=== PATIENT | male | born 1945 | race Caucasian/White ===

== ENCOUNTER → 2025-01-28 | Outpatient (CLI) | payer MEDICARE, SELFPAY ==
[2025-01-28 12:26] LABS: Color, Urine Yellow (Yellow); Glucose, Dipstick Normal (Normal); Ketone-Dipstick Negative (Negative); Leukocyte Esterase-Dipstick Negative /ul (Negative); Nitrite-Dipstick Negative (Negative); Occult Blood-Urine Negative /ul (Negative); Protein-Dipstick 15 mg/dl (Negative); Urine Bilirubin Dipstick Negative (Negative); Urine Clarity Clear (Clear); Urine Urobilinogen Normal (Normal)
[2025-01-28 12:29] LABS: Microalbumin,Random Urine 43.1 mg/L (NO RANGE EST.)
[2025-01-28 12:39] LABS: ALB/GLOB Ratio 1.3 RATIO (0.9-2.4); AST(SGOT) 18 U/L (<=37); Alanine Aminotransfer ALT/SGPT 12 U/L (<=46); Albumin, Serum 4.4 g/dL (3.4-4.8); Alkaline Phosphatase 117 U/L (40-129); Anion Gap 14 (5-15); BUN 17 mg/dL (4-19); BUN/Creat Ratio 12.2 RATIO (10-20); Calcium,Total 9.3 mg/dL (7.6-11.0); Carbon Dioxide 20.5 mmol/L (21.0-32.0); Chloride 107 mmol/L (98-108); Creatinine, Serum 1.38 mg/dL (0.70-1.20); EST Glomerular Filtration Rate 52 (>60); Globulin 3.3 g/dL (2.2-4.2); Glucose 94 mg/dL (70-99); Potassium 4.3 mmol/L (3.3-5.1); Protein, Total 7.7 g/dL (5.9-8.4); Sodium Level 141 mmol/L (133-145); Total Bilirubin 0.44 mg/dL (0.00-1.30)
[2025-01-28 12:41] LABS: Absolute Lymphocyte Count 2.27 X10^3/uL (0.83-4.51); Absolute Neutrophil Count 4.7 X10^3/uL (2.0-7.7); Basophil# 0.07 X10^3/uL; Basophil% 0.9 % (0-1); Eosinophils% 3.8 % (0-5); Hematocrit 48.4 % (40-54); Lymphocyte # 2.27 X10^3/ul (0.83-4.51); Lymphocyte % 28.6 % (19-41); Mean Corp Hgb Conc 33.1 g/dL (32-36); Mean Corpuscular Hgb 28.9 pg (27.0-32.0); Mean Corpuscular Volume 87.5 fL (80-94); Monocyte# 0.59 X10^3/uL; Monocyte% 7.4 % (0-10); NRBC Flagged by Analyzer 0 % (0-5); Neutrophil # 4.69 X10^3/uL (2.7-7.7); Neutrophil % 58.9 % (47-70); Platelet Count 246 K/mm3 (150-450); RBC Distribution Width CV 13.4 % (11.6-14.6); RBC Distribution Width SD 42.9 fl (35.1-43.9); Red Blood Count 5.53 M/mm3 (4.6-6.2)
[2025-01-28 12:55] LABS: PSA,Total - Annual Screen 1.63 ng/mL (0.02-4.00)
== END | disposition home or self-care (01) ==
LOC: VSLAB 10:45
DX: I10 Essential (primary) hypertension (principal); R39.9 Unspecified symptoms and signs involving the genitourinary system; Z12.5 Encounter for screening for malignant neoplasm of prostate
CPT/HCPCS: 36415; 80053; 81002; 82043; 84153; 84443; 85025; G0103

== ENCOUNTER → 2025-03-24 | Outpatient (CLI) | payer MEDICARE, SELFPAY ==
[2025-03-24 17:14] LABS: Anion Gap 11 (5-15); BUN 18 mg/dL (4-19); BUN/Creat Ratio 10.9 RATIO (10-20); Calcium,Total 9.7 mg/dL (7.6-11.0); Carbon Dioxide 23.4 mmol/L (21.0-32.0); Chloride 105 mmol/L (98-108); Glucose 92 mg/dL (70-99); Potassium 4.5 mmol/L (3.3-5.1)
== END | disposition home or self-care (01) ==
LOC: VSLAB 13:38
DX: I10 Essential (primary) hypertension (principal)
CPT/HCPCS: 36415; 80048

== ENCOUNTER → 2025-03-30 | Outpatient (CLI) | payer MEDICARE, SELFPAY ==
--- OUTSIDE RECORDS SUMMARY | 2025-03-30 06:10 | XMS RPT_ITS | CCD ---
Author Organization [facility] Care Team Providers Care Quality Auditor Name Role Phone PHYSICIAN, NONE Primary Care Physician Unavailab le ASHLYN SHIFT MECHANIC-TABLE RUNNER, LASHON A Primary Care Physi jana ZULEYMA ESTRADA, SHANNA Kimball Attending Unavailable ASHLYN SHIFT MECHANIC-TABLE RUNNER, LASHON A Primary Care Un available ASHLYN SHIFT MECHANIC-TABLE RUNNER, LASHON A Primary Care Un available TANNER GILLIAM Attending Unavailable MANE, TANNER Consulting Unavailable ASHLYN SHIFT MECHANIC-TABLE RUNNER, LASHON A Primary Care Un available TANNER GILLIAM Attending Unavailable JUANCHO ESTRADA, MADELYN Consulting Unavailable TANNER GILLIAM Attending Unavailable TANNER GILLIAM Admitting Unavailable ASHLYN SHIFT MECHANIC-TABLE RUNNER, LASHON A Primary Care Un available ALFREDO ESTRADA, DR CHARLEEN Rogers Consulting Haley URBAN MD, DR SALMERON Consulting Unavailab virgilio MAGALLANES MD, LUIS Consulting Unavailable LANE ESTRADA, GURPREET Consulting Unavailable CRISTAL ESTRADA, PASCUAL Acuna Consulting Unavailable PHYSICIAN, NONE Primary Care Unavailable MANE, TANNER Consulting Unavailable BASILIO ESTRADA, DR LINDA Keane Attending Unavai radhale ASHLYN SHIFT MECHANIC-TABLE RUNNER, LASHON A Primary Care Un available ASHLYN SHIFT MECHANIC-TABLE RUNNER, LASHON A Attending Un available ZULEYMA ESTRADA, SHANNA Kimball Attending Unavailable ASHLYN SHIFT MECHANIC-TABLE RUNNER, LASHON A Primary Care Un available Beam SHEET METAL ERECTOR-C, Zebulun Primary Care Provider Beam SHEET METAL ERECTOR-C, Zebulun Attending Provider Beam SHEET METAL ERECTOR-C, Zebulun Referring Provider [phone] Daniel ESTRADA, Dr. Forman Attending Provider Beam, Zebulun Attending Unavailable Beam, Zebulun Primary Care Unavailable Beam, Zebulun Primary Care Unavailable Dickson Sanchez Referring Unavailable Dickson Sanchez Attending Unavailable Beam, Jrhome Primary Care Unavailable Beam, Jamal Attending Unavailable Dickson Sanchez Attending Unavailable Beam, [facility] Referring Unavailable Beam, [facility] Primary Care Unavailable Medications Current Medications Medication Drug Class(es) Dates Sig (Normalized) Sig (Original) amoxicillin 875 mg / clavulanate 125 mg oral tablet (1 source) Penicillin-class Antibacterial Start: 02-05-2023 End: 02-09-2023 take 1 tablet by mouth every twelve hours amoxicillin-clav ulanate 875 mg-125 mg oral tablet 1 tab(s), Oral, q12h, X 4 day(s), # 8 tab(s), 0 Refill(s), 02/09/23 17:51:00 EDT, Pharmacy: [facility] #[id number], Appendicitis, 167.6, cm, 02/04/23 14:25:00 EDT, Height, 77.3, kg, 02/04/23 14:25:00 EDT, Dosing Weight Start Date: 02/05/23 Stop Date: 02/09/23 Status: Ordered losartan potassium 50 mg oral tablet (5 sources) Angiotensin 2 Receptor Bridget Start: 09-08-2023 End: 09-02-2024 losartan 50 mg oral tablet Dose : 50 mg = 1 tab(s), Oral, qDay, # 90 tab(s), 3 Refill(s), Pharmacy: [facility] #[id number], 163, cm, 09/08/23 9:22:00 EST, Height, kg, 09/08/23 9:22:00 EST, Dosing Weight Start Date: 09/08/23 Stop Date: 09/02/24 Status: Ordered Start: 02-12-2023 End: 08-11-2023 losartan 50 mg oral tablet D ose : 50 mg = 1 tab(s), Oral, qDay, # 90 tab(s), 1 Refill(s), Pharmacy: [facility] #[id number], 167.6, cm, 02/12/23 15:51:00 EDT, Height, kg, 02/12/23 15:51:00 EDT, Dosing Weight Start Date: 02/12/23 Stop Date: 08/11/23 Status: Ordered Start: 02-05-2023 losartan 50 mg oral tablet Dose : 50 mg = 1 tab(s), Oral, qDay, # 30 tab(s), 0 Refill(s), [facility]: [facility] #[id number], 167.6, cm, 02/04/23 14:25:00 EDT, Height Start Date: 02/05/23 Status: Ordered Completed/Discontinued Medications Medication Drug Class(es) Dates Sig (Normalized) Sig (Original) amLODIPine 5 mg oral tablet (1 source) Dihydropyridine Calcium Channel Bridget Start: 02-08-2025 take 1 tablet by mouth once daily Amlodipine 5 mg tablet Discontinued 5 mg PO daily February 08, 2025 12:00am hydrALAZINE (1 source) Arteriolar Vasodilator Start: 02-05-2023 End: 02-05-2023 hydrALAZINE Start: 02/05/23 9:00:00 EDT, Dose = 25 mg, = 1 tab(s), Oral, 02/04/23 15:00:00 EDT Start Date: 02/05/23 Stop Date: 02/05/23 Status: Completed Problems Problem Classification Problem Date Documented Da te Episodic/Chronic Abdominal hernia (4 sources) Right inguinal hernia 02-12-2023 Episodic Aortic; peripheral; and visceral artery aneurysms (8 sources) Abdominal aortic aneurysm without rupture; Translations: [Abdominal aortic aneurysm, without rupture, unspecified] Onset: 02-05-2023 Chronic Comment on above: 5.1cm noted on CT Appendicitis and other appendiceal conditions (1 source) Appendicitis; Translations: [Unspecified appendicitis] Onset: 02-05-2023 Episodic Chronic kidney disease (4 sources) Chronic kidney disease stage 3 02-17-2023 Chronic Diverticulosis and diverticulitis (4 sources) Diverticular disease 02-12-2023 Chronic Essential hypertension (5 sources) Essential hypertension; Translations: [Essential (primary) hypertension] Onset: 02-05-2023 Chronic Other aftercare (2 sources) Surgical follow-up 06-06-2023 Episodic Other screening for suspected conditions (not mental disorders or infectious disease) (1 source) Encounter for screening for malignant neoplasm of prostate; Translations: [Screening for malignant neoplasm done] Episodic Residual codes; unclassified (1 source) Acquired absence of organ; Translations: [Acquired absence of other specified parts of digestive tract] Onset: 02-05-2023 Episodic Unclassified (5 sources) Patient encounter status 04-28-2023 Unclassified (1 source) Infrarenal abdominal aortic aneurysm, without rupture; Translations: [Infrarenal abdominal aortic aneurysm, without rupture] Onset: 03-25-2025 Results Test Name Value Interpretation Reference Range Facility Basic Metabolic Profile (BMP )on 03-24-2025 BUN/CRE 10.9 RATIO Normal 10-20 [facility] Comment on above: Performed By: #### L 500.2500 #### [facility] [address] [place], [address] Calcium [Mass/Vol] 9.7 mg/dL Normal 7.6-11.0 [facility] Comment on above: Performed By: #### L 500.2500 #### [facility] [address] [place], [address] Chloride [Moles/Vol] 105 mmol/L Normal 98-108 [facility] Comment on above: Performed By: #### L 500.2500 #### [facility] [address] [place], [address] CO2 [Moles/Vol] 23.4 mmol/L Normal 21.0-32.0 [facility] Comment on above: Performed By: #### L 500.2500 #### [facility] [address] [place], [address] Creatinine [Mass/Vol] 1.64 mg/dL High 0.70-1.20 [facility] Comment on above: Performed By: #### L 500.2500 #### [facility] [address] [place], [address] GAP 11 Normal 5-15 [facility] Comment on above: Performed By: #### L 500.2500 #### [facility] [address] [place], [address] GFR/1.73 sq M.predicted among non-blacks MDRD (S/P/Bld) [Vol rate/Area] 42 mL/min/{1.73_m2} Low >60 [facility] Comment on above: Result Comment: mL/m in/1.73m2 CKD-EPI Creatinine Equation (2020) Performed By: #### L 500.2500 #### [facility] [address] [place], [address] Glucose [Mass/Vol] 92 mg/dL Normal 70-99 [facility] Comment on above: Performed By: #### L 500.2500 #### [facility] [address] [place], [address] Potassium [Moles/Vol] 4.5 mmol/L Normal 3.3-5.1 [facility] Comment on above: Performed By: #### L 500.2500 #### [facility] [address] [place], [address] Sodium [Moles/Vol] 140 mmol/L Normal 133-145 [facility] Comment on above: Performed By: #### L 500.2500 #### [facility] [address] [place], [address] Urea nitrogen [Mass/Vol] 18 mg/dL Normal 4-19 [facility] Comment on above: Performed By: #### L 500.2500 #### [facility] [address] [place], [address] MR/BMS.BVTra 03-09-2025 MR/BMS.BVS [facility] [address] [place], [place] [address] OFFICE VISIT Date of Service: 03/09/25 MR#: [id number] Acct: [id number] Name: ROSIBEL STEELE Rep #: [id number] : 1945 Provider: Dr. Dickson Sanchez MD Age/Sex: 79/M Location: BMS.BVS Status: Signed Intake Vital Signs 03/09/25 15:53 BP 170/80 H Blood Pressure Location Lt brachial Position Sitting Respiration 16 Pulse 60 Pulse Source Auscultation Intake Visit Reasons: Abdominal Aortic Aneurysm Is patient in pain?: No Allergies No Known Allergies Allergy (Verified 03/09/25 15:56) Medications ???Medication ???Instructions ???Recorded ???Confirmed ???Type amlodipine 5 mg tablet 5 mg PO QDAY 02/08/25 02/08/25 His tory Have you fallen in the past year?: No PFSH Medical History AAA (abdominal aortic aneurysm) HTN (hypertension) Surgical History Hx of hernia repair ( 2021) Hx of appendectomy ( 2021) Family History Other Cancer Hypertension Social History Smoking Status: Former smoker Tobacco: How many years used: 30 HPI HPI HPI: ROSIBEL STEELE, is a 79 M who presents to the office today for evaluation of 5.4 cm AAA initially discovered in early 2023 on imaging to evaluate appendicitis. He had seen Dr. Mckeon at his [place] location and had CTA at that time though he did not follow up. Scan at that time also suggested renal artery stenosis. He has well controlled HTN on single agent, mildly elevated Cr in January of this year. He denies back or abdominal pain. ROS General General: No weight change, appetite, fatigue, colon cancer, breast cancer or weakness HEENT HEENT: No difficulty swallowing, eye injury, eye surgery, swollen glands or hoarseness Endo Endocrine: No thyroid disease, diabetes mellitus, thyroid cancer, Hair loss, heat intolerance or cold intolerance Skin Skin: No rash or changing moles Musc Musculoskeletal: No back problems, arthritis, rheumatoid arthritis, gout or joint pain Cardio Cardiovascular: Yes high blood pressure; No murmur, pacemaker, heart disease, atrial fibrillation, heart attack, heart stent, palpitations, shortness of breath with exertion or chest pain Psych Psychiatric: No depression, anxiety or hearing voices Resp Respiratory: No shortness of breath, No sleep apnea, No cough, No COPD, No asthma, No emphysema and No wheezing Gastro Gastrointestinal: No abdominal pain, No nausea or vomiting, No diarrhea, No constipation, No blood in stool, No acid reflux, No hemorrhoids, No ulcers, No gallbladder problem and No black,tarry stools Anders Hematologic: No blood thinners, No blood disorders, No bleeding, No anemia and No blood clots Neuro Neurologic: No system reviewed and no additional complaints, except as documented, No as per HPI, No abnormal gait, No abnormal hearing, No abnormal movements, No abnormal speech, No behavioral changes, No burning sensations, No confusion, No convulsions, No disequilibrium, No dizziness, No localized weakness, No frequent falls, No headache(s), No lack of coordination, No loss of vision, No memory loss, No numbness, No other visual disturbances, No radicular pain, No restless legs, No sensory deficit, No syncope, No tingling, No tremor(s), No weakness and No other Exam Const General: cooperative, healthy appearing, comfortable, no acute distress and well developed Nutritional Appearance: well nourished Orientation: alert, awake and oriented x3 [facility] Head: normocephalic and atraumatic Ears: hearing grossly normal bilaterally Nose: external nose normal Eyes General: appearance normal, both eyes and all related structures EOM: EOM intact bilaterally Neck Neck: normal visual inspection, full ROM and trachea midline Resp Effort Inspection: normal respiratory effort, able to speak in complete sentences, symmetric chest movement, no audible wheezes, not labored, no stridor and no use of accessory muscles Cardio Rate: regular rate Rhythm: regular rhythm Pulses: brachial pulses present, radial pulses present and popliteal pulses present GI Inspection: non-distended Palpation: soft, no pulsatile masses and nontender Skin General: no rashes or lesions noted and no erythema Wounds: no wounds Neuro Cranial Nerves: CN's II-XI intact bilaterally and EOM intact bilaterally Speech: speech normal Gait: normal gait Motor: strength 5/5 throughout Sensory Exam: no sensory deficits noted Psych Appearance: grossly normal and well kempt Mental Status: mental status grossly normal Mood: congruent mood Speech and Movement: (more content not included)... Normal [facility] Absolute lymphocyte countOrd ered By: Jamal Hurtado on 01-28-2025 Lymphocytes Auto (Unsp spec) [#/Vol] 2.27 10*3/uL 0.83-4.51 [facility] Absolute neutrophil countOrd ered By: Jrbulun Beam on 01-28-2025 Neutrophils (Bld) [#/Vol] 4.7 10*3/uL 2.0-7.7 [facility] Anion gap in Serum or Plasma Ordered By: Zebulun Beam on 01-28-2025 Anion gap [Moles/Vol] 14 mmol/L 5- [facility] Automated lymphocyte count a s percentage of total leukocytesOrdered By: Jrbulun Beam on 01-28-2025 Lymphocytes/100 WBC Auto (Unsp spec) 28.6 % - [facility] BUN/creatinine ratioOrdered By: bupatricia Beam on 01-28-2025 Urea nitrogen/Creatinine [Mass ratio] 12.2 mg/mg 05-30 [facility] Basophil percentageOrdered B y: Zebulun Beam on 01-28-2025 Basophils/100 WBC (Bld) 0.9 % 0-1 [facility] Bilirubin Test strip Ql (U)O rdered By: Jamal Hurtado on 01-28-2025 Bilirubin Ql (U) Negative Negative [facility] Bilirubin, totalOrdered By: robertopatricia Beam on 01-28-2025 Bilirubin [Mass/Vol] 0.44 mg/dL 0.00-1.30 [facility] CBC W/Diff, Automatedon 01-10 Absolute Lymph 2.27 X10 3/uL Normal 0.83-4.51 [facility] Comment on above: Performed By: #### L , L501.9520, L502.0500, L100.0100, L500.4050, L501.9910 #### [facility] [place], [address] Absolute Neut 4.7 X10 3/uL Normal 2.0-7.7 [facility] Comment on above: Performed By: #### L , L501.9520, L502.0500, L100.0100, L500.4050, L501.9910 #### [facility] [address] [place], [address] Basophils/100 WBC (Bld) 0.9 % Normal 0-1 [facility] Comment on above: Performed By: #### L 400.2010, L501.9520, L502.0500, L100.0100, L500.4050, L501.9910 #### [facility] [address] [place], [address] Eosinophils/100 WBC (Bld) 3.8 % Normal 0-5 [facility] Comment on above: Performed By: #### L 400, L501.9520, L502.0500, L100.0100, L500.4050, L501.9910 #### [facility] [address] [place], [address] Erythrocyte distribution width (RBC) [Ratio] 13.4 % Normal 11.6-14.6 [facility] Comment on above: Performed By: #### L 400, L501.9520, L502.0500, L100.0100, L500.4050, L501.9910 #### [facility] [address] [place], [address] Hematocrit (Bld) [Volume fraction] 48.4 % Normal 40-54 [facility] Comment on above: Performed By: #### L 400, L501.9520, L502.0500, L100.0100, L500.4050, L501.9910 #### [facility] [address] [place], [address] Hemoglobin (Bld) [Mass/Vol] 16.0 g/dL Normal 13.0-16.5 [facility] Comment on above: Performed By: #### L 400, L501.9520, L502.0500, L100.0100, L500.4050, L501.9910 #### [facility] [address] [place], [address] IG% 0.400 Normal 0.0-0.9 [facility] Comment on above: Result Comment: IG% - Immature Granulocytes (promyelocytes, myelocytes and metamyelocytes) > 1% indicates that a LEFT SHIFT is Present. Performed By: #### L 400, L501.9520, L502.0500, L100.0100, L500.4050, L501.9910 #### [facility] [address] [place], [address] Lymphocytes/100 WBC (Bld) 28.6 % Normal 19-41 [facility] Comment on above: Performed By: #### L 400, L501.9520, L502.0500, L100.0100, L500.4050, L501.9910 #### [facility] [address] [place], [address] MCH (RBC) [Entitic mass] 28.9 pg Normal 27.0-32.0 [facility] Comment on above: Performed By: #### L 400, L501.9520, L502.0500, L100.0100, L500.4050, L501.9910 #### [facility] [address] [place], [address] MCHC (RBC) [Mass/Vol] 33.1 g/dL Normal 32-36 [facility] Comment on above: Performed By: #### L 400, L501.9520, L502.0500, L100.0100, L500.4050, L501.9910 #### [facility] [address] [place], [address] MCV (RBC) [Entitic vol] 87.5 fL Normal 80-94 [facility] Comment on above: Performed By: #### L 400, L501.9520, L502.0500, L100.0100, L500.4050, L501.9910 #### [facility] [address] [place], [address] Monocytes/100 WBC (Bld) 7.4 % Normal 0-10 [facility] Comment on above: Performed By: #### L 400, L501.9520, L502.0500, L100.0100, L500.4050, L501.9910 #### [facility] [address] [place], [address] Neutrophils/100 WBC (Bld) 58.9 % Normal 47-70 [facility] Comment on above: Performed By: #### L 400, L501.9520, L502.0500, L100.0100, L500.4050, L501.9910 #### [facility] [address] [place], [address] Nucleated RBC (Bld) [#/Vol] 0 10*3/uL Normal 0-5 [facility] Comment on above: Performed By: #### L 400, L501.9520, L502.0500, L100.0100, L500.4050, L501.9910 #### [facility] [address] [place], [address] Platelet mean volume (Bld) [Entitic vol] 11.0 fL Normal 6.2-12.0 [facility] Comment on above: Performed By: #### L 400, L501.9520, L502.0500, L100.0100, L500.4050, L501.9910 #### [facility] [address] [place], [address] Platelets (Bld) [#/Vol] 246 10*3/uL Normal 150-450 [facility] Comment on above: Performed By: #### L 400, L501.9520, L502.0500, L100.0100, L500.4050, L501.9910 #### [facility] [address] [place], [address] RBC (Bld) [#/Vol] 5.53 10*6/uL Normal 4.6-6.2 [facility] Comment on above: Performed By: #### L 400, L501.9520, L502.0500, L100.0100, L500.4050, L501.9910 #### [facility] [address] [place], [address] RDW SD 42.9 fl Normal 35.1-43.9 [facility] Comment on above: Performed By: #### L 400, L501.9520, L502.0500, L100.0100, L500.4050, L501.9910 #### [facility] [address] [place], [address] WBC (Bld) [#/Vol] 8.0 10*3/uL Normal 4.4-11.0 [facility] Comment on above: Performed By: #### L , L501.9520, L502.0500, L100.0100, L500.4050, L501.9910 #### [facility] [address] [place], [address] Carbon dioxide, total [Moles /volume] in Central venous bloodOrdered By: Jamal Hurtado on 01-28-2025 CO2 [Moles/Vol] 20.5 mmol/L Low 21.0-32.0 [facility] Chloride assayOrdered By: Jr Hurtado on 01-28-2025 Chloride [Moles/Vol] 107 mmol/L 98-108 [facility] Comprehensive Metabolic Prof ilon 01-28-2025 Albumin [Mass/Vol] 4.4 g/dL Normal 3.4-4.8 [facility] Comment on above: Performed By: #### L , L501.9520, L502.0500, L100.0100, L500.4050, L501.9910 #### [facility] [address] [place], [address] Albumin/Globulin [Mass ratio] 1.3 {ratio} Normal 0.9-2.4 [facility] Comment on above: Performed By: #### L 400, L501.9520, L502.0500, L100.0100, L500.4050, L501.9910 #### [facility] [address] [place], [address] ALK PHOS 117 U/L Normal 40-129 [facility] Comment on above: Performed By: #### L 400, L501.9520, L502.0500, L100.0100, L500.4050, L501.9910 #### [facility] [address] [place], [address] ALT [Catalytic activity/Vol] 12 U/L Normal <=46 [facility] Comment on above: Performed By: #### L 400, L501.9520, L502.0500, L100.0100, L500.4050, L501.9910 #### [facility] [address] [place], [address] AST [Catalytic activity/Vol] 18 U/L Normal <=37 [facility] Comment on above: Performed By: #### L 400, L501.9520, L502.0500, L100.0100, L500.4050, L501.9910 #### [facility] [address] [place], [address] Bilirubin [Mass/Vol] 0.44 mg/dL Normal 0.00-1.30 [facility] Comment on above: Performed By: #### L 400, L501.9520, L502.0500, L100.0100, L500.4050, L501.9910 #### [facility] [address] [place], [address] BUN/CRE 12.2 RATIO Normal 10-20 [facility] Comment on above: Performed By: #### L 400.2010, L501.9520, L502.0500, L100.0100, L500.4050, L501.9910 #### [facility] [address] [place], [address] Calcium [Mass/Vol] 9.3 mg/dL Normal 7.6-11.0 [facility] Comment on above: Performed By: #### L 400, L501.9520, L502.0500, L100.0100, L500.4050, L501.9910 #### [facility] [address] [place], [address] Chloride [Moles/Vol] 107 mmol/L Normal 98-108 [facility] Comment on above: Performed By: #### L 400, L501.9520, L502.0500, L100.0100, L500.4050, L501.9910 #### [facility] [address] [place], [address] CO2 [Moles/Vol] 20.5 mmol/L Low 21.0-32.0 [facility] Comment on above: Performed By: #### L 400, L501.9520, L502.0500, L100.0100, L500.4050, L501.9910 #### [facility] [address] [place], [address] Creatinine [Mass/Vol] 1.38 mg/dL High 0.70-1.20 [facility] Comment on above: Performed By: #### L 400, L501.9520, L502.0500, L100.0100, L500.4050, L501.9910 #### [facility] [address] [place], [address] GAP 14 Normal 5-15 [facility] Comment on above: Performed By: #### L 400.2010, L501.9520, L502.0500, L100.0100, L500.4050, L501.9910 #### [facility] [address] [place], [address] GFR/1.73 sq M.predicted among non-blacks MDRD (S/P/Bld) [Vol rate/Area] 52 mL/min/{1.73_m2} Low >60 [facility] Comment on above: Result Comment: mL/m in/1.73m2 CKD-EPI Creatinine Equation (2020) Performed By: #### L 400, L501.9520, L502.0500, L100.0100, L500.4050, L501.9910 #### [facility] [address] [place], [address] Globulin (S) [Mass/Vol] 3.3 g/dL Normal 2.2-4.2 [facility] Comment on above: Performed By: #### L 400.2010, L501.9520, L502.0500, L100.0100, L500.4050, L501.9910 #### [facility] [address] [place], [address] Glucose [Mass/Vol] 94 mg/dL Normal 70-99 [facility] Comment on above: Performed By: #### L 400, L501.9520, L502.0500, L100.0100, L500.4050, L501.9910 #### [facility] [address] [place], [address] Potassium [Moles/Vol] 4.3 mmol/L Normal 3.3-5.1 [facility] Comment on above: Performed By: #### L 400, L501.9520, L502.0500, L100.0100, L500.4050, L501.9910 #### [facility] [address] [place], [address] Sodium [Moles/Vol] 141 mmol/L Normal 133-145 [facility] Comment on above: Performed By: #### L 400, L501.9520, L502.0500, L100.0100, L500.4050, L501.9910 #### [facility] [address] [place], [address] T PROT 7.7 g/dL Normal 5.9-8.4 [facility] Comment on above: Performed By: #### L 400, L501.9520, L502.0500, L100.0100, L500.4050, L501.9910 #### [facility] [address] [place], [address] Urea nitrogen [Mass/Vol] 17 mg/dL Normal 4-19 [facility] Comment on above: Performed By: #### L , L501.9520, L502.0500, L100.0100, L500.4050, L501.9910 #### [facility] [address] [place], [address] Eosinophil percentageOrdered By: Magdalenalun Beam on 01-28-2025 Eosinophils/100 WBC (Bld) 3.8 % 0-5 [facility] [facility] Erythrocyte distribution wid th ratioOrdered By: Zebulun Beam on 01-28-2025 Erythrocyte distribution width (RBC) [Ratio] 13.4 % 11.6-14.6 [facility] Erythrocyte distribution wid th standard deviationOrdered By: Zebulun Beam on 01-28-2025 Erythrocyte distribution width (RBC) [Ratio] 42.9 fl 35.1-43.9 [facility] Glomerular filtration rate ( GFR) estimation/1.73 sq m using serum, plasma, or whole bOrdered By: Zebulun Beam on 01-28-2025 GFR/1.73 sq M.predicted among non-blacks MDRD (S/P/Bld) [Vol rate/Area] 52 mL/min/{1.73_m2} Low >60 [facility] Comment on above: mL/min/1.73m2 CKD-EP I Creatinine Equation (2020) Hematocrit Auto (Bld) [Volum e fraction]Ordered By: Jamal Hurtado on 01-28-2025 Hematocrit (Bld) [Volume fraction] 48.4 % 40-54 [facility] Hemoglobin measurementOrdere d By: Jamal Hurtado on 01-28-2025 Hemoglobin (Bld) [Mass/Vol] 16.0 g/dL 13.0-16.5 [facility] Immature granulocytes/100 WB C Auto (Bld)Ordered By: Ingrisn Genesis on 01-28-2025 Immature granulocytes/100 WBC (Bld) 0.400 % 0.0-0.9 [facility] Comment on above: IG% - Immature Granu locytes (promyelocytes, myelocytes and metamyelocytes) > 1% indicates that a LEFT SHIFT is Present. Ketones Test strip Ql (U)Ord ered By: Jamal Hurtado on 01-28-2025 Ketones Ql (U) Negative Negative [facility] Laboratory - Chemistry and C hemistry - challengeOrdered By: Jamal Hurtado on 01-28-2025 AST [Catalytic activity/Vol] 18 U/L <38 [facility] MCV (mean corpuscular volume ) determinationOrdered By: Jamal Hurtado on 01-28-2025 MCV (RBC) [Entitic vol] 87.5 fL 80-94 [facility] Mean corpuscular hemoglobin (MCH) determinationOrdered By: Magdalenapatricia Hurtado on 01-28-2025 MCH (RBC) [Entitic mass] 28.9 pg 27.0-32.0 [facility] Mean corpuscular hemoglobin concentration (MCHC) determinationOrdered By: Jamal Beam on 01-28-2025 MCHC (RBC) [Mass/Vol] 33.1 g/dL 32-36 [facility] Mean platelet volume determi nationOrdered By: Jamal Hurtado on 01-28-2025 Platelet mean volume (Bld) [Entitic vol] 11.0 fL 6.2-12.0 [facility] Microalbumin,Random Urineon 01-28-2025 MICROALBUMIN,UR 43.1 mg/L Normal NO RANGE EST. [facility] Comment on above: Performed By: #### L 400.2010, L501.9520, L502.0500, L100.0100, L500.4050, L501.9910 #### [facility] [address] [place], [place], [id number] Monocyte percentageOrdered B y: Zebulun Beam on 01-28-2025 Monocytes/100 WBC (Bld) 7.4 % 0-10 [facility] Neutrophil percentageOrdered By: Zebulun Beam on 01-28-2025 Neutrophils/100 WBC (Bld) 58.9 % 47-70 [facility] Nitrite Test strip Ql (U)Ord ered By: Zebulun Beam on 01-28-2025 Nitrite Ql (U) Negative Negative [facility] Nucleated red blood cell per centageOrdered By: Zebulun Beam on 01-28-2025 Nucleated RBC/100 WBC (Bld) [Ratio] 0 % 0-5 [facility] PSA,Total - Annual Screenon 01-28-2025 PSA,TOT SCREEN 1.63 ng/mL Normal 0.02-4.00 [facility] Comment on above: Result Comment: This test was performed using the [employer] tPSA method. Measured values of a patient??sample can vary depending on the testing procedure used. PSA values determined on patient samples by different testing procedures cannot be used interchangeably. If there is a change in PSA assays while monitoring therapy, sequential testing should be performed to confirm baseline values. Performed By: #### L 400.2010, L501.9520, L502.0500, L100.0100, L500.4050, L501.9910 #### [facility] [address] [place], [place], [id number] Platelet countOrdered By: Ze bulun Beam on 01-28-2025 Platelets (Bld) [#/Vol] 246 10*3/uL 150-450 [facility] Potassium measurement (mass/ volume)Ordered By: Jamal Hurtado on 01-28-2025 Potassium (Unsp spec) [Mass/Vol] 4.3 mmol/L 3.3-5.1 [facility] Protein Test strip Ql (U)Ord ered By: Jamal Hurtado on 01-28-2025 Protein Ql (U) 15 mg/dl High Negative [facility] RBC Auto (Bld) [#/Vol]Ordere d By: Jamal Hurtado on 01-28-2025 RBC (Bld) [#/Vol] 5.53 10*6/uL 4.6-6.2 [facility] Serum creatinine measurement (mass/volume)Ordered By: Jamal Hurtado on 01-28-2025 Creatinine [Mass/Vol] 1.38 mg/dL High 0.70-1.20 [facility] Serum globulin measurementOr dered By: Jamal Hurtado on 01-28-2025 Globulin (S) [Mass/Vol] 3.3 g/dL 2.2-4.2 [facility] Serum glucose measurement (m ass/volume)Ordered By: Jamal Hurtado on 01-28-2025 Glucose [Mass/Vol] 94 mg/dL 70-99 [facility] Serum or plasma alanine gage otransferase (ALT) measurementOrdered By: Jamal Hurtado on 01-28-2025 ALT [Catalytic activity/Vol] 12 U/L <47 [facility] Serum or plasma albumin gato urement (mass/volume)Ordered By: Jamal Hurtado on 01-28-2025 Albumin [Mass/Vol] 4.4 g/dL 3.4-4.8 [facility] Serum or plasma albumin/glob ulin mass ratioOrdered By: Jamal Hurtado on 01-28-2025 Albumin/Globulin [Mass ratio] 1.3 {ratio} 0.9-2.4 [facility] Serum or plasma alkaline froylan sphatase measurementOrdered By: Jamal Hurtado on 01-28-2025 ALP [Catalytic activity/Vol] 117 U/L 40-129 [facility] Serum or plasma calcium gato urement (mass/volume)Ordered By: Jamal Hurtado on 01-28-2025 Calcium [Mass/Vol] 9.3 mg/dL 7.6-11.0 [facility] Serum or plasma urea nitroge n measurement (mass/volume)Ordered By: Ingrisn Beam on 01-28-2025 Urea nitrogen [Mass/Vol] 17 mg/dL 4-19 [facility] Sodium levelOrdered By: Magdalena Hurtado on 01-28-2025 Sodium [Moles/Vol] 141 mmol/L 133-145 [facility] TSH DL <= 0.005 mIU/L QnOrde red By: Jamal Hurtado on 01-28-2025 TSH Qn 2.440 uIU/mL 0.300-4.200 [facility] Thyroid Stim Hormone (TSH)on 01-28-2025 TSH 2.440 uIU/mL Normal 0.300-4.200 [facility] Comment on above: Performed By: #### L 400, L501.9520, L502.0500, L100.0100, L500.4050, L501.9910 #### [facility] [address] [place], [place], [id number] Total proteinOrdered By: Roman Hurtado on 01-28-2025 Protein [Mass/Vol] 7.7 g/dL 5.9-8.4 [facility] Urinalysis, Routine (Dipstic k)on 01-28-2025 BILIRUBIN URINE Negative Normal Negative [facility] Comment on above: Order Comment: CLEAN CATCH Performed By: #### L 400, L501.9520, L502.0500, L100.0100, L500.4050, L501.9910 #### [facility] [address] [place], [place], [id number] Clarity (U) Clear Normal Clear [facility] Comment on above: Order Comment: CLEAN CATCH Performed By: #### L 400, L501.9520, L502.0500, L100.0100, L500.4050, L501.9910 #### [facility] [address] [place], [address] Color (U) Yellow Normal Yellow [facility] Comment on above: Order Comment: CLEAN CATCH Performed By: #### L 400.2010, L501.9520, L502.0500, L100.0100, L500.4050, L501.9910 #### [facility] [address] [place], [address] GLUCOSE, UR Normal Normal Normal [facility] Comment on above: Order Comment: CLEAN CATCH Performed By: #### L 400.2010, L501.9520, L502.0500, L100.0100, L500.4050, L501.9910 #### [facility] [address] [place], [address] KETONE UR Negative Normal Negative [facility] Comment on above: Order Comment: CLEAN CATCH Performed By: #### L 400.2010, L501.9520, L502.0500, L100.0100, L500.4050, L501.9910 #### [facility] [address] [place], [address] LEUK ESTERASE Negative Normal Negative [facility] Comment on above: Order Comment: CLEAN CATCH Performed By: #### L 400.2010, L501.9520, L502.0500, L100.0100, L500.4050, L501.9910 #### [facility] [address] [place], [address] Nitrite Ql (U) Negative Normal Negative [facility] Comment on above: Order Comment: CLEAN CATCH Performed By: #### L 400.2010, L501.9520, L502.0500, L100.0100, L500.4050, L501.9910 #### [facility] [address] [place], [address] OCCULT BLOOD-UR Negative Normal Negative [facility] Comment on above: Order Comment: CLEAN CATCH Performed By: #### L 400.2010, L501.9520, L502.0500, L100.0100, L500.4050, L501.9910 #### [facility] [address] [place], [address] pH UR 6.0 Normal 5.0 - 8.0 [facility] Comment on above: Order Comment: CLEAN CATCH Performed By: #### L 400.2010, L501.9520, L502.0500, L100.0100, L500.4050, L501.9910 #### [facility] [address] [place], [address] PROT DIPSTX 15 mg/dl Abnormal Negative [facility] Comment on above: Order Comment: CLEAN CATCH Performed By: #### L 400, L501.9520, L502.0500, L100.0100, L500.4050, L501.9910 #### [facility] [address] [place], [address] SP.GR. DIPSTX 1.010 Normal 1.002-1.030 [facility] Comment on above: Order Comment: CLEAN CATCH Performed By: #### L 400.2010, L501.9520, L502.0500, L100.0100, L500.4050, L501.9910 #### [facility] [address] [place], [address] UROBILI Normal Normal Normal [facility] Comment on above: Order Comment: CLEAN CATCH Performed By: #### L 400, L501.9520, L502.0500, L100.0100, L500.4050, L501.9910 #### [facility] [address] [place], [address] Urine albumin measurement wi detection limit of 20 mg/L or less (mass/volume)Ordered By: Jamal Hurtado on 01-28-2025 Albumin DL <= 20 mg/L (U) [Mass/Vol] 43.1 mg/L NO RANGE EST. [facility] Urine clarityOrdered By: Roman Hurtado on 01-28-2025 Clarity (U) Clear Clear [facility] Urine color determinationOrd ered By: Jamal Hurtado on 01-28-2025 Color (U) Yellow Yellow [facility] Urine glucose detectionOrder ed By: Jamal Hurtado on 01-28-2025 Glucose Ql (U) Normal mg/dl Normal [facility] Urine leukocyte esterase det ection by dipstickOrdered By: Jamal Hurtado on 01-28-2025 Leukocyte esterase Test strip Ql (U) Negative Negative [facility] Urine pHOrdered By: Jamal Hurtado on 01-28-2025 pH (U) 6.0 [pH] 5.0 - 8.0 [facility] Urine specific gravity measu rementOrdered By: Magdalenapatricia Hurtado on 01-28-2025 Specific gravity (U) [Rel density] 1.010 1.002-1.030 [facility] Urine urobilinogen measureme ntOrdered By: Jamal Hurtado on 01-28-2025 Urobilinogen Ql (U) Normal mg/dl Normal [facility] White blood cell (WBC) count Ordered By: Jamal Hurtado on 01-28-2025 WBC (Bld) [#/Vol] 8.0 10*3/uL 4.4-11.0 [facility] [address] ANGIOGRAPHY ABD AORTA + I LIOFEMORALon 10-31-2023 CT ANGIOGRAPHY ABD AORTA + ILIOFEMORAL ORIGINAL EXAMINATION: CTA OF THE ABDOMEN AND PELVIS WITH CONTRAST 10/31/2023 3:45 pm: TECHNIQUE: CTA of the abdomen and pelvis was performed with the administration of intravenous contrast. Multiplanar reformatted images are provided for review. MIP images are provided for review. Automated exposure control, iterative reconstruction, and/or weight based adjustment of the mA/kV was utilized to reduce the radiation dose to as low as reasonably achievable. COMPARISON: 02/04/2023 HISTORY: ORDERING SYSTEM PROVIDED HISTORY: Reason for Exam: AAA FINDINGS: CTA ABDOMEN: Visualized descending thoracic aorta demonstrates no acute CT angiographic abnormality. Fusiform infrarenal abdominal aortic aneurysm noted with maximal aortic diameter of 5.4 cm which is slightly larger compared to 02/04/2023 when it measures approximately 5.3 cm. No acute rupture or dissection. Otherwise, no acute CT angiographic abnormality of the abdominal aorta. 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 Collateral branches opacify inferior mesenteric arterial branches. Critical stenosis at right renal artery origin. Mild-moderate stenosis left renal artery origin noted. CTA PELVIS: Common, internal and external iliac arteries as well as visualized femoral arterial distributions demonstrate no acute CT angiographic abnormality CT: Visualized lower thorax demonstrates mild nodular infiltrative changes posterior lung bases. Correlation with clinical evidence of bronchitis/pneumonitis underlying chronic lung disease suggested. Otherwise, no acute CT abnormality visualized lower thorax. 6.5 cm hepatic cyst unchanged compared to prior study. Otherwise, visualized abdominal organs demonstrate no acute CT abnormality. Visualized GI tract demonstrates right inguinal hernia without strangulation, infarction or obstruction of the hernia sac. Otherwise, no acute CT abnormality of the visualized GI tract. Pelvis: Incomplete visualization right scrotal mass most consistent with hydrocele measuring 7.8 cm. Scrotal ultrasound suggested for further evaluation. Otherwise, no acute CT abnormality. Osseous structures and soft tissues: Foraminal stenosis and exiting nerve effacement/compression lower lumbar spine due to facet hypertrophy. Lumbar MRI suggested if clinical concern of radiculopathy/nerve compression. IMPRESSION: Fusiform infrarenal abdominal aortic aneurysm 5.4 cm in greatest dimension slightly increased in size compared to 02/04/2023 port and measures 5.3 cm in greatest dimension. Surgical/interventiona l consultation suggested. No acute rupture or dissection noted. 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 Incomplete visualization hypodense right scrotal mass most consistent with hydrocele measuring 7.7-7.8 cm in size. Scrotal ultrasound suggested for further evaluation, 6.5 cm hepatic cyst unchanged compared to prior study, foraminal stenosis and exiting nerve compression lower lumbar spine. Mild nodular infiltrative changes posterior lung bases bilaterally. Correlation with clinical evidence of early/mild pneumonia/pneumonitis and underlying chronic lung disease suggested. Interpreted by: Pascual Vee DO Preliminary Report By: Pascual Vee DO Electronically signed By Pascual Vee DO Dictated Date: 10/31/2023 4:16:29 PM Prelim Date: 10/31/2023 4:37:40 PM Sign Date: 10/31/2023 4:37:40 PM Ordering Provider: SHANNA Au [facility] ([place]) .GFRon 10-27-2023 GFR Non- 44 ml/min/1.73sqm Normal [facility] ([place]) Comment on above: Result Comment: GFR Population mean for , Non- Americans Ages 20-29 = 116 mL/min/1.73 sq.m. Ages 30-39 = 107 mL/min/1.73 sq.m. Ages 40-49 = 99 mL/min/1.73 sq.m. Ages 50-59 = 93 mL/min/1.73 sq.m. Ages 60-69 = 85 mL/min/1.73 sq.m. Ages 70+ = 75 mL/min/1.73 sq.m. Chronic Kidney Disease: Less than 60 mL/min/1.73 square meters End Stage Renal Disease: Less than 15 mL/min/1.73 square meters Performed By: #### B UN, CRE, GFR #### [address] [address] GFR 54 ml/min/1.73sqm Normal [facility] ([place]) Comment on above: Result Comment: GFR Population mean for , Non- Americans Ages 20-29 = 116 mL/min/1.73 sq.m. Ages 30-39 = 107 mL/min/1.73 sq.m. Ages 40-49 = 99 mL/min/1.73 sq.m. Ages 50-59 = 93 mL/min/1.73 sq.m. Ages 60-69 = 85 mL/min/1.73 sq.m. Ages 70+ = 75 mL/min/1.73 sq.m. Chronic Kidney Disease: Less than 60 mL/min/1.73 square meters End Stage Renal Disease: Less than 15 mL/min/1.73 square meters Performed By: #### B UN, CRE, GFR #### [address] [address] BUNon 10-27-2023 Urea nitrogen [Mass/Vol] 20 mg/dL High 02-25 [facility] ([place]) Comment on above: Performed By: #### B UN, CRE, GFR #### [address] [place], [place] [address] CREon 10-27-2023 Creatinine [Mass/Vol] 1.53 mg/dL High 0.70-1.30 [facility] ([place]) Comment on above: Performed By: #### B UN, CRE, GFR #### [address] [address] LABORATORYOrdered By: SYSTEM SYSTEM on 10-27-2023 Creatinine [Mass/Vol] 1.53 mg/dL High 0.70 - 1.30 mg/dL AO ADM SS GFR/1.73 sq M.predicted among blacks MDRD (S/P/Bld) [Vol rate/Area] 54 ml/min/1.73sqm Invalid Interpretation Code AO Chemistry S Comment on above: Interpretive Data: GFR Population mean for , Non- Americans Ages 20-29 = 116 mL/min/1.73 sq.m. Ages 30-39 = 107 mL/min/1.73 sq.m. Ages 40-49 = 99 mL/min/1.73 sq.m. Ages 50-59 = 93 mL/min/1.73 sq.m. Ages 60-69 = 85 mL/min/1.73 sq.m. Ages 70+ = 75 mL/min/1.73 sq.m. Chronic Kidney Disease: Less than 60 mL/min/1.73 square meters End Stage Renal Disease: Less than 15 mL/min/1.73 square meters GFR/1.73 sq M.predicted among non-blacks MDRD (S/P/Bld) [Vol rate/Area] 44 ml/min/1.73sqm Invalid Interpretation Code AO Chemistry S Comment on above: Interpretive Data: GFR Population mean for , Non- Americans Ages 20-29 = 116 mL/min/1.73 sq.m. Ages 30-39 = 107 mL/min/1.73 sq.m. Ages 40-49 = 99 mL/min/1.73 sq.m. Ages 50-59 = 93 mL/min/1.73 sq.m. Ages 60-69 = 85 mL/min/1.73 sq.m. Ages 70+ = 75 mL/min/1.73 sq.m. Chronic Kidney Disease: Less than 60 mL/min/1.73 square meters End Stage Renal Disease: Less than 15 mL/min/1.73 square meters Urea nitrogen [Mass/Vol] 20 mg/dL High 7 - 18 mg/dL AO ADM SS .Auto Diffon 05-07-2023 Basophil, Absolute 0.1 10 3/mcL Normal 0.0-0.2 [facility] ([place]) Comment on above: Performed By: #### G FR, ANEU, CBC, BMP, ADIFF #### [address] [address] Basophils/100 WBC (Bld) 1.0 % Normal 0.0-2.5 A [facility] ([place]) Comment on above: Performed By: #### G FR, ANEU, CBC, BMP, ADIFF #### [address] [address] Eosinophil, Absolute 0.3 10 3/mcL Normal 0.0-0.4 [facility] ([place]) Comment on above: Performed By: #### G FR, ANEU, CBC, BMP, ADIFF #### [address] [address] Eosinophils/100 WBC (Bld) 3.3 % Normal 0.0-7.0 [facility] ([place]) Comment on above: Performed By: #### G FR, ANEU, CBC, BMP, ADIFF #### [address] [address] Lymphocyte, Absolute 2.4 10 3/mcL Normal 0.8-3.9 [facility] ([place]) Comment on above: Performed By: #### G FR, ANEU, CBC, BMP, ADIFF #### [address] [address] Lymphocytes/100 WBC (Bld) 24.7 % Normal 10.0-50.0 [facility] ([place]) Comment on above: Performed By: #### G FR, ANEU, CBC, BMP, ADIFF #### [address] [address] Monocyte, Absolute 0.7 10 3/mcL Normal 0.2-1.0 [facility] ([place]) Comment on above: Performed By: #### G FR, ANEU, CBC, BMP, ADIFF #### [address] [address] Monocytes/100 WBC (Bld) 7.6 % Normal 1.7-13.0 A [facility] ([place]) Comment on above: Performed By: #### G FR, ANEU, CBC, BMP, ADIFF #### [address] [address] Neutrophils/100 WBC (Bld) 63.4 % Normal 37.0-80.0 [facility] ([place]) Comment on above: Performed By: #### G FR, ANEU, CBC, BMP, ADIFF #### [address] [address] .GFRon 05-07-2023 GFR 60 ml/min/1.73sqm Normal [facility] ([place]) Comment on above: Result Comment: GFR Population mean for , Non- Americans Ages 20-29 = 116 mL/min/1.73 sq.m. Ages 30-39 = 107 mL/min/1.73 sq.m. Ages 40-49 = 99 mL/min/1.73 sq.m. Ages 50-59 = 93 mL/min/1.73 sq.m. Ages 60-69 = 85 mL/min/1.73 sq.m. Ages 70+ = 75 mL/min/1.73 sq.m. Chronic Kidney Disease: Less than 60 mL/min/1.73 square meters End Stage Renal Disease: Less than 15 mL/min/1.73 square meters Performed By: #### G FR, ANEU, CBC, BMP, ADIFF #### [address] [address] GFR Non- 49 ml/min/1.73sqm Normal [facility] ([place]) Comment on above: Result Comment: GFR Population mean for , Non- Americans Ages 20-29 = 116 mL/min/1.73 sq.m. Ages 30-39 = 107 mL/min/1.73 sq.m. Ages 40-49 = 99 mL/min/1.73 sq.m. Ages 50-59 = 93 mL/min/1.73 sq.m. Ages 60-69 = 85 mL/min/1.73 sq.m. Ages 70+ = 75 mL/min/1.73 sq.m. Chronic Kidney Disease: Less than 60 mL/min/1.73 square meters End Stage Renal Disease: Less than 15 mL/min/1.73 square meters Performed By: #### G FR, ANEU, CBC, BMP, ADIFF #### [address] [address] .NEUABSon 05-07-2023 Neutrophil, Absolute 6.2 10 3/mcL Normal 2.9-6.2 [facility] ([place]) Comment on above: Performed By: #### G FR, ANEU, CBC, BMP, ADIFF #### [address] [address] BMPon 05-07-2023 BUN/Creatinine Ratio 15 ratio Normal 7-27 [facility] ([place]) Comment on above: Performed By: #### G FR, ANEU, CBC, BMP, ADIFF #### [address] [address] Calcium [Mass/Vol] 9.4 mg/dL Normal 8.4-10.2 [facility] ([place]) Comment on above: Performed By: #### G FR, ANEU, CBC, BMP, ADIFF #### [address] [address] Chloride [Moles/Vol] 103 mmol/L Normal 98-107 [facility] ([place]) Comment on above: Performed By: #### G FR, ANEU, CBC, BMP, ADIFF #### [address] [address] CO2 [Moles/Vol] 28 mmol/L Normal 23-31 [facility] ([place]) Comment on above: Performed By: #### G FR, ANEU, CBC, BMP, ADIFF #### [address] [address] Creatinine [Mass/Vol] 1.40 mg/dL High 0.70-1.30 [facility] ([place]) Comment on above: Performed By: #### G FR, ANEU, CBC, BMP, ADIFF #### [address] [address] Electrolyte Balance 7.0 mEq/L Normal 4.0-15.0 [facility] ([place]) Comment on above: Performed By: #### G FR, ANEU, CBC, BMP, ADIFF #### [address] [address] Glucose [Mass/Vol] 111 mg/dL High 83-110 [facility] ([place]) Comment on above: Performed By: #### G FR, ANEU, CBC, BMP, ADIFF #### [address] [address] Potassium [Moles/Vol] 4.7 mmol/L Normal 3.5-5.1 [facility] ([place]) Comment on above: Performed By: #### G FR, ANEU, CBC, BMP, ADIFF #### [address] [address] Sodium [Moles/Vol] 138 mmol/L Normal 136-145 [facility] ([place]) Comment on above: Performed By: #### G FR, ANEU, CBC, BMP, ADIFF #### [address] [address] Urea nitrogen [Mass/Vol] 21 mg/dL High 7-18 [facility] ([place]) Comment on above: Performed By: #### G FR, ANEU, CBC, BMP, ADIFF #### [address] [address] CBCon 05-07-2023 Erythrocyte distribution width (RBC) [Ratio] 15.6 % High 11.5-14.5 [facility] ([place]) Comment on above: Order Comment: Pre-A dmission Testing Performed By: #### G FR, ANEU, CBC, BMP, ADIFF #### [address] [address] Hematocrit (Bld) [Volume fraction] 44.0 % Normal 42.0-52.0 [facility] ([place]) Comment on above: Order Comment: Pre-A dmission Testing Performed By: #### G FR, ANEU, CBC, BMP, ADIFF #### [address] [address] Hgb 14.9 G/dL Normal 14.0-18.0 [facility] ([place]) Comment on above: Order Comment: Pre-A dmission Testing Performed By: #### G FR, ANEU, CBC, BMP, ADIFF #### [address] [address] MCH (RBC) [Entitic mass] 29.3 pg Normal 27.0-31.2 [facility] ([place]) Comment on above: Order Comment: Pre-A dmission Testing Performed By: #### G FR, ANEU, CBC, BMP, ADIFF #### [address] [address] MCHC 33.9 G/dL Normal 31.8-35.4 [facility] ([place]) Comment on above: Order Comment: Pre-A dmission Testing Performed By: #### G FR, ANEU, CBC, BMP, ADIFF #### [address] [address] MCV (RBC) [Entitic vol] 86.5 fL Normal 80.0-94.0 A [facility] ([place]) Comment on above: Order Comment: Pre-A dmission Testing Performed By: #### G FR, ANEU, CBC, BMP, ADIFF #### [address] [address] Platelet 232 10 3/mcL Normal 130-400 [facility] ([place]) Comment on above: Order Comment: Pre-A dmission Testing Performed By: #### G FR, ANEU, CBC, BMP, ADIFF #### [address] [address] Platelet mean volume (Bld) [Entitic vol] 8.9 fL Normal 7.4-10.4 [facility] ([place]) Comment on above: Order Comment: Pre-A dmission Testing Performed By: #### G FR, ANEU, CBC, BMP, ADIFF #### Nadja [address] [address] RBC 5.08 10 6/mcL Normal 4.04-6.13 [facility] ([place]) Comment on above: Order Comment: Pre-A dmission Testing Performed By: #### G FR, ANEU, CBC, BMP, ADIFF #### [address] [place], [place] [address] WBC 9.7 10 3/mcL Normal 4.6-10.8 [facility] ([place]) Comment on above: Order Comment: Pre-A dmission Testing Performed By: #### G FR, ANEU, CBC, BMP, ADIFF #### [address] [place], [place] [address] LABORATORYOrdered By: SYSTEM SYSTEM on 05-07-2023 Basophil, Absolute 0.1 103/mcL Invalid Interpretation Code 0.0 - 0.2 10^3/mcL AO Workflow SS Basophils/100 WBC (Bld) 1.0 % Invalid Interpretation Code 0.0 - 2.5 % AO Workflow SS Calcium [Mass/Vol] 9.4 mg/dL Invalid Interpretation Code 8.4 - 10.2 mg/dL AO ADM SS Chloride [Moles/Vol] 103 mmol/L Invalid Interpretation Code 98 - 107 mmol/L AO ADM SS CO2 [Moles/Vol] 28 mmol/L Invalid Interpretation Code 23 - 31 mmol/L AO ADM SS Creatinine [Mass/Vol] 1.40 mg/dL Invalid Interpretation Code 0.70 - 1.30 mg/dL AO ADM SS Electrolyte Balance 7.0 mEq/L Invalid Interpretation Code 4.0 - 15.0 mEq/L AO ADM SS Eosinophil, Absolute 0.3 103/mcL Invalid Interpretation Code 0.0 - 0.4 10^3/mcL AO Workflow SS Eosinophils/100 WBC (Bld) 3.3 % Invalid Interpretation Code 0.0 - 7.0 % AO Workflow SS Erythrocyte distribution width (RBC) [Ratio] 15.6 % Invalid Interpretation Code 11.5 - 14.5 % AO Workflow SS GFR/1.73 sq M.predicted among blacks MDRD (S/P/Bld) [Vol rate/Area] 60 ml/min/1.73sqm Invalid Interpretation Code AO Chemistry S Comment on above: Interpretive Data: GFR Population mean for , Non- Americans Ages 20-29 = 116 mL/min/1.73 sq.m. Ages 30-39 = 107 mL/min/1.73 sq.m. Ages 40-49 = 99 mL/min/1.73 sq.m. Ages 50-59 = 93 mL/min/1.73 sq.m. Ages 60-69 = 85 mL/min/1.73 sq.m. Ages 70+ = 75 mL/min/1.73 sq.m. Chronic Kidney Disease: Less than 60 mL/min/1.73 square meters End Stage Renal Disease: Less than 15 mL/min/1.73 square meters GFR/1.73 sq M.predicted among non-blacks MDRD (S/P/Bld) [Vol rate/Area] 49 ml/min/1.73sqm Invalid Interpretation Code AO Chemistry S Comment on above: Interpretive Data: GFR Population mean for , Non- Americans Ages 20-29 = 116 mL/min/1.73 sq.m. Ages 30-39 = 107 mL/min/1.73 sq.m. Ages 40-49 = 99 mL/min/1.73 sq.m. Ages 50-59 = 93 mL/min/1.73 sq.m. Ages 60-69 = 85 mL/min/1.73 sq.m. Ages 70+ = 75 mL/min/1.73 sq.m. Chronic Kidney Disease: Less than 60 mL/min/1.73 square meters End Stage Renal Disease: Less than 15 mL/min/1.73 square meters Glucose [Mass/Vol] 111 mg/dL Invalid Interpretation Code 83 - 110 mg/dL AO ADM SS Hematocrit (Bld) [Volume fraction] 44.0 % Invalid Interpretation Code 42.0 - 52.0 % AO Workflow SS Hemoglobin (Bld) [Mass/Vol] 14.9 G/dL Invalid Interpretation Code 14.0 - 18.0 G/dL AO Workflow SS Lymphocyte, Absolute 2.4 103/mcL Invalid Interpretation Code 0.8 - 3.9 10^3/mcL AO Workflow SS Lymphocytes/100 WBC (Bld) 24.7 % Invalid Interpretation Code 10.0 - 50.0 % AO Workflow SS MCH (RBC) [Entitic mass] 29.3 pg Invalid Interpretation Code 27.0 - 31.2 pg AO Workflow SS MCHC 33.9 G/dL Invalid Interpretation Code 31.8 - 35.4 G/dL AO Workflow SS MCV (RBC) [Entitic vol] 86.5 fL Invalid Interpretation Code 80.0 - 94.0 fL AO Workflow SS Monocyte, Absolute 0.7 103/mcL Invalid Interpretation Code 0.2 - 1.0 10^3/mcL AO Workflow SS Monocytes/100 WBC (Bld) 7.6 % Invalid Interpretation Code 1.7 - 13.0 % AO Workflow SS Neutrophil, Absolute 6.2 103/mcL Invalid Interpretation Code 2.9 - 6.2 10^3/mcL AO Workflow SS Neutrophils/100 WBC (Bld) 63.4 % Invalid Interpretation Code 37.0 - 80.0 % AO Workflow SS Platelet mean volume (Bld) [Entitic vol] 8.9 fL Invalid Interpretation Code 7.4 - 10.4 fL AO Workflow SS Platelets (Bld) [#/Vol] 232 103/mcL Invalid Interpretation Code 130 - 400 10^3/mcL AO Workflow SS Potassium [Moles/Vol] 4.7 mmol/L Invalid Interpretation Code 3.5 - 5.1 mmol/L AO ADM SS RBC (Bld) [#/Vol] 5.08 106/mcL Invalid Interpretation Code 4.04 - 6.13 10^6/mcL AO Workflow SS Sodium [Moles/Vol] 138 mmol/L Invalid Interpretation Code 136 - 145 mmol/L AO ADM SS Urea nitrogen [Mass/Vol] 21 mg/dL Invalid Interpretation Code 7 - 18 mg/dL AO ADM SS Urea nitrogen/Creatinine [Mass ratio] 15 ratio Invalid Interpretation Code 7 - 27 ratio AO ADM SS WBC (Bld) [#/Vol] 9.7 103/mcL Invalid Interpretation Code 4.6 - 10.8 10^3/mcL AO Workflow SS .Auto Diffon 02-17-2023 Basophil, Absolute 0.1 10 3/mcL Normal 0.0-0.2 [facility] ([place]) Comment on above: Performed By: #### MAKSIM WHITE #### Nadja [address] [address] Basophils/100 WBC (Bld) 1.0 % Normal 0.0-2.5 A [facility] ([place]) Comment on above: Performed By: #### MAKSIM WHITE #### [address] [address] Eosinophil, Absolute 0.4 10 3/mcL Normal 0.0-0.4 [facility] ([place]) Comment on above: Performed By: #### MAKSIM WHITE #### Nadja [address] [address] Eosinophils/100 WBC (Bld) 3.7 % Normal 0.0-7.0 [facility] ([place]) Comment on above: Performed By: #### MAKSIM WHITE #### Nadja [address] [address] Lymphocyte, Absolute 2.4 10 3/mcL Normal 0.8-3.9 [facility] ([place]) Comment on above: Performed By: #### MAKSIM WHITE #### Nadja [address] [address] Lymphocytes/100 WBC (Bld) 22.2 % Normal 10.0-50.0 [facility] ([place]) Comment on above: Performed By: #### MAKSIM WHITE #### Nadja [address] [address] Monocyte, Absolute 0.8 10 3/mcL Normal 0.2-1.0 [facility] ([place]) Comment on above: Performed By: #### MAKSIM WHITE #### Nadja [address] [address] Monocytes/100 WBC (Bld) 7.1 % Normal 1.7-13.0 A [facility] ([place]) Comment on above: Performed By: #### MAKSIM WHITE #### Nadja [address] [address] Neutrophils/100 WBC (Bld) 66.0 % Normal 37.0-80.0 [facility] ([place]) Comment on above: Performed By: #### MAKSIM WHITE #### [address] [address] .GFRon 02-17-2023 GFR 61 ml/min/1.73sqm Normal [facility] ([place]) Comment on above: Result Comment: GFR Population mean for , Non- Americans Ages 20-29 = 116 mL/min/1.73 sq.m. Ages 30-39 = 107 mL/min/1.73 sq.m. Ages 40-49 = 99 mL/min/1.73 sq.m. Ages 50-59 = 93 mL/min/1.73 sq.m. Ages 60-69 = 85 mL/min/1.73 sq.m. Ages 70+ = 75 mL/min/1.73 sq.m. Chronic Kidney Disease: Less than 60 mL/min/1.73 square meters End Stage Renal Disease: Less than 15 mL/min/1.73 square meters Performed By: #### MAKSIM WHITE #### Nadja [address] [address] GFR Non- 50 ml/min/1.73sqm Normal [facility] ([place]) Comment on above: Result Comment: GFR Population mean for , Non- Americans Ages 20-29 = 116 mL/min/1.73 sq.m. Ages 30-39 = 107 mL/min/1.73 sq.m. Ages 40-49 = 99 mL/min/1.73 sq.m. Ages 50-59 = 93 mL/min/1.73 sq.m. Ages 60-69 = 85 mL/min/1.73 sq.m. Ages 70+ = 75 mL/min/1.73 sq.m. Chronic Kidney Disease: Less than 60 mL/min/1.73 square meters End Stage Renal Disease: Less than 15 mL/min/1.73 square meters Performed By: #### Héctor ZARCO UA #### Nadja [address] [address] .NEUABSon 02-17-2023 Neutrophil, Absolute 7.2 10 3/mcL High 2.9-6.2 [facility] ([place]) Comment on above: Performed By: #### U AMICAO, UA #### [address] [address] BMPon 02-17-2023 BUN/Creatinine Ratio 16 ratio Normal 7-27 [facility] ([place]) Comment on above: Performed By: #### U AMICAO, UA #### [address] [address] Calcium [Mass/Vol] 9.5 mg/dL Normal 8.4-10.2 [facility] ([place]) Comment on above: Performed By: #### U AMICAO, UA #### [address] [address] Chloride [Moles/Vol] 104 mmol/L Normal 98-107 [facility] ([place]) Comment on above: Performed By: #### U AMICAO, UA #### [address] [address] CO2 [Moles/Vol] 26 mmol/L Normal 23-31 [facility] ([place]) Comment on above: Performed By: #### U AMICAO, UA #### [address] [address] Creatinine [Mass/Vol] 1.38 mg/dL High 0.70-1.30 [facility] ([place]) Comment on above: Performed By: #### U AMICAO, UA #### [address] [address] Electrolyte Balance 10.0 mEq/L Normal 4.0-15.0 [facility] ([place]) Comment on above: Performed By: #### U AMICAO, UA #### [address] [address] Glucose [Mass/Vol] 105 mg/dL Normal 83-110 [facility] ([place]) Comment on above: Performed By: #### U AMICAO, UA #### [address] [address] Potassium [Moles/Vol] 5.1 mmol/L Normal 3.5-5.1 [facility] ([place]) Comment on above: Performed By: #### Héctor ZARCO UA #### [address] [address] Sodium [Moles/Vol] 140 mmol/L Normal 136-145 [facility] ([place]) Comment on above: Performed By: #### Héctor ZARCO UA #### [address] [address] Urea nitrogen [Mass/Vol] 22 mg/dL High 7-18 [facility] ([place]) Comment on above: Performed By: #### Héctor ZARCO UA #### [address] [address] CBCon 02-17-2023 Erythrocyte distribution width (RBC) [Ratio] 13.8 % Normal 11.5-14.5 [facility] ([place]) Comment on above: Performed By: #### Héctor ZARCO UA #### [address] [address] Hematocrit (Bld) [Volume fraction] 42.3 % Normal 42.0-52.0 [facility] ([place]) Comment on above: Performed By: #### Héctor ZARCO UA #### [address] [address] Hgb 14.0 G/dL Normal 14.0-18.0 [facility] ([place]) Comment on above: Performed By: #### Héctor ZARCO UA #### [address] [address] MCH (RBC) [Entitic mass] 28.4 pg Normal 27.0-31.2 [facility] ([place]) Comment on above: Performed By: #### Héctor ZARCO UA #### [address] [address] MCHC 33.1 G/dL Normal 31.8-35.4 [facility] ([place]) Comment on above: Performed By: #### Héctor ZARCO UA #### [address] [address] MCV (RBC) [Entitic vol] 85.9 fL Normal 80.0-94.0 A [facility] ([place]) Comment on above: Performed By: #### MAKSIM WHITE #### Nadja [address] [address] Platelet 419 10 3/mcL High 130-400 [facility] ([place]) Comment on above: Performed By: #### MAKSIM WHITE #### Nadja [address] [address] Platelet mean volume (Bld) [Entitic vol] 8.3 fL Normal 7.4-10.4 [facility] ([place]) Comment on above: Performed By: #### MAKSIM WHITE #### Nadja [address] [address] RBC 4.93 10 6/mcL Normal 4.04-6.13 [facility] ([place]) Comment on above: Performed By: #### MAKSIM WHITE #### Nadja [address] [address] WBC 10.9 10 3/mcL High 4.6-10.8 [facility] ([place]) Comment on above: Performed By: #### MAKSIM WHITE #### [address] [address] LABORATORYOrdered By: SYSTEM SYSTEM on 02-17-2023 Basophil, Absolute 0.1 103/mcL Invalid Interpretation Code 0.0 - 0.2 10^3/mcL AO Workflow SS Basophils/100 WBC (Bld) 1.0 % Invalid Interpretation Code 0.0 - 2.5 % AO Workflow SS Calcium [Mass/Vol] 9.5 mg/dL Invalid Interpretation Code 8.4 - 10.2 mg/dL AO ADM SS Chloride [Moles/Vol] 104 mmol/L Invalid Interpretation Code 98 - 107 mmol/L AO ADM SS CO2 [Moles/Vol] 26 mmol/L Invalid Interpretation Code 23 - 31 mmol/L AO ADM SS Creatinine [Mass/Vol] 1.38 mg/dL Invalid Interpretation Code 0.70 - 1.30 mg/dL AO ADM SS Electrolyte Balance 10.0 mEq/L Invalid Interpretation Code 4.0 - 15.0 mEq/L AO ADM SS Eosinophil, Absolute 0.4 103/mcL Invalid Interpretation Code 0.0 - 0.4 10^3/mcL AO Workflow SS Eosinophils/100 WBC (Bld) 3.7 % Invalid Interpretation Code 0.0 - 7.0 % AO Workflow SS Erythrocyte distribution width (RBC) [Ratio] 13.8 % Invalid Interpretation Code 11.5 - 14.5 % AO Workflow SS GFR/1.73 sq M.predicted among blacks MDRD (S/P/Bld) [Vol rate/Area] 61 ml/min/1.73sqm Invalid Interpretation Code AO Chemistry S GFR/1.73 sq M.predicted among non-blacks MDRD (S/P/Bld) [Vol rate/Area] 50 ml/min/1.73sqm Invalid Interpretation Code AO Chemistry S Glucose [Mass/Vol] 105 mg/dL Invalid Interpretation Code 83 - 110 mg/dL AO ADM SS Hematocrit (Bld) [Volume fraction] 42.3 % Invalid Interpretation Code 42.0 - 52.0 % AO Workflow SS Hemoglobin (Bld) [Mass/Vol] 14.0 G/dL Invalid Interpretation Code 14.0 - 18.0 G/dL AO Workflow SS Lymphocyte, Absolute 2.4 103/mcL Invalid Interpretation Code 0.8 - 3.9 10^3/mcL AO Workflow SS Lymphocytes/100 WBC (Bld) 22.2 % Invalid Interpretation Code 10.0 - 50.0 % AO Workflow SS MCH (RBC) [Entitic mass] 28.4 pg Invalid Interpretation Code 27.0 - 31.2 pg AO Workflow SS MCHC 33.1 G/dL Invalid Interpretation Code 31.8 - 35.4 G/dL AO Workflow SS MCV (RBC) [Entitic vol] 85.9 fL Invalid Interpretation Code 80.0 - 94.0 fL AO Workflow SS Monocyte, Absolute 0.8 103/mcL Invalid Interpretation Code 0.2 - 1.0 10^3/mcL AO Workflow SS Monocytes/100 WBC (Bld) 7.1 % Invalid Interpretation Code 1.7 - 13.0 % AO Workflow SS Neutrophil, Absolute 7.2 103/mcL Invalid Interpretation Code 2.9 - 6.2 10^3/mcL AO Workflow SS Neutrophils/100 WBC (Bld) 66.0 % Invalid Interpretation Code 37.0 - 80.0 % AO Workflow SS Platelet mean volume (Bld) [Entitic vol] 8.3 fL Invalid Interpretation Code 7.4 - 10.4 fL AO Workflow SS Platelets (Bld) [#/Vol] 419 103/mcL Invalid Interpretation Code 130 - 400 10^3/mcL AO Workflow SS Potassium [Moles/Vol] 5.1 mmol/L Invalid Interpretation Code 3.5 - 5.1 mmol/L AO ADM SS Prostate specific Ag [Mass/Vol] 1.55 ng/mL Invalid Interpretation Code 0.00 - 4.00 ng/mL AO ADM SS RBC (Bld) [#/Vol] 4.93 106/mcL Invalid Interpretation Code 4.04 - 6.13 10^6/mcL AO Workflow SS Sodium [Moles/Vol] 140 mmol/L Invalid Interpretation Code 136 - 145 mmol/L AO ADM SS Urea nitrogen [Mass/Vol] 22 mg/dL Invalid Interpretation Code 7 - 18 mg/dL AO ADM SS Urea nitrogen/Creatinine [Mass ratio] 16 ratio Invalid Interpretation Code 7 - 27 ratio AO ADM SS WBC (Bld) [#/Vol] 10.9 103/mcL Invalid Interpretation Code 4.6 - 10.8 10^3/mcL AO Workflow SS PSAon 02-17-2023 Prostate Specific Antigen 1.55 ng/mL Normal 0.00-4.00 [facility] ([place]) Comment on above: Performed By: #### MAKSIM WHITE #### [address] [address] Final Surgical Pathology Rep [facility] 02-07-2023 Final Surgical Pathology Report . Pathology Reports Accession: Collected Date/Time: Received Date/Time: Pathologist: [id number] 02/04/2023 17:37 EDT 02/05/2023 08:21 EDT VICTORIANO EATON MD Final Surgical Pathology Report DIAGNOSIS: APPENDIX: - ACUTE APPENDICITIS AND SEROSITIS CLINICAL INFORMATION: Procedure: LAPAROSCOPIC APPENDECTOMY Preoperative diagnosis: ACUTE APPENDICITIS Postoperative diagnosis: ACUTE APPENDICITIS SPECIMEN: A APPENDIX GROSS DESCRIPTION: All parts labelled with patient name and [id number] Received in formalin labeled appendix is sullivan-farnsworth cylindrical portion of tissue with small foci of hemorrhage on the serosal aspect, measuring 5 cm in length with an average diameter of 1.3 cm. The serosal surface shows patchy sullivan-white purulent exudate. The lumen shows necrotic material. Glazier Supervisor sections submitted. RS-1 Dictated by VICTORIANO EAOTN MICROSCOPIC DESCRIPTION: The microscopic examination is performed, except in the case of Gross Only. Electronically Signed by Pathology Report verified by [facility] VICTORIANO EATON Sign out Date: 02/07/2023 09:39 Performing Lab: [facility], [address] [place] [address] Pathology Dept Disclaimer If ancillary studies were utilized, the following Laboratory Developed Test (LDT) disclaimer will apply: Under CLIA requirements, [facility]ology Laboratory is qualified to perform high complexity testing. For all ancillary stains, positive and negative controls stain appropriately. Performance characteristics of immunohistochemical and chromogenic in-situ hybridization tests have been determined by [facility] Laboratory. These tests are used for clinical purposes, They should not be regarded as investigational or for research. Normal [facility] ([place]) .Auto Diffon 02-05-2023 Basophil, Absolute 0.0 10 3/mcL Normal 0.0-0.3 [facility] ([place]) Comment on above: Performed By: #### Héctor ZARCO UA #### [address] [address] Basophils/100 WBC (Bld) 0.0 % Normal 0.0-2.5 A [facility] ([place]) Comment on above: Performed By: #### Héctor ZARCO UA #### [address] [address] Eosinophil, Absolute 0.0 10 3/mcL Normal 0.0-0.7 [facility] ([place]) Comment on above: Performed By: #### U HAROLDO UA #### [address] [address] Eosinophils/100 WBC (Bld) 0.0 % Normal 0.0-6.0 [facility] ([place]) Comment on above: Performed By: #### Hécotr ZARCO UA #### [address] [address] Lymphocyte, Absolute 0.9 10 3/mcL Normal 0.9-4.3 [facility] ([place]) Comment on above: Performed By: #### U AMICAO, UA #### [address] [address] Lymphocytes/100 WBC (Bld) 4.5 % Low 20.0-40.0 [facility] ([place]) Comment on above: Performed By: #### U AMICAO, UA #### Nadja [address] [address] Monocyte, Absolute 1.6 10 3/mcL High 0.1-1.4 [facility] ([place]) Comment on above: Performed By: #### U AMICAO, UA #### [address] [address] Monocytes/100 WBC (Bld) 8.3 % Normal 2.0-13.0 A [facility] ([place]) Comment on above: Performed By: #### U AMICAO UA #### [address] [address] Neutrophils/100 WBC (Bld) 87.2 % High 50.0-75.0 [facility] ([place]) Comment on above: Performed By: #### U AMICAO UA #### [address] [address] .GFRon 02-05-2023 GFR >60 Normal [facility] ([place]) Comment on above: Result Comment: GFR Population mean for , Non- Americans Ages 20-29 = 116 mL/min/1.73 sq.m. Ages 30-39 = 107 mL/min/1.73 sq.m. Ages 40-49 = 99 mL/min/1.73 sq.m. Ages 50-59 = 93 mL/min/1.73 sq.m. Ages 60-69 = 85 mL/min/1.73 sq.m. Ages 70+ = 75 mL/min/1.73 sq.m. Chronic Kidney Disease: Less than 60 mL/min/1.73 square meters End Stage Renal Disease: Less than 15 mL/min/1.73 square meters Performed By: #### B UN, CRE, GFR #### [address] [address] GFR Non- 60 ml/min/1.73sqm Normal [facility] ([place]) Comment on above: Result Comment: GFR Population mean for , Non- Americans Ages 20-29 = 116 mL/min/1.73 sq.m. Ages 30-39 = 107 mL/min/1.73 sq.m. Ages 40-49 = 99 mL/min/1.73 sq.m. Ages 50-59 = 93 mL/min/1.73 sq.m. Ages 60-69 = 85 mL/min/1.73 sq.m. Ages 70+ = 75 mL/min/1.73 sq.m. Chronic Kidney Disease: Less than 60 mL/min/1.73 square meters End Stage Renal Disease: Less than 15 mL/min/1.73 square meters Performed By: #### B UN, CRE, GFR #### [address] [address] .NEUABSon 02-05-2023 Neutrophil, Absolute 17.1 10 3/mcL High 2.3-8.1 A [facility] ([place]) Comment on above: Performed By: #### B UN, CRE, GFR #### [address] [address] A1Con 02-05-2023 HbA1c (Bld) [Mass fraction] 5.2 % Normal 4.0-6.0 [facility] ([place]) Comment on above: Performed By: #### B UN, CRE, GFR #### [address] [address] BMPon 02-05-2023 BUN/Creatinine Ratio 15.3 ratio Normal 10.0-22.0 [facility] ([place]) Comment on above: Performed By: #### B UN, CRE, GFR #### [address] [address] Calcium [Mass/Vol] 8.7 mg/dL Normal 8.7-10.4 [facility] ([place]) Comment on above: Performed By: #### B UN, CRE, GFR #### [address] [address] Chloride [Moles/Vol] 107 mmol/L Normal 98-110 [facility] ([place]) Comment on above: Performed By: #### B UN, CRE, GFR #### [address] [address] CO2 [Moles/Vol] 24 mmol/L Normal 22-32 [facility] ([place]) Comment on above: Performed By: #### B UN, CRE, GFR #### [address] [address] Creatinine [Mass/Vol] 1.18 mg/dL Normal 0.60-1.40 [facility] ([place]) Comment on above: Performed By: #### B UN, CRE, GFR #### [address] [address] Electrolyte Balance 10.0 mEq/L Normal 4.0-15.0 [facility] ([place]) Comment on above: Performed By: #### B UN, CRE, GFR #### [address] [address] Glucose [Mass/Vol] 124 mg/dL High 82-115 [facility] ([place]) Comment on above: Performed By: #### B UN, CRE, GFR #### [address] [address] Potassium [Moles/Vol] 4.5 mmol/L Normal 3.5-5.0 [facility] ([place]) Comment on above: Result Comment: Spec imen slightly hemolyzed. Performed By: #### B UN, CRE, GFR #### [address] [address] Sodium [Moles/Vol] 141 mmol/L Normal 136-145 [facility] ([place]) Comment on above: Performed By: #### B UN, CRE, GFR #### [address] [address] Urea nitrogen [Mass/Vol] 18.0 mg/dL Normal 8.0-22.0 [facility] ([place]) Comment on above: Performed By: #### B UN, CRE, GFR #### [address] [address] CBCon 02-05-2023 Erythrocyte distribution width (RBC) [Ratio] 14.4 % Normal 11.5-15.5 [facility] ([place]) Comment on above: Performed By: #### Héctor ZARCO UA #### [address] [address] Hematocrit (Bld) [Volume fraction] 43.5 % Normal 40.0-52.0 [facility] ([place]) Comment on above: Performed By: #### Héctor ZARCO, UA #### [address] [address] Hgb 14.5 G/dL Normal 13.0-17.5 [facility] ([place]) Comment on above: Performed By: #### Héctor ZARCO UA #### [address] [address] MCH (RBC) [Entitic mass] 28.8 pg Normal 27.0-33.0 [facility] ([place]) Comment on above: Performed By: #### Héctor ZARCO UA #### [address] [address] MCHC 33.2 G/dL Normal 32.0-36.0 [facility] ([place]) Comment on above: Performed By: #### Héctor ZARCO, UA #### [address] [address] MCV (RBC) [Entitic vol] 86.6 fL Normal 81.0-100.0 A [facility] ([place]) Comment on above: Performed By: #### U HAROLDO, UA #### [address] [address] Platelet 189 10 3/mcL Normal 150-450 [facility] ([place]) Comment on above: Performed By: #### U HAROLDO, UA #### [address] [address] Platelet mean volume (Bld) [Entitic vol] 9.6 fL Normal 6.4-10.5 [facility] ([place]) Comment on above: Performed By: #### U MAKSIM ZARCO #### [address] [place], [place] [address] RBC 5.03 10 6/mcL Normal 4.50-6.00 [facility] ([place]) Comment on above: Performed By: #### U HAROLDO UA #### [address]ja [address] [place], [place] [address] WBC 19.6 10 3/mcL High 4.5-10.8 [facility] ([place]) Comment on above: Performed By: #### MAKSIM WHITE #### [address] [place], [place] [address] LABORATORYOrdered By: SYSTEM SYSTEM on 02-05-2023 Basophils (Bld) [#/Vol] 0.0 103/mcL Invalid Interpretation Code 0.0 - 0.3 10^3/mcL Workflow SS Basophils/100 WBC (Bld) 0.0 % Invalid Interpretation Code 0.0 - 2.5 % Workflow SS Calcium [Mass/Vol] 8.7 mg/dL Invalid Interpretation Code 8.7 - 10.4 mg/dL ADM SS Chloride [Moles/Vol] 107 mmol/L Invalid Interpretation Code 98 - 110 mEq/L ADM SS CO2 [Moles/Vol] 24 mmol/L Invalid Interpretation Code 22 - 32 mEq/L ADM SS Creatinine [Mass/Vol] 1.18 mg/dL Invalid Interpretation Code 0.60 - 1.40 mg/dL ADM SS Electrolyte Balance 10.0 mEq/L Invalid Interpretation Code 4.0 - 15.0 mEq/L ADM SS Eosinophils (Bld) [#/Vol] 0.0 103/mcL Invalid Interpretation Code 0.0 - 0.7 10^3/mcL Workflow SS Eosinophils/100 WBC (Bld) 0.0 % Invalid Interpretation Code 0.0 - 6.0 % Workflow SS Erythrocyte distribution width (RBC) [Ratio] 14.4 % Invalid Interpretation Code 11.5 - 15.5 % Workflow SS GFR/1.73 sq M.predicted among blacks MDRD (S/P/Bld) [Vol rate/Area] ml/min/1.73sqm Invalid Interpretation Code Chemistry S GFR/1.73 sq M.predicted among non-blacks MDRD (S/P/Bld) [Vol rate/Area] 60 ml/min/1.73sqm Invalid Interpretation Code Chemistry S Glucose [Mass/Vol] 124 mg/dL Invalid Interpretation Code 82 - 115 mg/dL ADM SS Hematocrit (Bld) [Volume fraction] 43.5 % Invalid Interpretation Code 40.0 - 52.0 % AH Workflow SS Hemoglobin (Bld) [Mass/Vol] 14.5 G/dL Invalid Interpretation Code 13.0 - 17.5 G/dL AH Workflow SS Lymphocytes (Bld) [#/Vol] 0.9 103/mcL Invalid Interpretation Code 0.9 - 4.3 10^3/mcL AH Workflow SS Lymphocytes/100 WBC (Bld) 4.5 % Invalid Interpretation Code 20.0 - 40.0 % AH Workflow SS MCH (RBC) [Entitic mass] 28.8 pg Invalid Interpretation Code 27.0 - 33.0 pg AH Workflow SS MCHC 33.2 G/dL Invalid Interpretation Code 32.0 - 36.0 G/dL AH Workflow SS MCV (RBC) [Entitic vol] 86.6 fL Invalid Interpretation Code 81.0 - 100.0 fL AH Workflow SS Monocytes (Bld) [#/Vol] 1.6 103/mcL Invalid Interpretation Code 0.1 - 1.4 10^3/mcL AH Workflow SS Monocytes/100 WBC (Bld) 8.3 % Invalid Interpretation Code 2.0 - 13.0 % AH Workflow SS Neutrophils (Bld) [#/Vol] 17.1 103/mcL Invalid Interpretation Code 2.3 - 8.1 10^3/mcL AH Workflow SS Neutrophils/100 WBC (Bld) 87.2 % Invalid Interpretation Code 50.0 - 75.0 % AH Workflow SS Platelet mean volume (Bld) [Entitic vol] 9.6 fL Invalid Interpretation Code 6.4 - 10.5 fL AH Workflow SS Platelets (Bld) [#/Vol] 189 103/mcL Invalid Interpretation Code 150 - 450 10^3/mcL AH Workflow SS Potassium [Moles/Vol] 4.5 mmol/L Invalid Interpretation Code 3.5 - 5.0 mEq/L ADM SS Comment on above: Result Comment: Spec imen slightly hemolyzed. RBC (Bld) [#/Vol] 5.03 106/mcL Invalid Interpretation Code 4.50 - 6.00 10^6/mcL AH Workflow SS Sodium [Moles/Vol] 141 mmol/L Invalid Interpretation Code 136 - 145 mEq/L AH ADM SS Urea nitrogen [Mass/Vol] 18.0 mg/dL Invalid Interpretation Code 8.0 - 22.0 mg/dL ADM SS Urea nitrogen/Creatinine [Mass ratio] 15.3 ratio Invalid Interpretation Code 10.0 - 22.0 ratio AH ADM SS WBC (Bld) [#/Vol] 19.6 103/mcL Invalid Interpretation Code 4.5 - 10.8 10^3/mcL AH Workflow SS LABORATORYOrdered By: Lv Beauchamp on 02-05-2023 Cholesterol [Mass/Vol] 172 mg/dL Invalid Interpretation Code 50 - 199 mg/dL ADM SS Cholesterol in HDL [Mass/Vol] 56 mg/dL Invalid Interpretation Code 40 - 59 mg/dL ADM SS Cholesterol in LDL [Mass/Vol] 106 mg/dL Invalid Interpretation Code 0 - 129 mg/dL ADM SS Triglyceride [Mass/Vol] 49 mg/dL Invalid Interpretation Code 3 - 149 mg/dL ADM SS LIPIDon 02-05-2023 Cholesterol [Mass/Vol] 172 mg/dL Normal 50-199 [facility] ([place]) Comment on above: Result Comment: Chol esterol Reference Interval: Less than 200 Desirable 200-239 Borderline high risk 240 and above High risk Performed By: #### B UN, CRE, GFR #### [address] [address] Cholesterol in HDL [Mass/Vol] 56 mg/dL Normal 40-59 [facility] ([place]) Comment on above: Performed By: #### B UN, CRE, GFR #### [address] [address] Cholesterol in LDL [Mass/Vol] 106 mg/dL Normal 0-129 [facility] ([place]) Comment on above: Performed By: #### B UN, CRE, GFR #### [address] [address] Triglyceride [Mass/Vol] 49 mg/dL Normal 3-149 A [facility] ([place]) Comment on above: Performed By: #### B UN, CRE, GFR #### [address] [address] .Auto Diffon 02-04-2023 Basophil, Absolute 0.1 10 3/mcL Normal 0.0-0.2 [facility] ([place]) Comment on above: Performed By: #### B UN, CRE, GFR #### [address] [address] Basophils/100 WBC (Bld) 0.4 % Normal 0.0-2.5 A [facility] ([place]) Comment on above: Performed By: #### B UN, CRE, GFR #### [address] [address] Eosinophil, Absolute 0.1 10 3/mcL Normal 0.0-0.4 [facility] ([place]) Comment on above: Performed By: #### B UN, CRE, GFR #### [address] [address] Eosinophils/100 WBC (Bld) 0.6 % Normal 0.0-7.0 [facility] ([place]) Comment on above: Performed By: #### B UN, CRE, GFR #### [address] [address] Lymphocyte, Absolute 1.2 10 3/mcL Normal 0.8-3.9 [facility] ([place]) Comment on above: Performed By: #### B UN, CRE, GFR #### [address] [address] Lymphocytes/100 WBC (Bld) 8.4 % Low 10.0-50.0 [facility] ([place]) Comment on above: Performed By: #### B UN, CRE, GFR #### [address] [address] Monocyte, Absolute 0.8 10 3/mcL Normal 0.2-1.0 [facility] ([place]) Comment on above: Performed By: #### B UN, CRE, GFR #### [address] [address] Monocytes/100 WBC (Bld) 5.7 % Normal 1.7-13.0 A [facility] ([place]) Comment on above: Performed By: #### B UN, CRE, GFR #### [address] [address] Neutrophils/100 WBC (Bld) 84.9 % High 37.0-80.0 [facility] ([place]) Comment on above: Performed By: #### B UN, CRE, GFR #### [address] [address] .GFRon 02-04-2023 GFR Non- 52 ml/min/1.73sqm Normal [facility] ([place]) Comment on above: Result Comment: GFR Population mean for , Non- Americans Ages 20-29 = 116 mL/min/1.73 sq.m. Ages 30-39 = 107 mL/min/1.73 sq.m. Ages 40-49 = 99 mL/min/1.73 sq.m. Ages 50-59 = 93 mL/min/1.73 sq.m. Ages 60-69 = 85 mL/min/1.73 sq.m. Ages 70+ = 75 mL/min/1.73 sq.m. Chronic Kidney Disease: Less than 60 mL/min/1.73 square meters End Stage Renal Disease: Less than 15 mL/min/1.73 square meters Performed By: #### B UN, CRE, GFR #### [address] [address] GFR 63 ml/min/1.73sqm Normal [facility] ([place]) Comment on above: Result Comment: GFR Population mean for , Non- Americans Ages 20-29 = 116 mL/min/1.73 sq.m. Ages 30-39 = 107 mL/min/1.73 sq.m. Ages 40-49 = 99 mL/min/1.73 sq.m. Ages 50-59 = 93 mL/min/1.73 sq.m. Ages 60-69 = 85 mL/min/1.73 sq.m. Ages 70+ = 75 mL/min/1.73 sq.m. Chronic Kidney Disease: Less than 60 mL/min/1.73 square meters End Stage Renal Disease: Less than 15 mL/min/1.73 square meters Performed By: #### B UN, CRE, GFR #### [place] [address] .MDWon 02-04-2023 Monocyte Distribution Width Not performed Normal 0.00-20.00 [facility] ([place]) Comment on above: Performed By: #### B UN, CRE, GFR #### [place] [address] .NEUABSon 02-04-2023 Neutrophil, Absolute 12.2 10 3/mcL High 2.9-6.2 A [facility] ([place]) Comment on above: Performed By: #### B UN, CRE, GFR #### Nadja [place] [address] .Urinalysis Microscopic (AO) on 02-04-2023 UA Bacteria Trace Abnormal [facility] ([place]) Comment on above: Performed By: #### U AMICAO, UA #### [place] [address] UA Mucous 1+ /hpf Normal [facility] ([place]) Comment on above: Performed By: #### U AMICAO, UA #### [place] [address] UA RBC 0-5 Abnormal None Seen [facility] ([place]) Comment on above: Performed By: #### U AMICAO, UA #### [place] [address] UA Squam Epithelial None Seen Normal None Seen [facility] ([place]) Comment on above: Performed By: #### U AMICAO, UA #### [place] [address] UA WBC 0-5 Abnormal None Seen [facility] ([place]) Comment on above: Performed By: #### U AMICAO, UA #### [place] [address] CBCon 02-04-2023 Erythrocyte distribution width (RBC) [Ratio] 14.2 % Normal 11.5-14.5 [facility] ([place]) Comment on above: Performed By: #### B UN, CRE, GFR #### [address] [address] Hematocrit (Bld) [Volume fraction] 46.7 % Normal 42.0-52.0 [facility] ([place]) Comment on above: Performed By: #### B UN, CRE, GFR #### [address] [address] Hgb 15.7 G/dL Normal 14.0-18.0 [facility] ([place]) Comment on above: Performed By: #### B UN, CRE, GFR #### [address] [address] MCH (RBC) [Entitic mass] 28.8 pg Normal 27.0-31.2 [facility] ([place]) Comment on above: Performed By: #### B UN, CRE, GFR #### [address] [address] MCHC 33.6 G/dL Normal 31.8-35.4 [facility] ([place]) Comment on above: Performed By: #### B UN, CRE, GFR #### [address] [address] MCV (RBC) [Entitic vol] 85.7 fL Normal 80.0-94.0 A [facility] ([place]) Comment on above: Performed By: #### B UN, CRE, GFR #### [address] [address] Platelet 205 10 3/mcL Normal 130-400 [facility] ([place]) Comment on above: Performed By: #### B UN, CRE, GFR #### [address] [address] Platelet mean volume (Bld) [Entitic vol] 8.6 fL Normal 7.4-10.4 [facility] ([place]) Comment on above: Performed By: #### B UN, CRE, GFR #### [address] [address] RBC 5.46 10 6/mcL Normal 4.04-6.13 [facility] ([place]) Comment on above: Performed By: #### B UN, CRE, GFR #### [address] [address] WBC 14.4 10 3/mcL High 4.6-10.8 [facility] ([place]) Comment on above: Performed By: #### B UN, CRE, GFR #### [address] [address] CMPon 02-04-2023 Albumin Level 4.2 G/dL Normal 3.4-4.8 [facility] ([place]) Comment on above: Performed By: #### B UN, CRE, GFR #### [address] [address] Albumin/Globulin [Mass ratio] 1.2 {ratio} Normal 1.1-2.5 [facility] ([place]) Comment on above: Performed By: #### B UN, CRE, GFR #### [address] [address] ALP [Catalytic activity/Vol] 124 U/L Normal 40-135 [facility] ([place]) Comment on above: Performed By: #### B UN, CRE, GFR #### [address] [address] ALT [Catalytic activity/Vol] 20 U/L Normal 16-63 [facility] ([place]) Comment on above: Performed By: #### B UN, CRE, GFR #### [address] [address] AST [Catalytic activity/Vol] 15 U/L Normal 10-40 [facility] ([place]) Comment on above: Performed By: #### B UN, CRE, GFR #### [address] [address] Bili Total 0.8 mg/dL Normal 0.2-1.0 [facility] ([place]) Comment on above: Result Comment: Use of this assay is not recommended for patients undergoing treatment with eltrombopag due to the potential for falsely elevated results. Performed By: #### B UN, CRE, GFR #### [address] [address] BUN/Creatinine Ratio 13 ratio Normal 7-27 [facility] ([place]) Comment on above: Performed By: #### B UN, CRE, GFR #### [address] [address] Calcium [Mass/Vol] 9.4 mg/dL Normal 8.4-10.2 [facility] ([place]) Comment on above: Performed By: #### B UN, CRE, GFR #### [address] [address] Chloride [Moles/Vol] 102 mmol/L Normal 98-107 [facility]) Comment on above: Performed By: #### B UN, CRE, GFR #### [address] [address] CO2 [Moles/Vol] 26 mmol/L Normal 23-31 [facility] ([place]) Comment on above: Performed By: #### B UN, CRE, GFR #### [address] [address] Electrolyte Balance 10.0 mEq/L Normal 4.0-15.0 [facility] ([place]) Comment on above: Performed By: #### B UN, CRE, GFR #### [address] [address] Globulin 3.5 G/dL Normal [facility] ([place]) Comment on above: Performed By: #### B UN, CRE, GFR #### [address] [address] Glucose [Mass/Vol] 119 mg/dL High 83-110 [facility] ([place]) Comment on above: Performed By: #### B UN, CRE, GFR #### [address] [address] Potassium [Moles/Vol] 4.1 mmol/L Normal 3.5-5.1 [facility] ([place]) Comment on above: Performed By: #### B UN, CRE, GFR #### [address] [address] Sodium [Moles/Vol] 138 mmol/L Normal 136-145 [facility] ([place]) Comment on above: Performed By: #### B UN, CRE, GFR #### [address] [address] Total Protein 7.7 G/dL Normal 6.4-8.2 [facility] ([place]) Comment on above: Performed By: #### B UN, CRE, GFR #### [address] [address] Urea nitrogen [Mass/Vol] 18 mg/dL Normal 7-18 [facility] ([place]) Comment on above: Performed By: #### B UN, CRE, GFR #### [address] [address] Creatinine [Mass/Vol] 1.34 mg/dL High 0.70-1.30 [facility] ([place]) Comment on above: Performed By: #### B UN, CRE, GFR #### [address] [address] [address] ABD/PELVIS W/ IV CONTRAST ONLYon 02-04-2023 CT ABD/PELVIS W/ IV CONTRAST ONLY ORIGINAL EXAMINATION: CT OF THE ABDOMEN AND PELVIS WITH CONTRAST02/04/2023 10:42 am TECHNIQUE: CT of the abdomen and pelvis was performed with the administration of intravenous contrast. Multiplanar reformatted images are provided for review. Automated exposure control, iterative reconstruction, and/or weight based adjustment of the mA/kV was utilized to reduce the radiation dose to as low as reasonably achievable. COMPARISON: None HISTORY: ORDERING SYSTEM PROVIDED HISTORY: Reason for Exam: Pain. Sharp right lower quadrant pain onset on Friday. Known right-sided inguinal hernia. FINDINGS: Calcified granuloma seen in the lingula and right lower lobe. Minimal basilar atelectasis. There is no visible pleural or pericardial effusion. The heart is normal in size. [id number] coronary artery atherosclerosis. Numerous low attenuating lesions in the liver, largest the right hepatic lobe measures up to 6.8 cm and 6.5 HU compatible with a hepatic cyst. The gallbladder, spleen, adrenal glands, and pancreas are within normal limits. Symmetric nephrograms. Thinning of the right upper pole cortex likely reflects scarring or atrophy. Subcentimeter left superior pole renal lesion too small to characterize and likely favors a renal cyst. The ureters are normal in course and caliber. The urinary bladder is mildly distended. The prostate is unremarkable. Small hiatal hernia. The large and small bowel demonstrate no obstruction. There is inflammatory changes surrounding a fluid-filled and dilated appendix measuring 1.7 cm. There is no perforation or adjacent loculated fluid collection. Mild colonic diverticulosis without evidence of acute diverticulitis. Atherosclerotic aorta with fusiform infrarenal abdominal aortic aneurysm that measures 5.1 x 4.7 cm and extends to the iliac bifurcation, with intramural thrombus. There is no lymphadenopathy. Large right inguinal hernia containing loops of distal small bowel is visualized and extends into the scrotum without obstruction. Small fat containing left inguinal hernia. There is no fracture or aggressive osseous lesion. Degenerative changes are present in the spine. IMPRESSION: Dilated and inflamed appendix is compatible with acute appendicitis without free air to suggest perforation or abscess formation. Fusiform infrarenal abdominal aortic aneurysm without evidence of hemorrhage with measurements as above. Please see recommendations below. Large right inguinal hernia containing loops of distal small bowel extends into the scrotum, without evidence of obstruction. Diverticulosis without evidence of acute diverticulitis. I have personally reviewed the images of this examination and agree with the resident's findings and interpretation. 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 Recommend follow-up every 6 months and vascular consultation. Reference: J Am Alize Radiol 2013;10:789-794. Interpreted by: Pascual Bauer MD Preliminary Report By: Nuria Tay Electronically signed By Pascual Bauer MD Dictated Date: 02/04/2023 10:44:35 AM Prelim Date: 02/04/2023 11:16:16 AM Sign Date: 02/04/2023 11:18:15 AM Ordering Provider: LINDA Au [facility] ([place]) LABORATORYOrdered By: [employer] on 02-04-2023 HbA1c (Bld) [Mass fraction] 5.2 % Invalid Interpretation Code 4.0 - 6.0 % AH Auto Chem SS TSH Qn 1.821 mIU/mL Invalid Interpretation Code 0.550 - 4.780 mIU/mL AH ADM SS Troponin I.cardiac DL <= 0.01 ng/mL [Mass/Vol] 14.0 ng/L Invalid Interpretation Code 0.0 - 76.2 ng/L AO ADM SS Albumin BCP dye [Mass/Vol] 4.2 G/dL Invalid Interpretation Code 3.4 - 4.8 G/dL AO ADM SS Albumin/Globulin [Mass ratio] 1.2 {ratio} Invalid Interpretation Code 1.1 - 2.5 ratio AO ADM SS ALP [Catalytic activity/Vol] 124 U/L Invalid Interpretation Code 40 - 135 U/L AO ADM SS ALT With P-5'-P [Catalytic activity/Vol] 20 U/L Invalid Interpretation Code 16 - 63 U/L AO ADM SS AST With P-5'-P [Catalytic activity/Vol] 15 U/L Invalid Interpretation Code 10 - 40 U/L AO ADM SS Bilirubin [Mass/Vol] 0.8 mg/dL Invalid Interpretation Code 0.2 - 1.0 mg/dL AO ADM SS Calcium [Mass/Vol] 9.4 mg/dL Invalid Interpretation Code 8.4 - 10.2 mg/dL AO ADM SS Chloride [Moles/Vol] 102 mmol/L Invalid Interpretation Code 98 - 107 mmol/L AO ADM SS CO2 [Moles/Vol] 26 mmol/L Invalid Interpretation Code 23 - 31 mmol/L AO ADM SS Creatinine [Mass/Vol] 1.34 mg/dL Invalid Interpretation Code 0.70 - 1.30 mg/dL AO ADM SS Electrolyte Balance 10.0 mEq/L Invalid Interpretation Code 4.0 - 15.0 mEq/L AO ADM SS GFR/1.73 sq M.predicted among blacks MDRD (S/P/Bld) [Vol rate/Area] 63 ml/min/1.73sqm Invalid Interpretation Code AO Chemistry S GFR/1.73 sq M.predicted among non-blacks MDRD (S/P/Bld) [Vol rate/Area] 52 ml/min/1.73sqm Invalid Interpretation Code AO Chemistry S Globulin 3.5 G/dL Invalid Interpretation Code AO ADM SS Glucose [Mass/Vol] 119 mg/dL Invalid Interpretation Code 83 - 110 mg/dL AO ADM SS Lipase [Catalytic activity/Vol] 31 U/L Invalid Interpretation Code 16 - 77 U/L AO ADM SS Potassium [Moles/Vol] 4.1 mmol/L Invalid Interpretation Code 3.5 - 5.1 mmol/L AO ADM SS Protein [Mass/Vol] 7.7 G/dL Invalid Interpretation Code 6.4 - 8.2 G/dL AO ADM SS Sodium [Moles/Vol] 138 mmol/L Invalid Interpretation Code 136 - 145 mmol/L AO ADM SS Urea nitrogen [Mass/Vol] 18 mg/dL Invalid Interpretation Code 7 - 18 mg/dL AO ADM SS Urea nitrogen/Creatinine [Mass ratio] 13 ratio Invalid Interpretation Code 7 27 ratio AO ADM SS LABORATORYOrdered By: Jonelle Miller on 02-04-2023 Appearance (U) Slightly Cloudy *ABN* (02/04/23 9:58 AM) Invalid Interpretation Code Clear AO Auto Urine SS Bacteria LM.HPF (Urine sed) [#/Area] Trace /HPF Invalid Interpretation Code AO Auto Urine SS Bilirubin Ql (U) Negative (02/04/23 9:58 AM) Invalid Interpretation Code Negative AO Auto Urine SS Color (U) Yellow (02/04/23 9:58 AM) Invalid Interpretation Code AO Auto Urine SS Glucose Test strip (U) [Mass/Vol] Negative Invalid Interpretation Code Negativemg/ dL AO Auto Urine SS Hemoglobin Auto test strip (U) [Mass/Vol] Trace *ABN* (02/04/23 9:58 AM) Invalid Interpretation Code Negative AO Auto Urine SS Ketones Ql (U) 15 mg/dL Invalid Interpretation Code Negativemg/ dL AO Auto Urine SS UA Leuk Est Negative (02/04/23 9:58 AM) Invalid Interpretation Code Negative AO Auto Urine SS UA Mucous 1+ /HPF Invalid Interpretation Code AO Auto Urine SS UA Nitrite Negative (02/04/23 9:58 AM) Invalid Interpretation Code Negative AO Auto Urine SS UA pH 5.5 (02/04/23 9:58 AM) Invalid Interpretation Code 5.0 - 8.0 AO Auto Urine SS UA Protein 100 mg/dL Invalid Interpretation Code Negativemg/ dL AO Auto Urine SS UA RBC 0-5 /HPF Invalid Interpretation Code None Seen/HPF AO Auto Urine SS UA Spec Grav 1.025 (02/04/23 9:58 AM) Invalid Interpretation Code 1.015-1.025 AO Auto Urine SS UA Specimen Type Clean Catch (02/04/23 9:58 AM) Invalid Interpretation Code AO Auto Urine SS UA Squam Epithelial None Seen /HPF Invalid Interpretation Code None Seen/HPF AO Auto Urine SS UA Urobilinogen 0.2 E.U./dL Invalid Interpretation Code 0.2-1.0E.U. /dL AO Auto Urine SS WBC LM.HPF (Urine sed) [#/Area] 0-5 /HPF Invalid Interpretation Code None Seen/HPF AO Auto Urine SS LABORATORYOrdered By: Betsey Serrano on 02-04-2023 Basophil, Absolute 0.1 103/mcL Invalid Interpretation Code 0.0 - 0.2 10^3/mcL AO Hematology S Basophils/100 WBC (Bld) 0.4 % Invalid Interpretation Code 0.0 - 2.5 % AO Hematology S Eosinophil, Absolute 0.1 103/mcL Invalid Interpretation Code 0.0 - 0.4 10^3/mcL AO Hematology S Eosinophils/100 WBC (Bld) 0.6 % Invalid Interpretation Code 0.0 - 7.0 % AO Hematology S Erythrocyte distribution width (RBC) [Ratio] 14.2 % Invalid Interpretation Code 11.5 - 14.5 % AO Hematology S Hematocrit (Bld) [Volume fraction] 46.7 % Invalid Interpretation Code 42.0 - 52.0 % AO Hematology S Hemoglobin (Bld) [Mass/Vol] 15.7 G/dL Invalid Interpretation Code 14.0 - 18.0 G/dL AO Hematology S Lymphocyte, Absolute 1.2 103/mcL Invalid Interpretation Code 0.8 - 3.9 10^3/mcL AO Hematology S Lymphocytes/100 WBC (Bld) 8.4 % Invalid Interpretation Code 10.0 - 50.0 % AO Hematology S MCH (RBC) [Entitic mass] 28.8 pg Invalid Interpretation Code 27.0 - 31.2 pg AO Hematology S MCHC 33.6 G/dL Invalid Interpretation Code 31.8 - 35.4 G/dL AO Hematology S MCV (RBC) [Entitic vol] 85.7 fL Invalid Interpretation Code 80.0 - 94.0 fL AO Hematology S Monocyte distribution width Auto (Bld) [Entitic vol] Not performed Invalid Interpretation Code 0.00 - 20.00 AO Hematology S Monocyte, Absolute 0.8 103/mcL Invalid Interpretation Code 0.2 - 1.0 10^3/mcL AO Hematology S Monocytes/100 WBC (Bld) 5.7 % Invalid Interpretation Code 1.7 - 13.0 % AO Hematology S Neutrophil, Absolute 12.2 103/mcL Invalid Interpretation Code 2.9 - 6.2 10^3/mcL AO Hematology S Neutrophils/100 WBC (Bld) 84.9 % Invalid Interpretation Code 37.0 - 80.0 % AO Hematology S Platelet mean volume (Bld) [Entitic vol] 8.6 fL Invalid Interpretation Code 7.4 - 10.4 fL AO Hematology S Platelets (Bld) [#/Vol] 205 103/mcL Invalid Interpretation Code 130 - 400 10^3/mcL AO Hematology S RBC (Bld) [#/Vol] 5.46 106/mcL Invalid Interpretation Code 4.04 - 6.13 10^6/mcL AO Hematology S WBC (Bld) [#/Vol] 14.4 103/mcL Invalid Interpretation Code 4.6 - 10.8 10^3/mcL AO Hematology S LIPon 02-04-2023 Lipase Level 31 U/L Normal 16-77 [facility] ([place]) Comment on above: Performed By: #### B UN, CRE, GFR #### Nadja Lisa [address] [place] [address] TROPHSon 02-04-2023 Troponin I High Sensitivity 14.0 ng/L Normal 0.0-76.2 [facility] ([place]) Comment on above: Performed By: #### MAKSIM WHITE #### Nadja Lisa [address] [place] [address] TSHon 02-04-2023 TSH 1.821 mIU/mL Normal 0.550-4.780 [facility] ([place]) Comment on above: Result Comment: No te - New Reference Range in effect 20 Performed By: #### B UN, CRE, GFR #### Nadja Lisa [address] [place] [address] UAon 02-04-2023 Color (U) Yellow Normal [facility] ([place]) Comment on above: Performed By: #### U MAKSIM ZARCO #### Nadja Lisa [address] [place] [address] Glucose (U) [Mass/Vol] Negative Normal Negative [facility] ([place]) Comment on above: Performed By: #### MAKSIM WHITE #### Nadja [address] [address] Ketones Ql (U) 15 mg/dL Abnormal Negative [facility] ([place]) Comment on above: Performed By: #### U AMICAO, UA #### Nadja [address] [address] UA Appear Slightly Cloudy Abnormal Clear [facility] ([place]) Comment on above: Performed By: #### U AMICAO, UA #### Nadja [address] [address] UA Blood Trace Abnormal Negative [facility] ([place]) Comment on above: Performed By: #### U AMICAO, UA #### Nadja [place] [address] UA Leuk Est Negative Normal Negative [facility] ([place]) Comment on above: Performed By: #### U AMICAO, UA #### Nadja [place] [address] UA Nitrite Negative Normal Negative [facility] ([place]) Comment on above: Performed By: #### U AMICAO, UA #### Nadja [address] [address] UA pH 5.5 Normal 5.0 - 8.0 [facility] ([place]) Comment on above: Performed By: #### U AMICAO, UA #### Nadja [place] [address] UA Protein 100 mg/dL Abnormal Negative [facility] ([place]) Comment on above: Performed By: #### U AMICAO, UA #### Nadja [address] [address] UA Spec Grav 1.025 Normal 1.015-1.025 [facility] ([place]) Comment on above: Performed By: #### U AMICAO, UA #### Nadja [address] [address] UA Specimen Type Clean Catch Normal [facility] ([place]) Comment on above: Performed By: #### U AMICAO, UA #### Nadja [address] [address] UA Urobilinogen 0.2 E.U./dL Normal 0.2-1.0 [facility] ([place]) Comment on above: Performed By: #### U AMICAO, UA #### Nadja [address] [place], [place] [address] Urobilinogen (U) [Mass/Vol] Negative Normal Negative [facility] ([place]) Comment on above: Performed By: #### U AMICAO, UA #### Nadja [address] [place], [place] [address] Vital Signs Date Time Vital Sign Value Performing Clinician Facility 03-09-2025 15:53-0400 Diastolic blood pressure 80 mm[Hg] Zebulun Beam [employer] Work Phone: [facility] 03-09-2025 15:53-0400 Heart rate 60 /min Zebulun Beam [employer] Work Phone: [facility] 03-09-2025 15:53-0400 Respiratory rate 16 /min Zebulun Beam [employer] Work Phone: [facility] 03-09-2025 15:53-0400 Systolic blood pressure 170 mm[Hg] Zebulun Beam [employer] Work Phone: [facility] 05-07-2023 10:02-0400 Body height 167.6 cm TANNER GILLIAM MD [facility] 05-07-2023 10:02-0400 Body weight 72.7 kg TANNER GILLIAM MD [facility] 05-07-2023 10:02-0400 Body weight 25.88 kg/m2 TANNER GILLIAM MD [facility] 02-05-2023 14:39-0400 Blood Pressure Location TANNER GILLIAM MD [facility] 02-05-2023 14:39-0400 Blood Pressure Method TANNER GILLIAM MD [facility] 02-05-2023 14:39-0400 Body temperature 97.88 [degF] TANNER GILLIAM MD [facility] 02-05-2023 14:39-0400 Diastolic Blood Pressure Non-Invasive 72 1 TANNER GILLIAM MD [facility] 02-05-2023 14:39-0400 Heart rate 61 /min TANNER GILLIAM MD [facility] 02-05-2023 14:39-0400 Reason For Taking VItal Signs TANNER GILLIAM MD [facility] 02-05-2023 14:39-0400 Respiratory rate 17 /min TANNER GILLIAM MD [facility] 02-05-2023 14:39-0400 Systolic Blood Pressure Non-Invasive 126 1 TANNER GILLIAM MD [facility] 02-05-2023 10:49-0400 Blood Pressure Cuff Size TANNER GILLIAM MD [facility] 02-05-2023 10:49-0400 Blood Pressure Location TANNER GILLIAM MD [facility] 02-05-2023 10:49-0400 Blood Pressure Method TANNER GILLIAM MD [facility] 02-05-2023 10:49-0400 Body temperature 97.7 [degF] TANNER GILLIAM MD [facility] 02-05-2023 10:49-0400 Diastolic Blood Pressure Non-Invasive 64 1 TANNER GILLIAM MD [facility] 02-05-2023 10:49-0400 Heart rate 63 /min TANNER GILLIAM MD [facility] 02-05-2023 10:49-0400 Reason For Taking VItal Signs TANNER GILLIAM MD [facility] 02-05-2023 10:49-0400 Respiratory rate 16 /min TANNER GILLIAM MD [facility] 02-05-2023 10:49-0400 Systolic Blood Pressure Non-Invasive 138 1 TANNER GILLIAM MD [facility] 02-05-2023 07:36-0400 Diastolic Blood Pressure Non-Invasive 66 1 TANNER GILLIAM MD [facility] 02-05-2023 07:36-0400 Systolic Blood Pressure Non-Invasive 139 1 TANNER GILLIAM MD [facility] 02-05-2023 07:26-0400 Blood Pressure Cuff Size TANNER GILLIAM MD [facility] 02-05-2023 07:26-0400 Blood Pressure Location TANNER GILLIAM MD [facility] 02-05-2023 07:26-0400 Blood Pressure Method TANNER GILLIAM MD [facility] 02-05-2023 07:26-0400 Body temperature 98.6 [degF] TANNER GILLIAM MD [facility] 02-05-2023 07:26-0400 Heart rate 65 /min TANNER GILLIAM MD [facility] 02-05-2023 07:26-0400 Reason For Taking VItal Signs TANNER GILLIAM MD [facility] 02-05-2023 07:26-0400 Respiratory rate 16 /min TANNER GILLIAM MD [facility] 02-05-2023 04:26-0400 Heart rate 65 /min TANNER GILLIAM MD [facility] 02-04-2023 23:10-0400 Heart rate 63 /min TANNER GILLIAM MD [facility] 02-04-2023 19:44-0400 Heart rate 62 /min TANNER GILLIAM MD [facility] 02-04-2023 18:22-0400 Mean blood pressure 114 mm[Hg] TANNER GILLIAM MD [facility] 02-04-2023 18:04-0400 Mean blood pressure 111 mm[Hg] TANNER GILLIAM MD [facility] 02-04-2023 17:49-0400 Body temperature 97.34 [degF] TANNER GILLIAM MD [facility] 02-04-2023 17:49-0400 Mean blood pressure 120 mm[Hg] TANNER GILLIAM MD [facility] 02-04-2023 17:45-0400 Respiratory Rate - Anes 0 br/min TANNER GILLIAM MD [facility] 02-04-2023 17:40-0400 Respiratory Rate - Anes 15 br/min TANNER GILLIAM MD [facility] 02-04-2023 17:35-0400 Body temperature 97.41 [degF] TANNER GILLIAM MD [facility] 02-04-2023 17:35-0400 Respiratory Rate - Anes 15 br/min TANNER GILLIAM MD [facility] 02-04-2023 17:30-0400 Body temperature 97.47 [degF] TANNER GILLIAM MD [facility] 02-04-2023 17:25-0400 Body temperature 97.48 [degF] TANNER GILLIAM MD [facility] 02-04-2023 15:44-0400 Blood Pressure Cuff Size TANNER GILLIAM MD [facility] 02-04-2023 14:31-0400 Heart rate 50 /min TANNER GILLIAM MD [facility] 02-04-2023 14:25-0400 Body height 167.6 cm TANNER GILLIAM MD [facility] 02-04-2023 14:25-0400 Body weight 77.3 kg TANNER GILLIAM MD [facility] 02-04-2023 14:25-0400 Body weight 27.52 kg/m2 TANNER GILLIAM MD [facility] 02-04-2023 13:26-0400 Diastolic Blood Pressure Non-Invasive [address] LINDA RICHMOND MD [facility] 02-04-2023 13:26-0400 Heart rate 47 /min DR LINDA RICHMOND MD [facility] 02-04-2023 13:26-0400 Respiratory rate 16 /min DR LINDA RICHMOND MD [facility] 02-04-2023 13:26-0400 Systolic Blood Pressure Non-Invasive [address] LINDA RICHMOND MD [facility] 02-04-2023 12:52-0400 Diastolic Blood Pressure Non-Invasive [address] LINDA RICHMOND MD [facility] 02-04-2023 12:52-0400 Heart rate 48 /min DR LINDA RICHMOND MD [facility] 02-04-2023 12:52-0400 Respiratory rate 16 /min DR LINDA RICHMOND MD [facility] 02-04-2023 12:52-0400 Systolic Blood Pressure Non-Invasive [address] LINDA RICHMOND MD [facility] 02-04-2023 11:49-0400 Body temperature 98.96 [degF] DR LINDA RICHMOND MD [facility] 02-04-2023 11:49-0400 Diastolic Blood Pressure Non-Invasive [address] LINDA RICHMOND MD [facility] 02-04-2023 11:49-0400 Heart rate 48 /min DR LINDA RICHMOND MD [facility] 02-04-2023 11:49-0400 Reason For Taking VItal Signs DR LINDA RICHMOND MD [facility] 02-04-2023 11:49-0400 Respiratory rate 16 /min DR LINDA RICHMOND MD [facility] 02-04-2023 11:49-0400 Systolic Blood Pressure Non-Invasive [address] LINDA RICHMOND MD [facility] 02-04-2023 09:40-0400 Body temperature 97.88 [degF] DR LINDA RICHMOND MD [facility] 02-04-2023 09:40-0400 Body weight 76.[address] LINDA RICHMOND MD [facility] Encounters Encounter Date Encounter Type Care Provider Facility Start: 03-30-2025 ambulatory Zebulun Beam Facility:[facility] Start: 03-24-2025 ambulatory Zebulun Beam Facility:[facility] Start: 03-09-2025 End: 03-09-[address] Dickson Sanchez MD [facility] Work Phone: Start: 03-09-2025 End: 03-09-2025 ambulatory Zebulun Beam SHEET MET[employer] E[employer] Work Phone: -[facility] Start: 01-28-2025 End: 01-28-2025 ambulatory Zebulun Beam [employer]C Work Phone: [facility] Work Phone: Start: 01-28-2025 End: 01-28-2025 Patient encounter procedure Zebulun Beam SHEET MET[employer] E[employer]OR[employer]C -[facility] Start: 01-28-2025 End: 01-28-2025 ambulatory Zebulun Beam Facility:[facility] Start: 10-31-2023 End: 11-01-2023 ambulatory SHANNA MCKEON MD Facility:[facility] Start: 10-31-2023 End: 10-31-2023 Patient encounter procedure SHANNA MCKEON MD [facility] Start: 10-27-2023 End: 10-28-2023 ambulatory SHANNA MCKEON MD Facility:[facility] Start: 10-27-2023 End: 10-27-2023 Patient encounter procedure SHANNA MCKEON MD [facility] Start: 05-19-2023 End: 05-19-2023 ambulatory LASHON GOLDBERG SHIFT MECHANIC-TABLE [employer]NER Facility:[facility] Start: 05-07-2023 End: 05-08-2023 ambulatory LASHON GOLDBERG SH[employer] MECH[employer]IC[employer]TABLE [employer] Facility:[facility] Start: 05-07-2023 End: 05-07-2023 Admission to establishment TANNER GILLIAM MD [facility] Start: 02-17-2023 End: 02-18-2023 ambulatory LASHON GOLDBERG SHIFT MECH[employer]IC[employer]TABLE [employer]NER Facility:[facility] Start: 02-17-2023 End: 02-17-2023 Patient encounter procedure LASHON GOLDBERG SHIFT MECH[employer]IC[employer]TABLE [employer]NER [facility] Start: 02-04-2023 End: 02-05-2023 ambulatory MADELYN DAWKINS MD Facility:[facility] Start: 02-04-2023 End: 02-05-2023 Observation TANNER GILLIAM MD [facility] Start: 02-04-2023 End: 02-04-2023 Emergency department patient visit NONE PHYSICIAN Facility:[facility] Start: 02-04-2023 End: 02-04-2023 Emergency department patient visit DR LINDA RICHMOND MD [facility] Procedures Date Procedure Procedure Detail Performing Clinician Start: 01-28-2025 Prostate specific an tigen measurement Zebulun Beam [employer] Work Phone: Comment on above: This test was perfor med using the [employer] tPSA method. Measured values of a patient sample can vary depending on the testing procedure used. PSA values determined on patient samples by different testing procedures cannot be used interchangeably. If there is a change in PSA assays while monitoring therapy, sequential testing should be performed to confirm baseline values. Start: 01-28-2025 Urnls dip stick/tabl et reagent auto microscopy Zebulun Beam [employer] Work Phone: Start: 05-19-2023 Right inguinal herni a (disorder) SHANNA MCKEON MD Start: 02-04-2023 Appendectomy TANNER CHIN MD Payers Date Payer Category Payer Self-pay 2023 Private Health Insurance [id number] 1945 Unknown [id number] 2.16.8 [id number] 1945 Unknown [id number] 2.16.8 [id number] 1945 Unknown [id number] 2.16.8 [id number] 1945 Unknown [id number] 2.16.8 [id number] 1945 Unknown [id number] 2.16.8 [id number] 1945 Unknown [id number] 2.16.8 [id number] 1945 Unknown [id number] 2.16.8 [id number] Unknown [id number] 2.16.8 [id number] Unknown [id number] 2.16.8 [id number] Unknown [id number] 2.16.8 [id number] Unknown [id number] 2.16.8 [id number] Social History Date Type Detail Facility Start: 02-04-2023 End: 03-09-2025 Tobacco smoking status Ex-smoker (finding) [facility] Start: 1945 Sex Assigned At Male [facility] Tobacco smoking stat [facility] Unknown if ever smoked [facility] Work Phone: Functional Status Date Assessment Result Facility 05-07-2023 Functional Status Sensory Deficits None [facility] 02-05-2023 Functional Status Room check performed [facility] 02-05-2023 Functional Status [facility] 02-05-2023 Functional Status Multilevel home [facility] 02-05-2023 Functional Status [facility] 02-05-2023 Functional Status [facility] 02-04-2023 Functional Status [facility] 02-04-2023 Functional Status [facility] 02-04-2023 Functional Status Sensory Deficits None [facility] 02-04-2023 Functional Status Ambulation in [facility] 02-04-2023 Functional Status [facility] Mental Status Date Assessment Result Facility 02-05-2023 Mental Status Oriented x [address] [facility] 02-05-[address] [facility] 02-04-2023 Mental Status Orientation Asse ssment Oriented x 4, Appropriate for developmental age, Oriented to person, Oriented to place, Oriented to time, Oriented to situation [facility] 02-04-[address] [facility] 02-04-2023 Mental Status Orientation Oriented x 4 [facility] 02-04-2023 Mental Status [facility] Clinical Notes 02-04-2023 to 10-31-2023 Note Date & Type Note Facility 10-31-2023 Note ORIGINAL EXAMINATION: CTA OF THE ABDOMEN AND PELVIS WITH CONTRAST 10/31/2023 3:45 pm: TECHNIQUE: CTA of the abdomen and pelvis was performed with the administration of intravenous contrast. Multiplanar reformatted images are provided for review. MIP images are provided for review. Automated exposure control, iterative reconstruction, and/or weight based adjustment of the mA/kV was utilized to reduce the radiation dose to as low as reasonably achievable. COMPARISON: 02/04/2023 HISTORY: ORDERING SYSTEM PROVIDED HISTORY: Reason for Exam: AAA FINDINGS: CTA ABDOMEN: Visualized descending thoracic aorta demonstrates no acute CT angiographic abnormality. Fusiform infrarenal abdominal aortic aneurysm noted with maximal aortic diameter of 5.4 cm which is slightly larger compared to 02/04/2023 when it measures approximately 5.3 cm. No acute rupture or dissection. Otherwise, no acute CT angiographic abnormality of the abdominal aorta. 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 Collateral branches opacify inferior mesenteric arterial branches. Critical stenosis at right renal artery origin. Mild-moderate stenosis left renal artery origin noted. CTA PELVIS: Common, internal and external iliac arteries as well as visualized femoral arterial distributions demonstrate no acute CT angiographic abnormality CT: Visualized lower thorax demonstrates mild nodular infiltrative changes posterior lung bases. Correlation with clinical evidence of bronchitis/pneumonitis underlying chronic lung disease suggested. Otherwise, no acute CT abnormality visualized lower thorax. 6.5 cm hepatic cyst unchanged compared to prior study. Otherwise, visualized abdominal organs demonstrate no acute CT abnormality. Visualized GI tract demonstrates right inguinal hernia without strangulation, infarction or obstruction of the hernia sac. Otherwise, no acute CT abnormality of the visualized GI tract. Pelvis: Incomplete visualization right scrotal mass most consistent with hydrocele measuring 7.8 cm. Scrotal ultrasound suggested for further evaluation. Otherwise, no acute CT abnormality. Osseous structures and soft tissues: Foraminal stenosis and exiting nerve effacement/compression lower lumbar spine due to facet hypertrophy. Lumbar MRI suggested if clinical concern of radiculopathy/nerve compression. IMPRESSION: Fusiform infrarenal abdominal aortic aneurysm 5.4 cm in greatest dimension slightly increased in size compared to 02/04/2023 port and measures 5.3 cm in greatest dimension. Surgical/interventional consultation suggested. No acute rupture or dissection noted. 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 Incomplete visualization hypodense right scrotal mass most consistent with hydrocele measuring 7.7-7.8 cm in size. Scrotal ultrasound suggested for further evaluation, 6.5 cm hepatic cyst unchanged compared to prior study, foraminal stenosis and exiting nerve compression lower lumbar spine. Mild nodular infiltrative changes posterior lung bases bilaterally. Correlation with clinical evidence of early/mild pneumonia/pneumonitis and underlying chronic lung disease suggested. Interpreted by: Pascual Vee DO Preliminary Report By: Pascual Vee DO Electronically signed By Pascual Vee DO Dictated Date: 10/31/2023 4:16:29 PM Prelim Date: 10/31/2023 4:37:40 PM Sign Date: 10/31/2023 4:37:40 PM Ordering Provider: [facility] 02-05-2023 [facility] instructions Patient Education 02/05/2023 16:54:06 Laparoscopic Appendectomy, Adult, Care After Laparoscopic Appendectomy, Adult, Care After This sheet gives you information about how to care for yourself after your procedure. Your health care provider may also give you more specific instructions. If you have problems or questions, contact your health care provider. What can I expect after the procedure? After the procedure, it is common to have: Little energy for normal activities. Mild pain in the area where the incisions were made. Difficulty passing stool (constipation). This can be caused by: ?Pain medicine. ?A decrease in your activity. Follow these instructions at home: Medicines Take kwnf-jgc-putzndt and prescription medicines only as told by your health care provider. If you were prescribed an antibiotic medicine, take it as told by your health care provider. Do not stop taking the antibiotic even if you start to feel better. Do not drive or use heavy machinery while taking prescription pain medicine. Ask your health care provider if the medicine prescribed to you can cause constipation. You may need to take steps to prevent or treat constipation, such as: ?Drink enough fluid to keep your urine pale yellow. ?Take xoko-rcy-gdtavci or prescription medicines. ?Eat foods that are high in fiber, such as beans, whole grains, and fresh fruits and vegetables. ?Limit foods that are high in fat and processed sugars, such as fried or sweet foods. Incision care Follow instructions from your health care provider about how to take care of your incisions. Make sure you: ?Wash your hands with soap and water before and after you change your bandage (dressing). If soap and water are not available, use hand textile cutting machine operator. ?Change your dressing as told by your health care provider. ?Leave stitches (sutures), skin glue, or adhesive strips in place. These skin closures may need to stay in place for 2 weeks or longer. If adhesive strip edges start to loosen and curl up, you may trim the loose edges. Do not remove adhesive strips completely unless your health care provider tells you to do that. Check your incision areas every day for signs of infection. Check for: ?Redness, swelling, or pain. ?Fluid or blood. ?Warmth. ?Pus or a bad smell. Bathing Keep your incisions clean and dry. Clean them as often as told by your health care provider. To do this: 1.Gently wash the incisions with soap and water. 2.Rinse the incisions with water to remove all soap. 3.Pat the incisions dry with a clean towel. Do not rub the incisions. Do not take baths, swim, or use a hot tub for 2 weeks, or until your health care provider approves. You may take showers after [address] Do not drive for 24 hours if you were given a sedative during your procedure. Rest after the procedure. Return to your normal activities as told by your health care provider. Ask your health care provider what activities are safe for you. For 3 weeks, or for as long as told by your health care provider: ?Do not lift anything that is heavier than 10 lb (4.5 kg), or the limit that you are told. ?Do not play contact sports. General instructions If you were sent home with a drain, follow instructions from your health care provider about how to care for it. Take deep breaths. This helps to prevent your lungs from developing an infection (pneumonia). Keep all follow-up visits as told by your health care provider. This is important. Contact a health care provider if: You have redness, swelling, or pain around an incision. You have fluid or blood coming from an incision. Your incision feels warm to the touch. You have pus or a bad smell coming from an incision or dressing. Your incision edges break open after your sutures have been removed. You have increasing pain in your shoulders. You feel dizzy or you faint. You develop shortness of breath. You keep feeling nauseous or you are vomiting. You have diarrhea or you cannot control your bowel functions. You lose your appetite. You develop swelling or pain in your legs. You develop a rash. Get help right away if you have: A fever. Difficulty breathing. Sharp pains in your chest. Summary After a laparoscopic appendectomy, it is common to have little energy for normal activities, mild pain in the area of the incisions, and constipation. Infection is the most common complication after this procedure. Follow your health care provider's instructions about caring for yourself after the procedure. Rest after the procedure. Return to your normal activities as told by your health care provider. Contact your health care provider if you notice signs of infection around your incisions or you develop shortness of breath. Get help right away if you have a fever, chest pain, or difficulty breathing. This information is not intended to replace advice given to you by your health care provider. Make sure you discuss any questions you have with your health care provider. Document Released: 07/28/2006 Document Revised: 01/28/2019 Document Reviewed: 01/28/2019 Handprint Patient Education 2020 [employer]. 02/05/2023 16:53:03 Appendicitis, Adult Appendicitis, Adult Appendicitis is inflammation of the appendix. The appendix is a finger-shaped tube that is attached to the large intestine. If appendicitis is not treated, it can cause the appendix to tear (rupture). A ruptured appendix can lead to a life-threatening infection. It can also cause a painful collection of pus (abscess) to form in the appendix. What are the causes? This condition may be caused by a blockage in the appendix that leads to infection. The blockage can be caused by: A ball of stool (feces). Enlarged lymph glands. In some cases, the cause may not be known. What increases the risk? Age is a risk factor. You are more likely to develop this condition if you are between 10 and 30 years of age. What are the signs or symptoms? Symptoms of this condition include: Pain that starts around the belly button and moves toward the lower right part of the abdomen. The pain can become more severe as time passes. It gets worse with coughing or sudden movements. Tenderness in the lower right abdomen. Nausea. Vomiting. Loss of appetite. Fever. Difficulty passing stool (constipation). Passing very loose stools (diarrhea). Generally feeling unwell. How is this diagnosed? This condition may be diagnosed with: A physical exam. Blood tests. Urine test. To confirm the diagnosis, an ultrasound, MRI, or CT scan may be done. How is this treated? This condition is usually treated with surgery to remove the appendix (appendectomy). There are two methods for doing an appendectomy: Open appendectomy. In this surgery, the appendix is removed through a large incision that is made in the lower right abdomen. This procedure may be recommended if: ?You have major scarring from a previous surgery. ?You have a bleeding disorder. ?You are and are about to give . ?You have a condition that makes it hard to do surgery through small incisions (laparoscopic procedure). This includes severe infection or a ruptured appendix. Laparoscopic appendectomy. In this surgery, the appendix is removed through small incisions. This procedure usually causes less pain and fewer problems than an open appendectomy. It also has a shorter recovery time. If the appendix has ruptured and an abscess has formed: A drain may be placed into the abscess to remove fluid. Antibiotic medicines may be given through an IV. The appendix may or may not need to be removed. Follow these instructions at home: If you had surgery, follow instructions from your health care provider about how to care for yourself at home and how to care for your incision. Medicines Take gufg-hnd-rgdwmxs and prescription medicines only as told by your health care provider. If you were prescribed an antibiotic medicine, take it as told by your health care provider. Do not stop taking the antibiotic even if you start to feel better. Eating and drinking Follow instructions from your health care provider about eating restrictions. You may slowly resume a regular diet once your nausea or vomiting stops. General instructions Do not use any products that contain nicotine or tobacco, such as cigarettes, e-cigarettes, and chewing tobacco. If you need help quitting, ask your health care provider. Do not drive or use heavy machinery while taking prescription pain medicine. Ask your health care provider if the medicine prescribed to you can cause constipation. You may need to take steps to prevent or treat constipation, such as: ?Drink enough fluid to keep your urine pale yellow. ?Take qhbq-rwx-squnleb or prescription medicines. ?Eat foods that are high in fiber, such as beans, whole grains, and fresh fruits and vegetables. ?Limit foods that are high in fat and processed sugars, such as fried or sweet foods. Keep all follow-up visits as told by your health care provider. This is important. Contact a health care provider if: There is pus, blood, or excessive drainage coming from your incision. You have nausea or vomiting. Get help right away if you have: Worsening abdominal pain. A fever. Chills. Fatigue. Muscle aches. Shortness of breath. Summary Appendicitis is inflammation of the appendix. This condition may be caused by a blockage in the appendix that leads to infection. This condition is usually treated with surgery to remove the appendix. This information is not intended to replace advice given to you by your health care provider. Make sure you discuss any questions you have with your health care provider. Document Released: 07/28/2006 Document Revised: 01/13/2019 Document Reviewed: 01/13/2019 Handprint Patient Education 2020 [employer]. Follow Up Care 02/04/2023 13:42:34 With:TANNER GILLIAM MD, Surgery Address: [address] [place] [address] [address] [facility] [place] [address]- When:02/20/2023 13:50:00 Comments:Follow up appointment With:LUIS MAGALLANES MD, [facility], Vascular Service, Vascular Surgeons Address: [address] [facility] [place] [address]- [phone] Business (1) When:Within 4 Week(s) Comments:Follow up in approximately 4 weeks With:LASHON GOLDBERG APRN-[facility] Address: [address] [place] [address] [place] [address]- When:02/12/2023 16:00:00 Comments:PLEASE ARRIVE AT 3:30 PM TO FILL OUT PAPERWORK . BRING YOUR INSURANCE CARD AND PHOTO ID [facility] 02-05-2023 Surgery Hospital Progress note Date of Service 02/05/2023 Chief Complaint Postoperative day #1 Subjective On examination of the patient he is seen resting supine in bed, no acute distress. Patient reports that his right lower abdominal pain is gone however he is experiencing mild pain to the laparoscopic sites. States that he is tolerating his diet without difficulty. Patient reports that he is voiding without difficulty. Patient denies any nausea or vomiting. Patient states that he is passing flatulence. Objective Vitals and Measurements T: 37.0 C (Oral) TMIN: 36.3 C (Temporal Artery) TMAX: 37.0 C (Oral) HR: 65(Apical) RR: 16 BP: 139/66 SpO2: 92% HT: 167.6 cm WT: 77.3 kg BMI: 27.52 Intake and Output 7AM Yesterday to 7AM Today Intake and Output (Last 24 hours) Intake Oral Intake 350.00 Administration Information 1100.00 Output Urine Voided 675.00 Intra-Op EBL 5.00 Stool Count 0.00 Urine Count 0.00 Total Summary Total Intake 1450.00 Total Output 680.00 Fluid Balance 770.00 Physical Exam General: Awake and alert and in no apparent distress. Able to answer questions and speak in full sentences. Supine in bed. Sitting upright. HEENT: Mucous membranes moist and pink. Sclerae anicteric. PERRLA. Heart: Regular rate and rhythm. S1-S2 are present. Lungs: Chest rise symmetrical. Respirations unlabored. Clear to auscultation bilaterally. Abdomen: Soft and nontender. slightly bloated. No guarding or rigidity. Bowel sounds 4 quadrants. Laparoscopic sites are dry and intact. Inguinal hernia reproducible, no changes to skin or erythremia noted Extremities: Freely moving. Skin: Normal color for ethnicity. No pallor or diaphoresis. No jaundice. Psychiatric: Calm and cooperative. Weight Dosing Weight: 77.3 kg (02/04/23) Medications Medications (16) Active Scheduled: (4) acetaminophen PMX 1,000 mg 100 mL, IV Piggyback, q6hr ceFOXitin 1 g, IV Piggyback, q8h enoxaparin 40 mg/ 0.4mL syringe 40 mg 0.4 mL, Subcutaneous, qDay losartan 50 mg tablet 50 mg 1 tab(s), Oral, qDay Continuous: (2) Lactated Ringers 1,000 mL 1,000 mL, Intravenous, 125 mL/hr Lactated Ringers 1,000 mL 1,000 mL, Intravenous, 100 mL/hr PRN: (10) acetaminophen 325 mg Tablet 650 mg 2 tab(s), Oral, q4h acetaminophen-HYDROcodone 325-5 mg tablet 1 tab(s), Oral, q4h hydralazine 20 mg/mL (1mL) vial 10 mg 0.5 mL, IV Push, q6h HYDROmorphone 0.5 mg/0.5 mL PF syringe 0.5 mg 0.5 mL, IV Push, q5min morphine 2 mg/mL 1 mL syringe 2 mg 1 mL, IV Push, q3h morphine 4 mg/mL 1mL INJ 4 mg 1 mL, IV Push, q3h ondansetron 2 mg/ 1 mL 2 mL INJ 4 mg 2 mL, IV Push, AsDirected ondansetron 2 mg/ 1 mL 2 mL INJ 4 mg 2 mL, IV Push, q4h phenol topical 1.4% Spr 1 spray(s), Topical, q1h prochlorperazine 10 mg/2 mL vial 5 mg 1 mL, IV Push, q6h Lab Results 02/05 05:37 WBC: 19.6 H Hgb: 14.5 Hct: 43.5 Platelet: 189 Neutrophil %: 87.2 H Glucose Level: 124 H Sodium Level: 141 Potassium Level: 4.5 BUN: 18.0 Creatinine Lvl (s): 1.18 EKG No qualifying data available. Assessment/Plan This patient is a 77-year-old male who is postoperative day #1 from a laparoscopic appendectomy secondary to acute appendicitis. From a general surgery standpoint the patient is doing very well. Vital signs, laboratory data I/O have been reviewed. Patient with mild abdominal distention however he is passing flatulence. Patient's laparoscopic sites are dry and intact with no signs and symptoms of infection. Elevated white count of more than likely related to active. Plan: 1. Postoperative day #1 -Patient encouraged to mobilize, sit up in chair and ambulate -Continue with multimodality pain control -We will transition the patient to oral antibiotics upon discharge due to small of purulent spillage during manipulation of the appendix during surgery. -Patient will need follow-up with a primary PCP. I did speak to social media job titles in regards to helping the patient find a primary PCP. -Anticipate discharge within the next 24 hours. 2. Medical management per the hospitalist-appreciate input -Patient scheduled for an echocardiogram due to elevated blood pressure 3. Vascular surgery consulted for newly diagnosed 5.1 infrarenal AAA seen on CT scan. Case cussed Dr. Gilliam. Please see his addendum to follow. Digitally Signed by UMER LARKIN on 02/05/2023 10:24 AM [facility] 02-05-2023 Note Discharge Instructions Thank you for allowing [facility] to assist you with your healthcare needs. The following is important discharge information regarding your hospital visit. Your Care Team PHYSICIAN, NONE Your Diagnosis Appendicitis S/P laparoscopic appendectomy AAA (abdominal aortic aneurysm) without rupture HTN (hypertension), benign What to do next Instructions From Your Doctor Operative activity/wound care recommendations No lifting or pushing objects greater than 10 to 15 pounds and no strenuous activity. Walking, using stairs, and riding in the car are acceptable forms of activity and are encouraged in postoperative period. Spirometer use and deep breathing/coughing exercises are also encouraged after discharge to prevent respiratory complications such as pneumonia and blood clots. You may shower. No tub bathing or soaking your incision, and no pools/hot tub until cleared by your surgeon. Wash your incision daily with mild soap and water and pat dry. Post operative medication recommendations/education: It is recommended that you alternate between 650mg and 1000 mg of Tylenol and 400 to 800 mg of Motrin (Ibuprofen or Advil) every 6 hours as needed to optimize pain control after surgery. Constipation after surgery is very common for patients after discharge from the hospital. This is related to anesthesia and analgesia (pain medication.). Concern encouraged to take gffa-hmh-yrpwsaz stool softeners (such as Colace) and over the counter laxatives (such as Miralax) as needed for constipation. Additional medications that can be taken for operative constipation including milk of magnesia, Metamucil and Senokot. 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 [address] [address] [place] [address]- Follow Up with LASHON GOLDBERG APRN-TABLE RUNNER When 02/12/2023 04:00 PM EDT Why: PLEASE ARRIVE AT 3:30 PM TO FILL OUT PAPERWORK . BRING YOUR INSURANCE CARD AND PHOTO ID Where: [address] [place] [address]- Follow Up with LUIS MAGALLANES MD, [facility], Vascular Service, Vascular Surgeons When In 4 weeks Why: Follow up in approximately 4 weeks Where: [address] [facility] [address] [facility] [place] [address]- [phone] Business (1) The Following Activity and Diet Have Been Ordered for You Discharge Activity - Ordered -- May Shower, No strenuous activity, no soaking in a hot tub, bathtub or pool until seen and cleared by Dr. Gilliam. You may shower. No lifting anything greater than 10 to 15 pounds until follow-up, 02/05/23 15:00:00 EDT Discharge Driving Restrictions - Ordered -- No driving for 1 week, 02/05/23 15:00:00 EDT Discharge Diet - Ordered -- Type of Diet: Regular, 02/05/23 15:00:00 EDT The Following Equipment Has Been Ordered for You Discharge Home Equipment Discharge Wound Care - Ordered -- Cleanse laparoscopic areas with soap and water and pat dry, 02/05/23 15:00:00 EDT The Following Treatments Have Been Ordered for You Discharge Labs No qualifying data available. Discharge Radiology No qualifying data available. Other Therapies No qualifying data available. Post Acute Orders No qualifying data available. Someone Will Contact You Regarding These Home Health Referrals No home referrals have been ordered for you. No one will call you. Allergies No Known Medication Allergies Medications Please ask your primary doctor or pharmacist before taking any other medication not listed, including over the counter drugs, herbal medications, vitamins and or supplements as they may interact with your home medications. What How Much When Why Instructions Last Dose New amoxicillin-clavulanate (amoxicillin-clavulanate 875 mg-125 mg oral tablet) 1 tab(s) by mouth Every 12 hours Appendicitis Duration: 4 Days Printed Prescription New losartan (losartan 50 mg oral tablet) 1 tab(s) by mouth Once a day Pickup at [facility] #[id number] Pharmacy Information [facility] #[id number]: [address], [place] [phone] Please take this list to your next doctor s visit. Bring all medications you take, including over the counter medications, herbals and other supplements with you to your doctor s visit. Patients and families are reminded to discard old lists and to update any records with all medication providers or retail pharmacies. Education Materials Laparoscopic Appendectomy, Adult, Care After This sheet gives you information about how to care for yourself after your procedure. Your health care provider may also give you more specific instructions. If you have problems or questions, contact your health care provider. What can I expect after the procedure? After the procedure, it is common to have: Little energy for normal activities. Mild pain in the area where the incisions were made. Difficulty passing stool (constipation). This can be caused by: ? Pain medicine. ? A decrease in your activity. Follow these instructions at home: Medicines Take uokx-fbq-xsrjjvq and prescription medicines only as told by your health care provider. If you were prescribed an antibiotic medicine, take it as told by your health care provider. Do not stop taking the antibiotic even if you start to feel better. Do not drive or use heavy machinery while taking prescription pain medicine. Ask your health care provider if the medicine prescribed to you can cause constipation. You may need to take steps to prevent or treat constipation, such as: ? Drink enough fluid to keep your urine pale yellow. ? Take zrfi-leq-dxaumai or prescription medicines. ? Eat foods that are high in fiber, such as beans, whole grains, and fresh fruits and vegetables. ? Limit foods that are high in fat and processed sugars, such as fried or sweet foods. Incision care Follow instructions from your health care provider about how to take care of your incisions. Make sure you: ? Wash your hands with soap and water before and after you change your bandage (dressing). If soap and water are not available, use hand textile cutting machine operator. ? Change your dressing as told by your health care provider. ? Leave stitches (sutures), skin glue, or adhesive strips in place. These skin closures may need to stay in place for 2 weeks or longer. If adhesive strip edges start to loosen and curl up, you may trim the loose edges. Do not remove adhesive strips completely unless your health care provider tells you to do that. Check your incision areas every day for signs of infection. Check for: ? Redness, swelling, or pain. ? Fluid or blood. ? Warmth. ? Pus or a bad smell. Bathing Keep your incisions clean and dry. Clean them as often as told by your health care provider. To do this: 1. Gently wash the incisions with soap and water. 2. Rinse the incisions with water to remove all soap. 3. Pat the incisions dry with a clean towel. Do not rub the incisions. Do not take baths, swim, or use a hot tub for 2 weeks, or until your health care provider approves. You may take showers after [address] Do not drive for 24 hours if you were given a sedative during your procedure. Rest after the procedure. Return to your normal activities as told by your health care provider. Ask your health care provider what activities are safe for you. For 3 weeks, or for as long as told by your health care provider: ? Do not lift anything that is heavier than 10 lb (4.5 kg), or the limit that you are told. ? Do not play contact sports. General instructions If you were sent home with a drain, follow instructions from your health care provider about how to care for it. Take deep breaths. This helps to prevent your lungs from developing an infection (pneumonia). Keep all follow-up visits as told by your health care provider. This is important. Contact a health care provider if: You have redness, swelling, or pain around an incision. You have fluid or blood coming from an incision. Your incision feels warm to the touch. You have pus or a bad smell coming from an incision or dressing. Your incision edges break open after your sutures have been removed. You have increasing pain in your shoulders. You feel dizzy or you faint. You develop shortness of breath. You keep feeling nauseous or you are vomiting. You have diarrhea or you cannot control your bowel functions. You lose your appetite. You develop swelling or pain in your legs. You develop a rash. Get help right away if you have: A fever. Difficulty breathing. Sharp pains in your chest. Summary After a laparoscopic appendectomy, it is common to have little energy for normal activities, mild pain in the area of the incisions, and constipation. Infection is the most common complication after this procedure. Follow your health care provider's instructions about caring for yourself after the procedure. Rest after the procedure. Return to your normal activities as told by your health care provider. Contact your health care provider if you notice signs of infection around your incisions or you develop shortness of breath. Get help right away if you have a fever, chest pain, or difficulty breathing. This information is not intended to replace advice given to you by your health care provider. Make sure you discuss any questions you have with your health care provider. Document Released: 07/28/2006 Document Revised: 01/28/2019 Document Reviewed: 01/28/2019 Handprint Patient Education 2020 [employer]. Appendicitis, Adult Appendicitis is inflammation of the appendix. The appendix is a finger-shaped tube that is attached to the large intestine. If appendicitis is not treated, it can cause the appendix to tear (rupture). A ruptured appendix can lead to a life-threatening infection. It can also cause a painful collection of pus (abscess) to form in the appendix. What are the causes? This condition may be caused by a blockage in the appendix that leads to infection. The blockage can be caused by: A ball of stool (feces). Enlarged lymph glands. In some cases, the cause may not be known. What increases the risk? Age is a risk factor. You are more likely to develop this condition if you are between 10 and 30 years of age. What are the signs or symptoms? Symptoms of this condition include: Pain that starts around the belly button and moves toward the lower right part of the abdomen. The pain can become more severe as time passes. It gets worse with coughing or sudden movements. Tenderness in the lower right abdomen. Nausea. Vomiting. Loss of appetite. Fever. Difficulty passing stool (constipation). Passing very loose stools (diarrhea). Generally feeling unwell. How is this diagnosed? This condition may be diagnosed with: A physical exam. Blood tests. Urine test. To confirm the diagnosis, an ultrasound, MRI, or CT scan may be done. How is this treated? This condition is usually treated with surgery to remove the appendix (appendectomy). There are two methods for doing an appendectomy: Open appendectomy. In this surgery, the appendix is removed through a large incision that is made in the lower right abdomen. This procedure may be recommended if: ? You have major scarring from a previous surgery. ? You have a bleeding disorder. ? You are and are about to give . ? You have a condition that makes it hard to do surgery through small incisions (laparoscopic procedure). This includes severe infection or a ruptured appendix. Laparoscopic appendectomy. In this surgery, the appendix is removed through small incisions. This procedure usually causes less pain and fewer problems than an open appendectomy. It also has a shorter recovery time. If the appendix has ruptured and an abscess has formed: A drain may be placed into the abscess to remove fluid. Antibiotic medicines may be given through an IV. The appendix may or may not need to be removed. Follow these instructions at home: If you had surgery, follow instructions from your health care provider about how to care for yourself at home and how to care for your incision. Medicines Take imcb-cpn-wowousf and prescription medicines only as told by your health care provider. If you were prescribed an antibiotic medicine, take it as told by your health care provider. Do not stop taking the antibiotic even if you start to feel better. Eating and drinking Follow instructions from your health care provider about eating restrictions. You may slowly resume a regular diet once your nausea or vomiting stops. General instructions Do not use any products that contain nicotine or tobacco, such as cigarettes, e-cigarettes, and chewing tobacco. If you need help quitting, ask your health care provider. Do not drive or use heavy machinery while taking prescription pain medicine. Ask your health care provider if the medicine prescribed to you can cause constipation. You may need to take steps to prevent or treat constipation, such as: ? Drink enough fluid to keep your urine pale yellow. ? Take ofgk-kdz-kbofert or prescription medicines. ? Eat foods that are high in fiber, such as beans, whole grains, and fresh fruits and vegetables. ? Limit foods that are high in fat and processed sugars, such as fried or sweet foods. Keep all follow-up visits as told by your health care provider. This is important. Contact a health care provider if: There is pus, blood, or excessive drainage coming from your incision. You have nausea or vomiting. Get help right away if you have: Worsening abdominal pain. A fever. Chills. Fatigue. Muscle aches. Shortness of breath. Summary Appendicitis is inflammation of the appendix. This condition may be caused by a blockage in the appendix that leads to infection. This condition is usually treated with surgery to remove the appendix. This information is not intended to replace advice given to you by your health care provider. Make sure you discuss any questions you have with your health care provider. Document Released: 07/28/2006 Document Revised: 01/13/2019 Document Reviewed: 01/13/2019 Handprint Patient Education 2020 [employer]. Additional Information VACCINATE! IT SAVES LIVES! Members of the community who have not yet received the COVID-19 vaccine and would like to receive it can visit one of [facility] vaccine clinics. There are many vaccine clinic locations within the [facility]. For locations and available times, please visit https://gettheshot.coronavirus.o hio.gov/. It is important to note that some COVID mobile vaccine clinics are held outdoors and may be canceled in rainy or stormy conditions. To learn more about pediatric vaccinations (ages 5-11), we invite you to visit the [facility] webpage. [email or web address].[email or web address].org/p [email or web address]-Imlxg-Nofyceyveyc-Freq qxjqwv-Cjutb-Fqjjstnec.html To learn more about the COVID-19 vaccine, we invite you to visit the CDC website for a list of frequently asked questions.https://www.cdc.gov/co ronavirus/2019-ncov/vaccines/faq .html [facility] Patient Portal Access Instructions: Stay connected with your healthcare team and access your personal medical information anytime with the [facility] Patient Portal. Please follow the directions below to create your [facility] account: 1.Access the email account you provided upon registration to the hospital/physician office.2.Look for an invitation email from [facility].3.Open the email and access the invitation link: Accept Invitation to [facility].4.Fill in the required bauer to create your account. To access your account, visit [email or web address]. Click the blue button labeled Access Patient Portal and then log in with the username and password that you created in the steps above. You will be able to view your test results, lab results, a summary of your visits, upcoming appointments and more. There is also a convenient messaging option where you can send secure messages to your provider. In addition, you will have the ability to download any documents or summaries to your computer and/or send the information securely to a physician. Remember that your healthcare information is confidential, so carefully consider who you will allow to register on the [facility] Patient Portal for access to your information. You can also access the [facility] Patient Portal on the [facility] suze. Simply click on Patient Portal and then log into your account. If you would like to receive a full copy of your medical records, please contact the [facility] Medical Records Department by calling [phone], Friday through Friday between 8 a.m. and 4:30 p.m. HOW TO SAFELY DISPOSE OF PRESCRIPTION MEDICATIONS Please use one of the following methods to safely dispose of your unused medications. 1.Use a drug disposal kit: the drug disposal pouch allows you to safely discard your old and unused drugs. Ask your nurse to give you one when you are discharged.2.Visit a local take-back location: Many local pharmacies and police departments have programs that collect old and unwanted prescription drugs. Call your local pharmacy or go to http://[employer].Dartfish/4X4Qe2a to find one close to you.3.Make use of household items: Use cat litter or old coffee grounds to dispose medications if other options are not available. Mix your drugs with these household products, seal them in an airtight container and throw it into the garbage. Call [facility]: [phone] to be sure your drugs can be disposed of in this way. Some medicines may require a different approach.4.Never flush your medications down the toilet. IF YOU HAVE BEEN PRESCRIBED AN OPIOID FOR PAIN If you have been prescribed an opioid (such as hydrocodone, oxycodone or morphine), it is critical to understand the possible side effects and risks of opioid pain medications. Even when taken as directed, opioids can have several side effects including: Tolerance, meaning you might need to take more of a medication for the same pain relief. Nausea, vomiting and/or constipation. Sleepiness, dizziness, dry mouth, confusion, depression or itching. Physical dependence, meaning you have withdrawal symptoms when a medication is stopped, can develop within a few days. KNOW YOUR RESPONSIBILITIES It is important to know exactly how much and how often to take the opioid pain medications you are prescribed. Never take opioids in higher amounts or more often than prescribed. Do not combine opioids with alcohol or other drugs that cause drowsiness, such as benzodiazepines, also known as benzos, including diazepam and alprazolam, muscle relaxants or sleep aids. Never sell or share prescription opioids. This is illegal. Store opioids in a secure place and out of reach of others (including children, family, friends and visitors). The last page of this document has been signed and retained as a CHART COPY. Signatures Patient Education Materials Laparoscopic Appendectomy, Adult, Care After Appendicitis, Adult Medication Leaflets My discharge plan and instructions have been reviewed and explained to me and I,ROSIBEL STEELE understand my current condition and have read and understand these discharge instructions. I have received a written copy of the plan/instructions. If I have questions, I am aware that I should contact my doctor. 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 The following is important discharge information regarding your hospital visit. Your Care Team PHYSICIAN, NONE Your Diagnosis Appendicitis S/P laparoscopic appendectomy AAA (abdominal aortic aneurysm) without rupture HTN (hypertension), benign What to do next Instructions From Your Doctor Operative activity/wound care recommendations No lifting or pushing objects greater than 10 to 15 pounds and no strenuous activity. Walking, using stairs, and riding in the car are acceptable forms of activity and are encouraged in postoperative period. Spirometer use and deep breathing/coughing exercises are also encouraged after discharge to prevent respiratory complications such as pneumonia and blood clots. You may shower. No tub bathing or soaking your incision, and no pools/hot tub until cleared by your surgeon. Wash your incision daily with mild soap and water and pat dry. Post operative medication recommendations/education: It is recommended that you alternate between 650mg and 1000 mg of Tylenol and 400 to 800 mg of Motrin (Ibuprofen or Advil) every 6 hours as needed to optimize pain control after surgery. Constipation after surgery is very common for patients after discharge from the hospital. This is related to anesthesia and analgesia (pain medication.). Concern encouraged to take xopd-nnd-kealmur stool softeners (such as Colace) and over the counter laxatives (such as Miralax) as needed for constipation. Additional medications that can be taken for operative constipation including milk of magnesia, Metamucil and Senokot. Scheduled Follow-Up Appointments Appointment Type When With Where Contact InformationPC SHEET METAL E[facility]OR [facility] Follow Up 02/12/2023 04:00 PM EDT LASHON GOLDBERG [address] [id number] OV Post Op 02/20/2023 01:50 PM EDT TANNER GILLIAM MD [facility] General Surgery [place] Follow Up Appointments Follow Up with TANNER GILLIAM MD, Surgery When 02/20/2023 01:50 PM EDT Why: Follow up appointment Where: [address] [facility] [address] [place] [address]- Follow Up with LASHON GOLDBERG When 02/12/2023 04:00 PM EDT Why: PLEASE ARRIVE AT 3:30 PM TO FILL OUT PAPERWORK . BRING YOUR INSURANCE CARD AND PHOTO ID Where: [address] [place] [address]- Follow Up with LUIS MAGALLANES MD, [facility], Vascular Service, Vascular Surgeons When In 4 weeks Why: Follow up in approximately 4 weeks Where: [address] [facility] [place] [address]- [phone] Business (1) The Following Activity and Diet Have Been Ordered for You Discharge Activity - Ordered -- May Shower, No strenuous activity, no soaking in a hot tub, bathtub or pool until seen and cleared by Dr. Gilliam. You may shower. No lifting anything greater than 10 to 15 pounds until follow-up, 02/05/23 15:00:00 EDT Discharge Driving Restrictions - Ordered -- No driving for 1 week, 02/05/23 15:00:00 EDT Discharge Diet - Ordered -- Type of Diet: Regular, 02/05/23 15:00:00 EDT The Following Equipment Has Been Ordered for You Discharge Home Equipment Discharge Wound Care - Ordered -- Cleanse laparoscopic areas with soap and water and pat dry, 02/05/23 15:00:00 EDT The Following Treatments Have Been Ordered for You Discharge Labs No qualifying data available. Discharge Radiology No qualifying data available. Other Therapies No qualifying data available. Post Acute Orders No qualifying data available. Someone Will Contact You Regarding These Home Health Referrals No home referrals have been ordered for you. No one will call you. Allergies No Known Medication Allergies Medications Please ask your primary doctor or pharmacist before taking any other medication not listed, including over the counter drugs, herbal medications, vitamins and or supplements as they may interact with your home medications. What How Much When Why Instructions Last Dose New amoxicillin-clavulanate (amoxicillin-clavulanate 875 mg-125 mg oral tablet) 1 tab(s) by mouth Every 12 hours Appendicitis Duration: 4 Days Printed Prescription New losartan (losartan 50 mg oral tablet) 1 tab(s) by mouth Once a day Pickup at [facility] #[id number] Pharmacy Information [facility] #[id number]: [address], [place] [phone] Please take this list to your next doctor s visit. Bring all medications you take, including over the counter medications, herbals and other supplements with you to your doctor s visit. Patients and families are reminded to discard old lists and to update any records with all medication providers or retail pharmacies. Education Materials Laparoscopic Appendectomy, Adult, Care After This sheet gives you information about how to care for yourself after your procedure. Your health care provider may also give you more specific instructions. If you have problems or questions, contact your health care provider. What can I expect after the procedure? After the procedure, it is common to have: Little energy for normal activities. Mild pain in the area where the incisions were made. Difficulty passing stool (constipation). This can be caused by: ? Pain medicine. ? A decrease in your activity. Follow these instructions at home: Medicines Take rnzg-fhl-jxpptkr and prescription medicines only as told by your health care provider. If you were prescribed an antibiotic medicine, take it as told by your health care provider. Do not stop taking the antibiotic even if you start to feel better. Do not drive or use heavy machinery while taking prescription pain medicine. Ask your health care provider if the medicine prescribed to you can cause constipation. You may need to take steps to prevent or treat constipation, such as: ? Drink enough fluid to keep your urine pale yellow. ? Take adua-ydh-ozgcgyk or prescription medicines. ? Eat foods that are high in fiber, such as beans, whole grains, and fresh fruits and vegetables. ? Limit foods that are high in fat and processed sugars, such as fried or sweet foods. Incision care Follow instructions from your health care provider about how to take care of your incisions. Make sure you: ? Wash your hands with soap and water before and after you change your bandage (dressing). If soap and water are not available, use hand textile cutting machine operator. ? Change your dressing as told by your health care provider. ? Leave stitches (sutures), skin glue, or adhesive strips in place. These skin closures may need to stay in place for 2 weeks or longer. If adhesive strip edges start to loosen and curl up, you may trim the loose edges. Do not remove adhesive strips completely unless your health care provider tells you to do that. Check your incision areas every day for signs of infection. Check for: ? Redness, swelling, or pain. ? Fluid or blood. ? Warmth. ? Pus or a bad smell. Bathing Keep your incisions clean and dry. Clean them as often as told by your health care provider. To do this: 1. Gently wash the incisions with soap and water. 2. Rinse the incisions with water to remove all soap. 3. Pat the incisions dry with a clean towel. Do not rub the incisions. Do not take baths, swim, or use a hot tub for 2 weeks, or until your health care provider approves. You may take showers after [address] Do not drive for 24 hours if you were given a sedative during your procedure. Rest after the procedure. Return to your normal activities as told by your health care provider. Ask your health care provider what activities are safe for you. For 3 weeks, or for as long as told by your health care provider: ? Do not lift anything that is heavier than 10 lb (4.5 kg), or the limit that you are told. ? Do not play contact sports. General instructions If you were sent home with a drain, follow instructions from your health care provider about how to care for it. Take deep breaths. This helps to prevent your lungs from developing an infection (pneumonia). Keep all follow-up visits as told by your health care provider. This is important. Contact a health care provider if: You have redness, swelling, or pain around an incision. You have fluid or blood coming from an incision. Your incision feels warm to the touch. You have pus or a bad smell coming from an incision or dressing. Your incision edges break open after your sutures have been removed. You have increasing pain in your shoulders. You feel dizzy or you faint. You develop shortness of breath. You keep feeling nauseous or you are vomiting. You have diarrhea or you cannot control your bowel functions. You lose your appetite. You develop swelling or pain in your legs. You develop a rash. Get help right away if you have: A fever. Difficulty breathing. Sharp pains in your chest. Summary After a laparoscopic appendectomy, it is common to have little energy for normal activities, mild pain in the area of the incisions, and constipation. Infection is the most common complication after this procedure. Follow your health care provider's instructions about caring for yourself after the procedure. Rest after the procedure. Return to your normal activities as told by your health care provider. Contact your health care provider if you notice signs of infection around your incisions or you develop shortness of breath. Get help right away if you have a fever, chest pain, or difficulty breathing. This information is not intended to replace advice given to you by your health care provider. Make sure you discuss any questions you have with your health care provider. Document Released: 07/28/2006 Document Revised: 01/28/2019 Document Reviewed: 01/28/2019 Handprint Patient Education 2020 [employer]. Appendicitis, Adult Appendicitis is inflammation of the appendix. The appendix is a finger-shaped tube that is attached to the large intestine. If appendicitis is not treated, it can cause the appendix to tear (rupture). A ruptured appendix can lead to a life-threatening infection. It can also cause a painful collection of pus (abscess) to form in the appendix. What are the causes? This condition may be caused by a blockage in the appendix that leads to infection. The blockage can be caused by: A ball of stool (feces). Enlarged lymph glands. In some cases, the cause may not be known. What increases the risk? Age is a risk factor. You are more likely to develop this condition if you are between 10 and 30 years of age. What are the signs or symptoms? Symptoms of this condition include: Pain that starts around the belly button and moves toward the lower right part of the abdomen. The pain can become more severe as time passes. It gets worse with coughing or sudden movements. Tenderness in the lower right abdomen. Nausea. Vomiting. Loss of appetite. Fever. Difficulty passing stool (constipation). Passing very loose stools (diarrhea). Generally feeling unwell. How is this diagnosed? This condition may be diagnosed with: A physical exam. Blood tests. Urine test. To confirm the diagnosis, an ultrasound, MRI, or CT scan may be done. How is this treated? This condition is usually treated with surgery to remove the appendix (appendectomy). There are two methods for doing an appendectomy: Open appendectomy. In this surgery, the appendix is removed through a large incision that is made in the lower right abdomen. This procedure may be recommended if: ? You have major scarring from a previous surgery. ? You have a bleeding disorder. ? You are and are about to give . ? You have a condition that makes it hard to do surgery through small incisions (laparoscopic procedure). This includes severe infection or a ruptured appendix. Laparoscopic appendectomy. In this surgery, the appendix is removed through small incisions. This procedure usually causes less pain and fewer problems than an open appendectomy. It also has a shorter recovery time. If the appendix has ruptured and an abscess has formed: A drain may be placed into the abscess to remove fluid. Antibiotic medicines may be given through an IV. The appendix may or may not need to be removed. Follow these instructions at home: If you had surgery, follow instructions from your health care provider about how to care for yourself at home and how to care for your incision. Medicines Take mror-nnx-nlewtez and prescription medicines only as told by your health care provider. If you were prescribed an antibiotic medicine, take it as told by your health care provider. Do not stop taking the antibiotic even if you start to feel better. Eating and drinking Follow instructions from your health care provider about eating restrictions. You may slowly resume a regular diet once your nausea or vomiting stops. General instructions Do not use any products that contain nicotine or tobacco, such as cigarettes, e-cigarettes, and chewing tobacco. If you need help quitting, ask your health care provider. Do not drive or use heavy machinery while taking prescription pain medicine. Ask your health care provider if the medicine prescribed to you can cause constipation. You may need to take steps to prevent or treat constipation, such as: ? Drink enough fluid to keep your urine pale yellow. ? Take vuwc-avf-amqbmux or prescription medicines. ? Eat foods that are high in fiber, such as beans, whole grains, and fresh fruits and vegetables. ? Limit foods that are high in fat and processed sugars, such as fried or sweet foods. Keep all follow-up visits as told by your health care provider. This is important. Contact a health care provider if: There is pus, blood, or excessive drainage coming from your incision. You have nausea or vomiting. Get help right away if you have: Worsening abdominal pain. A fever. Chills. Fatigue. Muscle aches. Shortness of breath. Summary Appendicitis is inflammation of the appendix. This condition may be caused by a blockage in the appendix that leads to infection. This condition is usually treated with surgery to remove the appendix. This information is not intended to replace advice given to you by your health care provider. Make sure you discuss any questions you have with your health care provider. Document Released: 07/28/2006 Document Revised: 01/13/2019 Document Reviewed: 01/13/2019 Handprint Patient Education 2020 [employer] Additional Information VACCINATE! IT SAVES LIVES! Members of the community who have not yet received the COVID-19 vaccine and would like to receive it can visit one of [facility] vaccine clinics. There are many vaccine clinic locations within the [facility]. For locations and available times, please visit https://gettheshot.coronavirus.o hio.gov/. It is important to note that some COVID mobile vaccine clinics are held outdoors and may be canceled in rainy or stormy conditions. To learn more about pediatric vaccinations (ages 5-11), we invite you to visit the [facility] webpage. https://www.[email or web address].org/p ages/[email or web address]-Glayv-Lonowbmbzao-Freq mcjjgk-Gdxrd-Nytxkagat.html To learn more about the COVID-19 vaccine, we invite you to visit the CDC website for a list of frequently asked questions.https://www.cdc.gov/co ronavirus/2019-ncov/vaccines/faq .html [facility] Patient Portal Access Instructions: Stay connected with your healthcare team and access your personal medical information anytime with the [facility] Patient Portal. Please follow the directions below to create your [facility] account: 1.Access the email account you provided upon registration to the hospital/physician office.2.Look for an invitation email from [facility].3.Open the email and access the invitation link: Accept Invitation to [facility].4.Fill in the required bauer to create your account. To access your account, visit [employer] [facility]. Click the blue button labeled Access Patient Portal and then log in with the username and password that you created in the steps above. You will be able to view your test results, lab results, a summary of your visits, upcoming appointments and more. There is also a convenient messaging option where you can send secure messages to your provider. In addition, you will have the ability to download any documents or summaries to your computer and/or send the information securely to a physician. Remember that your healthcare information is confidential, so carefully consider who you will allow to register on the [facility] Patient Portal for access to your information. You can also access the [facility] Patient Portal on the [place] [employer] suze. Simply click on Patient Portal and then log into your account. If you would like to receive a full copy of your medical records, please contact the [facility] Medical Records Department by calling [phone], Friday through Friday between 8 a.m. and 4:30 p.m. HOW TO SAFELY DISPOSE OF PRESCRIPTION MEDICATIONS Please use one of the following methods to safely dispose of your unused medications. 1.Use a drug disposal kit: the drug disposal pouch allows you to safely discard your old and unused drugs. Ask your nurse to give you one when you are discharged.2.Visit a local take-back location: Many local pharmacies and police departments have programs that collect old and unwanted prescription drugs. Call your local pharmacy or go to http://[employer].Dartfish/2L2Gh6t to find one close to you.3.Make use of household items: Use cat litter or old coffee grounds to dispose medications if other options are not available. Mix your drugs with these household products, seal them in an airtight container and throw it into the garbage. Call [facility]: [phone] to be sure your drugs can be disposed of in this way. Some medicines may require a different approach.4.Never flush your medications down the toilet. IF YOU HAVE BEEN PRESCRIBED AN OPIOID FOR PAIN If you have been prescribed an opioid (such as hydrocodone, oxycodone or morphine), it is critical to understand the possible side effects and risks of opioid pain medications. Even when taken as directed, opioids can have several side effects including: Tolerance, meaning you might need to take more of a medication for the same pain relief. Nausea, vomiting and/or constipation. Sleepiness, dizziness, dry mouth, confusion, depression or itching. Physical dependence, meaning you have withdrawal symptoms when a medication is stopped, can develop within a few days. KNOW YOUR RESPONSIBILITIES It is important to know exactly how much and how often to take the opioid pain medications you are prescribed. Never take opioids in higher amounts or more often than prescribed. Do not combine opioids with alcohol or other drugs that cause drowsiness, such as benzodiazepines, also known as benzos, including diazepam and alprazolam, muscle relaxants or sleep aids. Never sell or share prescription opioids. This is illegal. Store opioids in a secure place and out of reach of others (including children, family, friends and visitors). The last page of this document has been signed and retained as a CHART COPY. Signatures Patient Education Materials Laparoscopic Appendectomy, Adult, Care After Appendicitis, Adult Medication Leaflets My discharge plan and instructions have been reviewed and explained to me and I,CEDRIC ROSIBEL Lackey understand my current condition and have read and understand these discharge instructions. I have received a written copy of the plan/instructions. If I have questions, I am aware that I should contact my doctor. 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 He was found to have leukocytosis on presentation 14,400 and also blood pressure of 202/97. Also bradycardic as low as 47. EKG obtained with sinus bradycardia ID of [address] changes. Troponin of 14.0. Creatinine of 1.34. CT abdomen pelvis was obtained and showed concern for acute appendicitis without free air or perforation or abscess formation also large right inguinal hernia containing loop of distal small bowel with extensive scrotal without obstruction. Also also findings concerning for a 5.1 x 4.7 cm AAA with intramural thrombus. Patient underwent appendectomy. Seen by vascular who will follow up with patient outpatient. Patient feeling well today, denies chest pain, SOB, nausea, has some surgical pain. was able to eat this morning Objective Vitals and Measurements T: 36.6 C (Oral) TMIN: 36.3 C (Temporal Artery) TMAX: 37.0 C (Oral) HR: 61(Apical) RR: 17 BP: 126/72 SpO2: 94% Intake and Output 7AM Yesterday to 7AM Today Intake and Output (Last 24 hours) Intake Oral Intake 350.00 Administration Information 1100.00 Output Urine Voided 675.00 Intra-Op EBL 5.00 Stool Count 0.00 Urine Count 0.00 Total Summary Total Intake 1450.00 Total Output 680.00 Fluid Balance 770.00 Physical Exam Weight Dosing Weight: 77.3 kg (02/04/23) Vitals Signs(Last 24 hrs)__ Last Charted Minimum Maximum Temp 36.6(FEB 05 14:39) 36.6(FEB 05 14:39) 37.0(FEB 05 07:26) Heart Rate 61(FEB 05 14:39) 61(FEB 05 14:39) 65(FEB 05 07:26) Resp Rate 17(FEB 05 14:39) 16(FEB 04 18:22) 18(FEB 04 17:49) SBP 126(FEB 05 14:39) 115(FEB 04 16:51) 202(FEB 04 16:33) DBP 72(FEB 05 14:39) L 54(FEB 05 04:26) 106(FEB 04 16:54) Physical Exam General: No acute distress. Alert and Appropriate Skin: No rash. Warm, Dry, abdominal dressing Lungs: Bilaterally clear breath sounds with no crepitation or wheeze. Cardiovascular: Heart is regular rhythm, S1S2, No extra-audible heart tones Abdomen: Abdomen is soft, nontender. Bowel sounds hypoactive Extremities: No clubbing, cyanosis or edema. Neurological: The patient is awake, oriented to person, place and time. Following simple commands, moving all extremities. DVT PROPHYLAXIS-lovenox Medications Medications (16) Active Scheduled: (4) acetaminophen PMX 1,000 mg 100 mL, IV Piggyback, q6hr ceFOXitin 1 g, IV Piggyback, q8h enoxaparin 40 mg/ 0.4mL syringe 40 mg 0.4 mL, Subcutaneous, qDay losartan 50 mg tablet 50 mg 1 tab(s), Oral, qDay Continuous: (2) Lactated Ringers 1,000 mL 1,000 mL, Intravenous, 125 mL/hr Lactated Ringers 1,000 mL 1,000 mL, Intravenous, 100 mL/hr PRN: (10) acetaminophen 325 mg Tablet 650 mg 2 tab(s), Oral, q4h acetaminophen-HYDROcodone 325-5 mg tablet 1 tab(s), Oral, q4h hydralazine 20 mg/mL (1mL) vial 10 mg 0.5 mL, IV Push, q6h HYDROmorphone 0.5 mg/0.5 mL PF syringe 0.5 mg 0.5 mL, IV Push, q5min morphine 2 mg/mL 1 mL syringe 2 mg 1 mL, IV Push, q3h morphine 4 mg/mL 1mL INJ 4 mg 1 mL, IV Push, q3h ondansetron 2 mg/ 1 mL 2 mL INJ 4 mg 2 mL, IV Push, AsDirected ondansetron 2 mg/ 1 mL 2 mL INJ 4 mg 2 mL, IV Push, q4h phenol topical 1.4% Spr 1 spray(s), Topical, q1h prochlorperazine 10 mg/2 mL vial 5 mg 1 mL, IV Push, q6h Lab Results 02/05 05:37 WBC: 19.6 H Hgb: 14.5 Hct: 43.5 Platelet: 189 Neutrophil %: 87.2 H Glucose Level: 124 H Sodium Level: 141 Potassium Level: 4.5 BUN: 18.0 Creatinine Lvl (s): 1.18 EKG No qualifying data available. Assessment/Plan 1. Appendicitis 2. S/P laparoscopic appendectomy 3. AAA (abdominal aortic aneurysm) without rupture 4. HTN (hypertension), benign Patient presented with abdominal pain, found to have appendicitis, underwent appendectomy. Also found to have AAA with thrombus, seen in consultation by vascular surgery and will be following up with them as an outpatient. Also found to have a large right inguinal hernia and will follow-up with surgery as an outpatient for this as well. Patient had hypertensive urgency on admission and initially was started on hydralazine as he also had acute kidney injury. He also had some bradycardia. He was seen by cardiology who ordered an echocardiogram. Patient does not currently have a primary care provider. Decision was made to start the patient on losartan starting tomorrow and discontinue the hydralazine for ease of administration. Echocardiogram was completed but not resulted at this time. A primary care provider was obtained for him an appointment was made, they can follow-up on the echocardiogram results. Patient's blood pressure is improved. He is medically stable for discharge when okay with primary team. Split/shared visit with Dr. Iris Womack Orders: losartan, Dose : 50 mg = 1 tab(s), Oral, qDay, # 30 tab(s), 0 Refill(s), Pharmacy: [facility] #[id number], 167.6, cm, 02/04/23 14:25:00 EDT, Height Time Spent I spent a total of 36 minutes reviewing the patient s diagnostic labs/tests, seeing and examining the patient and documenting in the medical record, see assessment for further detail. Digitally Signed by MIREYA SALGUERO on 02/05/2023 03:09 PM [facility] 02-05-2023 Vascular surgery Consult note Date of Service 02/05/2023 Reason for Consultation Infrarenal abdominal aortic aneurysm without rupture History of Present Illness This is a 77-year-old male who presented to an outside emergency department with abdominal pain. He underwent CT abdomen and pelvis that revealed acute appendicitis. There was also an incidental finding of a 5 cm infrarenal abdominal aortic aneurysm. Patient underwent appendectomy without complication. No prior knowledge of aneurysmal disease. No family history of aneurysmal disease. He is a former remote smoker, having quit 40 years ago. No symptoms of claudication. He is not established with a physician, so medical diagnoses are lacking. Review of Systems A 14 point review of systems was discussed and was negative besides what is mentioned in the above HPI. Physical Exam Vitals and Measurements T: 36.5 C (Oral) TMIN: 36.3 C (Temporal Artery) TMAX: 37.0 C (Oral) HR: 63(Apical) RR: 16 BP: 138/64 SpO2: 93% HT: 167.6 cm WT: 77.3 kg BMI: 27.52 Weight Dosing Weight: 77.3 kg (02/04/23) General Appearance: No acute distress; A&Ox3 Head: Normocephalic/atraumatic EENT: PERRLA, EOMI, moist mucous membranes Neck: Supple, no thyromegaly, no JVD appreciated Cardiac: RRR, normal S1 and S2, no murmurs, rubs, or gallops Lungs: Normal rise and fall of the chest, clear to auscultation bilaterally, no wheezes, crackles, or gallops Abdomen: Soft, nondistended, nontender, bowel sounds present, no guarding or rigidity Musculoskeletal: Strength 5/5 in all muscle groups Extremities: No lower extremity edema bilaterally; palp radial and femoral pulses Neurological: Alert and oriented to person, no focal deficits noted, DTRs are 2+, CN II through XII appear to be intact Skin: No active skin lesions or rashes Lab Results 02/05 05:37 WBC: 19.6 H Hgb: 14.5 Hct: 43.5 Platelet: 189 Neutrophil %: 87.2 H Glucose Level: 124 H Sodium Level: 141 Potassium Level: 4.5 BUN: 18.0 Creatinine Lvl (s): 1.[address] CT abdomen and pelvis showed acute appendicitis and 5 cm infrarenal abdominal aortic aneurysm, as well as right inguinal hernia Assessment/Plan AAA (abdominal aortic aneurysm) without rupture -No need for acute vascular surgical intervention at this time -I will arrange follow-up in my office in 1 month to establish care -Agree with patient obtaining PCP prior to discharge Problem List/Past Medical History Ongoing AAA (abdominal aortic aneurysm) without rupture Historical No qualifying data Procedure/Surgical History No qualifying data available. Medications Inpatient cefOXitin Dilaudid ( PACU ), 0.5 mg= 0.5 mL, IV Push, q5min, PRN hydrALAZINE, 10 mg= 0.5 mL, IV Push, q6h, PRN Lactated Ringers Infusion 1,000 mL, 1000 mL, Intravenous losartan, 50 mg= 1 tab(s), Oral, qDay Lovenox, 40 mg= 0.4 mL, Subcutaneous, qDay LR 1,000 mL, 1000 mL, Intravenous morphine, 2 mg= 1 mL, IV Push, q3h, PRN morphine, 4 mg= 1 mL, IV Push, q3h, PRN Raymond 325- 5 mg oral tablet, 1 tab(s), Oral, q4h, PRN Ofirmev IVPB, 1000 mg= 100 mL, IV Piggyback, q6hr phenol 1.4% topical spray, 1 spray(s), Topical, q1h, PRN prochlorperazine, 5 mg= 1 mL, IV Push, q6h, PRN Tylenol, 650 mg= 2 tab(s), Oral, q4h, PRN Zofran, 4 mg= 2 mL, IV Push, q4h, PRN Zofran ( PACU ), 4 mg= 2 mL, IV Push, AsDirected, PRN Home No active home medications Allergies No Known Medication Allergies Social History Alcohol Use: Past., 02/04/2023 Tobacco Nicotine Use: Former smoker, quit more than 30 days ago., 02/04/2023 Family History Reviewed and no family history of aneurysmal disease Immunizations No qualifying data available. Digitally Signed by LUIS MAGALLANES MD on 02/05/2023 12:13 PM [facility] 02-05-2023 Surgery Hospital Progress note Date of Service 02/05/2023 Chief Complaint Postoperative day #1 Subjective On examination of the patient he is seen resting supine in bed, no acute distress. Patient reports that his right lower abdominal pain is gone however he is experiencing mild pain to the laparoscopic sites. States that he is tolerating his diet without difficulty. Patient reports that he is voiding without difficulty. Patient denies any nausea or vomiting. Patient states that he is passing flatulence. Objective Vitals and Measurements T: 37.0 C (Oral) TMIN: 36.3 C (Temporal Artery) TMAX: 37.0 C (Oral) HR: 65(Apical) RR: 16 BP: 139/66 SpO2: 92% HT: 167.6 cm WT: 77.3 kg BMI: 27.52 Intake and Output 7AM Yesterday to 7AM Today Intake and Output (Last 24 hours) Intake Oral Intake 350.00 Administration Information 1100.00 Output Urine Voided 675.00 Intra-Op EBL 5.00 Stool Count 0.00 Urine Count 0.00 Total Summary Total Intake 1450.00 Total Output 680.00 Fluid Balance 770.00 Physical Exam General: Awake and alert and in no apparent distress. Able to answer questions and speak in full sentences. Supine in bed. Sitting upright. HEENT: Mucous membranes moist and pink. Sclerae anicteric. PERRLA. Heart: Regular rate and rhythm. S1-S2 are present. Lungs: Chest rise symmetrical. Respirations unlabored. Clear to auscultation bilaterally. Abdomen: Soft and nontender. slightly bloated. No guarding or rigidity. Bowel sounds 4 quadrants. Laparoscopic sites are dry and intact. Inguinal hernia reproducible, no changes to skin or erythremia noted Extremities: Freely moving. Skin: Normal color for ethnicity. No pallor or diaphoresis. No jaundice. Psychiatric: Calm and cooperative. Weight Dosing Weight: 77.3 kg (02/04/23) Medications Medications (16) Active Scheduled: (4) acetaminophen PMX 1,000 mg 100 mL, IV Piggyback, q6hr ceFOXitin 1 g, IV Piggyback, q8h enoxaparin 40 mg/ 0.4mL syringe 40 mg 0.4 mL, Subcutaneous, qDay losartan 50 mg tablet 50 mg 1 tab(s), Oral, qDay Continuous: (2) Lactated Ringers 1,000 mL 1,000 mL, Intravenous, 125 mL/hr Lactated Ringers 1,000 mL 1,000 mL, Intravenous, 100 mL/hr PRN: (10) acetaminophen 325 mg Tablet 650 mg 2 tab(s), Oral, q4h acetaminophen-HYDROcodone 325-5 mg tablet 1 tab(s), Oral, q4h hydralazine 20 mg/mL (1mL) vial 10 mg 0.5 mL, IV Push, q6h HYDROmorphone 0.5 mg/0.5 mL PF syringe 0.5 mg 0.5 mL, IV Push, q5min morphine 2 mg/mL 1 mL syringe 2 mg 1 mL, IV Push, q3h morphine 4 mg/mL 1mL INJ 4 mg 1 mL, IV Push, q3h ondansetron 2 mg/ 1 mL 2 mL INJ 4 mg 2 mL, IV Push, AsDirected ondansetron 2 mg/ 1 mL 2 mL INJ 4 mg 2 mL, IV Push, q4h phenol topical 1.4% Spr 1 spray(s), Topical, q1h prochlorperazine 10 mg/2 mL vial 5 mg 1 mL, IV Push, q6h Lab Results 02/05 05:37 WBC: 19.6 H Hgb: 14.5 Hct: 43.5 Platelet: 189 Neutrophil %: 87.2 H Glucose Level: 124 H Sodium Level: 141 Potassium Level: 4.5 BUN: 18.0 Creatinine Lvl (s): 1.18 EKG No qualifying data available. Assessment/Plan This patient is a 77-year-old male who is postoperative day #1 from a laparoscopic appendectomy secondary to acute appendicitis. From a general surgery standpoint the patient is doing very well. Vital signs, laboratory data I/O have been reviewed. Patient with mild abdominal distention however he is passing flatulence. Patient's laparoscopic sites are dry and intact with no signs and symptoms of infection. Elevated white count of more than likely related to active. Plan: 1. Postoperative day #1 -Patient encouraged to mobilize, sit up in chair and ambulate -Continue with multimodality pain control -We will transition the patient to oral antibiotics upon discharge due to small of purulent spillage during manipulation of the appendix during surgery. -Patient will need follow-up with a primary PCP. I did speak to social media job titles in regards to helping the patient find a primary PCP. -Anticipate discharge within the next 24 hours. 2. Medical management per the hospitalist-appreciate input -Patient scheduled for an echocardiogram due to elevated blood pressure 3. Vascular surgery consulted for newly diagnosed 5.1 infrarenal AAA seen on CT scan. Case cussed Dr. Gilliam. Please see his addendum to follow. Digitally Signed by UMER LARKIN on 02/05/2023 10:24 AM [facility] 02-04-2023 Cardiology Consul t note Date of Service 02/04/2023 Reason for Consultation Surgical clearance Review of Systems Apart from mentioned in HPI, pertinent review of systems is otherwise negative. Physical Exam Vitals and Measurements T: 36.4 C (Oral) HR: 50 RR: 16 BP: 165/85 SpO2: 98% HT: 167.6 cm WT: 77.3 kg BMI: 27.52 Weight Dosing Weight: 77.3 kg (02/04/23) General Appearance: Comfortable, not in acute distress Cardiac: S1, S2, no murmurs, regular rhythm, slow rate, no lower extremity edema, no crackles, no JVP distention, warm extremities. Lungs: No wheezes, normal chest expansion. Abdomen: not palpated, no distention. Musculoskeletal: No signs of acute synovitis. Neurological: Alert and oriented x3, no focal neurological deficits grossly. Psychiatric: Appropriate, normal mood. 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 Patient is currently feeling subjectively well apart from moderate abdominal pain, he has no cardiac history, has not seen a PCP in 40-50 years, smoked 20 pack year quit 20 years ago, no family history of premature CAD. Reports excellent exercise capacity certainly >4 METS ECG reviewed: First-degree AV block with resting sinus bradycardia. blood pressure mildly elevated. TTE is ordered. Recommendations: Can proceed with planned surgery without further cardiac testing or optimization We will start losartan 50 mg p.o. daily on 02/06 for hypertension Cardiology service will sign off, please do not hesitate to reach out for any questions. Thank you for the consult. d/w Dr Robin Sherman MD [facility] Room Attendant [employer] or Pager [phone] Problem List/Past Medical History Ongoing No qualifying data Historical No qualifying data Procedure/Surgical History No qualifying data available. Medications Inpatient cefOXitin, 2 gram(s)= 50 mL, IV Piggyback, PREOP pharm Dilaudid, 1 mg= 1 mL, IV Push, q2h, PRN hydrALAZINE, 10 mg= 0.5 mL, IV Push, q6h, PRN hydrALAZINE, 25 mg= 1 tab(s), Oral, TID Lovenox, 30 mg= 0.3 mL, Subcutaneous, qDay LR 1,000 mL, 1000 mL, Intravenous Ofirmev IVPB, 1000 mg= 100 mL, IV Piggyback, q6hr oxyCODONE 5 mg oral tablet ( IMMEDIATE release ), 5 mg= 1 tab(s), Oral, q4h, PRN oxyCODONE 5 mg oral tablet ( IMMEDIATE release ), 10 mg= 2 tab(s), Oral, q4h, PRN prochlorperazine, 5 mg= 1 mL, IV Push, q6h, PRN Tylenol, 650 mg= 2 tab(s), Oral, q4h, PRN Zofran, 4 mg= 2 mL, IV Push, q4h, PRN Home No active home medications Allergies No Known Medication Allergies Social History Alcohol Use: Past., 02/04/2023 Tobacco Nicotine Use: Former smoker, quit more than 30 days ago., 02/04/2023 Immunizations No qualifying data available. Digitally Signed by GURPREET SHERMAN MD on 02/04/2023 03:45 PM Digitally Signed by GURPREET SHERMAN MD on 02/04/2023 03:51 PM [facility] 02-04-2023 Anesthesiology Consult note Patient: ROSIBEL STEELE Age: 77 years Sex: Male : 1945 Associated Diagnoses: None Author: PASCUAL BEE MD Postoperative Information Post Operative Info: Post op day: Post Anesthesia Care Unit. Patient location: PACU. Assessment Postanesthesia assessment Vitals: Vital signs from flowsheet : Vital Signs 02/04/2023 19:44 EDT Temperature Oral 36.7 DegC Heart Rate Monitored 62 bpm Respiratory Rate 16 br/min Systolic Blood Pressure Non-Invasive 176 mmHg HI Diastolic Blood Pressure Non-Invasive 73 mmHg Reason For Taking VItal Signs Routine 02/04/2023 19:08 EDT Systolic Blood Pressure Non-Invasive 190 mmHg HI Diastolic Blood Pressure Non-Invasive 88 mmHg 02/04/2023 18:22 EDT Heart Rate Monitored 57 bpm LOW Respiratory Rate 16 br/min Systolic Blood Pressure Non-Invasive 195 mmHg HI Diastolic Blood Pressure Non-Invasive 88 mmHg Mean Arterial Pressure (NBP) 114 mmHg 02/04/2023 18:04 EDT Heart Rate Monitored 53 bpm LOW Respiratory Rate 18 br/min Systolic Blood Pressure Non-Invasive 187 mmHg HI Diastolic Blood Pressure Non-Invasive 81 mmHg Mean Arterial Pressure (NBP) 111 mmHg 02/04/2023 17:49 EDT Temperature Temporal Artery 36.3 DegC Heart Rate Monitored 53 bpm LOW Respiratory Rate 18 br/min Systolic Blood Pressure Non-Invasive 189 mmHg HI Diastolic Blood Pressure Non-Invasive 91 mmHg HI Mean Arterial Pressure (NBP) 120 mmHg Reason For Taking VItal Signs Admission 02/04/2023 17:45 EDT Respiratory Rate - Anes 0 br/min br/min 02/04/2023 17:42 EDT Systolic Blood Pressure Non-Invasive 194 mmHg mmHg Diastolic Blood Pressure Non-Invasive 88 mmHg mmHg 02/04/2023 17:40 EDT Heart Rate Monitored 48 bpm bpm Respiratory Rate - Anes 15 br/min br/min 02/04/2023 17:39 EDT Systolic Blood Pressure Non-Invasive 154 mmHg mmHg Diastolic Blood Pressure Non-Invasive 73 mmHg mmHg 02/04/2023 17:36 EDT Systolic Blood Pressure Non-Invasive 147 mmHg mmHg Diastolic Blood Pressure Non-Invasive 67 mmHg mmHg 02/04/2023 17:35 EDT Temperature (Route Not Specified) 36.34 DegC DegC Heart Rate Monitored 48 bpm bpm Respiratory Rate - Anes 15 br/min br/min 02/04/2023 17:33 EDT Systolic Blood Pressure Non-Invasive 139 mmHg mmHg Diastolic Blood Pressure Non-Invasive 69 mmHg mmHg 02/04/2023 17:30 EDT Temperature (Route Not Specified) 36.37 DegC DegC Heart Rate Monitored 48 bpm bpm Respiratory Rate - Anes 18 br/min br/min Systolic Blood Pressure Non-Invasive 140 mmHg mmHg Diastolic Blood Pressure Non-Invasive 67 mmHg mmHg 02/04/2023 17:27 EDT Systolic Blood Pressure Non-Invasive 135 mmHg mmHg Diastolic Blood Pressure Non-Invasive 72 mmHg mmHg 02/04/2023 17:25 EDT Temperature (Route Not Specified) 36.38 DegC DegC Heart Rate Monitored 50 bpm bpm Respiratory Rate - Anes 12 br/min br/min 02/04/2023 17:24 EDT Systolic Blood Pressure Non-Invasive 135 mmHg mmHg Diastolic Blood Pressure Non-Invasive 68 mmHg mmHg 02/04/2023 17:21 EDT Systolic Blood Pressure Non-Invasive 147 mmHg mmHg Diastolic Blood Pressure Non-Invasive 81 mmHg mmHg 02/04/2023 17:20 EDT Temperature (Route Not Specified) 36.39 DegC DegC Heart Rate Monitored 51 bpm bpm Respiratory Rate - Anes 13 br/min br/min 02/04/2023 17:18 EDT Systolic Blood Pressure Non-Invasive 140 mmHg mmHg Diastolic Blood Pressure Non-Invasive 73 mmHg mmHg 02/04/2023 17:15 EDT Temperature (Route Not Specified) 36.57 DegC DegC Heart Rate Monitored 50 bpm bpm Respiratory Rate - Anes 12 br/min br/min Systolic Blood Pressure Non-Invasive 126 mmHg mmHg Diastolic Blood Pressure Non-Invasive 73 mmHg mmHg 02/04/2023 17:12 EDT Systolic Blood Pressure Non-Invasive 128 mmHg mmHg Diastolic Blood Pressure Non-Invasive 74 mmHg mmHg 02/04/2023 17:10 EDT Temperature (Route Not Specified) 36.66 DegC DegC Heart Rate Monitored 52 bpm bpm Respiratory Rate - Anes 12 br/min br/min 02/04/2023 17:09 EDT Systolic Blood Pressure Non-Invasive 133 mmHg mmHg Diastolic Blood Pressure Non-Invasive 76 mmHg mmHg 02/04/2023 17:06 EDT Systolic Blood Pressure Non-Invasive 137 mmHg mmHg Diastolic Blood Pressure Non-Invasive 76 mmHg mmHg 02/04/2023 17:05 EDT Temperature (Route Not Specified) 36.76 DegC DegC Heart Rate Monitored 52 bpm bpm Respiratory Rate - Anes 12 br/min br/min 02/04/2023 17:03 EDT Systolic Blood Pressure Non-Invasive 157 mmHg mmHg Diastolic Blood Pressure Non-Invasive 86 mmHg mmHg 02/04/2023 17:00 EDT Temperature (Route Not Specified) 36.85 DegC DegC Heart Rate Monitored 51 bpm bpm Respiratory Rate - Anes 12 br/min br/min Systolic Blood Pressure Non-Invasive 162 mmHg mmHg Diastolic Blood Pressure Non-Invasive 92 mmHg mmHg 02/04/2023 16:57 EDT Systolic Blood Pressure Non-Invasive 172 mmHg mmHg Diastolic Blood Pressure Non-Invasive 93 mmHg mmHg 02/04/2023 16:55 EDT Temperature (Route Not Specified) 36.81 DegC DegC Heart Rate Monitored 58 bpm bpm Respiratory Rate - Anes 10 br/min br/min 02/04/2023 16:54 EDT Systolic Blood Pressure Non-Invasive 162 mmHg mmHg Diastolic Blood Pressure Non-Invasive 106 mmHg mmHg 02/04/2023 16:51 EDT Systolic Blood Pressure Non-Invasive 115 mmHg mmHg Diastolic Blood Pressure Non-Invasive 66 mmHg mmHg 02/04/2023 16:50 EDT Heart Rate Monitored 55 bpm bpm Respiratory Rate - Anes 10 br/min br/min 02/04/2023 16:48 EDT Systolic Blood Pressure Non-Invasive 119 mmHg mmHg Diastolic Blood Pressure Non-Invasive 61 mmHg mmHg 02/04/2023 16:45 EDT Heart Rate Monitored 61 bpm bpm Respiratory Rate - Anes 10 br/min br/min Systolic Blood Pressure Non-Invasive 130 mmHg mmHg Diastolic Blood Pressure Non-Invasive 66 mmHg mmHg 02/04/2023 16:42 EDT Systolic Blood Pressure Non-Invasive 126 mmHg mmHg Diastolic Blood Pressure Non-Invasive 76 mmHg mmHg 02/04/2023 16:40 EDT Heart Rate Monitored 80 bpm bpm Respiratory Rate - Anes 10 br/min br/min 02/04/2023 16:39 EDT Systolic Blood Pressure Non-Invasive 142 mmHg mmHg Diastolic Blood Pressure Non-Invasive 79 mmHg mmHg 02/04/2023 16:36 EDT Systolic Blood Pressure Non-Invasive 196 mmHg mmHg Diastolic Blood Pressure Non-Invasive 85 mmHg mmHg 02/04/2023 16:35 EDT Heart Rate Monitored 63 bpm bpm Respiratory Rate - Anes 14 br/min br/min 02/04/2023 16:33 EDT Systolic Blood Pressure Non-Invasive 202 mmHg mmHg Diastolic Blood Pressure Non-Invasive 105 mmHg mmHg 02/04/2023 15:44 EDT Systolic Blood Pressure Non-Invasive 200 mmHg HI Diastolic Blood Pressure Non-Invasive 98 mmHg HI Blood Pressure Method Manual Blood Pressure Location Left arm Blood Pressure Cuff Size Medium 02/04/2023 14:31 EDT Temperature Oral 36.4 DegC Peripheral Pulse Rate 50 bpm LOW Respiratory Rate 16 br/min Systolic Blood Pressure Non-Invasive 165 mmHg HI Diastolic Blood Pressure Non-Invasive 85 mmHg Reason For Taking VItal Signs Admission 02/04/2023 13:26 EDT Peripheral Pulse Rate 47 bpm Respiratory Rate 16 br/min Systolic Blood Pressure Non-Invasive 167 mmHg HI Diastolic Blood Pressure Non-Invasive 67 mmHg 02/04/2023 12:52 EDT Peripheral Pulse Rate 48 bpm Respiratory Rate 16 br/min Systolic Blood Pressure Non-Invasive 188 mmHg HI Diastolic Blood Pressure Non-Invasive 80 mmHg 02/04/2023 11:49 EDT Temperature Oral 37.2 DegC Peripheral Pulse Rate 48 bpm Respiratory Rate 16 br/min Systolic Blood Pressure Non-Invasive 197 mmHg HI Diastolic Blood Pressure Non-Invasive 83 mmHg Reason For Taking VItal Signs 5 min post antibiotic start time 02/04/2023 11:45 EDT Peripheral Pulse Rate 45 bpm Respiratory Rate 16 br/min Systolic Blood Pressure Non-Invasive 178 mmHg HI Diastolic Blood Pressure Non-Invasive 66 mmHg 02/04/2023 11:09 EDT Peripheral Pulse Rate 53 bpm LOW Respiratory Rate 16 br/min Systolic Blood Pressure Non-Invasive 181 mmHg HI Diastolic Blood Pressure Non-Invasive 79 mmHg 02/04/2023 9:40 EDT Temperature Oral 36.6 DegC Peripheral Pulse Rate 73 bpm Respiratory Rate 16 br/min Systolic Blood Pressure Non-Invasive 202 mmHg HI Diastolic Blood Pressure Non-Invasive 97 mmHg HI . Mental status: at preoperative baseline. Respiratory function: respirations are non-labored, Stable. Respiratory support: none. CV function: Stable. Cardiovascular support: none. Pain: Satisfactory. Nausea status: Satisfactory. Postoperative hydration status: within normal limits. Notes: Patient is sufficiently recovered from anesthesia to participate in the evaluation. No follow-up care needed. No complications post-anesthesia.. Digitally Signed by PASCUAL BEE MD on 02/04/2023 09:05 PM [facility] 02-04-2023 History and physical note Date of Service 02/04/2023 Chief Complaint Acute appendicitis History of Present Illness This patient is a 77-year-old gentleman who presented to [facility] with complaint of right lower abdominal pain. Patient reports that on Friday he developed a sudden onset of sharp right lower abdominal pain with mild nausea but no vomiting. Patient denies any fever, chills or change in bowel habits. Patient reports that the pain is sharp in nature and is worse when not moving. Patient reports that moving actually helps alleviate the pain. Patient denies any shortness of breath or chest pain. Patient denies any past abdominal surgeries. Patient denies any past medical history other than being told that 14 years ago he has slightly elevated blood pressure and a right inguinal hernia that he noticed approximately 4 years ago. Patient reports that he has not seen a physician in over 40 years. Initial work-up in the emergency room included CBC which showed mild leukocytosis of 14.4, CMP with a creatinine of 1.34, glucose of 119 all other labs unremarkable. Troponin 14.0. Patient was also noted to be hypertensive with a initial blood pressure of 202/97. CT scan completed in the emergency room showing dilated and inflamed appendix indicating an acute appendicitis with no perforation or abscess formation seen. 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 While in the emergency room he received a dose of Rocephin and a dose of morphine. Patient was also noted to have a heart rate of 49. Patient did get an EKG showing sinus bradycardia, with left ventricular hypertrophy with anterior Q waves possibly related to LVH on review of the EKG on chart. On examination of the patient he is seen resting supine in bed, no acute distress. Patient's abdomen is soft round, with rebound tenderness to the right lower quadrant. Bowel sounds x4. Review of Systems 10 system review and symptoms were complete, pertinent positives described above and otherwise negative. Physical Exam Vitals and Measurements T: 36.4 C (Oral) HR: 50 RR: 16 BP: 165/85 SpO2: 98% HT: 167.6 cm WT: 77.3 kg BMI: 27.52 Weight Dosing Weight: 77.3 kg (02/04/23) General: Awake and alert and in no apparent distress. Able to answer questions and speak in full sentences. Supine in bed. Sitting upright. HEENT: Mucous membranes moist and pink. Sclerae anicteric. PERRLA. Heart: Bradycardic Lungs: Chest rise symmetrical. Respirations unlabored. Clear to auscultation bilaterally. Abdomen: Soft, round, Nondistended. No guarding or rigidity. Bowel sounds 4 quadrants. Positive rebound tenderness to the right lower quadrant. Right inguinal hernia that is reproducible, no changes in skin color or pain on palpation. Extremities: Freely moving. Skin: Normal color for ethnicity. No pallor or diaphoresis. No jaundice. Psychiatric: Calm and cooperative. Lab Results Seen and reviewed from [facility] Imaging Results and Diagnostics lisa for Exam: Pain. Sharp right lower quadrant pain onset on Friday. Known right-sided inguinal hernia. FINDINGS: Calcified granuloma seen in the lingula and right lower lobe. Minimal basilar atelectasis. There is no visible pleural or pericardial effusion. The heart is normal in size. [id number] coronary artery atherosclerosis. Numerous low attenuating lesions in the liver, largest the right hepatic lobe measures up to 6.8 cm and 6.5 HU compatible with a hepatic cyst. The gallbladder, spleen, adrenal glands, and pancreas are within normal limits. Symmetric nephrograms. Thinning of the right upper pole cortex likely reflects scarring or atrophy. Subcentimeter left superior pole renal lesion too small to characterize and likely favors a renal cyst. The ureters are normal in course and caliber. The urinary bladder is mildly distended. The prostate is unremarkable. Small hiatal hernia. The large and small bowel demonstrate no obstruction. There is inflammatory changes surrounding a fluid-filled and dilated appendix measuring 1.7 cm. There is no perforation or adjacent loculated fluid collection. Mild colonic diverticulosis without evidence of acute diverticulitis. Atherosclerotic aorta with fusiform infrarenal abdominal aortic aneurysm that measures 5.1 x 4.7 cm and extends to the iliac bifurcation, with intramural thrombus. There is no lymphadenopathy. Large right inguinal hernia containing loops of distal small bowel is visualized and extends into the scrotum without obstruction. Small fat containing left inguinal hernia. There is no fracture or aggressive osseous lesion. Degenerative changes are present in the spine. IMPRESSION: Dilated and inflamed appendix is compatible with acute appendicitis without free air to suggest perforation or abscess formation. Fusiform infrarenal abdominal aortic aneurysm without evidence of hemorrhage with measurements as above. Please see recommendations below. Large right inguinal hernia containing loops of distal small bowel extends into the scrotum, without evidence of obstruction. Diverticulosis without evidence of acute diverticulitis. I have personally reviewed the images of this examination and agree with the resident's findings and interpretation. 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 Recommend follow-up every 6 months and vascular consultation. Reference: J Am [facility]ize Radiol 2013;10:789-794. Interpreted by: Pascual Bauer MD Preliminary Report By: Nuria Tay Electronically signed By Pascual Bauer MD Dictated Date: 02/04/2023 10:44:35 AM Prelim Date: 02/04/2023 11:16:16 AM Sign Date: 02/04/2023 11:18:15 AM Ordering Provider: LINDA RICHMOND Assessment/Plan This patient is a pleasant 77-year-old gentleman who denies any past medical history other than a right inguinal hernia he noticed 4 years ago who presented to [place] emergency room for complaints of sudden sharp right lower quadrant abdominal pain that approximately started on Friday. While in the emergency room patient underwent a CT scan of abdomen pelvis showing evidence of appendicitis with additional findings of a AAA. Patient was noted to have leukocytosis with a white count of 14.4 and elevated blood pressure. Due to these findings the patient was transferred from [facility] to [facility] and admitted to the surgical services team for definitive care. Vital signs, laboratory data and radiology have been reviewed. Plan: 1. Acute appendicitis -Patient to remain n.p.o. at this time -Patient to be given a dose of cefoxitin 2 g -Multimodality pain control with antiemetics as needed -Patient to be taken to the OR with Dr. Gilliam for laparoscopic appendectomy secondary to acute appendicitis. Procedure was explained with risk and benefits to the patient in great length by Dr. Gilliam. He was understanding and agreement to the plan. 2 Right inguinal hernia -Reproducible on palpation, nontender on examination with no skin changes -No immediate surgical intervention at this time we will continue to monitor will treat acute appendicitis prior to any surgical intervention for this. This was discussed with the patient as to why. 3. High blood pressure without diagnosis of hypertension -consult hospitalist for medical management 4. Elevated creatinine of 1.34 -More than likely related to chronic hypertension -gentle hydration as ordered at this time -Hospitalist consulted for medical management 5. infrarenal abdominal aneurysm measuring 5.1 x 4.7 cm extending into the iliac bifurcation with intramural thrombus -consult to vascular by the hospital team. Case discussed with Dr. Gilliam. Please see his addendum to follow. Problem List/Past Medical History Right small hernia Procedure/Surgical History Denies any past surgical history Medications Denies any medication use Allergies No Known Medication Allergies Social History Alcohol Use: Past., 02/04/2023 Tobacco Nicotine Use: Former smoker, quit more than 30 days ago., 02/04/2023 Family History Noncontributory Immunizations No qualifying data available. Code Status Code Status - Ordered -- 02/04/23 14:57:00 EDT, Full Code, Constant Order This document was dictated with voice recognition software and may contain grammatical errors Digitally Signed by UMER LARKIN on 02/04/2023 03:30 PM Digitally Signed by UMER LARKIN on 02/04/2023 03:34 PM [facility] 02-04-2023 Anesthesiology Consult note Patient: ROSIBEL STEELE Age: 77 years Sex: Male : 1945 Associated Diagnoses: None Author: PASCUAL BEE MD Preoperative Information Time of last food or liquid consumption: 02/04/2023 00:00:00 Anesthesia history Patient's history: negative. Family's history: negative. Health Status Allergies: Allergic Reactions (Selected) No Known Medication Allergies, Allergies (1) ActiveReaction No Known Medication AllergiesNone Documented Current medications: (Selected) Inpatient Medications Ordered Dilaudid: 1 mg, 1 mL, IV Push, q2h, PRN: Pain, scale 7-10 LR 1,000 mL: 125 mL/hr, Intravenous Lovenox: 30 mg, 0.3 mL, Subcutaneous, qDay Ofirmev IVPB: 1,000 mg, 100 mL, 400 mL/hr, IV Piggyback, q6hr Tylenol: 650 mg, 2 tab(s), Oral, q4h, PRN: Pain, scale 1-3 Zofran: 4 mg, 2 mL, IV Push, q4h, PRN: Nausea/Vomiting cefOXitin: 2 gram(s), 50 mL, 100 mL/hr, IV Piggyback, PREOP pharm hydrALAZINE: 10 mg, 0.5 mL, IV Push, q6h, PRN: Systolic BP: See order comments hydrALAZINE: 25 mg, 1 tab(s), Oral, TID losartan: 50 mg, 1 tab(s), Oral, qDay oxyCODONE 5 mg oral tablet ( IMMEDIATE release ): 10 mg, 2 tab(s), Oral, q4h, PRN: Pain, scale 7-10 oxyCODONE 5 mg oral tablet ( IMMEDIATE release ): 5 mg, 1 tab(s), Oral, q4h, PRN: Pain, scale 4-6 prochlorperazine: 5 mg, 1 mL, IV Push, q6h, PRN: Nausea/Vomiting, Medications (13) Active Scheduled: (5) acetaminophen PMX 1,000 mg 100 mL, IV Piggyback, q6hr ceFOXitin 2 gram(s) 50 mL, IV Piggyback, PREOP pharm enoxaparin 30 mg/ 0.3 mL syringe 30 mg 0.3 mL, Subcutaneous, qDay hydralazine 25 mg Tablet 25 mg 1 tab(s), Oral, TID losartan 50 mg tablet 50 mg 1 tab(s), Oral, qDay Continuous: (1) Lactated Ringers 1,000 mL 1,000 mL, Intravenous, 125 mL/hr PRN: (7) acetaminophen 325 mg Tablet 650 mg 2 tab(s), Oral, q4h hydralazine 20 mg/mL (1mL) vial 10 mg 0.5 mL, IV Push, q6h hydromorphone 1 mg/mL (1mL) INJ 1 mg 1 mL, IV Push, q2h ondansetron 2 mg/ 1 mL 2 mL INJ 4 mg 2 mL, IV Push, q4h oxycodone 5 mg tablet (immediate release) 5 mg 1 tab(s), Oral, q4h oxycodone 5 mg tablet (immediate release) 10 mg 2 tab(s), Oral, q4h prochlorperazine 10 mg/2 mL vial 5 mg 1 mL, IV Push, q6h Problem list: Active Problems (1) Tobacco use Histories Family History: No family history items have been selected or recorded. Procedure history: No active procedure history items have been selected or recorded. Social History Social & Psychosocial Habits Alcohol 02/04/2023 Use: Past Tobacco 02/04/2023 Tobacco Use: Former smoker, quit more . Physical Examination Vital Signs 02/04/2023 15:44 EDT Systolic Blood Pressure Non-Invasive 200 mmHg HI Diastolic Blood Pressure Non-Invasive 98 mmHg HI Blood Pressure Method Manual Blood Pressure Location Left arm Blood Pressure Cuff Size Medium 02/04/2023 14:31 EDT Temperature Oral 36.4 DegC Peripheral Pulse Rate 50 bpm LOW Respiratory Rate 16 br/min Systolic Blood Pressure Non-Invasive 165 mmHg HI Diastolic Blood Pressure Non-Invasive 85 mmHg Reason For Taking VItal Signs Admission 02/04/2023 13:26 EDT Peripheral Pulse Rate 47 bpm Respiratory Rate 16 br/min Systolic Blood Pressure Non-Invasive 167 mmHg HI Diastolic Blood Pressure Non-Invasive 67 mmHg 02/04/2023 12:52 EDT Peripheral Pulse Rate 48 bpm Respiratory Rate 16 br/min Systolic Blood Pressure Non-Invasive 188 mmHg HI Diastolic Blood Pressure Non-Invasive 80 mmHg 02/04/2023 11:49 EDT Temperature Oral 37.2 DegC Peripheral Pulse Rate 48 bpm Respiratory Rate 16 br/min Systolic Blood Pressure Non-Invasive 197 mmHg HI Diastolic Blood Pressure Non-Invasive 83 mmHg Reason For Taking VItal Signs 5 min post antibiotic start time 02/04/2023 11:45 EDT Peripheral Pulse Rate 45 bpm Respiratory Rate 16 br/min Systolic Blood Pressure Non-Invasive 178 mmHg HI Diastolic Blood Pressure Non-Invasive 66 mmHg 02/04/2023 11:09 EDT Peripheral Pulse Rate 53 bpm LOW Respiratory Rate 16 br/min Systolic Blood Pressure Non-Invasive 181 mmHg HI Diastolic Blood Pressure Non-Invasive 79 mmHg 02/04/2023 9:40 EDT Temperature Oral 36.6 DegC Peripheral Pulse Rate 73 bpm Respiratory Rate 16 br/min Systolic Blood Pressure Non-Invasive 202 mmHg HI Diastolic Blood Pressure Non-Invasive 97 mmHg HI Vital Signs(last 24 hrs) Last Charted Temp Oral36.4 DegC (FEB 04 14:31) Resp Rate 16 br/min (FEB 04 14:31) SBPH 200mmHg (FEB 04 15:44) DBPH 98mmHg (FEB 04 15:44) BMI27.52 (FEB 04 14:25) Measurements from flowsheet : Measurements 02/04/2023 14:25 EDT Height 167.6 cm Height in inches 66 inch(es) Admission Weight 77.3 kg Weight Lbs 170.1 lb [place] Body Weight 63.76 kg BSA Admission 1.87 Body Mass Index 27.52 kg/m2 02/04/2023 9:40 EDT Admission Weight 76.5 kg Pain assessment: Pain Assessment 02/04/2023 14:31 EDT Primary Pain Location Abdomen Abdominal Pain Location RLQ Primary Pain Laterality Right Primary Pain Intensity 4 Primary Pain Onset Gradual Primary Pain Quality Aching Primary Pain Non-Pharma Intervention Rest Primary Pain Nonverbal Response Nods Yes Pain Scale Type 0-10 Pain scale 02/04/2023 13:32 EDT Pain Scale Assessment 0-10 Pain scale Primary Pain Intensity 3 Pain Symptoms Yes 02/04/2023 12:52 EDT Primary Pain Location Abdomen Abdominal Pain Location RLQ Primary Pain Intensity 3 Pain Scale Type 0-10 Pain scale 02/04/2023 12:38 EDT Primary Pain Intensity 6 02/04/2023 11:49 EDT Primary Pain Location Abdomen Abdominal Pain Location RLQ Primary Pain Laterality Bilateral Primary Pain Intensity 5 Primary Pain Quality Aching Primary Pain Non-Pharma Intervention Repositioning, Rest Pain Scale Type 0-10 Pain scale 02/04/2023 9:40 EDT Primary Pain Location Abdomen Abdominal Pain Location RLQ Primary Pain Intensity 3 Primary Pain Time Pattern intermittent Primary Pain Onset Gradual Primary Pain Duration Friday Primary Pain Quality Aching Pain Scale Type 0-10 Pain scale . General: Alert and oriented, Mild distress. Airway: Mallampati classification: II (soft palate, fauces, uvula visible). Dentition Evaluation: Intact, Own teeth, Missing teeth. Respiratory: Lungs are clear to auscultation. Cardiovascular: Normal rate. Heart Sounds: Normal. Review / Management Results review: No qualifying data available , Lab results 02/04/2023 16:08 EDT acetaminophen 1,000 mg mg Lactated Ringers Injection Begin Bag 1,000 mL mL 02/04/2023 16:02 EDT SN - CAt - Case Attendee SN - CAt - Case Attendee SN - CAt - Case Attendee SN - CAt - Case Attendee SN - CAt - Case Attendee SN - CAt - Case Attendee SN - CAt - Case Attendee SN - CAt - Case Attendee SN - CAt - Case Attendee SN - CAt - Case Attendee SN - CAt - Case Attendee SN - CAt - Case Attendee SN - CAt - Role Performed Primary Surgeon (Modified) SN - CAt - Role Performed Anesthesiologist SN - CAt - Role Performed CUSTOMER OPERATIONS INTERN SN - CAt - Role Performed Manager Call Center 1 SN - CAt - Role Performed Scrub 1 SN - CAt - Role Performed Scrub 1 02/04/2023 15:44 EDT Systolic Blood Pressure Non-Invasive 200 mmHg HI Diastolic Blood Pressure Non-Invasive 98 mmHg HI Blood Pressure Method Manual Blood Pressure Location Left arm Blood Pressure Cuff Size Medium 02/04/2023 15:40 EDT IV Present Present Patient Dressed In Hospital gown, No undergarments CHG Preoperative Wash/Wipe Day of procedure Preop Nasal Swab Povidone-Iodine 02/04/2023 15:24 EDT Cardiology Consultation Consult Note (Modified) 02/04/2023 15:08 EDT Notify date/time 02/04/2023 15:08 Provider Notified LUIS MAGALLANES MD Notification Method Office Information Communicated Consult Details Communicated 5cm AAA with intramural thrombus 02/04/2023 15:05 EDT Consultation Note Consult Note (Modified) 02/04/2023 15:02 EDT Notify date/time 02/04/2023 15:02 Provider Notified FAVIOLA URBAN MD Notification Method Office Information Communicated Consult Details Communicated Bradycardia, surgical clearance 02/04/2023 15:00 EDT Echocardiogram, Adult - CV Ordered (In Progress) 02/04/2023 14:59 EDT Mechanical VTE Prophylaxis Education Not Done: Task Duplication (Not Done) Mechanical VTE Prophylaxis Education Not Done: Task Duplication (Not Done) Antiembolism Stockings Form Not Done (Not Done) Sequential Compression Device Form Not Done (Not Done) 02/04/2023 14:55 EDT IPOC Impaired Gas Exchange Yes 02/04/2023 14:53 EDT Notify date/time 02/04/2023 14:53 Provider Notified CHARLEEN FUENTES MD Notification Method Answering service Information Communicated Consult Details Communicated Medical management 02/04/2023 14:45 EDT Mechanical VTE Prophylaxis Education Not Done: Task Duplication (Not Done) Antiembolism Stockings Form Not Done (Not Done) History and Physical History and Physical (Modified) 02/04/2023 14:31 EDT Temperature Oral 36.4 DegC Peripheral Pulse Rate 50 bpm LOW Respiratory Rate 16 br/min Systolic Blood Pressure Non-Invasive 165 mmHg HI Diastolic Blood Pressure Non-Invasive 85 mmHg Reason For Taking VItal Signs Admission Primary Pain Location Abdomen Abdominal Pain Location RLQ Primary Pain Laterality Right Primary Pain Intensity 4 Primary Pain Onset Gradual Primary Pain Quality Aching Primary Pain Non-Pharma Intervention Rest Primary Pain Nonverbal Response Nods Yes Pain Scale Type 0-10 Pain scale Nail Bed Color [place] Capillary Refill < 2 seconds Heart Rhythm Regular Dorsalis Pedis Pulse, Left 2+ Normal Dorsalis Pedis Pulse, Right 2+ Normal Radial Pulse, Left 2+ Normal Radial Pulse, Right 2+ Normal Respirations Unlabored Respiratory Pattern Regular Breath Sounds Auscultated Anterior only All Lobes Breath Sounds Clear Oxygen Therapy Room air Oxygen Saturation 98 % Abdomen Description Non-distended Abdomen Palpation Tender, Soft Abdomen Tender RLQ Passing Flatus Yes Bowel Movement Last Date 02/04/2023 Bowel Continence Continent Swallowing Disorder None Bowel Sounds All Quadrants Present Urinary Elimination Voiding, no difficulties Facial Movement Symmetric resting/crying All Extremity Description [place], Normal for ethnicity Skin Temperature Warm Temperature All Extremities Warm Skin Description [place] Skin Integrity Intact Skin Turgor Elastic Mucous Membrane Color [place] Mucous Membrane Description Moist Sensory Perception Joseph No impairment Moisture Joseph Occasionally moist Activity Joseph Walks occasionally Mobility Joseph No limitations Nutrition Joseph Adequate Friction and Shear Joseph No apparent problem Joseph Score 20 Hospital Acquired Pressure Injury Risk None/minimal risk (score 19-23) Antecubital Left 02/04/2023 18 gauge Peripheral IV Activity: Assessed Peripheral IV Dressing Condition: Clean, Dry, Intact Peripheral IV Dressing Activity: Transparent dressing Peripheral IV Line Status/Patency: Flushes easily Peripheral IV Site Condition: No complications Peripheral IV Equipment: PRN Adaptor Neurological Language Able to speak clearly, Follows simple commands Neurological Symptoms Patient denies Gait Steady Extremity Movement Equal Swallowing Difficulty None Characteristics of Communication Appropriate Characteristics of Speech Clear Facial Symmetry Symmetric Level of Consciousness Alert Aspiration Risk None EDA Yes Left Pupil Description Regular Right Pupil Description Regular Left Pupil Reaction Brisk Right Pupil Reaction Brisk Pupil Size, Left 3 mm Pupil Size, Right 3 mm Strength All Extremities Strong Left Upper Extremity Sensation Intact Right Upper Extremity Sensation Intact Left Lower Extremity Sensation Intact Right Lower Extremity Sensation Intact CN VII Facial Expression and Symmetry Facial movement symmetrical CN IX, X Swallowing, Gag Reflex Swallowing present Sanches Screen Admission History of Fall in Last 3 Months Sanches No Presence of Secondary Diagnosis Sanches No Use of Ambulatory Aid Sanches None, bedrest, wheelchair, nurse IV/PRN Adapter Fall Risk Sanches Yes Gait Weak or Impaired Fall Risk Sanches Normal, bedrest, immobile Mental Status Fall Risk Sanches Oriented to own ability Sanches Fall Risk Score 20 Violence Risk Confused No Violence Risk Irritable No Violence Risk Boisterous No Violence Risk Verbal Threats No Violence Risk Physical Threats No Violence Risk Attacking Objects No Violence Risk Predictor Score 0 Violence Risk Intervention None Violence Risk Current Interventions None Affect/Behavior Appropriate, Calm, Cooperative Orientation Oriented x 4 Activity Status ADL Awake, Repositions self, Resting Standard Safety ID band on, Call device within reach, Bed in low position, Wheels locked, Upper/Half-Length side-rails up, Phone within reach, personal items within reach, Assistive devices within reach, Toileting device within reach, Safety level maintained, Hazards removed from floor, Non-Slip footwear Demonstrates Correct Call Light Use Yes COVID 19 Surge in Effect Yes RN Coordination of Care 7am-3pm Appetite Good 02/04/2023 14:30 EDT Skin Assessment Verification Admission CAM Mental Status Change & Fluctuation Not Done: Task Duplication (Not Done) CAM Inattention Not Done: Task Duplication (Not Done) CAM Disorganized Thinking Not Done: Task Duplication (Not Done) CAM Altered Level of Consciousness Not Done: Task Duplication (Not Done) Confusion Assessment Method Score Not Done: Task Duplication (Not Done) Pt Condition Appropriate Mini-Cog Test Not Done: Task Duplication (Not Done) Able To Drink Order Detail Yes Able To Sign Consents Order Detail Yes Code Status Order Detail Full code IV Order Detail Yes Dialysis Schedule Order Detail N/A Has Diabetes Order Detail No Isolation Precautions Order Detail None Nurse Collect Order Detail 0 Oxygen Order Detail No Order Detail N/A Prior Valve Replacement Order Detail No Transport Mode Order Detail Wheelchair Fish Bin Tender Details Form Fish Bin Tender Details Form 02/04/2023 14:25 EDT Designated Person #1 We May Share PHYLLIS Malcom Mcwilliams Designated Person #1 Relationship Other: grandson Privacy Restrictions Requested None Height 167.6 cm Height in inches 66 inch(es) Admission Weight 77.3 kg Weight Lbs 170.1 lb [place] Body Weight 63.76 kg BSA Admission 1.87 Body Mass Index 27.52 kg/m2 Patient Type Inpatient Thrombosis Risk Factors (3) Age over 75 years old Thrombosis Risk Factor Add'l Assessment NA Thrombosis Risk Score 3 Status N/A Do You Wish/Go to Sleep/Never Wake Up No Thoughts of Harming Others - History No Thoughts of Suicide - History No Hospital Clergy to Visit Patient Verbalizes No Spiritual Needs Sensory Deficits None Advanced Directives No - refuses information Infectious Disease Symptoms Patient states no symptoms Infectious Disease Recent Exposure No Alcohol and Drug Use No Employee of Institutional Living No Health Care Employee No History of Exposure to TB No History of Positive Chest X-Ray for TB No History of Positive TB Skin Test No Homeless No Known Immunosuppression No Recent Immigrant No Resident of Institutional Living No Bloody Sputum No Fatigue No Fever No Loss of Appetite No Night Sweats No Persistent Cough > 3 Weeks No Weight Loss No Safety Brochure Information Reviewed Yes Nadja Dawkins Video Viewed Patient refused Barriers to Learning None evident Teaching Method Explanation Teaching Evaluation Verbalizes/Nonverbally indicates understanding Preferred Written Language Peruvian Preferred Spoken Language Peruvian Information Given by Patient Patient's Current Physicians none Belongings At Bedside Cell phone, Glasses, Hat, Shirt, Shoes, Socks, Undergarments (Modified) Personal Home Medications Received No home medications were brought in Belongings Sent Home None Belongings to Security/Secured in Dept None Discharge To, Anticipated Home independently Prev Test Positive/Diagnosis w/COVID-19 No Current Quarantine/Isolated any Illness No Any Contact with Sick Animals/Birds No Traveled Anywhere in Last 30 Days No Lost Weight Unintentionally Recently No Eat Poorly Due to Decreased Appetite No Total MST Score 0 N/A Personal Devices, Patient Valuables None Admission Note-Nursing Patient History (Modified) 02/04/2023 13:32 EDT Pain Scale Assessment 0-10 Pain scale Primary Pain Intensity 3 Pain Symptoms Yes PEWS Behavior Assessment 0 PEWS Cardiovascular Assessment 0 PEWS Extra 0 PEWS Respiratory Assessment 0 PEWS Score 0 Individuals Taught Patient Learning Readiness Willing to learn Barriers to Learning None evident Teaching Method Explanation, Printed materials Teaching Evaluation Verbalizes/Nonverbally indicates understanding 02/04/2023 13:26 EDT Peripheral Pulse Rate 47 bpm Respiratory Rate 16 br/min Systolic Blood Pressure Non-Invasive 167 mmHg HI Diastolic Blood Pressure Non-Invasive 67 mmHg Oxygen Therapy Room air Oxygen Saturation 95 % 02/04/2023 12:55 EDT Reason for Transfer Medically indicated transfer Patient's Condition for Transfer Stable Transfer Requirements Met Patient has received a medical screening, Patient will be transferred by qualified personnel, Receiving facility has agreed to accept transfer, Has available space and qualified personnel, Risks and benefits of transfer explained to patient Transferring Physician MD LINDA RICHMOND MD Receiving Facility Accepting Transfer Nadja Treadwell Rep. of Receiving Facility Accepting Pt [place]-transfer line Date/Time Transfer Accepted 02/04/2023 12:[address] Gilliam Date/Time Physician Accepted Patient 02/04/2023 12:25 Nurse Receiving Report Aida Date/Time Nurse Received Report 02/04/2023 12:49 Data Sent with Patient Demographic sheet Mode of Transfer Ground ambulance Required Personnel for Transfer Salesforce Administrator Belongings At Bedside Transferred with patient Personal Home Medications Received No home medications were brought in Belongings Sent Home None Belongings to Security/Secured in Dept None Patient Transfer Form Patient Transfer Form 02/04/2023 12:52 EDT Peripheral Pulse Rate 48 bpm Respiratory Rate 16 br/min Systolic Blood Pressure Non-Invasive 188 mmHg HI Diastolic Blood Pressure Non-Invasive 80 mmHg Primary Pain Location Abdomen Abdominal Pain Location RLQ Primary Pain Intensity 3 Pain Scale Type 0-10 Pain scale Oxygen Therapy Room air Oxygen Saturation 95 % 02/04/2023 12:45 EDT Sanches Screen ED/TELEPATHIST patient History of Fall in Last 3 Months Sanches No Presence of Secondary Diagnosis Sanches Yes Use of Ambulatory Aid Sanches None, bedrest, wheelchair, nurse IV/PRN Adapter Fall Risk Sanches Yes Gait Weak or Impaired Fall Risk Sanches Normal, bedrest, immobile Mental Status Fall Risk Sanches Oriented to own ability Sanches Fall Risk Score 35 Individuals Taught Patient Learning Readiness Willing to learn Barriers to Learning None evident Teaching Method Explanation Teaching Evaluation Verbalizes/Nonverbally indicates understanding Belongings At Bedside Cell phone, Glasses, Hat, Pants, Shirt, Shoes, Transferred with patient Personal Home Medications Received No home medications were brought in Belongings Sent Home None Belongings to Security/Secured in Dept None Education Topics Fall Prevention Conventional call light use ED Valuables and Belongings Form ED Valuables and Belongings Form 02/04/2023 12:38 EDT Primary Pain Intensity 6 morphine 4 mg mg 02/04/2023 12:31 EDT Troponin I High Sensitivity 14.0 ng/L 02/04/2023 12:28 EDT EKG [ED AOH] - CV Signed 02/04/2023 11:49 EDT Temperature Oral 37.2 DegC Peripheral Pulse Rate 48 bpm Respiratory Rate 16 br/min Systolic Blood Pressure Non-Invasive 197 mmHg HI Diastolic Blood Pressure Non-Invasive 83 mmHg Reason For Taking VItal Signs 5 min post antibiotic start time Primary Pain Location Abdomen Abdominal Pain Location RLQ Primary Pain Laterality Bilateral Primary Pain Intensity 5 Primary Pain Quality Aching Primary Pain Non-Pharma Intervention Repositioning, Rest Pain Scale Type 0-10 Pain scale Respirations Unlabored Respiratory Pattern Regular Oxygen Therapy Room air Oxygen Saturation 96 % Antecubital Left 02/04/2023 18 gauge Peripheral IV Activity: Assessed Peripheral IV Dressing Condition: Clean, Dry, Intact Peripheral IV Line Status/Patency: Flushes easily Peripheral IV Site Condition: No complications Peripheral IV Equipment: IV Pump Level of Consciousness Alert Orientation Oriented x 4 Standard Safety ID band on, Call device within reach, Bed in low position, Wheels locked, Upper/Half-Length side-rails up 02/04/2023 11:46 EDT ceftriaxone 2 gram(s) gram(s) Sodium Chloride 0.9% 100 mL mL 02/04/2023 11:45 EDT Peripheral Pulse Rate 45 bpm Respiratory Rate 16 br/min Systolic Blood Pressure Non-Invasive 178 mmHg HI Diastolic Blood Pressure Non-Invasive 66 mmHg Oxygen Saturation 96 % 02/04/2023 11:35 EDT Ambulation Ambulation in [place] Ambulation Distance 50 ft Activity Status ADL Up to bathroom Assistive Device None 02/04/2023 11:09 EDT Peripheral Pulse Rate 53 bpm LOW Respiratory Rate 16 br/min Systolic Blood Pressure Non-Invasive 181 mmHg HI Diastolic Blood Pressure Non-Invasive 79 mmHg Oxygen Therapy Room air Oxygen Saturation 96 % Environmental Safety Implemented Adequate room lighting, Bed in low position, Call device within reach Patient Status Rounding Denies any needs 02/04/2023 10:[address] Abd/Pelvis w/ IV Contrast Only CT ABD/PELVIS W/ IV CONTRAST ONLY 02/04/2023 10:20 EDT Accompanied By Staff Global Commodity Manager Out of Room Returned from Current Location CT Scan Transport via Cart 02/04/2023 10:01 EDT Antecubital Left 02/04/2023 18 gauge Peripheral IV Activity: Insert new site Peripheral IV Dressing Condition: Clean, Dry, Intact Peripheral IV Dressing Activity: Applied, Transparent dressing Peripheral IV Line Status/Patency: Flushes easily, 10ml normal saline flush, Good blood return Peripheral IV Line Care: Secured with tape Peripheral IV Site Condition: No complications Peripheral IV Equipment: PRN Adaptor Peripheral IV Number of Attempts: 1 02/04/2023 9:58 EDT WBC 14.4 10^3/mcL HI RBC 5.46 10^6/mcL Hgb 15.7 G/dL Hct 46.7 % MCV 85.7 fL MCH 28.8 pg MCHC 33.6 G/dL RDW 14.2 % Platelet 205 10^3/mcL MPV 8.6 fL Monocyte Distribution Width Not Performed Neutrophil % 84.9 % HI Lymphocyte % 8.4 % LOW Monocyte % 5.7 % Eosinophil % 0.6 % Basophil % 0.4 % Neutrophil, Absolute 12.2 10^3/mcL HI Lymphocyte, Absolute 1.2 10^3/mcL Monocyte, Absolute 0.8 10^3/mcL Eosinophil, Absolute 0.1 10^3/mcL Basophil, Absolute 0.1 10^3/mcL UA Specimen Type Clean Catch UA Color Yellow UA Appear Slightly Cloudy UA Spec Grav 1.025 UA Glucose Negative mg/dL UA Bili Negative UA Ketones 15 mg/dL UA Blood Trace UA pH 5.5 UA Protein 100 mg/dL UA Urobilinogen 0.2 E.U./dL UA Nitrite Negative UA Leuk Est Negative UA RBC 0-5 /HPF UA WBC 0-5 /HPF UA Squam Epithelial None Seen /HPF UA Mucous 1+ /HPF UA Bacteria Trace /HPF Glucose Level 119 mg/dL HI Sodium Level 138 mmol/L Potassium Level 4.1 mmol/L Chloride 102 mmol/L CO2 26 mmol/L Electrolyte Balance 10.0 mEq/L BUN 18 mg/dL Creatinine Lvl (s) 1.34 mg/dL HI BUN/Creatinine Ratio 13 ratio Calcium Lvl 9.4 mg/dL Total Protein 7.7 G/dL Albumin Level 4.2 G/dL Globulin 3.5 G/dL NA A/G Ratio 1.2 ratio Bili Total 0.8 mg/dL Alk Phos 124 U/L AST/SGOT 15 U/L ALT/SGPT 20 U/L GFR Non- 52 ml/min/1.73sqm NA GFR 63 ml/min/1.73sqm NA Lipase Level 31 U/L 02/04/2023 9:51 EDT [facility] Note History and Physical 02/04/2023 9:51 EDT Status N/A History of Fall in Last 3 Months [place] No Thoughts of Harming Others - History No Thoughts of Suicide - History No Domestic Concerns None HT Control,Supervise,Monitor Denies qSOFA Altered Mental Status GCS < 15 No qSOFA Respiratory Rate >= 22 No qSOFA Systolic BP <= 100 No qSOFA Score 0 Advanced Directives No - refuses information Individuals Taught Patient Learning Readiness Willing to learn Barriers to Learning None evident Teaching Method Explanation, Printed materials Teaching Evaluation Needs further teaching Chief Complaint Presents with intermittent RLQ abdominal pain that started Friday Place Where Injury/Illness Occurred Home Anticoagulants Taken In Past 6 Wks. No N/A Anesthesia/Transfusions Unable to obtain ED Assessment Note - Nursing ED Patient History Form 02/04/2023 9:40 EDT Admission Weight 76.5 kg Temperature Oral 36.6 DegC Peripheral Pulse Rate 73 bpm Respiratory Rate 16 br/min Systolic Blood Pressure Non-Invasive 202 mmHg HI Diastolic Blood Pressure Non-Invasive 97 mmHg HI Primary Pain Location Abdomen Abdominal Pain Location RLQ Primary Pain Intensity 3 Primary Pain Time Pattern intermittent Primary Pain Onset Gradual Primary Pain Duration Friday Primary Pain Quality Aching Pain Scale Type 0-10 Pain scale GENESIS Level 1 No GENESIS Level 2 No GENESIS Level 3 Many Vital Signs GENESIS No Recommended GENESIS Level 3 Nail Bed Color [place] Capillary Refill < 2 seconds Respirations Unlabored Respiratory Pattern Regular Breath Sounds Auscultated Anterior only All Lobes Breath Sounds Clear, Diminished Oxygen Therapy Room air Oxygen Saturation 94 % Abdomen Description Non-distended, Soft Abdomen Palpation Tender Abdomen Tender RLQ Bowel Sounds All Quadrants Present Urinary Elimination Voiding, no difficulties Urine Color Yellow Urine Description Medium amount Skin Temperature Warm Skin Description [place], Normal for ethnicity, Dry Skin Integrity Intact Skin Turgor Elastic Mucous Membrane Color [place] Mucous Membrane Description Moist Gait Steady Level of Consciousness Alert Eye Opening Response Cameron Spontaneously Best Motor Response Kenny Obeys simple commands Best Verbal Response Cameron Oriented Kenny Coma Score 15 Violence Risk Confused No Violence Risk Irritable No Violence Risk Boisterous No Violence Risk Verbal Threats No Violence Risk Physical Threats No Violence Risk Attacking Objects No Violence Risk Predictor Score 0 Affect/Behavior Appropriate, Calm, Cooperative Appearance Clean Orientation Oriented x 4 Wish To Be No Suicidal Thoughts No Ever Made Plans to End Your Life No Suicide Severity Rating No problems noted Infectious Disease Symptoms Patient states no symptoms Infectious Disease Recent Exposure No Alcohol and Drug Use No Employee of Institutional Living No Health Care Employee No History of Exposure to TB No History of Positive Chest X-Ray for TB No History of Positive TB Skin Test No Homeless No Known Immunosuppression No Recent Immigrant No Resident of Institutional Living No Bloody Sputum No Fatigue No Fever No Loss of Appetite No Night Sweats No Persistent Cough > 3 Weeks No Weight Loss No Preferred Written Language Peruvian Preferred Spoken Language [place]ian [employer] ED AO [employer] Tracking Acuity 3 Mode of Transfer Private vehicle Standard Safety ID band on, Call device within reach, Bed in low position, Wheels locked Prev Test Positive/Diagnosis w/COVID-19 No Current Quarantine/Isolated any Illness No Any Contact with Sick Animals/Birds No Traveled Anywhere in Last 30 Days No ED Triage Adults ED Triage Adults 02/04/2023 7:00 EDT Oral Intake 0 mL Stool Count 0 EA Urine Count 0 EA . Assessment and Plan [place] [employer]esthesi[employer] (ASA) physical status classification: Class II. Anesthetic Preoperative Plan Anesthetic technique: General. Maintenance airway: Oral endotracheal tube. Risks discussed: nausea, vomiting, headache, sore throat, dental injury, hypotension, allergic reaction, serious complications. Informed consent: signed by patient. Notes: Patient was seen and examined by Pascual worley MD. The medical record was reviewed. Consultations, lab results , radiographic results and cardiovascular studies examined and noted. Anesthesia was explained in detail and questions were invited and answered. We will proceed as outlined in the plan above.. Digitally Signed by PASCUAL BEE MD on 02/04/2023 04:19 PM [facility] 02-04-2023 History and physical note Date of Service 02/04/2023 Chief Complaint Acute appendicitis History of Present Illness This patient is a 77-year-old gentleman who presented to [facility] with complaint of right lower abdominal pain. Patient reports that on Friday he developed a sudden onset of sharp right lower abdominal pain with mild nausea but no vomiting. Patient denies any fever, chills or change in bowel habits. Patient reports that the pain is sharp in nature and is worse when not moving. Patient reports that moving actually helps alleviate the pain. Patient denies any shortness of breath or chest pain. Patient denies any past abdominal surgeries. Patient denies any past medical history other than being told that 14 years ago he has slightly elevated blood pressure and a right inguinal hernia that he noticed approximately 4 years ago. Patient reports that he has not seen a physician in over 40 years. Initial work-up in the emergency room included CBC which showed mild leukocytosis of 14.4, CMP with a creatinine of 1.34, glucose of 119 all other labs unremarkable. Troponin 14.0. Patient was also noted to be hypertensive with a initial blood pressure of 202/97. CT scan completed in the emergency room showing dilated and inflamed appendix indicating an acute appendicitis with no perforation or abscess formation seen. 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 While in the emergency room he received a dose of Rocephin and a dose of morphine. Patient was also noted to have a heart rate of 49. Patient did get an EKG showing sinus bradycardia, with left ventricular hypertrophy with anterior Q waves possibly related to LVH on review of the EKG on chart. On examination of the patient he is seen resting supine in bed, no acute distress. Patient's abdomen is soft round, with rebound tenderness to the right lower quadrant. Bowel sounds x4. Review of Systems 10 system review and symptoms were complete, pertinent positives described above and otherwise negative. Physical Exam Vitals and Measurements T: 36.4 C (Oral) HR: 50 RR: 16 BP: 165/85 SpO2: 98% HT: 167.6 cm WT: 77.3 kg BMI: 27.52 Weight Dosing Weight: 77.3 kg (02/04/23) General: Awake and alert and in no apparent distress. Able to answer questions and speak in full sentences. Supine in bed. Sitting upright. HEENT: Mucous membranes moist and pink. Sclerae anicteric. PERRLA. Heart: Bradycardic Lungs: Chest rise symmetrical. Respirations unlabored. Clear to auscultation bilaterally. Abdomen: Soft, round, Nondistended. No guarding or rigidity. Bowel sounds 4 quadrants. Positive rebound tenderness to the right lower quadrant. Right inguinal hernia that is reproducible, no changes in skin color or pain on palpation. Extremities: Freely moving. Skin: Normal color for ethnicity. No pallor or diaphoresis. No jaundice. Psychiatric: Calm and cooperative. Lab Results Seen and reviewed from [facility] Imaging Results and Diagnostics lisa for Exam: Pain. Sharp right lower quadrant pain onset on Friday. Known right-sided inguinal hernia. FINDINGS: Calcified granuloma seen in the lingula and right lower lobe. Minimal basilar atelectasis. There is no visible pleural or pericardial effusion. The heart is normal in size. [id number] coronary artery atherosclerosis. Numerous low attenuating lesions in the liver, largest the right hepatic lobe measures up to 6.8 cm and 6.5 HU compatible with a hepatic cyst. The gallbladder, spleen, adrenal glands, and pancreas are within normal limits. Symmetric nephrograms. Thinning of the right upper pole cortex likely reflects scarring or atrophy. Subcentimeter left superior pole renal lesion too small to characterize and likely favors a renal cyst. The ureters are normal in course and caliber. The urinary bladder is mildly distended. The prostate is unremarkable. Small hiatal hernia. The large and small bowel demonstrate no obstruction. There is inflammatory changes surrounding a fluid-filled and dilated appendix measuring 1.7 cm. There is no perforation or adjacent loculated fluid collection. Mild colonic diverticulosis without evidence of acute diverticulitis. Atherosclerotic aorta with fusiform infrarenal abdominal aortic aneurysm that measures 5.1 x 4.7 cm and extends to the iliac bifurcation, with intramural thrombus. There is no lymphadenopathy. Large right inguinal hernia containing loops of distal small bowel is visualized and extends into the scrotum without obstruction. Small fat containing left inguinal hernia. There is no fracture or aggressive osseous lesion. Degenerative changes are present in the spine. IMPRESSION: Dilated and inflamed appendix is compatible with acute appendicitis without free air to suggest perforation or abscess formation. Fusiform infrarenal abdominal aortic aneurysm without evidence of hemorrhage with measurements as above. Please see recommendations below. Large right inguinal hernia containing loops of distal small bowel extends into the scrotum, without evidence of obstruction. Diverticulosis without evidence of acute diverticulitis. I have personally reviewed the images of this examination and agree with the resident's findings and interpretation. 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 Recommend follow-up every 6 months and vascular consultation. Reference: J Am Alize Radiol 2013;10:789-794. Interpreted by: Pascual Bauer MD Preliminary Report By: Nuria Tay Electronically signed By Pascual Bauer MD Dictated Date: 02/04/2023 10:44:35 AM Prelim Date: 02/04/2023 11:16:16 AM Sign Date: 02/04/2023 11:18:15 AM Ordering Provider: LINDA RICHMOND Assessment/Plan This patient is a pleasant 77-year-old gentleman who denies any past medical history other than a right inguinal hernia he noticed 4 years ago who presented to [place] emergency room for complaints of sudden sharp right lower quadrant abdominal pain that approximately started on Friday. While in the emergency room patient underwent a CT scan of abdomen pelvis showing evidence of appendicitis with additional findings of a AAA. Patient was noted to have leukocytosis with a white count of 14.4 and elevated blood pressure. Due to these findings the patient was transferred from [facility] to [facility] and admitted to the surgical services team for definitive care. Vital signs, laboratory data and radiology have been reviewed. Plan: 1. Acute appendicitis -Patient to remain n.p.o. at this time -Patient to be given a dose of cefoxitin 2 g -Multimodality pain control with antiemetics as needed -Patient to be taken to the OR with Dr. Gilliam for laparoscopic appendectomy secondary to acute appendicitis. Procedure was explained with risk and benefits to the patient in great length by Dr. Gilliam. He was understanding and agreement to the plan. 2 Right inguinal hernia -Reproducible on palpation, nontender on examination with no skin changes -No immediate surgical intervention at this time we will continue to monitor will treat acute appendicitis prior to any surgical intervention for this. This was discussed with the patient as to why. 3. High blood pressure without diagnosis of hypertension -consult hospitalist for medical management 4. Elevated creatinine of 1.34 -More than likely related to chronic hypertension -gentle hydration as ordered at this time -Hospitalist consulted for medical management 5. infrarenal abdominal aneurysm measuring 5.1 x 4.7 cm extending into the iliac bifurcation with intramural thrombus -consult to vascular by the hospital team. Case discussed with Dr. Gilliam. Please see his addendum to follow. Problem List/Past Medical History Right small hernia Procedure/Surgical History Denies any past surgical history Medications Denies any medication use Allergies No Known Medication Allergies Social History Alcohol Use: Past., 02/04/2023 Tobacco Nicotine Use: Former smoker, quit more than 30 days ago., 02/04/2023 Family History Noncontributory Immunizations No qualifying data available. Code Status Code Status - Ordered -- 02/04/23 14:57:00 EDT, Full Code, Constant Order This document was dictated with voice recognition software and may contain grammatical errors Digitally Signed by UMER LARKIN on 02/04/2023 03:30 PM Digitally Signed by UMER LARKIN on 02/04/2023 03:34 PM [facility] 02-04-2023 Cardiology Consul t note Date of Service 02/04/2023 Reason for Consultation Surgical clearance Review of Systems Apart from mentioned in HPI, pertinent review of systems is otherwise negative. Physical Exam Vitals and Measurements T: 36.4 C (Oral) HR: 50 RR: 16 BP: 165/85 SpO2: 98% HT: 167.6 cm WT: 77.3 kg BMI: 27.52 Weight Dosing Weight: 77.3 kg (02/04/23) General Appearance: Comfortable, not in acute distress Cardiac: S1, S2, no murmurs, regular rhythm, slow rate, no lower extremity edema, no crackles, no JVP distention, warm extremities. Lungs: No wheezes, normal chest expansion. Abdomen: not palpated, no distention. Musculoskeletal: No signs of acute synovitis. Neurological: Alert and oriented x3, no focal neurological deficits grossly. Psychiatric: Appropriate, normal mood. 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 Patient is currently feeling subjectively well apart from moderate abdominal pain, he has no cardiac history, has not seen a PCP in 40-50 years, smoked 20 pack year quit 20 years ago, no family history of premature CAD. Reports excellent exercise capacity certainly >4 METS ECG reviewed: First-degree AV block with resting sinus bradycardia. blood pressure mildly elevated. TTE is ordered. Recommendations: Can proceed with planned surgery without further cardiac testing or optimization We will start losartan 50 mg p.o. daily on 02/06 for hypertension Cardiology service will sign off, please do not hesitate to reach out for any questions. Thank you for the consult. d/w Dr Robin Sherman MD [employer] Room Attendant Cortext or Pager [phone] Problem List/Past Medical History Ongoing No qualifying data Historical No qualifying data Procedure/Surgical History No qualifying data available. Medications Inpatient cefOXitin, 2 gram(s)= 50 mL, IV Piggyback, PREOP pharm Dilaudid, 1 mg= 1 mL, IV Push, q2h, PRN hydrALAZINE, 10 mg= 0.5 mL, IV Push, q6h, PRN hydrALAZINE, 25 mg= 1 tab(s), Oral, TID Lovenox, 30 mg= 0.3 mL, Subcutaneous, qDay LR 1,000 mL, 1000 mL, Intravenous Ofirmev IVPB, 1000 mg= 100 mL, IV Piggyback, q6hr oxyCODONE 5 mg oral tablet ( IMMEDIATE release ), 5 mg= 1 tab(s), Oral, q4h, PRN oxyCODONE 5 mg oral tablet ( IMMEDIATE release ), 10 mg= 2 tab(s), Oral, q4h, PRN prochlorperazine, 5 mg= 1 mL, IV Push, q6h, PRN Tylenol, 650 mg= 2 tab(s), Oral, q4h, PRN Zofran, 4 mg= 2 mL, IV Push, q4h, PRN Home No active home medications Allergies No Known Medication Allergies Social History Alcohol Use: Past., 02/04/2023 Tobacco Nicotine Use: Former smoker, quit more than 30 days ago., 02/04/2023 Immunizations No qualifying data available. Digitally Signed by GURPREET SHERMAN MD on 02/04/2023 03:45 PM Digitally Signed by GURPREET SHERMAN MD on 02/04/2023 03:51 PM [facility] 02-04-2023 Consult note Date of Service 02/04/23 Reason for Consultation hypertension, bradycardia Referring Physician Dr. Gilliam History of Present Illness 77-year-old male with no previously known past medical history presenting due [facility] due to abdominal pain. He was found to have leukocytosis on presentation 14,400 and also blood pressure of 202/97. Also bradycardic as low as 47. EKG obtained with sinus bradycardia ID of [id number] changes. Troponin of 14.0. Creatinine of 1.34. CT abdomen pelvis was obtained and showed concern for acute appendicitis without free air or perforation or abscess formation also large right inguinal hernia containing loop of distal small bowel with extensive scrotal without obstruction. Also also findings concerning for a 5.1 x 4.7 cm AAA with intramural thrombus. Patient does not see a primary care doctor or her PCP. Patient mention he has been told he has high blood pressure years ago when he was doing some physical for work about 20 years ago but never seen a physician since then. Denies any chest pain dizziness or palpitations. Review of Systems 14 point review of system was discussed and reviewed as negative unless otherwise specified above Physical Exam Vitals and Measurements T: 36.4 C (Oral) HR: 50 RR: 16 BP: 165/85 SpO2: 98% HT: 167.6 cm WT: 77.3 kg BMI: 27.52 Weight Dosing Weight: 77.3 kg (02/04/23) General- in no acute distress, alert Cardiac- Normal S1 S2, with no murmur rubs or gallops, no edema HEENT- PERRLA, eyes- sclera nonicteric, oral mucosa moist Lungs- Clear to auscultation bilaterally Abdomen- RLQ tender to palpation, positive bowel sounds Neurology- No focal neuro deficit, follows command Skin- no rash Psychiatry- oriented x3 Lab Results No 36 Hour Lab Data Assessment/Plan Orders: hydrALAZINE, Start: 02/04/23 14:59:00 EDT, Dose = 10 mg, = 0.5 mL, IV Push, q6h, PRN, Systolic BP: See order comments, Give if SBP (mmHg) > 165, 02/04/23 14:59:00 EDT hydrALAZINE, Start: 02/04/23 16:00:00 EDT, Dose = 25 mg, = 1 tab(s), Oral, TID, 02/04/23 15:00:00 EDT A1C Hemoglobin Consult to Physician Consult to Physician Echocardiogram Adult Lipid Profile Thyroid Stimulating Hormone Assessment 1. Hypertensive emergency 2. ROXY 3. Bradycardia 4. 5cm AAA 5. Acute appendicitis 6. Large right inguinal hernia containing loop of distal small bowel with extensive scrotal without obstruction Plan 1. Given elevated blood pressure start on hydralazine 25 mg 3 times daily given concern for ROXY and bradycardia avoiding amlodipine, lisinopril or ARB, beta-bridget and also clonidine. EKG sinus bradycardia first-degree AV block. Consult cardiology. TSH. Echocardiogram given hypertension. As needed 10 mg IV hydralazine as needed for SBP greater than 165. 14. Personally reviewed his EKG with sinus bradycardia ID of [id number] concerning for first-degree AV block. Troponin of 14. IV hydration for ROXY, monitor kidney function. Baseline creatinine is unknown Concerning abdominal aortic aneurysm with intramural thrombus check lipid panel. Consult vascular surgery. Blood pressure control. As he would benefit from close follow-up outpatient. Consult case management to arrange for outpatient PCP at discharge. Appendicitis and inguinal hernia management per general surgery. Thank you for this consultation and allowing me to participate in the care of this patient. Medical team will continue to follow. This document was transcribed using a voice recognition software and may contain typographical errors. Problem List/Past Medical History Ongoing No qualifying data Historical No qualifying data Procedure/Surgical History No qualifying data available. Medications Inpatient cefOXitin, 2 gram(s)= 50 mL, IV Piggyback, PREOP pharm Dilaudid, 1 mg= 1 mL, IV Push, q2h, PRN hydrALAZINE, 10 mg= 0.5 mL, IV Push, q6h, PRN hydrALAZINE, 25 mg= 1 tab(s), Oral, TID Lovenox, 30 mg= 0.3 mL, Subcutaneous, qDay LR 1,000 mL, 1000 mL, Intravenous Ofirmev IVPB, 1000 mg= 100 mL, IV Piggyback, q6hr oxyCODONE 5 mg oral tablet ( IMMEDIATE release ), 5 mg= 1 tab(s), Oral, q4h, PRN oxyCODONE 5 mg oral tablet ( IMMEDIATE release ), 10 mg= 2 tab(s), Oral, q4h, PRN prochlorperazine, 5 mg= 1 mL, IV Push, q6h, PRN Tylenol, 650 mg= 2 tab(s), Oral, q4h, PRN Zofran, 4 mg= 2 mL, IV Push, q4h, PRN Home No active home medications Allergies No Known Medication Allergies Social History Alcohol Use: Past., 02/04/2023 Tobacco Nicotine Use: Former smoker, quit more than 30 days ago., 02/04/2023 Immunizations No qualifying data available. Digitally Signed by CHARLEEN FUENTES MD on 02/04/2023 03:30 PM Digitally Signed by CHARLEEN FUENTES MD on 02/04/2023 03:30 PM [facility] 02-04-2023 Evaluation + Plan note Extrac doc from: Title:History and Physical Author:JANICE LARKIN SHIFT MECHANIC-TABLE RUNNER Date:02/04/23 This patient is a pleasant [age]-year-old gentleman who denies any past medical history other than a right inguinal hernia he noticed 4 years ago who presented to [place] emergency room for complaints of sudden sharp right lower quadrant abdominal pain that approximately started on Friday. While in the emergency room patient underwent a CT scan of abdomen pelvis showing evidence of appendicitis with additional findings of a AAA. Patient was noted to have leukocytosis with a white count of 14.4 and elevated blood pressure. Due to these findings the patient was transferred from [facility] to [facility] and admitted to the surgical services team for definitive care. Vital signs, laboratory data and radiology have been reviewed. Plan: 1. Acute appendicitis -Patient to remain n.p.o. at this time -Patient to be given a dose of cefoxitin 2 g -Multimodality pain control with antiemetics as needed -Patient to be taken to the OR with Dr. Gilliam for laparoscopic appendectomy secondary to acute appendicitis. Procedure was explained with risk and benefits to the patient in great length by Dr. Gilliam. He was understanding and agreement to the plan. 2 Right inguinal hernia -Reproducible on palpation, nontender on examination with no skin changes -No immediate surgical intervention at this time we will continue to monitor will treat acute appendicitis prior to any surgical intervention for this. This was discussed with the patient as to why. 3. High blood pressure without diagnosis of hypertension -consult hospitalist for medical management 4. Elevated creatinine of 1.34 -More than likely related to chronic hypertension -gentle hydration as ordered at this time -Hospitalist consulted for medical management 5. infrarenal abdominal aneurysm measuring 5.1 x 4.7 cm extending into the iliac bifurcation with intramural thrombus -consult to vascular by the hospital team. Case discussed with Dr. Gilliam. Please see his addendum to follow. Addendum by TANNER GILLIAM on February 04, 2023 16:26:44 EDT Surgery attending note: Patient seen and examined. Please see above note by Mireya Larkin CNP for details. Agree with above assessment and plan. Patient presents with a history very compatible with acute appendicitis and physical exam consistent with same with focal tenderness and voluntary guarding in the right lower quadrant and the remainder of his abdominal exam is benign. He has a slightly elevated white count and CT scan findings very consistent with acute appendicitis with no obvious evidence of perforation. The patient has had very minimal medical attention or care in the past 40 years and therefore represents somewhat of a unknown in terms of underlying medical problems but it is clear that he has some degree of atherosclerotic vascular disease with a abdominal aortic aneurysm of 5.1 cm and also has untreated hypertension along with some degree of chronic kidney disease. He does not exhibit any acute cardiac symptoms but his EKG does show sinus bradycardia with first-degree heart block. His blood pressure was quite elevated when he presented to the emergency room roughly 200/100 but with pain medication is down to 165/85 and at this point I think it is probably safe to proceed with surgery although we are having the medicine service evaluate him and he certainly will need some medical evaluation and follow-up postoperatively as well as vascular follow-up for the aneurysm. I recommend proceeding with laparoscopic appendectomy and I explained the details and risks of the surgery to the patient who understands and agrees to proceed. Future Appointments Appointment Date:02/12/2023 04:00:00 PM Scheduled Provider:LASHON GOLDBERG Location:[facility] Appointment Type:PC SHEET [employer]OR Unassigned Hospital Follow Up Appointment Date:02/20/2023 01:50:00 PM Scheduled Provider:TANNER GILLIAM MD Location:[facility] Appointment Type:GS OV Post Op [facility] 06-27-2023 Note ORIGINAL EXAMINATION: CT OF THE ABDOMEN AND PELVIS WITH CONTRAST02/04/2023 10:42 am TECHNIQUE: CT of the abdomen and pelvis was performed with the administration of intravenous contrast. Multiplanar reformatted images are provided for review. Automated exposure control, iterative reconstruction, and/or weight based adjustment of the mA/kV was utilized to reduce the radiation dose to as low as reasonably achievable. COMPARISON: None HISTORY: ORDERING SYSTEM PROVIDED HISTORY: Reason for Exam: Pain. Sharp right lower quadrant pain onset on Friday. Known right-sided inguinal hernia. FINDINGS: Calcified granuloma seen in the lingula and right lower lobe. Minimal basilar atelectasis. There is no visible pleural or pericardial effusion. The heart is normal in size. [id number] coronary artery atherosclerosis. Numerous low attenuating lesions in the liver, largest the right hepatic lobe measures up to 6.8 cm and 6.5 HU compatible with a hepatic cyst. The gallbladder, spleen, adrenal glands, and pancreas are within normal limits. Symmetric nephrograms. Thinning of the right upper pole cortex likely reflects scarring or atrophy. Subcentimeter left superior pole renal lesion too small to characterize and likely favors a renal cyst. The ureters are normal in course and caliber. The urinary bladder is mildly distended. The prostate is unremarkable. Small hiatal hernia. The large and small bowel demonstrate no obstruction. There is inflammatory changes surrounding a fluid-filled and dilated appendix measuring 1.7 cm. There is no perforation or adjacent loculated fluid collection. Mild colonic diverticulosis without evidence of acute diverticulitis. Atherosclerotic aorta with fusiform infrarenal abdominal aortic aneurysm that measures 5.1 x 4.7 cm and extends to the iliac bifurcation, with intramural thrombus. There is no lymphadenopathy. Large right inguinal hernia containing loops of distal small bowel is visualized and extends into the scrotum without obstruction. Small fat containing left inguinal hernia. There is no fracture or aggressive osseous lesion. Degenerative changes are present in the spine. IMPRESSION: Dilated and inflamed appendix is compatible with acute appendicitis without free air to suggest perforation or abscess formation. Fusiform infrarenal abdominal aortic aneurysm without evidence of hemorrhage with measurements as above. Please see recommendations below. Large right inguinal hernia containing loops of distal small bowel extends into the scrotum, without evidence of obstruction. Diverticulosis without evidence of acute diverticulitis. I have personally reviewed the images of this examination and agree with the resident's findings and interpretation. 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 Recommend follow-up every 6 months and vascular consultation. Reference: J Am Alize Radiol 2013;10:789-794. Interpreted by: Pascual Bauer MD Preliminary Report By: Nuria Tay Electronically signed By Pascual Bauer MD Dictated Date: 02/04/2023 10:44:35 AM Prelim Date: 02/04/2023 11:16:16 AM Sign Date: 02/04/2023 11:18:15 AM Ordering Provider: LINDA RICHMOND [facility] [id number] Note ORIGINAL EXAMINATION: CT OF THE ABDOMEN AND PELVIS WITH CONTRAST02/04/2023 10:42 am TECHNIQUE: CT of the abdomen and pelvis was performed with the administration of intravenous contrast. Multiplanar reformatted images are provided for review. Automated exposure control, iterative reconstruction, and/or weight based adjustment of the mA/kV was utilized to reduce the radiation dose to as low as reasonably achievable. COMPARISON: None HISTORY: ORDERING SYSTEM PROVIDED HISTORY: Reason for Exam: Pain. Sharp right lower quadrant pain onset on Friday. Known right-sided inguinal hernia. FINDINGS: Calcified granuloma seen in the lingula and right lower lobe. Minimal basilar atelectasis. There is no visible pleural or pericardial effusion. The heart is normal in size. [id number] coronary artery atherosclerosis. Numerous low attenuating lesions in the liver, largest the right hepatic lobe measures up to 6.8 cm and 6.5 HU compatible with a hepatic cyst. The gallbladder, spleen, adrenal glands, and pancreas are within normal limits. Symmetric nephrograms. Thinning of the right upper pole cortex likely reflects scarring or atrophy. Subcentimeter left superior pole renal lesion too small to characterize and likely favors a renal cyst. The ureters are normal in course and caliber. The urinary bladder is mildly distended. The prostate is unremarkable. Small hiatal hernia. The large and small bowel demonstrate no obstruction. There is inflammatory changes surrounding a fluid-filled and dilated appendix measuring 1.7 cm. There is no perforation or adjacent loculated fluid collection. Mild colonic diverticulosis without evidence of acute diverticulitis. Atherosclerotic aorta with fusiform infrarenal abdominal aortic aneurysm that measures 5.1 x 4.7 cm and extends to the iliac bifurcation, with intramural thrombus. There is no lymphadenopathy. Large right inguinal hernia containing loops of distal small bowel is visualized and extends into the scrotum without obstruction. Small fat containing left inguinal hernia. There is no fracture or aggressive osseous lesion. Degenerative changes are present in the spine. IMPRESSION: Dilated and inflamed appendix is compatible with acute appendicitis without free air to suggest perforation or abscess formation. Fusiform infrarenal abdominal aortic aneurysm without evidence of hemorrhage with measurements as above. Please see recommendations below. Large right inguinal hernia containing loops of distal small bowel extends into the scrotum, without evidence of obstruction. Diverticulosis without evidence of acute diverticulitis. I have personally reviewed the images of this examination and agree with the resident's findings and interpretation. 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 Recommend follow-up every 6 months and vascular consultation. Reference: J Am Alize Radiol 2013;10:789-794. Interpreted by: Pascual Bauer MD Preliminary Report By: Nuria Tay Electronically signed By Pascual Bauer MD Dictated Date: 02/04/2023 10:44:35 AM Prelim Date: 02/04/2023 11:16:16 AM Sign Date: 02/04/2023 11:18:15 AM Ordering Provider: [facility] Anesthesiology Consult note* PASCUAL BEE MD: PERFORM, SIGN, VERIFY Event Display: Anesthesiology Consultation Authored Date: [id number] Patient: ROSIBEL STEELE Age: 77 years Sex: Male : 1945 Associated Diagnoses: None Author: PASCUAL BEE MD Postoperative Information Post Operative Info: Post op day: Post Anesthesia Care Unit. Patient location: PACU. Assessment Postanesthesia assessment Vitals: Vital signs from flowsheet : Vital Signs 02/04/2023 19:44 EDT Temperature Oral 36.7 DegC Heart Rate Monitored 62 bpm Respiratory Rate 16 br/min Systolic Blood Pressure Non-Invasive 176 mmHg HI Diastolic Blood Pressure Non-Invasive 73 mmHg Reason For Taking VItal Signs Routine 02/04/2023 19:08 EDT Systolic Blood Pressure Non-Invasive 190 mmHg HI Diastolic Blood Pressure Non-Invasive 88 mmHg 02/04/2023 18:22 EDT Heart Rate Monitored 57 bpm LOW Respiratory Rate 16 br/min Systolic Blood Pressure Non-Invasive 195 mmHg HI Diastolic Blood Pressure Non-Invasive 88 mmHg Mean Arterial Pressure (NBP) 114 mmHg 02/04/2023 18:04 EDT Heart Rate Monitored 53 bpm LOW Respiratory Rate 18 br/min Systolic Blood Pressure Non-Invasive 187 mmHg HI Diastolic Blood Pressure Non-Invasive 81 mmHg Mean Arterial Pressure (NBP) 111 mmHg 02/04/2023 17:49 EDT Temperature Temporal Artery 36.3 DegC Heart Rate Monitored 53 bpm LOW Respiratory Rate 18 br/min Systolic Blood Pressure Non-Invasive 189 mmHg HI Diastolic Blood Pressure Non-Invasive 91 mmHg HI Mean Arterial Pressure (NBP) 120 mmHg Reason For Taking VItal Signs Admission 02/04/2023 17:45 EDT Respiratory Rate - Anes 0 br/min br/min 02/04/2023 17:42 EDT Systolic Blood Pressure Non-Invasive 194 mmHg mmHg Diastolic Blood Pressure Non-Invasive 88 mmHg mmHg 02/04/2023 17:40 EDT Heart Rate Monitored 48 bpm bpm Respiratory Rate - Anes 15 br/min br/min 02/04/2023 17:39 EDT Systolic Blood Pressure Non-Invasive 154 mmHg mmHg Diastolic Blood Pressure Non-Invasive 73 mmHg mmHg 02/04/2023 17:36 EDT Systolic Blood Pressure Non-Invasive 147 mmHg mmHg Diastolic Blood Pressure Non-Invasive 67 mmHg mmHg 02/04/2023 17:35 EDT Temperature (Route Not Specified) 36.34 DegC DegC Heart Rate Monitored 48 bpm bpm Respiratory Rate - Anes 15 br/min br/min 02/04/2023 17:33 EDT Systolic Blood Pressure Non-Invasive 139 mmHg mmHg Diastolic Blood Pressure Non-Invasive 69 mmHg mmHg 02/04/2023 17:30 EDT Temperature (Route Not Specified) 36.37 DegC DegC Heart Rate Monitored 48 bpm bpm Respiratory Rate - Anes 18 br/min br/min Systolic Blood Pressure Non-Invasive 140 mmHg mmHg Diastolic Blood Pressure Non-Invasive 67 mmHg mmHg 02/04/2023 17:27 EDT Systolic Blood Pressure Non-Invasive 135 mmHg mmHg Diastolic Blood Pressure Non-Invasive 72 mmHg mmHg 02/04/2023 17:25 EDT Temperature (Route Not Specified) 36.38 DegC DegC Heart Rate Monitored 50 bpm bpm Respiratory Rate - Anes 12 br/min br/min 02/04/2023 17:24 EDT Systolic Blood Pressure Non-Invasive 135 mmHg mmHg Diastolic Blood Pressure Non-Invasive 68 mmHg mmHg 02/04/2023 17:21 EDT Systolic Blood Pressure Non-Invasive 147 mmHg mmHg Diastolic Blood Pressure Non-Invasive 81 mmHg mmHg 02/04/2023 17:20 EDT Temperature (Route Not Specified) 36.39 DegC DegC Heart Rate Monitored 51 bpm bpm Respiratory Rate - Anes 13 br/min br/min 02/04/2023 17:18 EDT Systolic Blood Pressure Non-Invasive 140 mmHg mmHg Diastolic Blood Pressure Non-Invasive 73 mmHg mmHg 02/04/2023 17:15 EDT Temperature (Route Not Specified) 36.57 DegC DegC Heart Rate Monitored 50 bpm bpm Respiratory Rate - Anes 12 br/min br/min Systolic Blood Pressure Non-Invasive 126 mmHg mmHg Diastolic Blood Pressure Non-Invasive 73 mmHg mmHg 02/04/2023 17:12 EDT Systolic Blood Pressure Non-Invasive 128 mmHg mmHg Diastolic Blood Pressure Non-Invasive 74 mmHg mmHg 02/04/2023 17:10 EDT Temperature (Route Not Specified) 36.66 DegC DegC Heart Rate Monitored 52 bpm bpm Respiratory Rate - Anes 12 br/min br/min 02/04/2023 17:09 EDT Systolic Blood Pressure Non-Invasive 133 mmHg mmHg Diastolic Blood Pressure Non-Invasive 76 mmHg mmHg 02/04/2023 17:06 EDT Systolic Blood Pressure Non-Invasive 137 mmHg mmHg Diastolic Blood Pressure Non-Invasive 76 mmHg mmHg 02/04/2023 17:05 EDT Temperature (Route Not Specified) 36.76 DegC DegC Heart Rate Monitored 52 bpm bpm Respiratory Rate - Anes 12 br/min br/min 02/04/2023 17:03 EDT Systolic Blood Pressure Non-Invasive 157 mmHg mmHg Diastolic Blood Pressure Non-Invasive 86 mmHg mmHg 02/04/2023 17:00 EDT Temperature (Route Not Specified) 36.85 DegC DegC Heart Rate Monitored 51 bpm bpm Respiratory Rate - Anes 12 br/min br/min Systolic Blood Pressure Non-Invasive 162 mmHg mmHg Diastolic Blood Pressure Non-Invasive 92 mmHg mmHg 02/04/2023 16:57 EDT Systolic Blood Pressure Non-Invasive 172 mmHg mmHg Diastolic Blood Pressure Non-Invasive 93 mmHg mmHg 02/04/2023 16:55 EDT Temperature (Route Not Specified) 36.81 DegC DegC Heart Rate Monitored 58 bpm bpm Respiratory Rate - Anes 10 br/min br/min 02/04/2023 16:54 EDT Systolic Blood Pressure Non-Invasive 162 mmHg mmHg Diastolic Blood Pressure Non-Invasive 106 mmHg mmHg 02/04/2023 16:51 EDT Systolic Blood Pressure Non-Invasive 115 mmHg mmHg Diastolic Blood Pressure Non-Invasive 66 mmHg mmHg 02/04/2023 16:50 EDT Heart Rate Monitored 55 bpm bpm Respiratory Rate - Anes 10 br/min br/min 02/04/2023 16:48 EDT Systolic Blood Pressure Non-Invasive 119 mmHg mmHg Diastolic Blood Pressure Non-Invasive 61 mmHg mmHg 02/04/2023 16:45 EDT Heart Rate Monitored 61 bpm bpm Respiratory Rate - Anes 10 br/min br/min Systolic Blood Pressure Non-Invasive 130 mmHg mmHg Diastolic Blood Pressure Non-Invasive 66 mmHg mmHg 02/04/2023 16:42 EDT Systolic Blood Pressure Non-Invasive 126 mmHg mmHg Diastolic Blood Pressure Non-Invasive 76 mmHg mmHg 02/04/2023 16:40 EDT Heart Rate Monitored 80 bpm bpm Respiratory Rate - Anes 10 br/min br/min 02/04/2023 16:39 EDT Systolic Blood Pressure Non-Invasive 142 mmHg mmHg Diastolic Blood Pressure Non-Invasive 79 mmHg mmHg 02/04/2023 16:36 EDT Systolic Blood Pressure Non-Invasive 196 mmHg mmHg Diastolic Blood Pressure Non-Invasive 85 mmHg mmHg 02/04/2023 16:35 EDT Heart Rate Monitored 63 bpm bpm Respiratory Rate - Anes 14 br/min br/min 02/04/2023 16:33 EDT Systolic Blood Pressure Non-Invasive 202 mmHg mmHg Diastolic Blood Pressure Non-Invasive 105 mmHg mmHg 02/04/2023 15:44 EDT Systolic Blood Pressure Non-Invasive 200 mmHg HI Diastolic Blood Pressure Non-Invasive 98 mmHg HI Blood Pressure Method Manual Blood Pressure Location Left arm Blood Pressure Cuff Size Medium 02/04/2023 14:31 EDT Temperature Oral 36.4 DegC Peripheral Pulse Rate 50 bpm LOW Respiratory Rate 16 br/min Systolic Blood Pressure Non-Invasive 165 mmHg HI Diastolic Blood Pressure Non-Invasive 85 mmHg Reason For Taking VItal Signs Admission 02/04/2023 13:26 EDT Peripheral Pulse Rate 47 bpm <LLOW Respiratory Rate 16 br/min Systolic Blood Pressure Non-Invasive 167 mmHg HI Diastolic Blood Pressure Non-Invasive 67 mmHg 02/04/2023 12:52 EDT Peripheral Pulse Rate 48 bpm <LLOW Respiratory Rate 16 br/min Systolic Blood Pressure Non-Invasive 188 mmHg HI Diastolic Blood Pressure Non-Invasive 80 mmHg 02/04/2023 11:49 EDT Temperature Oral 37.2 DegC Peripheral Pulse Rate 48 bpm <LLOW Respiratory Rate 16 br/min Systolic Blood Pressure Non-Invasive 197 mmHg HI Diastolic Blood Pressure Non-Invasive 83 mmHg Reason For Taking VItal Signs 5 min post antibiotic start time 02/04/2023 11:45 EDT Peripheral Pulse Rate 45 bpm <LLOW Respiratory Rate 16 br/min Systolic Blood Pressure Non-Invasive 178 mmHg HI Diastolic Blood Pressure Non-Invasive 66 mmHg 02/04/2023 11:09 EDT Peripheral Pulse Rate 53 bpm LOW Respiratory Rate 16 br/min Systolic Blood Pressure Non-Invasive 181 mmHg HI Diastolic Blood Pressure Non-Invasive 79 mmHg 02/04/2023 9:40 EDT Temperature Oral 36.6 DegC Peripheral Pulse Rate 73 bpm Respiratory Rate 16 br/min Systolic Blood Pressure Non-Invasive 202 mmHg HI Diastolic Blood Pressure Non-Invasive 97 mmHg HI . Mental status: at preoperative baseline. Respiratory function: respirations are non-labored, Stable. Respiratory support: none. CV function: Stable. Cardiovascular support: none. Pain: Satisfactory. Nausea status: Satisfactory. Postoperative hydration status: within normal limits. Notes: Patient is sufficiently recovered from anesthesia to participate in the evaluation. No follow-up care needed. No complications post-anesthesia.. Digitally Signed by PASCUAL BEE MD on 02/04/2023 09:05 PM * PASCUAL BEE MD: PERFORM, SIGN, VERIFY Event Display: Anesthesiology Consultation Authored Date: [id number] Patient: ROSIBEL STEELE Age: 77 years Sex: Male : 1945 Associated Diagnoses: None Author: PASCUAL BEE MD Preoperative Information Time of last food or liquid consumption: 02/04/2023 00:00:00 Anesthesia history Patient's history: negative. Family's history: negative. Health Status Allergies: Allergic Reactions (Selected) No Known Medication Allergies, Allergies (1) ActiveReaction No Known Medication AllergiesNone Documented Current medications: (Selected) Inpatient Medications Ordered Dilaudid: 1 mg, 1 mL, IV Push, q2h, PRN: Pain, scale 7-10 LR 1,000 mL: 125 mL/hr, Intravenous Lovenox: 30 mg, 0.3 mL, Subcutaneous, qDay Ofirmev IVPB: 1,000 mg, 100 mL, 400 mL/hr, IV Piggyback, q6hr Tylenol: 650 mg, 2 tab(s), Oral, q4h, PRN: Pain, scale 1-3 Zofran: 4 mg, 2 mL, IV Push, q4h, PRN: Nausea/Vomiting cefOXitin: 2 gram(s), 50 mL, 100 mL/hr, IV Piggyback, PREOP pharm hydrALAZINE: 10 mg, 0.5 mL, IV Push, q6h, PRN: Systolic BP: See order comments hydrALAZINE: 25 mg, 1 tab(s), Oral, TID losartan: 50 mg, 1 tab(s), Oral, qDay oxyCODONE 5 mg oral tablet ( IMMEDIATE release ): 10 mg, 2 tab(s), Oral, q4h, PRN: Pain, scale 7-10 oxyCODONE 5 mg oral tablet ( IMMEDIATE release ): 5 mg, 1 tab(s), Oral, q4h, PRN: Pain, scale 4-6 prochlorperazine: 5 mg, 1 mL, IV Push, q6h, PRN: Nausea/Vomiting, Medications (13) Active Scheduled: (5) acetaminophen PMX 1,000 mg 100 mL, IV Piggyback, q6hr ceFOXitin 2 gram(s) 50 mL, IV Piggyback, PREOP pharm enoxaparin 30 mg/ 0.3 mL syringe 30 mg 0.3 mL, Subcutaneous, qDay hydralazine 25 mg Tablet 25 mg 1 tab(s), Oral, TID losartan 50 mg tablet 50 mg 1 tab(s), Oral, qDay Continuous: (1) Lactated Ringers 1,000 mL 1,000 mL, Intravenous, 125 mL/hr PRN: (7) acetaminophen 325 mg Tablet 650 mg 2 tab(s), Oral, q4h hydralazine 20 mg/mL (1mL) vial 10 mg 0.5 mL, IV Push, q6h hydromorphone 1 mg/mL (1mL) INJ 1 mg 1 mL, IV Push, q2h ondansetron 2 mg/ 1 mL 2 mL INJ 4 mg 2 mL, IV Push, q4h oxycodone 5 mg tablet (immediate release) 5 mg 1 tab(s), Oral, q4h oxycodone 5 mg tablet (immediate release) 10 mg 2 tab(s), Oral, q4h prochlorperazine 10 mg/2 mL vial 5 mg 1 mL, IV Push, q6h Problem list: Active Problems (1) Tobacco use Histories Family History: No family history items have been selected or recorded. Procedure history: No active procedure history items have been selected or recorded. Social History Social & Psychosocial Habits Alcohol 02/04/2023 Use: Past Tobacco 02/04/2023 Tobacco Use: Former smoker, quit more . Physical Examination Vital Signs 02/04/2023 15:44 EDT Systolic Blood Pressure Non-Invasive 200 mmHg HI Diastolic Blood Pressure Non-Invasive 98 mmHg HI Blood Pressure Method Manual Blood Pressure Location Left arm Blood Pressure Cuff Size Medium 02/04/2023 14:31 EDT Temperature Oral 36.4 DegC Peripheral Pulse Rate 50 bpm LOW Respiratory Rate 16 br/min Systolic Blood Pressure Non-Invasive 165 mmHg HI Diastolic Blood Pressure Non-Invasive 85 mmHg Reason For Taking VItal Signs Admission 02/04/2023 13:26 EDT Peripheral Pulse Rate 47 bpm <LLOW Respiratory Rate 16 br/min Systolic Blood Pressure Non-Invasive 167 mmHg HI Diastolic Blood Pressure Non-Invasive 67 mmHg 02/04/2023 12:52 EDT Peripheral Pulse Rate 48 bpm <LLOW Respiratory Rate 16 br/min Systolic Blood Pressure Non-Invasive 188 mmHg HI Diastolic Blood Pressure Non-Invasive 80 mmHg 02/04/2023 11:49 EDT Temperature Oral 37.2 DegC Peripheral Pulse Rate 48 bpm <LLOW Respiratory Rate 16 br/min Systolic Blood Pressure Non-Invasive 197 mmHg HI Diastolic Blood Pressure Non-Invasive 83 mmHg Reason For Taking VItal Signs 5 min post antibiotic start time 02/04/2023 11:45 EDT Peripheral Pulse Rate 45 bpm <LLOW Respiratory Rate 16 br/min Systolic Blood Pressure Non-Invasive 178 mmHg HI Diastolic Blood Pressure Non-Invasive 66 mmHg 02/04/2023 11:09 EDT Peripheral Pulse Rate 53 bpm LOW Respiratory Rate 16 br/min Systolic Blood Pressure Non-Invasive 181 mmHg HI Diastolic Blood Pressure Non-Invasive 79 mmHg 02/04/2023 9:40 EDT Temperature Oral 36.6 DegC Peripheral Pulse Rate 73 bpm Respiratory Rate 16 br/min Systolic Blood Pressure Non-Invasive 202 mmHg HI Diastolic Blood Pressure Non-Invasive 97 mmHg HI Vital Signs(last 24 hrs) Last Charted Temp Oral36.4 DegC (FEB 04 14:31) Resp Rate 16 br/min (FEB 04 14:31) SBPH 200mmHg (FEB 04 15:44) DBPH 98mmHg (FEB 04 15:44) BMI27.52 (FEB 04 14:25) Measurements from flowsheet : Measurements 02/04/2023 14:25 EDT Height 167.6 cm Height in inches 66 inch(es) Admission Weight 77.3 kg Weight Lbs 170.1 lb [place] Body Weight 63.76 kg BSA Admission 1.87 Body Mass Index 27.52 kg/m2 02/04/2023 9:40 EDT Admission Weight 76.5 kg Pain assessment: Pain Assessment 02/04/2023 14:31 EDT Primary Pain Location Abdomen Abdominal Pain Location RLQ Primary Pain Laterality Right Primary Pain Intensity 4 Primary Pain Onset Gradual Primary Pain Quality Aching Primary Pain Non-Pharma Intervention Rest Primary Pain Nonverbal Response Nods Yes Pain Scale Type 0-10 Pain scale 02/04/2023 13:32 EDT Pain Scale Assessment 0-10 Pain scale Primary Pain Intensity 3 Pain Symptoms Yes 02/04/2023 12:52 EDT Primary Pain Location Abdomen Abdominal Pain Location RLQ Primary Pain Intensity 3 Pain Scale Type 0-10 Pain scale 02/04/2023 12:38 EDT Primary Pain Intensity 6 02/04/2023 11:49 EDT Primary Pain Location Abdomen Abdominal Pain Location RLQ Primary Pain Laterality Bilateral Primary Pain Intensity 5 Primary Pain Quality Aching Primary Pain Non-Pharma Intervention Repositioning, Rest Pain Scale Type 0-10 Pain scale 02/04/2023 9:40 EDT Primary Pain Location Abdomen Abdominal Pain Location RLQ Primary Pain Intensity 3 Primary Pain Time Pattern intermittent Primary Pain Onset Gradual Primary Pain Duration Friday Primary Pain Quality Aching Pain Scale Type 0-10 Pain scale . General: Alert and oriented, Mild distress. Airway: Mallampati classification: II (soft palate, fauces, uvula visible). Dentition Evaluation: Intact, Own teeth, Missing teeth. Respiratory: Lungs are clear to auscultation. Cardiovascular: Normal rate. Heart Sounds: Normal. Review / Management Results review: No qualifying data available , Lab results 02/04/2023 16:08 EDT acetaminophen 1,000 mg mg Lactated Ringers Injection Begin Bag 1,000 mL mL 02/04/2023 16:02 EDT SN - CAt - Case Attendee SN - CAt - Case Attendee SN - CAt - Case Attendee SN - CAt - Case Attendee SN - CAt - Case Attendee SN - CAt - Case Attendee SN - CAt - Case Attendee SN - CAt - Case Attendee SN - CAt - Case Attendee SN - CAt - Case Attendee SN - CAt - Case Attendee SN - CAt - Case Attendee SN - CAt - Role Performed Primary Surgeon (Modified) SN - CAt - Role Performed Anesthesiologist SN - CAt - Role Performed CUSTOMER OPERATIONS INTERN SN - CAt - Role Performed Manager Call Center 1 SN - CAt - Role Performed Scrub 1 SN - CAt - Role Performed Scrub 1 02/04/2023 15:44 EDT Systolic Blood Pressure Non-Invasive 200 mmHg HI Diastolic Blood Pressure Non-Invasive 98 mmHg HI Blood Pressure Method Manual Blood Pressure Location Left arm Blood Pressure Cuff Size Medium 02/04/2023 15:40 EDT IV Present Present Patient Dressed In Hospital gown, No undergarments CHG Preoperative Wash/Wipe Day of procedure Preop Nasal Swab Povidone-Iodine 02/04/2023 15:24 EDT Cardiology Consultation Consult Note (Modified) 02/04/2023 15:08 EDT Notify date/time 02/04/2023 15:08 Provider Notified LUIS MAGALLANES MD Notification Method Office Information Communicated Consult Details Communicated 5cm AAA with intramural thrombus 02/04/2023 15:05 EDT Consultation Note Consult Note (Modified) 02/04/2023 15:02 EDT Notify date/time 02/04/2023 15:02 Provider Notified FAVIOLA URBAN MD Notification Method Office Information Communicated Consult Details Communicated Bradycardia, surgical clearance 02/04/2023 15:00 EDT Echocardiogram, Adult - CV Ordered (In Progress) 02/04/2023 14:59 EDT Mechanical VTE Prophylaxis Education Not Done: Task Duplication (Not Done) Mechanical VTE Prophylaxis Education Not Done: Task Duplication (Not Done) Antiembolism Stockings Form Not Done (Not Done) Sequential Compression Device Form Not Done (Not Done) 02/04/2023 14:55 EDT IPOC Impaired Gas Exchange Yes 02/04/2023 14:53 EDT Notify date/time 02/04/2023 14:53 Provider Notified CHARLEEN FUENTES MD Notification Method Answering service Information Communicated Consult Details Communicated Medical management 02/04/2023 14:45 EDT Mechanical VTE Prophylaxis Education Not Done: Task Duplication (Not Done) Antiembolism Stockings Form Not Done (Not Done) History and Physical History and Physical (Modified) 02/04/2023 14:31 EDT Temperature Oral 36.4 DegC Peripheral Pulse Rate 50 bpm LOW Respiratory Rate 16 br/min Systolic Blood Pressure Non-Invasive 165 mmHg HI Diastolic Blood Pressure Non-Invasive 85 mmHg Reason For Taking VItal Signs Admission Primary Pain Location Abdomen Abdominal Pain Location RLQ Primary Pain Laterality Right Primary Pain Intensity 4 Primary Pain Onset Gradual Primary Pain Quality Aching Primary Pain Non-Pharma Intervention Rest Primary Pain Nonverbal Response Nods Yes Pain Scale Type 0-10 Pain scale Nail Bed Color [place] Capillary Refill < 2 seconds Heart Rhythm Regular Dorsalis Pedis Pulse, Left 2+ Normal Dorsalis Pedis Pulse, Right 2+ Normal Radial Pulse, Left 2+ Normal Radial Pulse, Right 2+ Normal Respirations Unlabored Respiratory Pattern Regular Breath Sounds Auscultated Anterior only All Lobes Breath Sounds Clear Oxygen Therapy Room air Oxygen Saturation 98 % Abdomen Description Non-distended Abdomen Palpation Tender, Soft Abdomen Tender RLQ Passing Flatus Yes Bowel Movement Last Date 02/04/2023 Bowel Continence Continent Swallowing Disorder None Bowel Sounds All Quadrants Present Urinary Elimination Voiding, no difficulties Facial Movement Symmetric resting/crying All Extremity Description [place], Normal for ethnicity Skin Temperature Warm Temperature All Extremities Warm Skin Description [place] Skin Integrity Intact Skin Turgor Elastic Mucous Membrane Color [place] Mucous Membrane Description Moist Sensory Perception Joseph No impairment Moisture Joseph Occasionally moist Activity Joseph Walks occasionally Mobility Joseph No limitations Nutrition Joseph Adequate Friction and Shear Joseph No apparent problem Joseph Score 20 Hospital Acquired Pressure Injury Risk None/minimal risk (score 19-23) Antecubital Left 02/04/2023 18 gauge Peripheral IV Activity: Assessed Peripheral IV Dressing Condition: Clean, Dry, Intact Peripheral IV Dressing Activity: Transparent dressing Peripheral IV Line Status/Patency: Flushes easily Peripheral IV Site Condition: No complications Peripheral IV Equipment: PRN Adaptor Neurological Language Able to speak clearly, Follows simple commands Neurological Symptoms Patient denies Gait Steady Extremity Movement Equal Swallowing Difficulty None Characteristics of Communication Appropriate Characteristics of Speech Clear Facial Symmetry Symmetric Level of Consciousness Alert Aspiration Risk None EDA Yes Left Pupil Description Regular Right Pupil Description Regular Left Pupil Reaction Brisk Right Pupil Reaction Brisk Pupil Size, Left 3 mm Pupil Size, Right 3 mm Strength All Extremities Strong Left Upper Extremity Sensation Intact Right Upper Extremity Sensation Intact Left Lower Extremity Sensation Intact Right Lower Extremity Sensation Intact CN VII Facial Expression and Symmetry Facial movement symmetrical CN IX, X Swallowing, Gag Reflex Swallowing present Sanches Screen Admission History of Fall in Last 3 Months Sanches No Presence of Secondary Diagnosis Sanches No Use of Ambulatory Aid Sanches None, bedrest, wheelchair, nurse IV/PRN Adapter Fall Risk Sanches Yes Gait Weak or Impaired Fall Risk Sanches Normal, bedrest, immobile Mental Status Fall Risk Sanches Oriented to own ability Sanches Fall Risk Score 20 Violence Risk Confused No Violence Risk Irritable No Violence Risk Boisterous No Violence Risk Verbal Threats No Violence Risk Physical Threats No Violence Risk Attacking Objects No Violence Risk Predictor Score 0 Violence Risk Intervention None Violence Risk Current Interventions None Affect/Behavior Appropriate, Calm, Cooperative Orientation Oriented x 4 Activity Status ADL Awake, Repositions self, Resting Standard Safety ID band on, Call device within reach, Bed in low position, Wheels locked, Upper/Half-Length side-rails up, Phone within reach, personal items within reach, Assistive devices within reach, Toileting device within reach, Safety level maintained, Hazards removed from floor, Non-Slip footwear Demonstrates Correct Call Light Use Yes COVID 19 Surge in Effect Yes RN Coordination of Care 7am-3pm Appetite Good 02/04/2023 14:30 EDT Skin Assessment Verification Admission CAM Mental Status Change & Fluctuation Not Done: Task Duplication (Not Done) CAM Inattention Not Done: Task Duplication (Not Done) CAM Disorganized Thinking Not Done: Task Duplication (Not Done) CAM Altered Level of Consciousness Not Done: Task Duplication (Not Done) Confusion Assessment Method Score Not Done: Task Duplication (Not Done) Pt Condition Appropriate Mini-Cog Test Not Done: Task Duplication (Not Done) Able To Drink Order Detail Yes Able To Sign Consents Order Detail Yes Code Status Order Detail Full code IV Order Detail Yes Dialysis Schedule Order Detail N/A Has Diabetes Order Detail No Isolation Precautions Order Detail None Nurse Collect Order Detail 0 Oxygen Order Detail No Order Detail N/A Prior Valve Replacement Order Detail No Transport Mode Order Detail Wheelchair Fish Bin Tender Details Form Fish Bin Tender Details Form 02/04/2023 14:25 EDT Designated Person #1 We May Share PHYLLIS Mcwilliams Designated Person #1 Relationship Other: grandson Privacy Restrictions Requested None Height 167.6 cm Height in inches 66 inch(es) Admission Weight 77.3 kg Weight Lbs 170.1 lb [place] Body Weight 63.76 kg BSA Admission 1.87 Body Mass Index 27.52 kg/m2 Patient Type Inpatient Thrombosis Risk Factors (3) Age over 75 years old Thrombosis Risk Factor Add'l Assessment NA Thrombosis Risk Score 3 Status N/A Do You Wish/Go to Sleep/Never Wake Up No Thoughts of Harming Others - History No Thoughts of Suicide - History No Hospital Clergy to Visit Patient Verbalizes No Spiritual Needs Sensory Deficits None Advanced Directives No - refuses information Infectious Disease Symptoms Patient states no symptoms Infectious Disease Recent Exposure No Alcohol and Drug Use No Employee of Institutional Living No Health Care Employee No History of Exposure to TB No History of Positive Chest X-Ray for TB No History of Positive TB Skin Test No Homeless No Known Immunosuppression No Recent Immigrant No Resident of Institutional Living No Bloody Sputum No Fatigue No Fever No Loss of Appetite No Night Sweats No Persistent Cough > 3 Weeks No Weight Loss No Safety Brochure Information Reviewed Yes Nadja Dawkins Video Viewed Patient refused Barriers to Learning None evident Teaching Method Explanation Teaching Evaluation Verbalizes/Nonverbally indicates understanding Preferred Written Language Peruvian Preferred Spoken Language Peruvian Information Given by Patient Patient's Current Physicians none Belongings At Bedside Cell phone, Glasses, Hat, Shirt, Shoes, Socks, Undergarments (Modified) Personal Home Medications Received No home medications were brought in Belongings Sent Home None Belongings to Security/Secured in Dept None Discharge To, Anticipated Home independently Prev Test Positive/Diagnosis w/COVID-19 No Current Quarantine/Isolated any Illness No Any Contact with Sick Animals/Birds No Traveled Anywhere in Last 30 Days No Lost Weight Unintentionally Recently No Eat Poorly Due to Decreased Appetite No Total MST Score 0 N/A Personal Devices, Patient Valuables None Admission Note-Nursing Patient History (Modified) 02/04/2023 13:32 EDT Pain Scale Assessment 0-10 Pain scale Primary Pain Intensity 3 Pain Symptoms Yes PEWS Behavior Assessment 0 PEWS Cardiovascular Assessment 0 PEWS Extra 0 PEWS Respiratory Assessment 0 PEWS Score 0 Individuals Taught Patient Learning Readiness Willing to learn Barriers to Learning None evident Teaching Method Explanation, Printed materials Teaching Evaluation Verbalizes/Nonverbally indicates understanding 02/04/2023 13:26 EDT Peripheral Pulse Rate 47 bpm <LLOW Respiratory Rate 16 br/min Systolic Blood Pressure Non-Invasive 167 mmHg HI Diastolic Blood Pressure Non-Invasive 67 mmHg Oxygen Therapy Room air Oxygen Saturation 95 % 02/04/2023 12:55 EDT Reason for Transfer Medically indicated transfer Patient's Condition for Transfer Stable Transfer Requirements Met Patient has received a medical screening, Patient will be transferred by qualified personnel, Receiving facility has agreed to accept transfer, Has available space and qualified personnel, Risks and benefits of transfer explained to patient Transferring Physician MD LINDA RICHMOND MD Receiving Facility Accepting Transfer Nadja Treadwell Rep. of Receiving Facility Accepting Pt Raven-transfer line Date/Time Transfer Accepted 02/04/2023 12:[address] Gilliam Date/Time Physician Accepted Patient 02/04/2023 12:25 Nurse Receiving Report Aida Date/Time Nurse Received Report 02/04/2023 12:49 Data Sent with Patient Demographic sheet Mode of Transfer Ground ambulance Required Personnel for Transfer Salesforce Administrator Belongings At Bedside Transferred with patient Personal Home Medications Received No home medications were brought in Belongings Sent Home None Belongings to Security/Secured in Dept None Patient Transfer Form Patient Transfer Form 02/04/2023 12:52 EDT Peripheral Pulse Rate 48 bpm <LLOW Respiratory Rate 16 br/min Systolic Blood Pressure Non-Invasive 188 mmHg HI Diastolic Blood Pressure Non-Invasive 80 mmHg Primary Pain Location Abdomen Abdominal Pain Location RLQ Primary Pain Intensity 3 Pain Scale Type 0-10 Pain scale Oxygen Therapy Room air Oxygen Saturation 95 % 02/04/2023 12:45 EDT Sanches Screen ED/TELEPATHIST patient History of Fall in Last 3 Months Sanches No Presence of Secondary Diagnosis Sanches Yes Use of Ambulatory Aid Sanches None, bedrest, wheelchair, nurse IV/PRN Adapter Fall Risk Sanches Yes Gait Weak or Impaired Fall Risk Sanches Normal, bedrest, immobile Mental Status Fall Risk Sanches Oriented to own ability Sanches Fall Risk Score 35 Individuals Taught Patient Learning Readiness Willing to learn Barriers to Learning None evident Teaching Method Explanation Teaching Evaluation Verbalizes/Nonverbally indicates understanding Belongings At Bedside Cell phone, Glasses, Hat, Pants, Shirt, Shoes, Transferred with patient Personal Home Medications Received No home medications were brought in Belongings Sent Home None Belongings to Security/Secured in Dept None Education Topics Fall Prevention Conventional call light use ED Valuables and Belongings Form ED Valuables and Belongings Form 02/04/2023 12:38 EDT Primary Pain Intensity 6 morphine 4 mg mg 02/04/2023 12:31 EDT Troponin I High Sensitivity 14.0 ng/L 02/04/2023 12:28 EDT EKG [ED AOH] - CV Signed 02/04/2023 11:49 EDT Temperature Oral 37.2 DegC Peripheral Pulse Rate 48 bpm <LLOW Respiratory Rate 16 br/min Systolic Blood Pressure Non-Invasive 197 mmHg HI Diastolic Blood Pressure Non-Invasive 83 mmHg Reason For Taking VItal Signs 5 min post antibiotic start time Primary Pain Location Abdomen Abdominal Pain Location RLQ Primary Pain Laterality Bilateral Primary Pain Intensity 5 Primary Pain Quality Aching Primary Pain Non-Pharma Intervention Repositioning, Rest Pain Scale Type 0-10 Pain scale Respirations Unlabored Respiratory Pattern Regular Oxygen Therapy Room air Oxygen Saturation 96 % Antecubital Left 02/04/2023 18 gauge Peripheral IV Activity: Assessed Peripheral IV Dressing Condition: Clean, Dry, Intact Peripheral IV Line Status/Patency: Flushes easily Peripheral IV Site Condition: No complications Peripheral IV Equipment: IV Pump Level of Consciousness Alert Orientation Oriented x 4 Standard Safety ID band on, Call device within reach, Bed in low position, Wheels locked, Upper/Half-Length side-rails up 02/04/2023 11:46 EDT ceftriaxone 2 gram(s) gram(s) Sodium Chloride 0.9% 100 mL mL 02/04/2023 11:45 EDT Peripheral Pulse Rate 45 bpm <LLOW Respiratory Rate 16 br/min Systolic Blood Pressure Non-Invasive 178 mmHg HI Diastolic Blood Pressure Non-Invasive 66 mmHg Oxygen Saturation 96 % 02/04/2023 11:35 EDT Ambulation Ambulation in [place] Ambulation Distance 50 ft Activity Status ADL Up to bathroom Assistive Device None 02/04/2023 11:09 EDT Peripheral Pulse Rate 53 bpm LOW Respiratory Rate 16 br/min Systolic Blood Pressure Non-Invasive 181 mmHg HI Diastolic Blood Pressure Non-Invasive 79 mmHg Oxygen Therapy Room air Oxygen Saturation 96 % Environmental Safety Implemented Adequate room lighting, Bed in low position, Call device within reach Patient Status Rounding Denies any needs 02/04/2023 10:[address] Abd/Pelvis w/ IV Contrast Only CT ABD/PELVIS W/ IV CONTRAST ONLY 02/04/2023 10:20 EDT Accompanied By Staff Global Commodity Manager Out of Room Returned from Current Location CT Scan Transport via Cart 02/04/2023 10:01 EDT Antecubital Left 02/04/2023 18 gauge Peripheral IV Activity: Insert new site Peripheral IV Dressing Condition: Clean, Dry, Intact Peripheral IV Dressing Activity: Applied, Transparent dressing Peripheral IV Line Status/Patency: Flushes easily, 10ml normal saline flush, Good blood return Peripheral IV Line Care: Secured with tape Peripheral IV Site Condition: No complications Peripheral IV Equipment: PRN Adaptor Peripheral IV Number of Attempts: 1 02/04/2023 9:58 EDT WBC 14.4 10^3/mcL HI RBC 5.46 10^6/mcL Hgb 15.7 G/dL Hct 46.7 % MCV 85.7 fL MCH 28.8 pg MCHC 33.6 G/dL RDW 14.2 % Platelet 205 10^3/mcL MPV 8.6 fL Monocyte Distribution Width Not Performed Neutrophil % 84.9 % HI Lymphocyte % 8.4 % LOW Monocyte % 5.7 % Eosinophil % 0.6 % Basophil % 0.4 % Neutrophil, Absolute 12.2 10^3/mcL HI Lymphocyte, Absolute 1.2 10^3/mcL Monocyte, Absolute 0.8 10^3/mcL Eosinophil, Absolute 0.1 10^3/mcL Basophil, Absolute 0.1 10^3/mcL UA Specimen Type Clean Catch UA Color Yellow UA Appear Slightly Cloudy UA Spec Grav 1.025 UA Glucose Negative mg/dL UA Bili Negative UA Ketones 15 mg/dL UA Blood Trace UA pH 5.5 UA Protein 100 mg/dL UA Urobilinogen 0.2 E.U./dL UA Nitrite Negative UA Leuk Est Negative UA RBC 0-5 /HPF UA WBC 0-5 /HPF UA Squam Epithelial None Seen /HPF UA Mucous 1+ /HPF UA Bacteria Trace /HPF Glucose Level 119 mg/dL HI Sodium Level 138 mmol/L Potassium Level 4.1 mmol/L Chloride 102 mmol/L CO2 26 mmol/L Electrolyte Balance 10.0 mEq/L BUN 18 mg/dL Creatinine Lvl (s) 1.34 mg/dL HI BUN/Creatinine Ratio 13 ratio Calcium Lvl 9.4 mg/dL Total Protein 7.7 G/dL Albumin Level 4.2 G/dL Globulin 3.5 G/dL NA A/G Ratio 1.2 ratio Bili Total 0.8 mg/dL Alk Phos 124 U/L AST/SGOT 15 U/L ALT/SGPT 20 U/L GFR Non- 52 ml/min/1.73sqm NA GFR 63 ml/min/1.73sqm NA Lipase Level 31 U/L 02/04/2023 9:51 EDT [facility] Note History and Physical 02/04/2023 9:51 EDT Status N/A History of Fall in Last 3 Months Sanches No Thoughts of Harming Others - History No Thoughts of Suicide - History No Domestic Concerns None HT Control,Supervise,Monitor Denies qSOFA Altered Mental Status GCS < 15 No qSOFA Respiratory Rate >= 22 No qSOFA Systolic BP <= 100 No qSOFA Score 0 Advanced Directives No - refuses information Individuals Taught Patient Learning Readiness Willing to learn Barriers to Learning None evident Teaching Method Explanation, Printed materials Teaching Evaluation Needs further teaching Chief Complaint Presents with intermittent RLQ abdominal pain that started Friday Place Where Injury/Illness Occurred Home Anticoagulants Taken In Past 6 Wks. No N/A Anesthesia/Transfusions Unable to obtain ED Assessment Note - Nursing ED Patient History Form 02/04/2023 9:40 EDT Admission Weight 76.5 kg Temperature Oral 36.6 DegC Peripheral Pulse Rate 73 bpm Respiratory Rate 16 br/min Systolic Blood Pressure Non-Invasive 202 mmHg HI Diastolic Blood Pressure Non-Invasive 97 mmHg HI Primary Pain Location Abdomen Abdominal Pain Location RLQ Primary Pain Intensity 3 Primary Pain Time Pattern intermittent Primary Pain Onset Gradual Primary Pain Duration Friday Primary Pain Quality Aching Pain Scale Type 0-10 Pain scale GENESIS Level 1 No GENESIS Level 2 No GENESIS Level 3 Many Vital Signs GENESIS No Recommended GENESIS Level 3 Nail Bed Color [place] Capillary Refill < 2 seconds Respirations Unlabored Respiratory Pattern Regular Breath Sounds Auscultated Anterior only All Lobes Breath Sounds Clear, Diminished Oxygen Therapy Room air Oxygen Saturation 94 % Abdomen Description Non-distended, Soft Abdomen Palpation Tender Abdomen Tender RLQ Bowel Sounds All Quadrants Present Urinary Elimination Voiding, no difficulties Urine Color Yellow Urine Description Medium amount Skin Temperature Warm Skin Description [place], Normal for ethnicity, Dry Skin Integrity Intact Skin Turgor Elastic Mucous Membrane Color [place] Mucous Membrane Description Moist Gait Steady Level of Consciousness Alert Eye Opening Response Kenny Spontaneously Best Motor Response Kenny Obeys simple commands Best Verbal Response Kenny Oriented Kenny Coma Score 15 Violence Risk Confused No Violence Risk Irritable No Violence Risk Boisterous No Violence Risk Verbal Threats No Violence Risk Physical Threats No Violence Risk Attacking Objects No Violence Risk Predictor Score 0 Affect/Behavior Appropriate, Calm, Cooperative Appearance Clean Orientation Oriented x 4 Wish To Be No Suicidal Thoughts No Ever Made Plans to End Your Life No Suicide Severity Rating No problems noted Infectious Disease Symptoms Patient states no symptoms Infectious Disease Recent Exposure No Alcohol and Drug Use No Employee of Institutional Living No Health Care Employee No History of Exposure to TB No History of Positive Chest X-Ray for TB No History of Positive TB Skin Test No Homeless No Known Immunosuppression No Recent Immigrant No Resident of Institutional Living No Bloody Sputum No Fatigue No Fever No Loss of Appetite No Night Sweats No Persistent Cough > 3 Weeks No Weight Loss No Preferred Written Language Peruvian Preferred Spoken Language Peruvian Tracking Group ED AO Tracking Group Tracking Acuity 3 Mode of Transfer Private vehicle Standard Safety ID band on, Call device within reach, Bed in low position, Wheels locked Prev Test Positive/Diagnosis w/COVID-19 No Current Quarantine/Isolated any Illness No Any Contact with Sick Animals/Birds No Traveled Anywhere in Last 30 Days No ED Triage Adults ED Triage Adults 02/04/2023 7:00 EDT Oral Intake 0 mL Stool Count 0 EA Urine Count 0 EA . Assessment and Plan [place] [employer]hesi[employer] (ASA) physical status classification: Class II. Anesthetic Preoperative Plan Anesthetic technique: General. Maintenance airway: Oral endotracheal tube. Risks discussed: nausea, vomiting, headache, sore throat, dental injury, hypotension, allergic reaction, serious complications. Informed consent: signed by patient. Notes: Patient was seen and examined by Pascual worley MD. The medical record was reviewed. Consultations, lab results , radiographic results and cardiovascular studies examined and noted. Anesthesia was explained in detail and questions were invited and answered. We will proceed as outlined inthe plan above.. Digitally Signed by PASCUAL BEE MD on 02/04/2023 04:19 PM [facility] Evaluation + Plan note No data available for this section [facility] Evaluation + Plan note Future Appointments Appointment Date:02/20/2023 01:50:00 PM Scheduled Provider:TANNER GILLIAM MD Location:[facility] Appointment Type:GS OV Post Op [facility] Evaluation + Plan note Future Appointments [facility] Evaluation + Plan note Future Appointments Appointment Date:10/31/2023 02:00:00 PM Scheduled Provider: Location:[facility] Appointment Type:VL AOH - ABIs (ankles only) Appointment Date:10/31/2023 03:00:00 PM Scheduled Provider: Location:[facility] Appointment Type:CT Angiography Abd Aorta + Iliofemoral Future Scheduled Tests Radiology* CT Angiography Abd Aorta + Iliofemoral 10/31/23 [facility] Evaluation noteNo assessment information available [facility] Work Phone: Hospital Discharge instructions No data available for this section [facility] Progress note No data available for this section [facility] Reason for referral (narrative)No reason for referral [facility] Work Phone: Summary Purpose Family History Relationship Condition Age at Onset Recorded Date/T ipa Not Specified Malignant neoplasm Unknown Hypertension Unknown No Family History Records Found Advance Directives No Advanced Directives Records FoundNo Advanced Directives Records Found Chief Complaint and Reason for Visit Chief Complaint Admit Date Abdominal Aortic Aneurysm March 09 3:24pm Additional Source Comments Patient Care team informatio n (unrecognized section and content) Team Status: Active Member Role Status Dates Zebulun Beam VSC, SHEET METAL ERECTOR-C Primary Care Provider Active Team Status: Inactive Member Role Status Dates Zebulun Beam VSC, SHEET METAL ERECTOR-C Primary Care Provider Active Start: January 28, 2025 End: January 28, 2025 Zebulun Beam VSC, [employer]ET METAL ERECTOR-C Attending Provider Active Start: January 28, 2025 End: January 28, 2025 Team Status: Active Member Role/Relationship Status Dates Zebulun Beam VSC, SHEET METAL ERECTOR-C Primary Care Provider Active Team Status: Inactive Member Role/Relationship Status Dates Zebulun Beam VSC, SHEET METAL ERECTOR-C Primary Care Provider Active Start: January 28, 2025 End: January 28, 2025 Zebulun Beam VSC, SHEET METAL ERECTOR-C Attending Provider Active Start: January 28, 2025 End: January 28, 2025 Team Status: Inactive Member Role/Relationship Status Dates Zebulun Beam VSC, SHEET METAL ERECTOR-C Primary Care Provider Active Start: March 09, 2025 End: March 09, 2025 Zebulun Beam VSC, SHEET METAL ERECTOR-C Referring Provider Active Start: March 09, 2025 End: March 09, 2025 Dr. Dickson Sanchez MD Attending Provider Active S tart: March 09, 2025 End: March 09, 2025 (unrecognized sect ion and content) No Status Records FoundNo Status Records Found INFORMATION SOURCE (unrecogn ized section and content) DATE CREATED AUTHOR 11/07/2023 [facility] ([place]) DATE CREATED AUTHOR AUTHOR'S ORGANIZ ATION 03/27/2025 [facility] Goals (unrecognized section and content) Goals may be documented in a n alternate section FOR RECORDS PERTAINING TO PATIENTS WHO ARE OR HAVE BEEN ENROLLED IN A CHEMICAL DEPENDENCY/SUBSTANCEABUSE PROGRAM, SOME INFORMATION MAY BE OMITTED. This clinical summary was aggregated from multiple sources. Caution should be exercised in using it in the provision of clinical care. This summary normalizes information from multiple sources, and as a consequence, information in this document may materially change the coding, format and clinical context of patient data. In addition, data may be omitted in some cases. CLINICAL DECISIONS SHOULD BE BASED ON THE PRIMARY CLINICAL RECORDS. [facility]. provides no warranty or guarantee of the accuracy or completeness of information in this document.
--- NOTE | 2025-03-30 06:25 | CT_ITS ---
PROCEDURE: CTA ABD/PELVIS W/WO CONTRAST 03/30/2025 REASON FOR EXAM: AAA TECHNIQUE: CTA ABD/PELVIS W/WO CONTRAST Multiplanar Sagittal and Coronal images were obtained. 3D and or MIPS post processing was performed CONTRAST: Isovue 370 VOLUME: 100 mL One or more dose reduction techniques were used (e.g., Automated exposure control, adjustment of the mA and/or kV according to patient size, use of iterative reconstruction technique). RADIATION DOSE SUMMARY: CTDlvol: 19.9 mGy DLP: 627.6 mGycm COMPARISON: Prior study dated October 31, 2023. 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 The aneurysm extends to the bifurcation. Iliac Arteries: Atherosclerotic plaque formation. 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 FLEX : Nonvisualized. Right Renal: Tight stenosis at the origin of the right renal artery. Left Renal: Moderate stenosis at the origin of the left renal artery. Extravascular Findings: The lung bases are clear. Mild coronary artery calcification. There is a 6.2 cm by 5.8 cm cyst in the central portion of the right lobe of the liver. A 1.2 cm cyst is seen in the peripheral aspect of the left lobe of the liver. These are unchanged. CT/CTA Abd/Pelvis W/WO Contrast IMPRESSION: Mild increase in size of the infrarenal abdominal aortic aneurysm with a transv erse dimension of 5.7 cm. Mural thrombus is seen. The remainder of the examination is unchanged. Reading Location: [id number]
== END | disposition home or self-care (01) ==
LOC: CT 06:08
PROVIDERS: Referring Provider Surgery Trauma Surgery; Visit Provider Surgery Trauma Surgery
DX: I71.43 Infrarenal abdominal aortic aneurysm, without rupture (principal)
CPT/HCPCS: 74174; Q9967

== ENCOUNTER → 2025-04-18 | Outpatient (CLI) | payer MEDICARE, SELFPAY ==
[2025-04-18 19:01] LABS: Anion Gap 13 (5-15); BUN 23 mg/dL (4-19); BUN/Creat Ratio 11.4 RATIO (10-20); Calcium,Total 9.4 mg/dL (7.6-11.0); Carbon Dioxide 22.9 mmol/L (21.0-32.0); Chloride 108 mmol/L (98-108); Glucose 89 mg/dL (70-99); Potassium 4.1 mmol/L (3.3-5.1)
== END | disposition home or self-care (01) ==
LOC: MTLAB 14:12
DX: I10 Essential (primary) hypertension (principal)
CPT/HCPCS: 36415; 80048

== ENCOUNTER → 2025-05-30 | Outpatient (CLI) | payer MEDICARE, SELFPAY | END | disposition home or self-care (01) | LOC: LAB 13:50 | PROVIDERS: Referring Provider Surgery Trauma Surgery; Visit Provider Surgery Trauma Surgery | DX: I10 Essential (primary) hypertension (principal) | CPT/HCPCS: 36415; 82565 ==

== ENCOUNTER 2025-06-21 09:56 | Inpatient (IN) | payer MEDICARE, SELFPAY ==
--- NOTE | 2025-06-08 14:22 | PAT.ANESEVAL ---
Pre-Assessment Diagnosis/Proposed Procedure Planned Operative Procedure(s): EVAR, Endovascular Aneurysm Repair in Artificial [employer] [place] with OR Staff, Js SPARKS Anesthesia History Anesthesia History - health technical writer: Anesthesia History - health technical writer Hx Hospitalization No 06/06/25 08:16 Any Problems With Anesthesia No 06/06/25 08:16 Cholinesterase deficiency No 06/06/25 08:16 You/Your Family Experience No 06/06/25 08:16 fever (hyperthermia) with Relationship Recent Exposure to Contagious Disease Does patient have nerve No 06/06/25 08:16 stimulator Patient instructed to have device shut off --Does patient have Pacemaker or ICD? When Was Last Pacemaker Check QUESTION #4 FULL TEXT: You/Your Family Experience fever (hyperthermia) with Anesthesia Last Oral Intake Last Oral intake: Last Oral Intake NPO since Meds taken in AM with sips of water? Meds patient instructed to take am of surgery PONV PONV - health technical writer: PONV - health technical writer Female No 06/06/25 08:16 HX of Motion Sickness No 06/06/25 08:16 HX of N/V After Surgery No 06/06/25 08:16 Non-Smoker Yes 06/06/25 08:16 Duration of Surgery greater Yes 06/06/25 08:16 than 60 minutes Number of Risk Factors 2 06/06/25 08:16 PONV Score Moderate Risk 06/06/25 08:16 Height & Weight Height & Weight: Anesthesia: Height & Weight Height 5 ft 4.5 in 05/30/25 12:50 Respiratory Assessment Respiratory Assessment - health technical writer: Respiratory Tract Infection Hx - health technical writer Hx Respiratory Tract Infection No 06/06/25 08:16 STOP Sleep Apnea STOP Sleep Apnea - health technical writer: STOP Sleep Apnea - health technical writer Hx Hypertension Yes: PCP D/C'D MEDS APPROX. 06/06/25 08:16 30 DAYS AGO Hx Sleep Apnea No 06/06/25 08:16 CPAP BIPAP Do you snore loudly (louder No 06/06/25 08:16 than talking or can be heard Do you often feel tired/ No 06/06/25 08:16 fatigued/ sleepy during daytime? Has anyone observed you stop No 06/06/25 08:16 breathing during sleep? STOP Results Negative 06/06/25 08:16 QUESTION #5 FULL TEXT : Do you snore loudly (louder than talking or can be heard through closed doors)? 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 Specify any problems Hx of Preganancy in last 3 N/A 06/06/25 08:16 Months Nurse Filling Out Transfusion VCHRISTIN 06/06/25 08:16 & Questions: Date: 06/06/25 06/06/25 08:16 Time: 08:18 06/06/25 08:16 Patient unable to answer at this time (ie. confused, unrespo /Reproduction History /Reproductive History - health technical writer: /Reproductive Hx- health technical writer Hx Now No 06/06/25 08:16 Gestational Age (in weeks): EDC: Hx Hx Para Hx Section SAB No 06/06/25 08:16 PFSH Medical History (Updated 06/06/25 @ 08:15 by Paula Ryan) Arthritis Former smoker AAA (abdominal aortic aneurysm) HTN (hypertension) Home Medications Medication Instructions Recorded Last Taken Type NK 05/30/25 Unknown History Allergy/AdvReac Type Severity Reaction Status Date / Time No Known Allergies Allergy Verified 06/06/25 08:10 Family History Other Cancer Hypertension Surgical History Hx of hernia repair (~2021) Hx of appendectomy (~2021) Social History Smoking Status: Former smoker Tobacco: How many years used: 30 Audit: Pertinent Findings Pertinent Findings EKG Perinent findings: June 08, 2025. Sinus bradycardia 52 bpm. With first-degree AV block. Left axis deviation. Septal infarct, age undetermined. Recommendation Anesthesia Recommendation Anesthesia recommendation: OPTIMIZED for anesthesia
[2025-06-16 13:06] LABS: Hematocrit 48.4 % (40-54); Hemoglobin 15.5 g/dL (13.0-16.5); Mean Corp Hgb Conc 32.0 g/dL (32-36); Mean Corpuscular Volume 90.1 fL (80-94); Mean Platelet Vol. 10.9 fl (6.2-12.0); Platelet Count 254 K/mm3 (150-450); RBC Distribution Width CV 13.6 % (11.6-14.6); RBC Distribution Width SD 45.1 fl (35.1-43.9); Red Blood Count 5.37 M/mm3 (4.6-6.2); White Blood Count 10.4 K/mm3 (4.4-11.0)
[2025-06-16 13:45] LABS: Anion Gap 9 (5-15); BUN 17 mg/dL (4-19); BUN/Creat Ratio 11.6 RATIO (10-20); Calcium,Total 9.3 mg/dL (7.6-11.0); Carbon Dioxide 25.8 mmol/L (21.0-32.0); Chloride 106 mmol/L (98-108); Glucose 113 mg/dL (70-99); Potassium 4.2 mmol/L (3.3-5.1)
[2025-06-21] VITALS (28 sets, daily range): BP systolic 106–170; BP diastolic 46–94; PULSE 44–78; RESP 14–23; TEMP 36.1–36.8; O2SAT 92–99; BMI 28.8; BMI 28.5
--- OUTSIDE RECORDS SUMMARY | 2025-06-21 05:14 | XMS RPT_ITS | CCD ---
Author Organization [facility] CliniSyga Care Team Providers Care Shelter Case Manager Name Role Phone PHYSICIAN, NONE Primary Care Physician Unavailab le ASHLYN POSITION CLASSIFICATION SPECIALIST-NEEDLE SETTER, LASHON A Primary Care Physi jana ZULEYMA ESTRADA, SHANNA Kimball Attending Unavailable ASHLYN POSITION CLASSIFICATION SPECIALIST-NEEDLE SETTER, LASHON A Primary Care Un available ASHLYN POSITION CLASSIFICATION SPECIALIST-NEEDLE SETTER, LASHON A Primary Care Un available TANNER GILLIAM Attending Unavailable MANE, TANNER Consulting Unavailable ASHLYN POSITION CLASSIFICATION SPECIALIST-NEEDLE SETTER, LASHON A Primary Care Un available TANNER GILLIAM Attending Unavailable JUANCHO ESTRADA, MADELYN Consulting Unavailable MANE, TANNER Attending Unavailable TANNER GILLIAM Admitting Unavailable ASHLYN POSITION CLASSIFICATION SPECIALIST-NEEDLE SETTER, LASHON A Primary Care Un available ALFREDO ESTRADA, DR CHARLEEN Rogers Consulting Haley URBAN MD, DR SALMERON Consulting Unavailab virgilio MAGALLANES MD, LUIS Consulting Unavailable LANE ESTRADA, GURPREET Consulting Unavailable CRISTAL ESTRADA, PASCUAL Acuna Consulting Unavailable PHYSICIAN, NONE Primary Care Unavailable MANE, TANNER Consulting Unavailable BASILIO ESTRADA, DR LINDA Keane Attending Unavai radhale ASHLYN POSITION CLASSIFICATION SPECIALIST-NEEDLE SETTER, LASHON A Primary Care Un available ASHLYN POSITION CLASSIFICATION SPECIALIST-NEEDLE SETTER, LASHON A Attending Un available ZULEYMA ESTRADA, SHANNA Kimball Attending Unavailable ASHLYN POSITION CLASSIFICATION SPECIALIST-NEEDLE SETTER, LASHON A Primary Care Un available Beam MORTGAGE MANAGER-C, Zebulun Primary Care Provider Beam MORTGAGE MANAGER-C, Zebulun Attending Provider [phone] Beam MORTGAGE MANAGER-C, Zebulun Referring Provider Daniel ESTRADA, Dr. Forman Attending Provider Dr. Dickson Sanchez MD Referring Provider Beam MORTGAGE MANAGER-C, Zebulun Primary Care Physician Beam MORTGAGE MANAGER-C, Zebulun Attending Physician Daniel ESTRADA, Dr. Forman Attending Physician Beam MORTGAGE MANAGER-C, Zebulun Primary Care Physician Beam MORTGAGE MANAGER-C, Zebulun Referring Provider Daniel ESTRADA, Dr. Forman Attending Physician Beam MORTGAGE MANAGER-C, Zebulun Attending Physician Daniel ESTRADA, Dr. Forman Referring Provider Maceo, Dickson Referring Unavailable Beam, Zebulun Primary Care Unavailable Maceo, Dickson Attending Unavailable Beam, Zebulun Primary Care Unavailable Beam, Zebulun Attending Unavailable Daniel, Dickson Attending Unavailable Beam, Zebulun Primary Care Unavailable Beam, Zebulun Referring Unavailable Daniel, Dickson Attending Unavailable Beam, Zebulun Primary Care Unavailable Beam, Zebulun Referring Unavailable Daniel, Dickson Attending Unavailable Beam, Zebulun Primary Care Unavailable Maceo, Dickson Referring Unavailable Beam, Zebulun Primary Care Unavailable Beam, Zebulun Attending Unavailable Beam, Zebulun Primary Care Unavailable Beam, Zebulun Attending Unavailable Beam, Zebulun Referring Unavailable Daniel, Dickson Referring Unavailable Daniel, Dickson Attending Unavailable Beam, Zebulun Primary Care Unavailable Medications Current Medications Medication Drug Class(es) Dates Sig (Normalized) Sig (Original) amoxicillin 875 mg / clavulanate 125 mg oral tablet (1 source) Penicillin-class Antibacterial Start: 02-05-2023 End: 02-09-2023 take 1 tablet by mouth every twelve hours amoxicillin-clav ulanate 875 mg-125 mg oral tablet 1 tab(s), Oral, q12h, X 4 day(s), # 8 tab(s), 0 Refill(s), 02/09/23 17:51:00 EDT, Pharmacy: [facility] #[id number], Appendicitis, 167.6, cm, 02/04/23 14:25:00 EDT, Height, 77.3, kg, 02/04/23 14:25:00 EDT, Dosing Weight Start Date: 02/05/23 Stop Date: 02/09/23 Status: Ordered losartan potassium 50 mg oral tablet (5 sources) Angiotensin 2 Receptor Bridget Start: 09-08-2023 End: 09-02-2024 losartan 50 mg oral tablet Dose : 50 mg = 1 tab(s), Oral, qDay, # 90 tab(s), 3 Refill(s), Pharmacy: [facility][id number], 163, cm, 09/08/23 9:22:00 EST, Height, kg, 09/08/23 9:22:00 EST, Dosing Weight Start Date: 09/08/23 Stop Date: 09/02/24 Status: Ordered Start: 02-12-2023 End: 08-11-2023 losartan 50 mg oral tablet D ose : 50 mg = 1 tab(s), Oral, qDay, # 90 tab(s), 1 Refill(s), Pharmacy: [facility] #[id number], 167.6, cm, 02/12/23 15:51:00 EDT, Height, kg, 02/12/23 15:51:00 EDT, Dosing Weight Start Date: 02/12/23 Stop Date: 08/11/23 Status: Ordered Start: 02-05-2023 losartan 50 mg oral tablet Dose : 50 mg = 1 tab(s), Oral, qDay, # 30 tab(s), 0 Refill(s), Pharmacy: [facility] #[id number], 167.6, cm, 02/04/23 14:25:00 EDT, Height Start Date: 02/05/23 Status: Ordered Completed/Discontinued Medications Medication Drug Class(es) Dates Sig (Normalized) Sig (Original) amLODIPine 5 mg oral tablet (4 sources) Dihydropyridine Calcium Channel Bridget Start: 02-08-2025 take [...] Episodic Aortic; peripheral; and visceral artery aneurysms (17 sources) Abdominal aortic aneurysm without rupture; Translations: [Abdominal aortic aneurysm, without rupture, unspecified] Onset: 02-05-2023 Chronic Comment on above: 5.1cm noted on CT CTA- images reviewed , 6.3 cm AAA, normal caliber visceral segment, ectasia distal thoracic aorta Appendicitis and other appendiceal conditions (1 source) Appendicitis; Translations: [Unspecified appendicitis] Onset: 02-05-2023 Episodic Chronic kidney disease (4 sources) Chronic kidney disease stage 3 02-17-2023 Chronic Diverticulosis and diverticulitis (4 sources) Diverticular disease 02-12-2023 Chronic Essential hypertension (8 sources) Essential hypertension; Translations: [Essential (primary) hypertension] Onset: 02-05-2023 Chronic Comment on above: NO MEDS PRESENTLY, P CP D/C'D LAST MONTH Other aftercare (2 sources) Surgical follow-up 06-06-2023 [...] (5 sources) Patient encounter status 04-28-2023 Unclassified (2 sources) Infrarenal abdominal aortic aneurysm, without rupture; Translations: [Infrarenal abdominal aortic aneurysm, without rupture] Onset: 04-07-2025 Results Test Name Value Interpretation Reference Range Facility Basic Metabolic Profile (BMP )on 06-16-2025 BUN/CRE 11.6 RATIO Normal 05-30 [facility] Comment on above: Performed By: #### L 100.0500, L500.2500, BTSPAT #### [facility] [address] [place], [address] Calcium [Mass/Vol] 9.3 mg/dL Normal 7.6-11.0 [facility] Comment on above: Performed By: #### L 100.0500, L500.2500, BTSPAT #### [facility] [address] [place], [address] Chloride [Moles/Vol] 106 mmol/L Normal 98-108 [facility] Comment on above: Performed By: #### L 100.0500, L500.2500, BTSPAT #### [facility] [address] [place], [address] CO2 [Moles/Vol] 25.8 mmol/L Normal 21.0-32.0 [facility] Comment on above: Performed By: #### L 100.0500, L500.2500, BTSPAT #### [facility] [address] [place], [address] Creatinine [Mass/Vol] 1.47 mg/dL High 0.70-1.20 [facility] Comment on above: Performed By: #### L 100.0500, L500.2500, BTSPAT #### [facility] [address] [place], [address] GAP 9 Normal 5-15 [facility] Comment on above: Performed By: #### L 100.0500, L500.2500, BTSPAT #### [facility] [address] [place], [address] GFR/1.73 sq M.predicted among non-blacks MDRD (S/P/Bld) [Vol rate/Area] 48 mL/min/{1.73_m2} Low >60 [facility] Comment on above: Result Comment: mL/m in/1.73m2 CKD-EPI Creatinine Equation (2020) Performed By: #### L 100.0500, L500.2500, BTSPAT #### [facility] [address] [place], [address] Glucose [Mass/Vol] 113 mg/dL High 70-99 [facility] Comment on above: Performed By: #### L 100.0500, L500.2500, BTSPAT #### [facility] [address] [place], [address] Potassium [Moles/Vol] 4.2 mmol/L Normal 3.3-5.1 [facility] Comment on above: Performed By: #### L 100.0500, L500.2500, BTSPAT #### [facility] [address] [place], [address] Sodium [Moles/Vol] 142 mmol/L Normal 133-145 [facility] Comment on above: Performed By: #### L 100.0500, L500.2500, BTSPAT #### [facility] [address] [place], [address] Urea nitrogen [Mass/Vol] 17 mg/dL Normal 4-19 [facility] Comment on above: Performed By: #### L 100.0500, L500.2500, BTSPAT #### [facility] [address] [place], [address] CBC-Complete Blood Cnt No Di ffon 06-16-2025 Erythrocyte distribution width (RBC) [Ratio] 13.6 % Normal 11.6-14.6 [facility] Comment on above: Performed By: #### L 100.0500, L500.2500, BTSPAT #### [facility] [address] [place], [address] Hematocrit (Bld) [Volume fraction] 48.4 % Normal 40-54 [facility] Comment on above: Performed By: #### L 100.0500, L500.2500, BTSPAT #### [facility] [address] [place], [address] Hemoglobin (Bld) [Mass/Vol] 15.5 g/dL Normal 13.0-16.5 [facility] Comment on above: Performed By: #### L 100.0500, L500.2500, BTSPAT #### [facility] [address] [place], [address] MCH (RBC) [Entitic mass] 28.9 pg Normal 27.0-32.0 [facility] Comment on above: Performed By: #### L 100.0500, L500.2500, BTSPAT #### [facility] [address] [place], [address] MCHC (RBC) [Mass/Vol] 32.0 g/dL Normal 32-36 [facility] Comment on above: Performed By: #### L 100.0500, L500.2500, BTSPAT #### [facility] [address] [place], [address] MCV (RBC) [Entitic vol] 90.1 fL Normal 80-94 [facility] Comment on above: Performed By: #### L 100.0500, L500.2500, BTSPAT #### [facility] [address] [place], [address] Platelet mean volume (Bld) [Entitic vol] 10.9 fL Normal 6.2-12.0 [facility] Comment on above: Performed By: #### L 100.0500, L500.2500, BTSPAT #### [facility] [address] [place], [address] Platelets (Bld) [#/Vol] 254 10*3/uL Normal 150-450 [facility] Comment on above: Performed By: #### L 100.0500, L500.2500, BTSPAT #### [facility] [address] [place], [address] RBC (Bld) [#/Vol] 5.37 10*6/uL Normal 4.6-6.2 [facility] Comment on above: Performed By: #### L 100.0500, L500.2500, BTSPAT #### [facility] [address] [place], [address] RDW SD 45.1 fl High 35.1-43.9 [facility] Comment on above: Performed By: #### L 100.0500, L500.2500, BTSPAT #### [facility] [address] [place], [address] WBC (Bld) [#/Vol] 10.4 10*3/uL Normal 4.4-11.0 [facility] Comment on above: Performed By: #### L 100.0500, L500.2500, BTSPAT #### [facility] [address] [place], [address] Type AND Screen - PAT ONLYon 06-16-2025 ABO and Rh group Nom (Bld) Blood group O Rh(D) positive Normal [facility] Comment on above: Order Comment: Surge ry Date: 06/21/25 Reason for Laboratory Test PRE-OP [id number] No N N S EVAR, Endovascular Aneurysm Repair in Automatic Glove Former with OR Performed By: #### L 100.0500, L500.2500, BTSPAT #### [facility] [address] [place], [address] MR/PAT.ANEon 06-08-2025 MR/PAT.ANE [facility] Medical Records Department [address] [place] [address] PAT - Anesthesia 06/08/25 1422 MR#: [id number] Acct: [id number] Name: ROSIBEL STEELE Rep #: [id number] : 1945 80 From: Red Lazaro MD PCP: Jamal Hurtado Leo MORTGAGE MANAGER-C Status:PRE [facility] Y Race: C Location: [facility] Pre-Assessment Diagnosis/Proposed Procedure Planned Operative Procedure(s): EVAR, Endovascular Aneurysm Repair in Automatic Glove Former with OR Staff, Js SPARKS Anesthesia History Anesthesia History - bdr: Anesthesia History - bdr Hx Hospitalization No 06/06/25 08:16 Any Problems With Anesthesia No 06/06/25 08:16 Cholinesterase deficiency No 06/06/25 08:16 You/Your Family Experience No 06/06/25 08:16 fever (hyperthermia) with Relationship Recent Exposure to Contagious Disease Does patient have nerve No 06/06/25 08:16 stimulator Patient instructed to have device shut off --Does patient have Pacemaker or ICD? When Was Last Pacemaker Check QUESTION #4 FULL TEXT: You/Your Family Experience fever (hyperthermia) with Anesthesia Last Oral Intake Last Oral intake: Last Oral Intake NPO since Meds taken in AM with sips of water? Meds patient instructed to take am of surgery PONV PONV - bdr: PONV - bdr Female No 06/06/25 08:16 HX of Motion Sickness No 06/06/25 08:16 HX of N/V After Surgery No 06/06/25 08:16 Non-Smoker Yes 06/06/25 08:16 Duration of Surgery greater Yes 06/06/25 08:16 than 60 minutes Number of Risk Factors 2 06/06/25 08:16 PONV Score Moderate Risk 06/06/25 08:16 Height Weight Height Weight: Anesthesia: Height Weight Height 5 ft 4.5 in 05/30/25 12:50 Respiratory Assessment Respiratory Assessment - bdr: Respiratory Tract Infection Hx - bdr Hx Respiratory Tract Infection No 06/06/25 08:16 STOP Sleep Apnea STOP Sleep Apnea - bdr: STOP Sleep Apnea - bdr Hx Hypertension Yes: PCP D/C'D MEDS APPROX. 06/06/25 08:16 30 DAYS AGO Hx Sleep Apnea No 06/06/25 08:16 CPAP BIPAP Do you snore loudly (louder No 06/06/25 08:16 than talking or can be heard Do you often feel tired/ No 06/06/25 08:16 fatigued/ sleepy during daytime? Has anyone observed you stop No 06/06/25 08:16 breathing during sleep? STOP Results Negative 06/06/25 08:16 QUESTION #5 FULL TEXT : Do you snore loudly (louder than talking or can be heard through closed doors)? 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 Specify any problems Hx of Preganancy in last 3 N/A 06/06/25 08:16 Months Nurse Filling Out Transfusion VCHRISTIN 06/06/25 08:16 Questions: Date: 06/06/25 06/06/25 08:16 Time: 08:18 06/06/25 08:16 Patient unable to answer at this time (ie. confused, unrespo /Reproduction History /Reproductive History - bdr: /Reproductive Hx- bdr Hx Now No 06/06/25 08:16 Gestational Age (in weeks): EDC: Hx Hx Para Hx Section SAB No 06/06/25 08:16 [facility] Medical History (Updated 06/06/25 @ 08:15 by Paula Ryan) Arthritis Former smoker AAA (abdominal aortic aneurysm) HTN (hypertension) Home Medications ???Medication ???Instructions ???Recorded ???Last Taken ???Type NK 05/30/25 Unknown History Allergy/AdvReac Type Severity Reaction Status Date / Time No Known Allergies Allergy Verified 06/06/25 08:10 Family History Other Cancer Hypertension Surgical History Hx of hernia repair ( 2021) Hx of appendectomy ( 2021) Social History Smoking Status: Former smoker Tobacco: How many years used: 30 Audit: Pertinent Findings Pertinent Findings EKG Perinent findings: May (more content not included)... Normal [facility] Glomerular filtration rate ( GFR) estimation/1.73 sq m using serum, plasma, or whole bOrdered By: Dickson Sanchez on 05-30-2025 GFR/1.73 sq M.predicted among non-blacks MDRD (S/P/Bld) [Vol rate/Area] 53 mL/min/{1.73_m2} Low >60 [facility] Comment on above: mL/min/1.73m2 CKD-EP I Creatinine Equation (2020) MR/BMS.Alexander 05-30-2025 MR/BMS.ROWAN [facility] [address] [place] [address] OFFICE VISIT Date of Service: 05/30/25 MR#: [id number] Acct: [id number] Name: ROSIBEL STEELE Rep #: [id number] : 1945 Provider: Dr. Dickson Sanchez MD Age/Sex: 80/M Location: [facility] Status: Signed Intake Vital Signs 05/30/25 12:50 Height 5 ft 4.5 in Weight: 169 lb BMI 28.5 BP 195/83 H Blood Pressure Location Lt brachial Position Sitting Respiration 16 Pulse 62 Pulse Source NIBP Temp 98.6 F Temp Source Temporal Pulse Oximetry (%) 97 Oxygen Delivery Method room air Intake Visit Reasons: Discuss Results Ergonomic Specialist Required: No Accompanied by: Self Is patient in pain?: No Allergies No Known Allergies Allergy (Verified 05/30/25 12:52) Medications ???Medication ???Instructions ???Recorded ???Confirmed ???Type NK 05/30/25 05/30/25 History Have you fallen in the past year?: No PFSH Medical History AAA (abdominal aortic aneurysm) HTN (hypertension) Surgical History Hx of hernia repair ( 2021) Hx of appendectomy ( 2021) Family History Other Cancer Hypertension Social History Smoking Status: Former smoker Tobacco: How many years used: 30 HPI HPI HPI: ROSIBEL CEDRIC, is a 80 M who presents to the office today for follow up of AAA initially identified incidentally last year at which time it was 5.4 cm. He has now had his repeat CTA and is here to discuss options. No back/abd pain, no CP/SOB with activity, able to climb hills in [place], up and down stairs without limitation. ROS General General: No weight change, appetite, [...] nourished Orientation: alert, awake and oriented x3 HENMT Head: normocephalic and atraumatic Ears: hearing grossly normal bilaterally Nose: external nose normal Eyes General: appearance normal, both eyes and all related structures EOM: EOM intact bilaterally Neck Neck: normal visual inspection, full ROM, no lymphadenopathy and trachea midline Thyroid: thyroid normal Lymphatic: no lymphadenopathy noted Resp Effort Inspection: normal respiratory effort, able to speak in complete sentences, symmetric chest movement, no audible wheezes, not labored, no stridor and no use of accessory muscles Auscultation: clear to auscultation bilaterally Cardio Rate: regular rate Rhythm: regular rhythm Heart Sounds: no murmurs Bruits: no carotid bruits Pulses: brachial pulses present and radial pulses present GI Inspection: non-distended Palpation: soft, no hernias, no pulsatile masses and nontender Skin General: no rashes or lesions noted and no erythema Wounds: no wounds Neuro Cranial Nerves: CN's II-XI intact bilaterally and EOM intact bilaterally Speech: speech normal Gait: normal (more content not included)... Normal [facility] Serum Creatinine AND GFRon 1 Creatinine [Mass/Vol] 1.35 mg/dL High 0.70-1.20 [facility] Comment on above: Performed By: #### L 501.1105 #### [facility] [address] [facility] [place], [place], [address] GFR/1.73 sq M.predicted among non-blacks MDRD (S/P/Bld) [Vol rate/Area] 53 mL/min/{1.73_m2} Low >60 [facility] Comment on above: Result Comment: mL/m in/1.73m2 CKD-EPI Creatinine Equation (2020) Performed By: #### L 501.1105 #### [facility] [address] [facility] [place], [place], [address] Serum creatinine measurement (mass/volume)Ordered By: Dickson Sanchez on 05-30-2025 Creatinine [Mass/Vol] 1.35 mg/dL High 0.70-1.20 [facility] Anion gap in Serum or Plasma Ordered By: Jamal Hurtado on 04-18-2025 Anion gap [Moles/Vol] 13 mmol/L 5-15 [facility] BUN/creatinine ratioOrdered By: Zebulun Beam on 04-18-2025 Urea nitrogen/Creatinine [Mass ratio] 11.4 mg/mg 10- [facility] Basic Metabolic Profile (BMP )on 04-18-2025 BUN/CRE 11.4 RATIO Normal - [facility] Comment on above: Performed By: #### L 500.2500 #### [facility] [address] [place], [address] Calcium [Mass/Vol] 9.4 mg/dL Normal 7.6-11.0 [facility] Comment on above: Performed By: #### L 500.2500 #### [facility] [address] [place], [address] Chloride [Moles/Vol] 108 mmol/L Normal 98-108 [facility] Comment on above: Performed By: #### L 500.2500 #### [facility] [address] [place], [address] CO2 [Moles/Vol] 22.9 mmol/L Normal 21.0-32.0 [facility] Comment on above: Performed By: #### L 500.2500 #### [facility] [address] [place], [address] Creatinine [Mass/Vol] 2.01 mg/dL High 0.70-1.20 [facility] Comment on above: Performed By: #### L 500.2500 #### [facility] [address] [place], [address] GAP 13 Normal 5-15 [facility] Comment on above: Performed By: #### L 500.2500 #### [facility] [address] [place], [address] GFR/1.73 sq M.predicted among non-blacks MDRD (S/P/Bld) [Vol rate/Area] 33 mL/min/{1.73_m2} Low >60 [facility] Comment on above: Result Comment: mL/m in/1.73m2 CKD-EPI Creatinine Equation (2020) Performed By: #### L 500.2500 #### [facility] [address] [place], [address] Glucose [Mass/Vol] 89 mg/dL Normal 70-99 [facility] Comment on above: Performed By: #### L 500.2500 #### [facility] [address] [place], [address] Potassium [Moles/Vol] 4.1 mmol/L Normal 3.3-5.1 [facility] Comment on above: Performed By: #### L 500.2500 #### [facility] [address] [place], [address] Sodium [Moles/Vol] 144 mmol/L Normal 133-145 [facility] Comment on above: Performed By: #### L 500.2500 #### [facility] [address] [place], [address] Urea nitrogen [Mass/Vol] 23 mg/dL High 4-19 [facility] Comment on above: Performed By: #### L 500.2500 #### [facility] [address] [place], [address] Carbon dioxide, total [Moles /volume] in Central venous bloodOrdered By: Jamal Hurtado on 04-18-2025 CO2 [Moles/Vol] 22.9 mmol/L 21.0-32.0 [facility] Chloride assayOrdered By: Jr Hurtado on 04-18-2025 Chloride [Moles/Vol] 108 mmol/L 98-108 [facility] Glomerular filtration rate ( GFR) estimation/1.73 sq m using serum, plasma, or whole bOrdered By: Jamal Hurtado on 04-18-2025 GFR/1.73 sq M.predicted among non-blacks MDRD (S/P/Bld) [Vol rate/Area] 33 mL/min/{1.73_m2} Low >60 [facility] Comment on above: mL/min/1.73m2 CKD-EP I Creatinine Equation (2020) Potassium measurement (mass/ volume)Ordered By: Jamal Hurtado on 04-18-2025 Potassium (Unsp spec) [Mass/Vol] 4.1 mmol/L 3.3-5.1 [facility] Serum creatinine measurement (mass/volume)Ordered By: Jamal Hurtado on 04-18-2025 Creatinine [Mass/Vol] 2.01 mg/dL High 0.70-1.20 [facility] Serum glucose measurement (m ass/volume)Ordered By: Jamal Hurtado on 04-18-2025 Glucose [Mass/Vol] 89 mg/dL 70-99 [facility] Serum or plasma calcium gato urement (mass/volume)Ordered By: Jamal Hurtado on 04-18-2025 Calcium [Mass/Vol] 9.4 mg/dL 7.6-11.0 [facility] Serum or plasma urea nitroge n measurement (mass/volume)Ordered By: Jamal Hurtado on 04-18-2025 Urea nitrogen [Mass/Vol] 23 mg/dL High 4-19 [facility] Sodium levelOrdered By: Magdalena Hurtado on 04-18-2025 Sodium [Moles/Vol] 144 mmol/L 133-145 [facility] CTA Abd/Pelvis W/WO Contrast on 03-30-2025 CTA Abd/Pelvis W/WO Contrast [facility] [address] [place], [place] [address] CTA Abd/Pelvis W/WO Contrast MR#: [id number] Acct: [id number] Name: ROSIBEL STEELE Rep #: [id number] : 1945 M 79 From: Ranjit la MD PCP: [facility] MORTGAGE MANAGER-C Status: REG CLI Study: CTA Abd/Pelvis W/WO Contrast Date of Exam: Exam# [id number] Ordering Dr: Dickson Sanchez MD PROCEDURE: CTA ABD/PELVIS W/WO CONTRAST 03/30/2025 REASON FOR EXAM: AAA TECHNIQUE: CTA ABD/PELVIS W/WO CONTRAST Multiplanar Sagittal and Coronal images were obtained. 3D and or MIPS post processing was performed CONTRAST: Isovue 370 VOLUME: 100 mL One or more dose reduction techniques were used (e.g., Automated exposure control, adjustment of the mA and/or kV according to patient size, use of iterative reconstruction technique). RADIATION DOSE SUMMARY: CTDlvol: 19.9 mGy DLP: 627.6 mGycm COMPARISON: Prior study dated October 31, 2023. 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 The aneurysm extends to the bifurcation. Iliac Arteries: Atherosclerotic plaque formation. 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 FLEX : Nonvisualized. Right Renal: Tight stenosis at the origin of the right renal artery. Left Renal: Moderate stenosis at the origin of the left renal artery. Extravascular Findings: The lung bases are clear. Mild coronary artery calcification. There is a 6.2 cm by 5.8 cm cyst in the central portion of the right lobe of the liver. A 1.2 cm cyst is seen in the peripheral aspect of the left lobe of the liver. These are unchanged. CT/CTA Abd/Pelvis W/WO Contrast IMPRESSION: Mild increase in size of the infrarenal abdominal aortic aneurysm with a transverse dimension of 5.7 cm. Mural thrombus is seen. The remainder of the examination is unchanged. Reading Location: [facility] CC: Dr. Dickson Sanchez MD; [facility] MORTGAGE MANAGER-C Beam House Repairer: Signed Normal [facility] Anion gap in Serum or Plasma Ordered By: Jamal Hurtado on 03-24-2025 Anion gap [Moles/Vol] 11 mmol/L 12-23 [facility] BUN/creatinine ratioOrdered By: Jamal Hurtado on 03-24-2025 Urea nitrogen/Creatinine [Mass ratio] 10.9 mg/mg 05-30 [facility] Basic Metabolic Profile (BMP )on 03-24-2025 BUN/CRE 10.9 RATIO Normal 05-30 [facility] Comment on above: Performed By: #### L 500.2500 #### [facility] [address] [place], [address] Calcium [Mass/Vol] 9.7 mg/dL Normal 7.6-11.0 [facility] Comment on above: Performed By: #### L 500.2500 #### [facility] [address] [place], [address] Chloride [Moles/Vol] 105 mmol/L Normal 98-108 [facility] Comment on above: Performed By: #### L 500.2500 #### [facility] [address] [place], [address] CO2 [Moles/Vol] 23.4 mmol/L Normal 21.0-32.0 [facility] Comment on above: Performed By: #### L 500.2500 #### [facility] [address] [place], [address] Creatinine [Mass/Vol] 1.64 mg/dL High 0.70-1.20 [facility] Comment on above: Performed By: #### L 500.2500 #### [facility] [address] [place], [address] GAP 11 Normal 5-15 [facility] Comment on above: Performed By: #### L 500.2500 #### [facility] [address] [place], [address] GFR/1.73 sq M.predicted among non-blacks MDRD (S/P/Bld) [Vol rate/Area] 42 mL/min/{1.73_m2} Low >60 [facility] Comment on above: Result Comment: mL/m in/1.73m2 CKD-EPI Creatinine Equation (2020) Performed By: #### L 500.2500 #### [facility] [address] [place], [address] Glucose [Mass/Vol] 92 mg/dL Normal 70-99 [facility] Comment on above: Performed By: #### L 500.2500 #### [facility] [address] [place], [address] Potassium [Moles/Vol] 4.5 mmol/L Normal 3.3-5.1 [facility] Comment on above: Performed By: #### L 500.2500 #### [facility] [address] [place], [address] Sodium [Moles/Vol] 140 mmol/L Normal 133-145 [facility] Comment on above: Performed By: #### L 500.2500 #### [facility] [address] [place], [address] Urea nitrogen [Mass/Vol] 18 mg/dL Normal 4-19 [facility] Comment on above: Performed By: #### L 500.2500 #### [facility] [address] [place], [address] Carbon dioxide, total [Moles /volume] in Central venous bloodOrdered By: Jamal Hurtado on 03-24-2025 CO2 [Moles/Vol] 23.4 mmol/L 21.0-32.0 [facility] Chloride assayOrdered By: Jr Hurtado on 03-24-2025 Chloride [Moles/Vol] 105 mmol/L 98-108 [facility] Glomerular filtration rate ( GFR) estimation/1.73 sq m using serum, plasma, or whole bOrdered By: Jamal Hurtado on 03-24-2025 GFR/1.73 sq M.predicted among non-blacks MDRD (S/P/Bld) [Vol rate/Area] 42 mL/min/{1.73_m2} Low >60 [facility] Comment on above: mL/min/1.73m2 CKD-EP I Creatinine Equation (2020) Potassium measurement (mass/ volume)Ordered By: Jamal Hurtado on 03-24-2025 Potassium (Unsp spec) [Mass/Vol] 4.5 mmol/L 3.3-5.1 [facility] Serum creatinine measurement (mass/volume)Ordered By: Zebulun Beam on 03-24-2025 Creatinine [Mass/Vol] 1.64 mg/dL High 0.70-1.20 [facility] Serum glucose measurement (m ass/volume)Ordered By: Zebulun Beam on 03-24-2025 Glucose [Mass/Vol] 92 mg/dL 70-99 [facility] Serum or plasma calcium gato urement (mass/volume)Ordered By: Zebulun Beam on 03-24-2025 Calcium [Mass/Vol] 9.7 mg/dL 7.6-11.0 [facility] Serum or plasma urea nitroge n measurement (mass/volume)Ordered By: Zebulun Beam on 03-24-2025 Urea nitrogen [Mass/Vol] 18 mg/dL 4-19 [facility] Sodium levelOrdered By: Zebu home Beam on 03-24-2025 Sodium [Moles/Vol] 140 mmol/L 133-145 [facility] MR/BMS.IGORSon 03-09-2025 MR/BMS.BVS [facility] Vascular Surgery [address] [place] [address] OFFICE VISIT Date of Service: 03/09/25 MR#: [id number] Acct: [id number] Name: ROSIBEL STEELE Rep #: [id number] : 1945 Provider: Dr. Dickson Sanchez MD Age/Sex: 79/M Location: [facility] Status: Signed Intake Vital Signs 03/09/25 15:53 [...] He had seen Dr. Mckeon at his [place] location and had CTA at that time [...] nourished Orientation: alert, awake and oriented x3 HENMT Head: normocephalic and atraumatic Ears: hearing grossly [...] and Movement: (more content not included)... Normal [facility] Absolute lymphocyte countOrd ered By: Magdalenapatricia [facility] on 01-28-2025 Lymphocytes Auto (Unsp spec) [#/Vol] 2.27 10*3/uL 0.83-4.51 [facility] Absolute neutrophil countOrd ered By: [facility] on 01-28-2025 Neutrophils (Bld) [#/Vol] 4.7 10*3/uL 2.0-7.7 [facility] Anion gap in Serum or Plasma Ordered By: [facility] on 01-28-2025 Anion gap [Moles/Vol] 14 mmol/L 5-15 [facility] Automated lymphocyte count a s percentage of total leukocytesOrdered By: Magdalenapatricia Hurtado on 01-28-2025 Lymphocytes/100 WBC Auto (Unsp spec) 28.6 % 19-41 [facility] BUN/creatinine ratioOrdered By: Zebulun Beam on 01-28-2025 Urea nitrogen/Creatinine [Mass ratio] 12.2 mg/mg 10- [facility] Basophil percentageOrdered B y: Zebulun Beam on 01-28-2025 Basophils/100 WBC (Bld) 0.9 % 0-1 [facility] Bilirubin Test strip Ql (U)O rdered By: Zebulun Beam on 01-28-2025 Bilirubin Ql (U) Negative Negative [facility] Bilirubin, totalOrdered By: Zebulun Beam on 01-28-2025 Bilirubin [Mass/Vol] 0.44 mg/dL 0.00-1.30 [facility] CBC W/Diff, Automatedon 01-10 Absolute Lymph 2.27 X10 3/uL Normal 0.83-4.51 [facility] Comment on above: Performed By: #### L 500.4050, L501.9910, L400.2010, L501.9520, L502.0500, L100.0100 ####[facility] [address] [place], [address] Absolute Neut 4.7 X10 3/uL Normal 2.0-7.7 [facility] Comment on above: Performed By: #### L 500.4050, L501.9910, L400.2010, L501.9520, L502.0500, L100.0100 ####[facility] [address] [place], [address] Basophils/100 WBC (Bld) 0.9 % Normal 0-1 [facility] Comment on above: Performed By: #### L 500.4050, L501.9910, L400.2010, L501.9520, L502.0500, L100.0100 ####[facility] [address] [place], [address] Eosinophils/100 WBC (Bld) 3.8 % Normal 0-5 [facility] Comment on above: Performed By: #### L 500.4050, L501.9910, L400.2011, L501.9520, L502.0500, L100.0100 ####[facility] [address] [place], [address] Erythrocyte distribution width (RBC) [Ratio] 13.4 % Normal 11.6-14.6 [facility] Comment on above: Performed By: #### L 500.4050, L501.9910, L4, L501.9520, L502.0500, L100.0100 ####[facility] [address] [place], [address] Hematocrit (Bld) [Volume fraction] 48.4 % Normal 40-54 [facility] Comment on above: Performed By: #### L 500.4050, L501.9910, L4, L501.9520, L502.0500, L100.0100 ####[facility] [address] [place], [address] Hemoglobin (Bld) [Mass/Vol] 16.0 g/dL Normal 13.0-16.5 [facility] Comment on above: Performed By: #### L 500.4050, L501.9910, L4, L501.9520, L502.0500, L100.0100 ####[facility] [address] [place], [address] IG% 0.400 Normal 0.0-0.9 [facility] Comment on above: Result Comment: IG% - Immature Granulocytes (promyelocytes, myelocytes and metamyelocytes) > 1% indicates that a LEFT SHIFT is Present. Performed By: #### L 500.4050, L501.9910, L4, L501.9520, L502.0500, L100.0100 ####[facility] [address] [place], [address] Lymphocytes/100 WBC (Bld) 28.6 % Normal 19-41 [facility] Comment on above: Performed By: #### L 500.4050, L501.9910, L400.2010, L501.9520, L502.0500, L100.0100 ####[facility] [address] [place], [address] MCH (RBC) [Entitic mass] 28.9 pg Normal 27.0-32.0 [facility] Comment on above: Performed By: #### L 500.4050, L501.9910, L4, L501.9520, L502.0500, L100.0100 ####[facility] [address] [place], [address] MCHC (RBC) [Mass/Vol] 33.1 g/dL Normal 32-36 [facility] Comment on above: Performed By: #### L 500.4050, L501.9910, L4, L501.9520, L502.0500, L100.0100 ####[facility] [address] [place], [address] MCV (RBC) [Entitic vol] 87.5 fL Normal 80-94 [facility] Comment on above: Performed By: #### L 500.4050, L501.9910, L4, L501.9520, L502.0500, L100.0100 ####[facility] [address] [place], [address] Monocytes/100 WBC (Bld) 7.4 % Normal 0-10 [facility] Comment on above: Performed By: #### L 500.4050, L501.9910, L4, L501.9520, L502.0500, L100.0100 ####[facility] [address] [place], [address] Neutrophils/100 WBC (Bld) 58.9 % Normal 47-70 [facility] Comment on above: Performed By: #### L 500.4050, L501.9910, L4, L501.9520, L502.0500, L100.0100 ####[facility] [address] [place], [address] Nucleated RBC (Bld) [#/Vol] 0 10*3/uL Normal 0-5 [facility] Comment on above: Performed By: #### L 500.4050, L501.9910, L4, L501.9520, L502.0500, L100.0100 ####[facility] [address] [place], [address] Platelet mean volume (Bld) [Entitic vol] 11.0 fL Normal 6.2-12.0 [facility] Comment on above: Performed By: #### L 500.4050, L501.9910, , L501.9520, L502.0500, L100.0100 ####[facility] [address] [place], [address] Platelets (Bld) [#/Vol] 246 10*3/uL Normal 150-450 [facility] Comment on above: Performed By: #### L 500.4050, L501.9910, L4, L501.9520, L502.0500, L100.0100 ####[facility] [address] [place], [address] RBC (Bld) [#/Vol] 5.53 10*6/uL Normal 4.6-6.2 [facility] Comment on above: Performed By: #### L 500.4050, L501.9910, L4, L501.9520, L502.0500, L100.0100 ####[facility] [address] [place], [address] RDW SD 42.9 fl Normal 35.1-43.9 [facility] Comment on above: Performed By: #### L 500.4050, L501.9910, L400.2010, L501.9520, L502.0500, L100.0100 ####[facility] [address] [place], [address] WBC (Bld) [#/Vol] 8.0 10*3/uL Normal 4.4-11.0 [facility] Comment on above: Performed By: #### L 500.4050, L501.9910, L400.2010, L501.9520, L502.0500, L100.0100 ####[facility] [address] [place], [address] Carbon dioxide, total [Moles /volume] in Central venous bloodOrdered By: Jamal Hurtado on 01-28-2025 CO2 [Moles/Vol] 20.5 mmol/L Low 21.0-32.0 [facility] Chloride assayOrdered By: Jr Hurtado on 01-28-2025 Chloride [Moles/Vol] 107 mmol/L 98-108 [facility] Comprehensive Metabolic Prof ilon 01-28-2025 Albumin [Mass/Vol] 4.4 g/dL Normal 3.4-4.8 [facility] Comment on above: Performed By: #### L 500.4050, L501.9910, L400, L501.9520, L502.0500, L100.0100 ####[facility] [address] [place], [address] Albumin/Globulin [Mass ratio] 1.3 {ratio} Normal 0.9-2.4 [facility] Comment on above: Performed By: #### L 500.4050, L501.9910, L400.2010, L501.9520, L502.0500, L100.0100 ####[facility] [address] [place], [address] ALK PHOS 117 U/L Normal 40-129 [facility] Comment on above: Performed By: #### L 500.4050, L501.9910, L4, L501.9520, L502.0500, L100.0100 ####[facility] [address] [place], [address] ALT [Catalytic activity/Vol] 12 U/L Normal <=46 [facility] Comment on above: Performed By: #### L 500.4050, L501.9910, L4.2010, L501.9520, L502.0500, L100.0100 ####[facility] [address] [place], [address] AST [Catalytic activity/Vol] 18 U/L Normal <=37 [facility] Comment on above: Performed By: #### L 500.4050, L501.9910, L4, L501.9520, L502.0500, L100.0100 ####[facility] [address] [place], [address] Bilirubin [Mass/Vol] 0.44 mg/dL Normal 0.00-1.30 [facility] Comment on above: Performed By: #### L 500.4050, L501.9910, L4, L501.9520, L502.0500, L100.0100 ####[facility] [address] [place], [address] BUN/CRE 12.2 RATIO Normal 10-20 [facility] Comment on above: Performed By: #### L 500.4050, L501.9910, L4, L501.9520, L502.0500, L100.0100 ####[facility] [address] [place], [address] Calcium [Mass/Vol] 9.3 mg/dL Normal 7.6-11.0 [facility] Comment on above: Performed By: #### L 500.4050, L501.9910, L400.2010, L501.9520, L502.0500, L100.0100 ####[facility] [address] [place], [address] Chloride [Moles/Vol] 107 mmol/L Normal 98-108 [facility] Comment on above: Performed By: #### L 500.4050, L501.9910, L400.2010, L501.9520, L502.0500, L100.0100 ####[facility] [address] [place], [address] CO2 [Moles/Vol] 20.5 mmol/L Low 21.0-32.0 [facility] Comment on above: Performed By: #### L 500.4050, L501.9910, L400.2010, L501.9520, L502.0500, L100.0100 ####[facility] [address] [place], [address] Creatinine [Mass/Vol] 1.38 mg/dL High 0.70-1.20 [facility] Comment on above: Performed By: #### L 500.4050, L501.9910, L4.2010, L501.9520, L502.0500, L100.0100 ####[facility] [address] [place], [address] GAP 14 Normal 5-15 [facility] Comment on above: Performed By: #### L 500.4050, L501.9910, L4, L501.9520, L502.0500, L100.0100 ####[facility] [address] [place], [address] GFR/1.73 sq M.predicted among non-blacks MDRD (S/P/Bld) [Vol rate/Area] 52 mL/min/{1.73_m2} Low >60 [facility] Comment on above: Result Comment: mL/m in/1.73m2 CKD-EPI Creatinine Equation (2020) Performed By: #### L 500.4050, L501.9910, L4, L501.9520, L502.0500, L100.0100 ####[facility] [address] [place], [address] Globulin (S) [Mass/Vol] 3.3 g/dL Normal 2.2-4.2 [facility] Comment on above: Performed By: #### L 500.4050, L501.9910, L4, L501.9520, L502.0500, L100.0100 ####[facility] [address] [place], [address] Glucose [Mass/Vol] 94 mg/dL Normal 70-99 [facility] Comment on above: Performed By: #### L 500.4050, L501.9910, , L501.9520, L502.0500, L100.0100 ####[facility] [address] [place], [address] Potassium [Moles/Vol] 4.3 mmol/L Normal 3.3-5.1 [facility] Comment on above: Performed By: #### L 500.4050, L501.9910, L4, L501.9520, L502.0500, L100.0100 ####[facility] [address] [place], [address] Sodium [Moles/Vol] 141 mmol/L Normal 133-145 [facility] Comment on above: Performed By: #### L 500.4050, L501.9910, L4, L501.9520, L502.0500, L100.0100 ####[facility] [address] [place], [address] T PROT 7.7 g/dL Normal 5.9-8.4 [facility] Comment on above: Performed By: #### L 500.4050, L501.9910, L400.2010, L501.9520, L502.0500, L100.0100 ####[facility] [address] [place], [address] Urea nitrogen [Mass/Vol] 17 mg/dL Normal 4-19 [facility] Comment on above: Performed By: #### L 500.4050, L501.9910, L400.2010, L501.9520, L502.0500, L100.0100 ####[facility] [address] [place], [address] Eosinophil percentageOrdered By: Ingrisn Beam on 01-28-2025 Eosinophils/100 WBC (Bld) 3.8 % 0-5 [facility] Erythrocyte distribution wid th ratioOrdered By: Ingrisn Beam on 01-28-2025 Erythrocyte distribution width (RBC) [Ratio] 13.4 % 11.6-14.6 [facility] Erythrocyte distribution wid th standard deviationOrdered By: roberton Beam on 01-28-2025 Erythrocyte distribution width (RBC) [Ratio] 42.9 fl 35.1-43.9 [facility] Glomerular filtration rate ( GFR) estimation/1.73 sq m using serum, plasma, or whole bOrdered By: Jamal Hurtado on 01-28-2025 GFR/1.73 sq M.predicted among non-blacks MDRD (S/P/Bld) [Vol rate/Area] 52 mL/min/{1.73_m2} Low >60 [facility] Comment on above: mL/min/1.73m2 CKD-EP I Creatinine Equation (2020) Hematocrit Auto (Bld) [Volum e fraction]Ordered By: Jamal Hurtado on 01-28-2025 Hematocrit (Bld) [Volume fraction] 48.4 % 40-54 [facility] Hemoglobin measurementOrdere d By: Jamal Hurtado on 01-28-2025 Hemoglobin (Bld) [Mass/Vol] 16.0 g/dL 13.0-16.5 [facility] Immature granulocytes/100 WB C Auto (Bld)Ordered By: ryann [facility] on 01-28-2025 Immature granulocytes/100 WBC (Bld) 0.400 % 0.0-0.9 [facility] Comment on above: IG% - Immature Granu locytes (promyelocytes, myelocytes and metamyelocytes) > 1% indicates that a LEFT SHIFT is Present. Ketones Test strip Ql (U)Ord ered [facility] on 01-28-2025 Ketones Ql (U) Negative Negative [facility] Laboratory - Chemistry and C hemistry - challengeOrdered By: [facility] on 01-28-2025 AST [Catalytic activity/Vol] 18 U/L <38 [facility] MCV (mean corpuscular volume ) determinationOrdered By: [facility] on 01-28-2025 MCV (RBC) [Entitic vol] 87.5 fL 80-94 [facility] Mean corpuscular hemoglobin (MCH) determinationOrdered By: [facility] on 01-28-2025 MCH (RBC) [Entitic mass] 28.9 pg 27.0-32.0 [facility] Mean corpuscular hemoglobin concentration (MCHC) determinationOrdered By: [facility] on 01-28-2025 MCHC (RBC) [Mass/Vol] 33.1 g/dL 32-36 [facility] Mean platelet volume determi nationOrdered By: [facility] on 01-28-2025 Platelet mean volume (Bld) [Entitic vol] 11.0 fL 6.2-12.0 [facility] Microalbumin,Random Urineon 01-28-2025 MICROALBUMIN,UR 43.1 mg/L Normal NO RANGE EST. [facility] Comment on above: Performed By: #### L 500.4050, L501.9910, L400.2010, L501.9520, L502.0500, L100.0100 ####[facility] [address] [place], [address] Monocyte percentageOrdered B y: Zebulun Beam on 01-28-2025 Monocytes/100 WBC (Bld) 7.4 % 0-10 [facility] Neutrophil percentageOrdered By: Jamal Hurtado on 01-28-2025 Neutrophils/100 WBC (Bld) 58.9 % 47-70 [facility] Nitrite Test strip Ql (U)Ord ered By: Magdalenalun Beam on 01-28-2025 Nitrite Ql (U) Negative Negative [facility] Nucleated red blood cell per centageOrdered By: Jamal Hurtado on 01-28-2025 Nucleated RBC/100 WBC (Bld) [Ratio] 0 % 0-5 [facility] PSA,Total - Annual Screenon 01-28-2025 PSA,TOT SCREEN 1.63 ng/mL Normal 0.02-4.00 [facility] Comment on above: Result Comment: This test [...] confirm baseline values. Performed By: #### L 500.4050, L501.9910, L400.2011, L501.9520, L502.0500, L100.0100 ####[facility] [address] [place], [address] Platelet countOrdered By: Jr Hurtado on 01-28-2025 Platelets (Bld) [#/Vol] 246 10*3/uL 150-450 [facility] Potassium measurement (mass/ volume)Ordered By: Jamal Hurtado on 01-28-2025 Potassium (Unsp spec) [Mass/Vol] 4.3 mmol/L 3.3-5.1 [facility] Protein Test strip Ql (U)Ord ered By: Jamal Hurtado on 01-28-2025 Protein Ql (U) 15 mg/dl High Negative [facility] RBC Auto (Bld) [#/Vol]Ordere d By: Jamal Hurtado on 01-28-2025 RBC (Bld) [#/Vol] 5.53 10*6/uL 4.6-6.2 [facility] Serum creatinine measurement (mass/volume)Ordered By: Jamal Hurtado on 01-28-2025 Creatinine [Mass/Vol] 1.38 mg/dL High 0.70-1.20 [facility] Serum globulin measurementOr dered By: Jamal Hurtado on 01-28-2025 Globulin (S) [Mass/Vol] 3.3 g/dL 2.2-4.2 [facility] Serum glucose measurement (m ass/volume)Ordered By: Jamal Hurtado on 01-28-2025 Glucose [Mass/Vol] 94 mg/dL 70-99 [facility] Serum or plasma alanine gage otransferase (ALT) measurementOrdered By: Jamal Hurtado on 01-28-2025 ALT [Catalytic activity/Vol] 12 U/L <47 [facility] Serum or plasma albumin gato urement (mass/volume)Ordered By: Jamal Hurtado on 01-28-2025 Albumin [Mass/Vol] 4.4 g/dL 3.4-4.8 [facility] Serum or plasma albumin/glob ulin mass ratioOrdered By: Jamal Hurtado on 01-28-2025 Albumin/Globulin [Mass ratio] 1.3 {ratio} 0.9-2.4 [facility] Serum or plasma alkaline froylan sphatase measurementOrdered By: Jamal Hurtado on 01-28-2025 ALP [Catalytic activity/Vol] 117 U/L 40-129 [facility] Serum or plasma calcium gato urement (mass/volume)Ordered By: Jamal Hurtado on 01-28-2025 Calcium [Mass/Vol] 9.3 mg/dL 7.6-11.0 [facility] Serum or plasma urea nitroge n measurement (mass/volume)Ordered By: Jamal Beam on 01-28-2025 Urea nitrogen [Mass/Vol] 17 mg/dL 4-19 [facility] Sodium levelOrdered By: Magdalena Hurtado on 01-28-2025 Sodium [Moles/Vol] 141 mmol/L 133-145 [facility] TSH DL <= 0.005 mIU/L QnOrde red By: Jamal Beam on 01-28-2025 TSH Qn 2.440 uIU/mL 0.300-4.200 [facility] Thyroid Stim Hormone (TSH)on 01-28-2025 TSH 2.440 uIU/mL Normal 0.300-4.200 [facility] Comment on above: Performed By: #### L 500.4050, L501.9910, L400.2010, L501.9520, L502.0500, L100.0100 ####[facility] [address] [place], [address] Total proteinOrdered By: Roman rivero Beam on 01-28-2025 Protein [Mass/Vol] 7.7 g/dL 5.9-8.4 [facility] Urinalysis, Routine (Dipstic k)on 01-28-2025 BILIRUBIN URINE Negative Normal Negative [facility] Comment on above: Order Comment: CLEAN CATCH Performed By: #### L 500.4050, L501.9910, L4, L501.9520, L502.0500, L100.0100 ####[facility] [address] [place], [address] Clarity (U) Clear Normal Clear [facility] Comment on above: Order Comment: CLEAN CATCH Performed By: #### L 500.4050, L501.9910, L4.2010, L501.9520, L502.0500, L100.0100 ####[facility] [address] [place], [address] Color (U) Yellow Normal Yellow [facility] Comment on above: Order Comment: CLEAN CATCH Performed By: #### L 500.4050, L501.9910, L400.2010, L501.9520, L502.0500, L100.0100 ####[facility] [address] [place], [address] GLUCOSE, UR Normal Normal Normal [facility] Comment on above: Order Comment: CLEAN CATCH Performed By: #### L 500.4050, L501.9910, L4.2010, L501.9520, L502.0500, L100.0100 ####[facility] [address] [place], [address] KETONE UR Negative Normal Negative [facility] Comment on above: Order Comment: CLEAN CATCH Performed By: #### L 500.4050, L501.9910, L400.2010, L501.9520, L502.0500, L100.0100 ####[facility] [address] [place], [address] LEUK ESTERASE Negative Normal Negative [facility] Comment on above: Order Comment: CLEAN CATCH Performed By: #### L 500.4050, L501.9910, L400.2010, L501.9520, L502.0500, L100.0100 ####[facility] [address] [place], [address] Nitrite Ql (U) Negative Normal Negative [facility] Comment on above: Order Comment: CLEAN CATCH Performed By: #### L 500.4050, L501.9910, L400.2010, L501.9520, L502.0500, L100.0100 ####[facility] [address] [place], [address] OCCULT BLOOD-UR Negative Normal Negative [facility] Comment on above: Order Comment: CLEAN CATCH Performed By: #### L 500.4050, L501.9910, L400.2010, L501.9520, L502.0500, L100.0100 ####[facility] [address] [place], [address] pH UR 6.0 Normal 5.0 - 8.0 [facility] Comment on above: Order Comment: CLEAN CATCH Performed By: #### L 500.4050, L501.9910, L400.2010, L501.9520, L502.0500, L100.0100 ####[facility] [address] [place], [address] PROT DIPSTX 15 mg/dl Abnormal Negative [facility] Comment on above: Order Comment: CLEAN CATCH Performed By: #### L 500.4050, L501.9910, L400.2011, L501.9520, L502.0500, L100.0100 ####[facility] [address] [place], [place], [id number] SP.GR. DIPSTX 1.010 Normal 1.002-1.030 [facility] Comment on above: Order Comment: CLEAN CATCH Performed By: #### L 500.4050, L501.9910, L400.2011, L501.9520, L502.0500, L100.0100 ####[facility] [address] [place], [place], [id number] UROBILI Normal Normal Normal [facility] Comment on above: Order Comment: CLEAN CATCH Performed By: #### L 500.4050, L501.9910, L400.2010, L501.9520, L502.0500, L100.0100 ####[facility] [address] [place], [place], [id number] Urine albumin measurement [facility] detection limit of 20 mg/L or less (mass/volume)Ordered By: Jamal Hurtado on 01-28-2025 Albumin DL <= 20 mg/L (U) [Mass/Vol] 43.1 mg/L NO RANGE EST. [facility] Urine clarityOrdered By: Roman Hurtado on 01-28-2025 Clarity (U) Clear Clear [facility] Urine color determinationOrd ered By: Jamal Hurtado on 01-28-2025 Color (U) Yellow Yellow [facility] Urine glucose detectionOrder ed By: Jamal Hurtado on 01-28-2025 Glucose Ql (U) Normal mg/dl Normal [facility] Urine leukocyte esterase det ection by dipstickOrdered By: Jamal Hurtado on 01-28-2025 Leukocyte esterase Test strip Ql (U) Negative Negative [facility] Urine pHOrdered By: Jamal Hurtado on 01-28-2025 pH (U) 6.0 [pH] 5.0 - 8.0 [facility] Urine specific gravity measu rementOrdered By: [facility] on 01-28-[facility]25 Specific gravity (U) [Rel density] 1.010 1.002-1.030 [facility] Urine urobilinogen measureme ntOrdered By: [facility] on 01-28-2025 Urobilinogen Ql (U) Normal mg/dl Normal [facility] White blood cell (WBC) count Ordered By: [facility] on 01-28-2025 WBC (Bld) [#/Vol] 8.0 10*3/uL 4.4-11.[address] [facility] [address] ANGIOGRAPHY ABD AORTA + I LIOFEMORALon [...] 10/31/2023 4:37:40 PM Ordering Provider: SHANNA Au [facility] ([place]) .GFRon 10-27-2023 GFR Non- 44 ml/min/1.73sqm Normal [facility] ([place]) Comment on above: Result Comment: GFR Population [...] By: #### B UN, CRE, GFR #### [address] [address] GFR 54 ml/min/1.73sqm Normal [facility] ([place]) Comment on above: Result Comment: GFR Population [...] By: #### B UN, CRE, GFR #### [address] [address] BUNon 10-27-2023 Urea nitrogen [Mass/Vol] 20 mg/dL High 02-25 [facility] ([place]) Comment on above: Performed By: #### B UN, CRE, GFR #### [address] [address] CREon 10-27-2023 Creatinine [Mass/Vol] 1.53 mg/dL High 0.70-1.30 [facility] ([place]) Comment on above: Performed By: #### B UN, CRE, GFR #### [address] [address] LABORATORYOrdered By: SYSTEM SYSTEM on 10-27-2023 Creatinine [...] Basophil, Absolute 0.1 10 3/mcL Normal 0.0-0.2 [facility] ([place]) Comment on above: Performed By: #### G FR, ANEU, CBC, BMP, ADIFF #### Nadja [address] [address] Basophils/100 WBC (Bld) 1.0 % Normal 0.0-2.5 [facility] ([place]) Comment on above: Performed By: #### G FR, ANEU, CBC, BMP, ADIFF #### [address] [address] Eosinophil, Absolute 0.3 10 3/mcL Normal 0.0-0.4 [facility] Comment on above: Performed By: #### G FR, ANEU, CBC, BMP, ADIFF #### [address] [address] Eosinophils/100 WBC (Bld) 3.3 % Normal 0.0-7.0 [facility] ([place]) Comment on above: Performed By: #### G FR, ANEU, CBC, BMP, ADIFF #### [address] [address] Lymphocyte, Absolute 2.4 10 3/mcL Normal 0.8-3.9 [facility] [place] Comment on above: Performed By: #### G FR, ANEU, CBC, BMP, ADIFF #### [address] [address] Lymphocytes/100 WBC (Bld) 24.7 % Normal 10.0-50.0 [facility] ([place] Comment on above: Performed By: #### G FR, ANEU, CBC, BMP, ADIFF #### [address] [address] Monocyte, Absolute 0.7 10 3/mcL Normal 0.2-1.0 [facility] ([place]) Comment on above: Performed By: #### G FR, ANEU, CBC, BMP, ADIFF #### [address] [address] Monocytes/100 WBC (Bld) 7.6 % Normal 1.7-13.0 [facility] ([place] Comment on above: Performed By: #### G FR, ANEU, CBC, BMP, ADIFF #### [address] [address] Neutrophils/100 WBC (Bld) 63.4 % Normal 37.0-80.0 [facility] ([place] Comment on above: Performed By: #### G FR, ANEU, CBC, BMP, ADIFF #### [address] [address] .GFRon 05-07-2023 GFR 60 ml/min/1.73sqm Normal [facility] ([place] Comment on above: Result Comment: GFR Population [...] G FR, ANEU, CBC, BMP, ADIFF #### [address] [address] GFR Non- 49 ml/min/1.73sqm Normal [facility] ([place] Comment on above: Result Comment: GFR Population [...] G FR, ANEU, CBC, BMP, ADIFF #### [address] [address] .NEUABSon 05-07-2023 Neutrophil, Absolute 6.2 10 3/mcL Normal 2.9-6.2 [facility] [place] Comment on above: Performed By: #### G FR, ANEU, CBC, BMP, ADIFF #### [address] [address] BMPon 05-07-2023 BUN/Creatinine Ratio 15 ratio Normal 7-27 [facility] ([place]) Comment on above: Performed By: #### G FR, ANEU, CBC, BMP, ADIFF #### [address] [address] Calcium [Mass/Vol] 9.4 mg/dL Normal 8.4-10.2 [facility] ([place]) Comment on above: Performed By: #### G FR, ANEU, CBC, BMP, ADIFF #### [address] [address] Chloride [Moles/Vol] 103 mmol/L Normal 98-107 [facility] ([place]) Comment on above: Performed By: #### G FR, ANEU, CBC, BMP, ADIFF #### [address] [address] CO2 [Moles/Vol] 28 mmol/L Normal 23-31 [facility] ([place]) Comment on above: Performed By: #### G FR, ANEU, CBC, BMP, ADIFF #### [address] [address] Creatinine [Mass/Vol] 1.40 mg/dL High 0.70-1.30 [facility] ([place]) Comment on above: Performed By: #### G FR, ANEU, CBC, BMP, ADIFF #### [address] [address] Electrolyte Balance 7.0 mEq/L Normal 4.0-15.0 [facility] ([place] Comment on above: Performed By: #### G FR, ANEU, CBC, BMP, ADIFF #### [address] [address] Glucose [Mass/Vol] 111 mg/dL High 83-110 [facility] ([place]) Comment on above: Performed By: #### G FR, ANEU, CBC, BMP, ADIFF #### [address] [address] Potassium [Moles/Vol] 4.7 mmol/L Normal 3.5-5.1 [facility] ([place] Comment on above: Performed By: #### G FR, ANEU, CBC, BMP, ADIFF #### [address] [address] Sodium [Moles/Vol] 138 mmol/L Normal 136-145 [facility] ([place]) Comment on above: Performed By: #### G FR, ANEU, CBC, BMP, ADIFF #### [address] [address] Urea nitrogen [Mass/Vol] 21 mg/dL High 7-18 [facility] ([place] Comment on above: Performed By: #### G FR, ANEU, CBC, BMP, ADIFF #### [address] [address] CBCon 05-07-2023 Erythrocyte distribution width (RBC) [Ratio] 15.6 % High 11.5-14.5 [facility] ([place]) Comment on above: Order Comment: Pre-A dmission Testing Performed By: #### G FR, ANEU, CBC, BMP, ADIFF #### [address] [address] Hematocrit (Bld) [Volume fraction] 44.0 % Normal 42.0-52.0 [facility] ([place]) Comment on above: Order Comment: Pre-A dmission Testing Performed By: #### G FR, ANEU, CBC, BMP, ADIFF #### [address] [address] Hgb 14.9 G/dL Normal 14.0-18.0 [facility] ([place]) Comment on above: Order Comment: Pre-A dmission Testing Performed By: #### G FR, ANEU, CBC, BMP, ADIFF #### [address] [address] MCH (RBC) [Entitic mass] 29.3 pg Normal 27.0-31.2 [facility] ([place] Comment on above: Order Comment: Pre-A dmission Testing Performed By: #### G FR, ANEU, CBC, BMP, ADIFF #### [address] [address] MCHC 33.9 G/dL Normal 31.8-35.4 [facility] ([place] Comment on above: Order Comment: Pre-A dmission Testing Performed By: #### G FR, ANEU, CBC, BMP, ADIFF #### [address] [address] MCV (RBC) [Entitic vol] 86.5 fL Normal 80.0-94.0 [facility] ([place] Comment on above: Order Comment: Pre-A dmission Testing Performed By: #### G FR, ANEU, CBC, BMP, ADIFF #### [address] [address] Platelet 232 10 3/mcL Normal 130-400 [facility] ([place]) Comment on above: Order Comment: Pre-A dmission Testing Performed By: #### G FR, ANEU, CBC, BMP, ADIFF #### [address] [address] Platelet mean volume (Bld) [Entitic vol] 8.9 fL Normal 7.4-10.4 [facility] ([place] Comment on above: Order Comment: Pre-A dmission Testing Performed By: #### G FR, ANEU, CBC, BMP, ADIFF #### [address] [address] RBC 5.08 10 6/mcL Normal 4.04-6.13 [facility] ([place] Comment on above: Order Comment: Pre-A dmission Testing Performed By: #### G FR, ANEU, CBC, BMP, ADIFF #### [address] [address] WBC 9.7 10 3/mcL Normal 4.6-10.8 [facility] ([place] Comment on above: Order Comment: Pre-A dmission Testing Performed By: #### G FR, ANEU, CBC, BMP, ADIFF #### [address] [place] [address] [place] [id number] LABORATORYOrdered By: SYSTEM SYSTEM on 05-07-2023 Basophil, [...] Basophil, Absolute 0.1 10 3/mcL Normal 0.0-0.2 [facility] ([place]) Comment on above: Performed By: #### MAKSIM WHITE #### [address] [address] Basophils/100 WBC (Bld) 1.0 % Normal 0.0-2.5 [facility] ([place]) Comment on above: Performed By: #### MAKSIM WHITE #### Nadja [address] [address] Eosinophil, Absolute 0.4 10 3/mcL Normal 0.0-0.4 [facility] [place] Comment on above: Performed By: #### MAKSIM WHITE #### [address] [address] Eosinophils/100 WBC (Bld) 3.7 % Normal 0.0-7.0 [facility] ([place]) Comment on above: Performed By: #### MAKSIM WHITE #### [address] [address] Lymphocyte, Absolute 2.4 10 3/mcL Normal 0.8-3.9 [facility] [place] Comment on above: Performed By: #### U AMICAO, UA #### [address] [address] Lymphocytes/100 WBC (Bld) 22.2 % Normal 10.0-50.0 [facility] ([place] Comment on above: Performed By: #### U AMICAO, UA #### [address] [address] Monocyte, Absolute 0.8 10 3/mcL Normal 0.2-1.0 [facility] ([place]) Comment on above: Performed By: #### Héctor AMICAO UA #### [address] [address] Monocytes/100 WBC (Bld) 7.1 % Normal 1.7-13.0 [facility] ([place] Comment on above: Performed By: #### U AMICAO, UA #### [address] [address] Neutrophils/100 WBC (Bld) 66.0 % Normal 37.0-80.0 [facility] ([place] Comment on above: Performed By: #### U AMICAO, UA #### [address] [address] .GFRon 02-17-2023 GFR 61 ml/min/1.73sqm Normal [facility] ([place]) Comment on above: Result Comment: GFR Population [...] 15 mL/min/1.73 square meters Performed By: #### U HAROLDO UA #### [address] [address] GFR Non- 50 ml/min/1.73sqm Normal [facility] ([place]) Comment on above: Result Comment: GFR Population [...] 15 mL/min/1.73 square meters Performed By: #### U AMICAO UA #### [address] [address] .NEUABSon 02-17-2023 Neutrophil, Absolute 7.2 10 3/mcL High 2.9-6.2 [facility] [place] Comment on above: Performed By: #### U AMICAO UA #### [address] [address] BMPon 02-17-2023 BUN/Creatinine Ratio 16 ratio Normal 7-27 [facility] ([place] Comment on above: Performed By: #### U AMICAO UA #### [address] [address] Calcium [Mass/Vol] 9.5 mg/dL Normal 8.4-10.2 [facility] ([place]) Comment on above: Performed By: #### U AMICAO UA #### [address] [address] Chloride [Moles/Vol] 104 mmol/L Normal 98-107 [facility] ([place]) Comment on above: Performed By: #### U MATTHEWCAIris UA #### [address] [address] CO2 [Moles/Vol] 26 mmol/L Normal 23-31 [facility] ([place] Comment on above: Performed By: #### U AMICAO, UA #### [address] [address] Creatinine [Mass/Vol] 1.38 mg/dL High 0.70-1.30 [facility] ([place]) Comment on above: Performed By: #### U MATTHEWCAIris UA #### [address] [address] Electrolyte Balance 10.0 mEq/L Normal 4.0-15.0 [facility] ([place]) Comment on above: Performed By: #### U AMICAO UA #### [address] [address] Glucose [Mass/Vol] 105 mg/dL Normal 83-110 [facility] ([place]) Comment on above: Performed By: #### U MATTHEWCAIris UA #### [address] [address] Potassium [Moles/Vol] 5.1 mmol/L Normal 3.5-5.1 [facility] ([place]) Comment on above: Performed By: #### U AMICAO UA #### [address] [address] Sodium [Moles/Vol] 140 mmol/L Normal 136-145 [facility] ([place]) Comment on above: Performed By: #### U AMICAO, UA #### [address] [address] Urea nitrogen [Mass/Vol] 22 mg/dL High 7-18 [facility] ([place]) Comment on above: Performed By: #### U AMICAO, UA #### [address] [address] CBCon 02-17-2023 Erythrocyte distribution width (RBC) [Ratio] 13.8 % Normal 11.5-14.5 [facility] ([place]) Comment on above: Performed By: #### MAKSIM WHITE #### Nadja [address] [address] Hematocrit (Bld) [Volume fraction] 42.3 % Normal 42.0-52.0 [facility] ([place]) Comment on above: Performed By: #### MAKSIM WHITE #### Nadja [address] [address] Hgb 14.0 G/dL Normal 14.0-18.0 [facility] ([place]) Comment on above: Performed By: #### MAKSIM WHITE #### Nadja [address] [address] MCH (RBC) [Entitic mass] 28.4 pg Normal 27.0-31.2 [facility] ([place] Comment on above: Performed By: #### MAKSIM WHITE #### Nadja [address] [address] MCHC 33.1 G/dL Normal 31.8-35.4 [facility] ([place] Comment on above: Performed By: #### MAKSIM WHITE #### Nadja [address] [address] MCV (RBC) [Entitic vol] 85.9 fL Normal 80.0-94.0 [facility] ([place]) Comment on above: Performed By: #### MAKSIM WHITE #### Nadja [address] [address] Platelet 419 10 3/mcL High 130-400 [facility] ([place]) Comment on above: Performed By: #### MAKSIM WHITE #### Nadja [address] [address] Platelet mean volume (Bld) [Entitic vol] 8.3 fL Normal 7.4-10.4 [facility] ([place]) Comment on above: Performed By: #### MAKSIM WHITE #### [address] [place], [place] [address] RBC 4.93 10 6/mcL Normal 4.04-6.13 [facility] ([place]) Comment on above: Performed By: #### U HAROLDO UA #### [address] [place], [place] [address] WBC 10.9 10 3/mcL High 4.6-10.8 [facility] ([place]) Comment on above: Performed By: #### U HAROLDO UA #### [address] [place], [place] [address] LABORATORYOrdered By: SYSTEM SYSTEM on 02-17-2023 Basophil, [...] Prostate Specific Antigen 1.55 ng/mL Normal 0.00-4.00 [facility] ([place]) Comment on above: Performed By: #### U HAROLDO UA #### [place] [address] [place], [place] [address] Final Surgical Pathology Rep [facility] 02-07-2023 Final Surgical Pathology Report . Pathology Reports Accession: Collected Date/Time: Received Date/Time: Pathologist: [id number] 02/04/2023 17:37 EDT 02/05/2023 08:21 EDT VICTORIANO EATON MD Final Surgical Pathology Report DIAGNOSIS: APPENDIX: - ACUTE APPENDICITIS AND SEROSITIS CLINICAL INFORMATION: Procedure: LAPAROSCOPIC APPENDECTOMY Preoperative diagnosis: ACUTE APPENDICITIS Postoperative diagnosis: ACUTE APPENDICITIS SPECIMEN: A APPENDIX GROSS DESCRIPTION: All parts labelled with patient name and RE-[id number] Received in formalin labeled appendix is sullivan-farnsworth cylindrical portion of tissue with small foci of hemorrhage on the serosal aspect, measuring 5 cm in length with an average diameter of 1.3 cm. The serosal surface shows patchy sullivan-white purulent exudate. The lumen shows necrotic material. Pipelines Supervisor sections submitted. RS-1 Dictated by VICTORIANO EATON MICROSCOPIC DESCRIPTION: The microscopic examination is performed, except in the case of Gross Only. Electronically Signed by Pathology Report verified by [facility] VICTORIANO EATON Sign out Date: 02/07/2023 09:39 Performing Lab: [facility], [address] [place] [address] States Pathology Dept Disclaimer If ancillary studies were utilized, the following Laboratory Developed Test (LDT) disclaimer will apply: Under CLIA requirements, [facility] is qualified to perform high complexity testing. For all ancillary stains, positive and negative controls stain appropriately. Performance characteristics of immunohistochemical and chromogenic in-situ hybridization tests have been determined by [facility]. These tests are used for clinical purposes, They should not be regarded as investigational or for research. Normal [facility] ([place]) .Auto Diffon 02-05-2023 Basophil, Absolute 0.0 10 3/mcL Normal 0.0-0.3 [facility] ([place]) Comment on above: Performed By: #### Héctor ZARCO UA #### [address] [address] Basophils/100 WBC (Bld) 0.0 % Normal 0.0-2.5 [facility] ([place]) Comment on above: Performed By: #### Héctor ZARCO UA #### [address] [address] Eosinophil, Absolute 0.0 10 3/mcL Normal 0.0-0.7 [facility] Comment on above: Performed By: #### Héctor ZARCO UA #### [address] [address] Eosinophils/100 WBC (Bld) 0.0 % Normal 0.0-6.0 [facility] ([place]) Comment on above: Performed By: #### Héctor ZARCO UA #### [address] [address] Lymphocyte, Absolute 0.9 10 3/mcL Normal 0.9-4.3 [facility] [place] Comment on above: Performed By: #### Héctor ZARCO UA #### [address] [address] Lymphocytes/100 WBC (Bld) 4.5 % Low 20.0-40.0 [facility] ([place]) Comment on above: Performed By: #### Héctor ZARCO UA #### [address] [address] Monocyte, Absolute 1.6 10 3/mcL High 0.1-1.4 [facility] ([place]) Comment on above: Performed By: #### Héctor ZARCO UA #### [address] [address] Monocytes/100 WBC (Bld) 8.3 % Normal 2.0-13.0 [facility] ([place]) Comment on above: Performed By: #### MAKSIM WHITE #### [address] [address] Neutrophils/100 WBC (Bld) 87.2 % High 50.0-75.0 [facility] ([place]) Comment on above: Performed By: #### Héctor ZARCO UA #### [place] [address] [place], [place] [address] .GFRon 02-05-2023 GFR >60 Normal [facility] ([place]) Comment on above: Result Comment: GFR Population [...] By: #### B UN, CRE, GFR #### [address] [address] GFR Non- 60 ml/min/1.73sqm Normal [facility] ([place]) Comment on above: Result Comment: GFR Population [...] By: #### B UN, CRE, GFR #### [address] [address] .NEUABSon 02-05-2023 Neutrophil, Absolute 17.1 10 3/mcL High 2.3-8.1 [facility] ([place]) Comment on above: Performed By: #### B UN, CRE, GFR #### [address] [address] A1Con 02-05-2023 HbA1c (Bld) [Mass fraction] 5.2 % Normal 4.0-6.0 [facility] ([place]) Comment on above: Performed By: #### B UN, CRE, GFR #### [address] [address] BMPon 02-05-2023 BUN/Creatinine Ratio 15.3 ratio Normal 10.0-22.0 [facility] ([place]) Comment on above: Performed By: #### B UN, CRE, GFR #### [address] [address] Calcium [Mass/Vol] 8.7 mg/dL Normal 8.7-10.4 [facility] ([place]) Comment on above: Performed By: #### B UN, CRE, GFR #### [address] [address] Chloride [Moles/Vol] 107 mmol/L Normal 98-110 [facility] ([place]) Comment on above: Performed By: #### B UN, CRE, GFR #### [address] [address] CO2 [Moles/Vol] 24 mmol/L Normal 22-32 [facility] ([place]) Comment on above: Performed By: #### B UN, CRE, GFR #### [address] [address] Creatinine [Mass/Vol] 1.18 mg/dL Normal 0.60-1.40 [facility] ([place]) Comment on above: Performed By: #### B UN, CRE, GFR #### [address] [address] Electrolyte Balance 10.0 mEq/L Normal 4.0-15.0 [facility] ([place] Comment on above: Performed By: #### B UN, CRE, GFR #### [address] [address] Glucose [Mass/Vol] 124 mg/dL High 82-115 [facility] ([place]) Comment on above: Performed By: #### B UN, CRE, GFR #### [address] [address] Potassium [Moles/Vol] 4.5 mmol/L Normal 3.5-5.0 [facility] ([place]) Comment on above: Result Comment: Spec imen slightly hemolyzed. Performed By: #### B UN, CRE, GFR #### [address] [address] Sodium [Moles/Vol] 141 mmol/L Normal 136-145 [facility] ([place]) Comment on above: Performed By: #### B UN, CRE, GFR #### [place] [id number] Urea nitrogen [Mass/Vol] 18.0 mg/dL Normal 8.0-22.0 [facility] ([place]) Comment on above: Performed By: #### B UN, CRE, GFR #### [address] [address] CBCon 02-05-2023 Erythrocyte distribution width (RBC) [Ratio] 14.4 % Normal 11.5-15.5 [facility] ([place]) Comment on above: Performed By: #### U AMICAIris UA #### [address] [address] Hematocrit (Bld) [Volume fraction] 43.5 % Normal 40.0-52.0 [facility] ([place]) Comment on above: Performed By: #### U AMICAO, UA #### [address] [address] Hgb 14.5 G/dL Normal 13.0-17.5 [facility] ([place]) Comment on above: Performed By: #### MAKSIM WHITE #### Nadja [address] [address] MCH (RBC) [Entitic mass] 28.8 pg Normal 27.0-33.0 [facility] ([place]) Comment on above: Performed By: #### MAKSIM WHITE #### Nadja [address] [address] MCHC 33.2 G/dL Normal 32.0-36.0 [facility] ([place]) Comment on above: Performed By: #### MAKSIM WHITE #### Nadja [address] [address] MCV (RBC) [Entitic vol] 86.6 fL Normal 81.0-100.0 [facility] ([place]) Comment on above: Performed By: #### MAKSIM WHITE #### Nadja [address] [address] Platelet 189 10 3/mcL Normal 150-450 [facility] ([place]) Comment on above: Performed By: #### MAKSIM WHITE #### Nadja [address] [address] Platelet mean volume (Bld) [Entitic vol] 9.6 fL Normal 6.4-10.5 [facility] ([place]) Comment on above: Performed By: #### MAKSIM WHITE #### Nadja [address] [address] RBC 5.03 10 6/mcL Normal 4.50-6.00 [facility] ([place]) Comment on above: Performed By: #### MAKSIM WHITE #### Nadja [address] [address] WBC 19.6 10 3/mcL High 4.5-10.8 [facility] ([place]) Comment on above: Performed By: #### MAKSIM WHITE #### [address] [address] LABORATORYOrdered By: SYSTEM SYSTEM on 02-05-2023 Basophils (Bld) [#/Vol] 0.0 103/mcL Invalid Interpretation Code 0.0 - 0.3 10^3/mcL Workflow SS Basophils/100 WBC (Bld) 0.0 % Invalid Interpretation Code 0.0 - 2.5 % AH Workflow SS Calcium [Mass/Vol] 8.7 mg/dL Invalid [...] Invalid Interpretation Code 0.0 - 6.0 % AH Workflow SS Erythrocyte distribution width (RBC) [Ratio] 14.4 % Invalid Interpretation Code 11.5 - 15.5 % AH Workflow SS GFR/1.73 sq M.predicted among blacks MDRD (S/P/Bld) [Vol rate/Area] ml/min/1.73sqm Invalid Interpretation Code Chemistry S GFR/1.73 sq M.predicted among non-blacks MDRD (S/P/Bld) [Vol rate/Area] 60 ml/min/1.73sqm Invalid Interpretation Code Chemistry S Glucose [Mass/Vol] 124 mg/dL Invalid Interpretation Code 82 - 115 mg/dL ADM SS Hematocrit (Bld) [Volume fraction] 43.5 % Invalid Interpretation Code 40.0 - 52.0 % Workflow SS Hemoglobin (Bld) [Mass/Vol] 14.5 G/dL Invalid Interpretation Code 13.0 - 17.5 G/dL Workflow SS Lymphocytes (Bld) [#/Vol] 0.9 103/mcL [...] Invalid Interpretation Code 3.5 - 5.0 mEq/L AH ADM SS Comment on above: Result Comment: Spec imen slightly hemolyzed. RBC (Bld) [#/Vol] 5.03 106/mcL Invalid Interpretation Code 4.50 - 6.00 10^6/mcL AH Workflow SS Sodium [Moles/Vol] 141 mmol/L Invalid Interpretation Code 136 - 145 mEq/L ADM SS Urea nitrogen [Mass/Vol] 18.0 mg/dL Invalid Interpretation Code 8.0 - 22.0 mg/dL AH ADM SS Urea nitrogen/Creatinine [Mass ratio] 15.3 ratio Invalid Interpretation Code 10.0 - 22.0 ratio AH ADM SS WBC (Bld) [#/Vol] 19.6 103/mcL Invalid Interpretation Code 4.5 - 10.8 10^3/mcL AH Workflow SS LABORATORYOrdered By: Lv Beauchamp on 02-05-2023 Cholesterol [Mass/Vol] 172 mg/dL Invalid Interpretation Code 50 - 199 mg/dL AH ADM SS Cholesterol in HDL [Mass/Vol] 56 mg/dL Invalid Interpretation Code 40 - 59 mg/dL AH ADM SS Cholesterol in LDL [Mass/Vol] 106 mg/dL Invalid Interpretation Code 0 - 129 mg/dL AH ADM SS Triglyceride [Mass/Vol] 49 mg/dL Invalid Interpretation Code 3 - 149 mg/dL AH ADM SS LIPIDon 02-05-2023 Cholesterol [Mass/Vol] 172 mg/dL Normal 50-199 [facility] Comment on [place]: Result Comment: Chol esterol Reference Interval: Less than 200 Desirable 200-239 Borderline high risk 240 and above High risk Performed By: #### B UN, CRE, GFR #### [address] [address] Cholesterol in HDL [Mass/Vol] 56 mg/dL Normal 40-59 [facility] ([place] Comment on above: Performed By: #### B UN, CRE, GFR #### [address] [address] Cholesterol in LDL [Mass/Vol] 106 mg/dL Normal 0-129 [facility] ([place] Comment on above: Performed By: #### B UN, CRE, GFR #### [address] [address] Triglyceride [Mass/Vol] 49 mg/dL Normal 3-149 [facility] ([place]) Comment on above: Performed By: #### B UN, CRE, GFR #### [address] [address] .Auto Diffon 02-04-2023 Basophil, Absolute 0.1 10 3/mcL Normal 0.0-0.2 [facility] ([place]) Comment on above: Performed By: #### B UN, CRE, GFR #### [address] [address] Basophils/100 WBC (Bld) 0.4 % Normal 0.0-2.5 [facility] ([place] Comment on above: Performed By: #### B UN, CRE, GFR #### [address] [address] Eosinophil, Absolute 0.1 10 3/mcL Normal 0.0-0.4 [facility] [place] Comment on above: Performed By: #### B UN, CRE, GFR #### [address] [address] Eosinophils/100 WBC (Bld) 0.6 % Normal 0.0-7.0 [facility] ([place] Comment on above: Performed By: #### B UN, CRE, GFR #### [address] [address] Lymphocyte, Absolute 1.2 10 3/mcL Normal 0.8-3.9 [facility] [place] Comment on above: Performed By: #### B UN, CRE, GFR #### [address] [address] Lymphocytes/100 WBC (Bld) 8.4 % Low 10.0-50.0 [facility] ([place] Comment on above: Performed By: #### B UN, CRE, GFR #### [address] [address] Monocyte, Absolute 0.8 10 3/mcL Normal 0.2-1.0 [facility] ([place]) Comment on above: Performed By: #### B UN, CRE, GFR #### [address] [address] Monocytes/100 WBC (Bld) 5.7 % Normal 1.7-13.0 [facility] ([place]) Comment on above: Performed By: #### B UN, CRE, GFR #### [address] [address] Neutrophils/100 WBC (Bld) 84.9 % High 37.0-80.0 [facility] ([place] Comment on above: Performed By: #### B UN, CRE, GFR #### [address] [address] .GFRon 02-04-2023 GFR Non- 52 ml/min/1.73sqm Normal [facility] ([place] Comment on above: Result Comment: GFR Population [...] By: #### B UN, CRE, GFR #### [address] [address] GFR 63 ml/min/1.73sqm Normal [facility] ([place] Comment on above: Result Comment: GFR Population [...] By: #### B UN, CRE, GFR #### [address] [address] .MDWon 02-04-2023 Monocyte Distribution Width Not performed Normal 0.00-20.00 [facility] ([place] Comment on above: Performed By: #### B UN, CRE, GFR #### [address] [address] .NEUABSon 02-04-2023 Neutrophil, Absolute 12.2 10 3/mcL High 2.9-6.2 [facility] ([place] Comment on above: Performed By: #### B UN, CRE, GFR #### [address] [address] .Urinalysis Microscopic (AO) on 02-04-2023 UA Bacteria Trace Abnormal [facility] ([place]) Comment on above: Performed By: #### U AMICAO, UA #### Nadja [address] [address] UA Mucous 1+ /hpf Normal [facility] ([place]) Comment on above: Performed By: #### U AMICAO, UA #### Nadja [address] [address] UA RBC 0-5 Abnormal None Seen [facility] ([place] Comment on above: Performed By: #### U AMICAO, UA #### Nadja [place] [id number] UA Squam Epithelial None Seen Normal None Seen [facility] ([place] Comment on above: Performed By: #### U AMICAO, UA #### Nadja [place] [address] UA WBC 0-5 Abnormal None Seen [facility] ([place] Comment on above: Performed By: #### U AMICAO, UA #### [place] [address] CBCon 02-04-2023 Erythrocyte distribution width (RBC) [Ratio] 14.2 % Normal 11.5-14.5 [facility] ([place] Comment on above: Performed By: #### B UN, CRE, GFR #### Nadja [place] [address] Hematocrit (Bld) [Volume fraction] 46.7 % Normal 42.0-52.0 [facility] ([place] Comment on above: Performed By: #### B UN, CRE, GFR #### Nadja [place] [address] Hgb 15.7 G/dL Normal 14.0-18.0 [facility] ([place] Comment on above: Performed By: #### B UN, CRE, GFR #### [address] [address] MCH (RBC) [Entitic mass] 28.8 pg Normal 27.0-31.2 [facility] ([place] Comment on above: Performed By: #### B UN, CRE, GFR #### [address] [address] MCHC 33.6 G/dL Normal 31.8-35.4 [facility] ([place] Comment on above: Performed By: #### B UN, CRE, GFR #### [address] [address] MCV (RBC) [Entitic vol] 85.7 fL Normal 80.0-94.0 [facility] ([place] Comment on above: Performed By: #### B UN, CRE, GFR #### [address] [address] Platelet 205 10 3/mcL Normal 130-400 [facility] ([place] Comment on above: Performed By: #### B UN, CRE, GFR #### [address] [address] Platelet mean volume (Bld) [Entitic vol] 8.6 fL Normal 7.4-10.4 [facility] ([place] Comment on above: Performed By: #### B UN, CRE, GFR #### [address] [address] RBC 5.46 10 6/mcL Normal 4.04-6.13 [facility] ([place] Comment on above: Performed By: #### B UN, CRE, GFR #### [address] [address] WBC 14.4 10 3/mcL High 4.6-10.8 [facility] ([place] Comment on above: Performed By: #### B UN, CRE, GFR #### [address] [address] CMPon 02-04-2023 Albumin Level 4.2 G/dL Normal 3.4-4.8 [facility] ([place] Comment on above: Performed By: #### B UN, CRE, GFR #### [address] [address] Albumin/Globulin [Mass ratio] 1.2 {ratio} Normal 1.1-2.5 [facility] ([place] Comment on above: Performed By: #### B UN, CRE, GFR #### [address] [address] ALP [Catalytic activity/Vol] 124 U/L Normal 40-135 [facility] ([place] Comment on above: Performed By: #### B UN, CRE, GFR #### [address] [address] ALT [Catalytic activity/Vol] 20 U/L Normal 16-63 [facility] ([place] Comment on above: Performed By: #### B UN, CRE, GFR #### [address] [address] AST [Catalytic activity/Vol] 15 U/L Normal 10-40 [facility] ([place]) Comment on above: Performed By: #### B UN, CRE, GFR #### [address] [address] Bili Total 0.8 mg/dL Normal 0.2-1.0 [facility] ([place]) Comment on above: Result Comment: Use of this assay is not recommended for patients undergoing treatment with eltrombopag due to the potential for falsely elevated results. Performed By: #### B UN, CRE, GFR #### [address] [address] BUN/Creatinine Ratio 13 ratio Normal 7-27 [facility] ([place]) Comment on above: Performed By: #### B UN, CRE, GFR #### [address] [address] Calcium [Mass/Vol] 9.4 mg/dL Normal 8.4-10.2 [facility] ([place]) Comment on above: Performed By: #### B UN, CRE, GFR #### [address] [address] Chloride [Moles/Vol] 102 mmol/L Normal 98-107 [facility] ([place]) Comment on above: Performed By: #### B UN, CRE, GFR #### [address] [address] CO2 [Moles/Vol] 26 mmol/L Normal 23-31 [facility] ([place] Comment on above: Performed By: #### B UN, CRE, GFR #### [address] [address] Electrolyte Balance 10.0 mEq/L Normal 4.0-15.0 [facility] ([place] Comment on above: Performed By: #### B UN, CRE, GFR #### [address] [address] Globulin 3.5 G/dL Normal [facility] ([place]) Comment on above: Performed By: #### B UN, CRE, GFR #### [address] [address] Glucose [Mass/Vol] 119 mg/dL High 83-110 [facility] ([place]) Comment on above: Performed By: #### B UN, CRE, GFR #### [address] [address] Potassium [Moles/Vol] 4.1 mmol/L Normal 3.5-5.1 [facility] ([place]) Comment on above: Performed By: #### B UN, CRE, GFR #### [address] [address] Sodium [Moles/Vol] 138 mmol/L Normal 136-145 [facility] ([place]) Comment on above: Performed By: #### B UN, CRE, GFR #### [address] [address] Total Protein 7.7 G/dL Normal 6.4-8.2 [facility] ([place] Comment on above: Performed By: #### B UN, CRE, GFR #### [address] [address] Urea nitrogen [Mass/Vol] 18 mg/dL Normal 7-18 [facility] ([place] Comment on above: Performed By: #### B UN, CRE, GFR #### [place] [address] [place], [place] [address] Creatinine [Mass/Vol] 1.34 mg/dL High 0.70-1.30 [facility] ([place] Comment on above: Performed By: #### B UN, CRE, GFR #### [place] [address] [place], [place] [address] CT ABD/PELVIS W/ IV CONTRAST ONLYon 02-04-2023 [...] effusion. The heart is normal in size. [id number] coronary artery atherosclerosis. Numerous low attenuating lesions [...] 02/04/2023 11:18:15 AM Ordering Provider: LINDA RICHMOND [facility] ([place]) LABORATORYOrdered By: SYSTEM SYSTEM on 02-04-2023 HbA1c (Bld) [Mass fraction] 5.2 % Invalid Interpretation Code 4.0 - 6.0 % Auto Chem SS TSH Qn 1.821 mIU/mL Invalid Interpretation Code 0.550 - 4.780 mIU/mL ADM SS Troponin I.cardiac DL <= 0.01 [...] ratio] 13 ratio Invalid Interpretation Code 7 - 27 ratio AO ADM SS LABORATORYOrdered By: [...] 02-04-2023 Lipase Level 31 U/L Normal 16-77 [facility] ([place]) Comment on above: Performed By: #### B UN, CRE, GFR #### Nadja [address] [address] TROPHSon 02-04-2023 Troponin I High Sensitivity 14.0 ng/L Normal 0.0-76.2 [facility] ([place]) Comment on above: Performed By: #### U AMICAO, UA #### Nadja [address] [address] TSHon 02-04-2023 TSH 1.821 mIU/mL Normal 0.550-4.780 [facility] ([place]) Comment on above: Result Comment: No te - New Reference Range in effect 20 Performed By: #### B UN, CRE, GFR #### Nadja [address] [address] UAon 02-04-2023 Color (U) Yellow Normal [facility] ([place]) Comment on above: Performed By: #### U AMICAO, UA #### [address] [address] Glucose (U) [Mass/Vol] Negative Normal Negative [facility] [place] Comment on above: Performed By: #### U AMICAO, UA #### [address] [address] Ketones Ql (U) 15 mg/dL Abnormal Negative [facility] ([place] Comment on above: Performed By: #### U AMICAO, UA #### Nadja [address] [address] UA Appear Slightly Cloudy Abnormal Clear [facility] ([place] Comment on above: Performed By: #### U AMICAO, UA #### Nadja [address] [address] UA Blood Trace Abnormal Negative [facility] ([place]) Comment on above: Performed By: #### U AMICAO, UA #### Nadja [address] [address] UA Leuk Est Negative Normal Negative [facility] ([place]) Comment on above: Performed By: #### U AMICAO, UA #### Nadja [address] [address] UA Nitrite Negative Normal Negative [facility] ([place] Comment on above: Performed By: #### U AMICAO, UA #### Nadja [address] [address] UA pH 5.5 Normal 5.0 - 8.0 [facility] ([place] Comment on above: Performed By: #### U AMICAO, UA #### Nadja [address] [address] UA Protein 100 mg/dL Abnormal Negative [facility] ([place] Comment on above: Performed By: #### U AMICAO, UA #### Nadja [address] [address] UA Spec Grav 1.025 Normal 1.015-1.025 [facility] ([place]) Comment on above: Performed By: #### U AMICAO, UA #### [address] [address] UA Specimen Type Clean Catch Normal [facility] ([place]) Comment on above: Performed By: #### U AMICAO, UA #### [address] [address] UA Urobilinogen 0.2 E.U./dL Normal 0.2-1.0 [facility] ([place]) Comment on above: Performed By: #### U AMICAO, UA #### [address] [address] Urobilinogen (U) [Mass/Vol] Negative Normal Negative [facility] ([place] Comment on above: Performed By: #### U AMICAO, UA #### Nadja [address] [address] Vital Signs Date Time Vital Sign Value Performing Clinician Facility 05-30-2025 12:50-0400 Body height 163.83 cm Zebulun Beam [employer] Work Phone: 2(761)[phone] [place] [address] 05-30-2025 12:50-0400 Body mass index (BMI) [Ratio] 28.5 kg/m2 Zebulun Beam [employer] Work Phone: 4(300)[phone] [place] [address] 05-30-2025 12:50-0400 Body temperature 98.6 [degF] Zebulun Beam [employer] Work Phone: 0(446)[phone] [place] [address] 05-30-2025 12:50-0400 Body weight 76.65 kg Zebulun Beam [employer] Work Phone: 7(085)840-551502 [place] [address] 05-30-2025 12:50-0400 Diastolic blood pressure 83 mm[Hg] Zebulun Beam [employer] Work Phone: 4(568)312-432102 [place] [address] 05-30-2025 12:50-0400 Heart rate 62 /min Zebulun Beam [employer] Work Phone: 0(200)[phone] [place] [address] 05-30-2025 12:50-0400 Respiratory rate 16 /min Zebulun Beam [employer] Work Phone: 4(485)[phone] [place] [address] 05-30-2025 12:50-0400 SaO2% (BldA) [Mass fraction] 97 % Zebulun Beam [employer] Work Phone: 2(300)462-894902 [place] [address] 05-30-2025 12:50-0400 Systolic blood pressure 195 mm[Hg] Zebulun Beam [employer] Work Phone: 8(549)[phone] [place] [address] 03-09-2025 15:53-0400 Diastolic blood pressure 80 mm[Hg] Zebulun Beam [employer] Work Phone: 8(296)764-588102 [place] [address] 03-09-2025 15:53-0400 Heart rate 60 /min Zebulun Beam [employer] Work Phone: 2(691)[phone] [place] [address] 03-09-2025 15:53-0400 Respiratory rate 16 /min Zebulun Beam [employer] Work Phone: 5(724)[phone] [place] [address] 03-09-2025 15:53-0400 Systolic blood pressure 170 mm[Hg] Zebulun Beam [employer] Work Phone: [facility] 05-07-2023 10:02-0400 Body height 167.6 cm TANNER GILLIAM MD [facility] 05-07-2023 10:02-0400 Body weight 72.7 kg TANNER GILLIAM MD [facility] 05-07-2023 10:02-0400 Body weight 25.88 kg/m2 TANNER GILLIAM MD [facility] 02-05-2023 14:39-0400 Blood Pressure Location TANNER GILLIAM MD [facility] 02-05-2023 14:39-0400 Blood Pressure Method TANNER GILLIAM MD [facility] 02-05-2023 14:39-0400 Body temperature 97.88 [degF] TANNER GILLIAM MD [facility] 02-05-2023 14:39-0400 Diastolic Blood Pressure Non-Invasive 72 1 TANNER GILLIAM MD [facility] 02-05-2023 14:39-0400 Heart rate 61 /min TANNER GILLIAM MD [facility] 02-05-2023 14:39-0400 Reason For Taking VItal Signs TANNER GILLIAM MD [facility] 02-05-2023 14:39-0400 Respiratory rate 17 /min TANNER GILLIAM MD [facility] 02-05-2023 14:39-0400 Systolic Blood Pressure Non-Invasive 126 1 TANNER GILLIAM MD [facility] 02-05-2023 10:49-0400 Blood Pressure Cuff Size TANNER GILLIAM MD [facility] 02-05-2023 10:49-0400 Blood Pressure Location TANNER GILLIAM MD [facility] 02-05-2023 10:49-0400 Blood Pressure Method TANNER GILLIAM MD [facility] 02-05-2023 10:49-0400 Body temperature 97.7 [degF] TANNER GILLIAM MD [facility] 02-05-2023 10:49-0400 Diastolic Blood Pressure Non-Invasive 64 1 TANNER GILLIAM MD [facility] 02-05-2023 10:49-0400 Heart rate 63 /min TANNER GILLIAM MD [facility] 02-05-2023 10:49-0400 Reason For Taking VItal Signs TANNER GILLIAM MD [facility] 02-05-2023 10:49-0400 Respiratory rate 16 /min TANNER GILLIAM MD [facility] 02-05-2023 10:49-0400 Systolic Blood Pressure Non-Invasive 138 1 TANNER GILLIAM MD [facility] 02-05-2023 07:36-0400 Diastolic Blood Pressure Non-Invasive 66 1 TANNER GILLIAM MD [facility] 02-05-2023 07:36-0400 Systolic Blood Pressure Non-Invasive 139 1 TANNER GILLIAM MD [facility] 02-05-2023 07:26-0400 Blood Pressure Cuff Size TANNER GILLIAM MD [facility] 02-05-2023 07:26-0400 Blood Pressure Location TANNER GILLIAM MD [facility] 02-05-2023 07:26-0400 Blood Pressure Method TANNER GILLIAM MD [facility] 02-05-2023 07:26-0400 Body temperature 98.6 [degF] TANNER GILLIAM MD [facility] 02-05-2023 07:26-0400 Heart rate 65 /min TANNER GILLIAM MD [facility] 02-05-2023 07:26-0400 Reason For Taking VItal Signs TANNER GILLIAM MD [facility] 02-05-2023 07:26-0400 Respiratory rate 16 /min TANNER GILLIAM MD [facility] 02-05-2023 04:26-0400 Heart rate 65 /min TANNER GILLIAM MD [facility] 02-04-2023 23:10-0400 Heart rate 63 /min TANNER GILLIAM MD [facility] 02-04-2023 19:44-0400 Heart rate 62 /min TANNER GILLIAM MD [facility] 02-04-2023 18:22-0400 Mean blood pressure 114 mm[Hg] TANNER GILLIAM MD [facility] 02-04-2023 18:04-0400 Mean blood pressure 111 mm[Hg] TANNER GILLIAM MD [facility] 02-04-2023 17:49-0400 Body temperature 97.34 [degF] TANNER GILLIAM MD [facility] 02-04-2023 17:49-0400 Mean blood pressure 120 mm[Hg] TANNER GILLIAM MD [facility] 02-04-2023 17:45-0400 Respiratory Rate - Anes 0 br/min TANNER GILLIAM MD [facility] 02-04-2023 17:40-0400 Respiratory Rate - Anes 15 br/min TANNER GILLIAM MD [facility] 02-04-2023 17:35-0400 Body temperature 97.41 [degF] TANNER GILLIAM MD [facility] 02-04-2023 17:35-0400 Respiratory Rate - Anes 15 br/min TANNER GILLIAM MD [facility] 02-04-2023 17:30-0400 Body temperature 97.47 [degF] TANNER GILLIAM MD [facility] 02-04-2023 17:25-0400 Body temperature 97.48 [degF] TANNER GILLIAM MD [facility] 02-04-2023 15:44-0400 Blood Pressure Cuff Size TANNER GILLIAM MD [facility] 02-04-2023 14:31-0400 Heart rate 50 /min TANNER GILLIAM MD [facility] 02-04-2023 14:25-0400 Body height 167.6 cm TANNER GILLIAM MD [facility] 02-04-2023 14:25-0400 Body weight 77.3 kg TANNER GILLIAM MD [facility] 02-04-2023 14:25-0400 Body weight 27.52 kg/m2 TANNER GILLIAM MD [facility] 02-04-2023 13:26-0400 Diastolic Blood Pressure Non-Invasive [address] LINDA RICHMOND MD [facility] 02-04-2023 13:26-0400 Heart rate 47 /min DR LINDA RICHMOND MD [facility] 02-04-2023 13:26-0400 Respiratory rate 16 /min DR LINDA RICHMOND MD [facility] 02-04-2023 13:26-0400 Systolic Blood Pressure Non-Invasive [address] LINDA RICHMOND MD [facility] 02-04-2023 12:52-0400 Diastolic Blood Pressure Non-Invasive [address] LINDA RICHMOND MD [facility] 02-04-2023 12:52-0400 Heart rate 48 /min DR LINDA RICHMOND MD [facility] 02-04-2023 12:52-0400 Respiratory rate 16 /min DR LINDA RICHMOND MD [facility] 02-04-2023 12:52-0400 Systolic Blood Pressure Non-Invasive [address] LINDA RICHMOND MD [facility] 02-04-2023 11:49-0400 Body temperature 98.96 [degF] DR LINDA RICHMOND MD [facility] 02-04-2023 11:49-0400 Diastolic Blood Pressure Non-Invasive [address] LINDA RICHMOND MD [facility] 02-04-2023 11:49-0400 Heart rate 48 /min DR LINDA RICHMOND MD [facility] 02-04-2023 11:49-0400 Reason For Taking VItal Signs DR LINDA RICHMOND MD [facility] 02-04-2023 11:49-0400 Respiratory rate 16 /min DR LINDA RICHMOND MD [facility] 02-04-2023 11:49-0400 Systolic Blood Pressure Non-Invasive [address] LINDA RICHMOND MD [facility] 02-04-2023 09:40-0400 Body temperature 97.88 [degF] DR LINDA RICHMOND MD [facility] 02-04-2023 09:40-0400 Body weight 76.[address] LINDA RICHMOND MD [facility] Encounters Encounter Date Encounter Type Care Provider Facility Start: 06-21-2025 ambulatory Dickson Maceo Facility:[facility] Start: 06-20-2025 [facility] Start: 05-30-2025 End: 05-30-[address] Dickson Sanchez MD -Laboratory Work Phone: Start: 05-30-2025 End: 05-30-[address] Dickson Sanchez MD -[facility] Work Phone: Start: 05-30-2025 End: 05-30-2025 ambulatory Zebulun Beam MORTGAGE MANAGER-C Work Phone: -[facility] Start: 05-30-2025 End: 05-30-2025 ambulatory Dickson Maceo Facility:[facility] Start: 04-18-2025 End: 04-18-2025 ambulatory Zebulun Beam MORTGAGE MANAGER-C Work Phone: -[facility] [place] Start: 04-18-2025 End: 04-18-2025 Patient encounter procedure Zebulun Beam MORTGAGE MANAGER-C -Laboratory [place] Work Phone: Start: 04-18-2025 End: 04-18-2025 ambulatory Zebulun Beam Facility:[facility] Start: 03-30-2025 End: 03-30-2025 ambulatory Zebulun Beam MORTGAGE MANAGER-C Work Phone: -[facility] Start: 03-30-2025 End: 03-30-[address] Dickson Sanchez MD -[facility] Work Phone: Start: 03-30-2025 End: 03-30-2025 ambulatory Dickson Daniel Facility:[facility] Start: 03-24-2025 End: 03-24-2025 ambulatory Zebulun Beam MORTGAGE MANAGER-C Work Phone: -[facility]atory [place] [facility] Start: 03-24-2025 End: 03-24-2025 Patient encounter procedure Zebulun Beam MORTGAGE MANAGER-C -Laboratory [place] [facility] Start: 03-24-2025 End: 03-24-2025 ambulatory Zebulun Beam Facility:[facility] Start: 03-09-2025 End: 03-09-[address] Dickson Sanchez MD -[facility] Work Phone: Start: 03-09-2025 End: 03-09-2025 ambulatory Zebulun Beam MORTGAGE MANAGER-C Work Phone: -[facility] Start: 01-28-2025 End: 01-28-2025 ambulatory Zebulun Beam MORTGAGE MANAGER-C Work Phone: [facility] Work Phone: Start: 01-28-2025 End: 01-28-2025 Patient encounter procedure Zebulun Beam MORTGAGE MANAGER-C -Laboratory [place] [facility] Start: 01-28-2025 End: 01-28-2025 ambulatory Zebulun Beam Facility:[facility] Start: 10-31-2023 End: 11-01-2023 ambulatory SHANNA MCKEON MD Facility:B Start: 10-31-2023 End: 10-31-2023 Patient encounter procedure SHANNA MCKEON MD [facility] Start: 10-27-2023 End: 10-28-2023 ambulatory SHANNA MCKEON MD Facility:[facility] Start: 10-27-2023 End: 10-27-2023 Patient encounter procedure SHANNA MCKEON MD [facility] Start: 05-19-2023 End: 05-19-2023 ambulatory LASHON GOLDBERG POSITION CLASSIFICATION SPECIALIST-NEEDLE SETTER Facility:B Start: 05-07-2023 End: 05-08-2023 ambulatory LASHON GOLDBERG POSITION CLASSIFICATION SPECIALIST-NEEDLE SETTER Facility:B Start: 05-07-2023 End: 05-07-2023 Admission to establishment TANNER GILLIAM MD [facility] Start: 02-17-2023 End: 02-18-2023 ambulatory LASHON GOLDBERG POSITION CLASSIFICATION SPECIALIST-NEEDLE SETTER Facility:B Start: 02-17-2023 End: 02-17-2023 Patient encounter procedure LASHON GOLDBERG POSITION CLASSIFICATION SPECIALIST-[facility] Start: 02-04-2023 End: 02-05-2023 ambulatory MADELYN DAWKINS MD Facility:A Start: 02-04-2023 End: 02-05-2023 Observation TANNER GILLIAM MD [facility] Start: 02-04-2023 End: 02-04-2023 Emergency department patient visit NONE PHYSICIAN Facility:B Start: 02-04-2023 End: 02-04-2023 Emergency department patient visit DR LINDA RICHMOND MD [facility] Procedures Date Procedure Procedure Detail Performing Clinician Start: 03-30-2025 Computed tomography of abdomen and pelvis with contrast Zebulun Beam MORTGAGE MANAGER-C Work Phone: Start: 01-28-2025 Prostate specific an tigen measurement Zebulun Beam MORTGAGE MANAGER-C Work Phone: Comment on above: This test [...] stick/tabl et reagent auto microscopy Zebulun Beam MORTGAGE MANAGER-C Work Phone: Start: 05-19-2023 Right inguinal herni a (jacky MCKEON MD Start: 02-04-2023 Appendectomy TANNER CHIN MD Payers Date Payer Category Payer Self-pay 2023 Private Health Insurance [id number] 1945 Unknown [id number] 2.16.8 [id number] 1945 Unknown [id number] 2.16.8 [id number] 1945 Unknown [id number] 2.16.8 [id number] 1945 Unknown [id number] 2.16.8 [id number] 1945 Unknown [id number] 2.16.8 [id number] 1945 Unknown [id number] 2.16.8 [id number] 1945 Unknown [id number] 2.16.8 [id number] Unknown [id number] 2.16.8 [id number] Unknown [id number] 2.16.8 [id number] Unknown [id number] 2.16.8 [id number] Unknown [id number] 2.16.8 [id number] Unknown [id number] 2.16.8 [id number] Unknown [id number] 2.16.8 [id number] Unknown [id number] 2.16.8 [id number] Unknown [id number] 2.16.8 [id number] Social History Date Type Detail Facility Start: 02-04-2023 End: 06-06-2025 Tobacco smoking status Ex-smoker (finding) [facility] Start: 1945 Sex Assigned At Male A [facility] Tobacco smoking stat us NHIS Unknown if ever smoked [facility] Work Phone: Sex Male [facility] Functional Status Date Assessment Result Facility 05-07-2023 Functional Status Sensory Deficits None A [facility] 02-05-2023 Functional Status Room check performed [facility] 02-05-2023 Functional Status [facility] 02-05-2023 Functional Status Multilevel home [facility] 02-05-2023 Functional Status [facility] 02-05-2023 Functional Status [facility] 02-04-2023 Functional Status [facility] 02-04-2023 Functional Status [facility] 02-04-2023 Functional Status Sensory Deficits None A [facility] 02-04-2023 Functional Status Ambulation in [facility] 02-04-2023 Functional Status [facility] Mental Status Date Assessment Result Facility 02-05-2023 Mental Status Oriented x 4 [facility] 02-05-2023 Mental Status [facility] 02-04-2023 Mental Status Orientation Asse ssment Oriented x 4, Appropriate for developmental age, Oriented to person, Oriented to place, Oriented to time, Oriented to situation [facility] 02-04-2023 Mental Status [facility] 02-04-2023 Mental Status Orientation Oriented x 4 [facility] 02-04-2023 Mental Status [facility] Clinical Notes 02-04-2023 to 05-30-2025 Note Date & Type Note Facility 05-30-2025 Progress note [facility] 05-30-2025 Progress note Note Date/Time May 30, 2025 2:46pm [facility] [address] [place] [address] OFFICE VISIT Date of Service: 05/30/25 MR#: [id number] Acct: [id number] Name: ROSIBEL STEELE Rep #: [id number] : 1945 Provider: Dr. Dickson Sanchez MD Age/Sex: 80/M Location: [facility] Status: Signed Intake Vital Signs 05/30/25 12:50 Height 5 ft 4.5 in Weight: 169 lb BMI 28.5 BP 195/83 H Blood Pressure Location Lt brachial Position Sitting Respiration 16 Pulse 62 Pulse Source NIBP Temp 98.6 F Temp Source Temporal Pulse Oximetry (%) 97 Oxygen Delivery Method room air Intake Visit Reasons: Discuss Results Ergonomic Specialist Required: No Accompanied by: Self Is patient in pain?: No Allergies No Known Allergies Allergy (Verified 05/30/25 12:52) Medications ?Medication ?Instructions ?Recorded ?Confirmed ?Type NK 05/30/25 05/30/25 History Have you fallen in the past year?: No PFSH Medical History AAA (abdominal aortic aneurysm) HTN (hypertension) Surgical History Hx of hernia repair (~2021) Hx of appendectomy (~2021) Family History Other Cancer Hypertension Social History Smoking Status: Former smoker Tobacco: How many years used: 30 HPI HPI HPI: ROSIBEL STEELE, is a 80 M who presents to the office today for follow up of AAA initially identified incidentally last year at which time it was 5.4 cm. He has now had his repeat CTA and is here to discuss options. No back/abd pain, no CP/SOB with activity, able to climb hills in [place], up and down stairs without limitation. ROS General General: No weight change, appetite, [...] headache(s), No lack of coordination, No loss ofvision, No memory loss, No numbness, No other visual disturbances, No radicular pain, No restless legs, No sensory deficit, No syncope, No tingling, No tremor(s), No weakness and No other Exam Const General: cooperative, healthy appearing, comfortable, no acute distress and welldeveloped Nutritional Appearance: well nourished Orientation: alert, awake and oriented x3 [facility] Head: normocephalic and atraumatic Ears: hearing grossly normal bilaterally Nose: external nose normal Eyes General: appearance normal, both eyes and all related structures EOM: EOM intact bilaterally Neck Neck: normal visual inspection, full ROM, no lymphadenopathy and trachea midline Thyroid: thyroid normal Lymphatic: no lymphadenopathy noted Resp Effort & Inspection: normal respiratory effort, able to speak in complete sentences, symmetric chest movement, no audible wheezes, not labored, no stridorand no use of accessory muscles Auscultation: clear to auscultation bilaterally Cardio Rate: regular rate Rhythm: regular rhythm Heart Sounds: no murmurs Bruits: no carotid bruits Pulses: brachial pulses present and radial pulses present GI Inspection: non-distended Palpation: soft, no hernias, no pulsatile masses and nontender Skin General: [...] normal Mood: congruent mood Speech and Movement: speech and movement normal Thought Content: normal Judgment: judgment good Coding Level of Care Code Off vis,est,level 3 Diagnoses Infrarenal abdominal aortic aneurysm (AAA) without rupture I71.43 Abdominal aorta location: infrarenal aorta Presence of rupture: without rupture Assessment and Plan Assessment and Plan (1) AAA (abdominal aortic aneurysm): Status: Chronic Qualifiers: Abdominal aorta location: infrarenal aorta Presence of rupture: withoutrupture Qualified Code(s): I71.43 - Infrarenal abdominal aortic aneurysm, without rupture Comment: CTA- images reviewed, 6.3 cm AAA, normal caliber visceral segment, ectasia distal thoracic aorta Plan: -proximal landing zone appears adequate for EVAR -will review with device financial service representative -risks/benefits/alternatives discussed, agreeable to proceed Orders: Orders Serum Creatinine & GFR Today I10 - Essential (primary) hypertension Clinical Quality Measures Falls Risk Screening/Assistive Devices Have you fallen in the past year?: No 05/30/25 7526 <Electronically signed by Dickson Arzola> Date _ Dickson Sanchez MD Cosigner Signature: Date (if applicable) CC: ~ [place] [employer] Work Phone: 1(831) 552-347108-21-2025 Radiology Diagnostic study note [facility] [address] [place] [address] CTA Abd/Pelvis W/WO Contrast MR#: [id number] Acct: [id number] Name: ROSIBEL STEELE Rep #: [id number] : 1945 M 79 From: Chetan Gamble MD PCP: [facility] MORTGAGE MANAGER-C Status: REG CLI Study:CTA Abd/Pelvis W/WO Contrast Date of Ex am: 03/30/25 Exam# [id number] Ordering Dr: Ja Sanchez MD PROCEDURE: CTA ABD/PELVIS W/WO CONTRAST 03/30/2025 REASON FOR EXAM: AAA TECHNIQUE: CTA ABD/PELVIS W/WO CONTRAST Multiplanar Sagittal and Coronal images were obtained. 3D and or MIPS post processing was performed CONTRAST: Isovue 370 VOLUME: 100 mL One or more dose reduction techniques were used (e.g., Automated exposure control, adjustment of the mA and/or kV according to patient size, use of iterative reconstruction technique). RADIATION DOSE SUMMARY: CTDlvol: 19.9 mGy DLP: 627.6 mGycm COMPARISON: Prior study dated October 31, 2023. 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 The aneurysm extends to the bifurcation. Iliac Arteries: Atherosclerotic plaque formation. 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 FLEX : Nonvisualized. Right Renal: Tight stenosis at the origin of the right renal artery. Left Renal: Moderate stenosis at the origin of the left renal artery. Extravascular Findings: The lung bases are clear. Mild coronary artery calcification. There is a 6.2 cm by 5.8 cm cyst in the central portion of the right lobe of theliver. A 1.2 cm cyst is seen in the peripheral aspect of the left lobe of the liver. These are unchanged. CT/CTA Abd/Pelvis W/WO Contrast IMPRESSION: Mild increase in size of the infrarenal abdominal aortic aneurysm with a transverse dimension of 5.7 cm. Mural thrombus is seen. The remainder of the examination is unchanged. Reading Location: [id number] CC: Dr. 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 March 09, 2025 3:24pm [facility] Work Phone: [phone] Evaluation note* Diagnosis Onset Date Resolution Status Admit Date AAA (abdominal aortic aneurysm) chronic March 09, 2025 3:24pm AAA (abdominal aortic aneurysm) chronic May 30 12:47pm [facility] Work Phone: [phone]) [phone] Note ORIGINAL EXAMINATION: CTA OF THE ABDOMEN [...] Sign Date: 10/31/2023 4:37:40 PM Ordering Provider: [facility]06-28-2023 Hospital Discharge instructions Patient Education 02/05/2023 16:54:06 Laparoscopic Appendectomy, [...] Follow these instructions at home: Medicines Take henv-npi-djshpce and prescription medicines only as told by your health care provider. If you were prescribed an antibiotic medicine, take it as told by your health care provider. Do notstop taking the antibiotic even if you start to feel better. Do not drive or use heavy machinery while taking prescription pain medicine. Ask your health care provider if the medicine prescribed to you can cause constipation. You may need to take steps to prevent or treat constipation, such as: ?Drink enough fluid to keep your urine pale yellow. ?Take fess-qat-wkfgktt or prescription medicines. ?Eat foods that are [...] and water are not available, use hand filtration plant mechanic. ?Change your dressing as told by your [...] weeks, or until your health care provider approves.You may take showers after 48 hours. Activity [...] from your health care provider about how tocare for it. Take deep breaths. This helps [...] 07/28/2006 Document Revised: 01/28/2019 Document Reviewed: 01/28/2019 [employer] Patient Education 2020 [employer] 02/05/2023 16:53:03 Appendicitis, Adult Appendicitis, Adult Appendicitis is inflammation of the appendix. The appendix is a finger-shaped tube that is attachedto the large intestine. If appendicitis is not [...] to remove the appendix (appendectomy). There are twomethods for doing an appendectomy: Open appendectomy. In [...] to care for your incision. Medicines Take hvbb-oxy-bcrmzkg and prescription medicines only as told by your health care provider. If you were prescribed an antibiotic medicine, take it as told by your health care provider. Do notstop taking the antibiotic even if you start to feel better. Eating and drinking Follow instructions from your health care provider about eating restrictions. You may slowly resumea regular diet once your nausea or vomiting stops. General instructions Do not use any products that contain nicotine or tobacco, such as cigarettes, e- cigarettes, and chewing tobacco. If you need help quitting, ask your health care provider. Do not drive or use heavy machinery while taking prescription pain medicine. Ask your health care provider if the medicine prescribed to you can cause constipation. You may need to take steps to prevent or treat constipation, such as: ?Drink enough fluid to keep your urine pale yellow. ?Take nkao-rig-vddkima or prescription medicines. ?Eat foods that are [...] 07/28/2006 Document Revised: 01/13/2019 Document Reviewed: 01/13/2019 [employer] Patient Education 2020 [employer] Follow Up Care 02/04/2023 13:42:34 With:TANNER GILLIAM MD, Surgery Address: [address] [place] [address] [address] [facility] [place] [address]- When:02/20/2023 13:50:00 Comments:Follow up appointment With:LUIS MAGALLANES MD, [facility], Vascular Service, Vascular Surgeons Address: [address] [facility] [place] [phone] Business (1) When:Within 4 Week(s) Comments:Follow up in approximately 4 weeks With:LASHON GOLDBERG APRN-[facility] Address: [address] [place] [address] [place] [address]- When:02/12/2023 16:00:00 Comments:PLEASE ARRIVE AT 3:30 PM TO FILL OUT PAPERWORK . BRING YOUR INSURANCE CARD AND PHOTO ID [facility] 06-28-2023 Surgery Hospital Progress note Date of Service 02/05/2023 Chief Complaint Postoperative day #1 Subjective On examination of the patient he is seen resting supine in bed, no acute distress. Patient reports that his right lower abdominal pain is gone however he is experiencing mild pain to the laparoscopicsites. States that he is tolerating his diet [...] hernia reproducible, no changes to skin or erythremianoted Extremities: Freely moving. Skin: Normal color for [...] a primary PCP. I did speak to health care social worker in regards to helpingthe patient find a primary PCP. -Anticipate discharge within the next 24 hours. 2. Medical management per the hospitalist-appreciate input -Patient scheduled for an echocardiogram due to elevated blood pressure 3. Vascular surgery consulted for newly diagnosed 5.[address] infrarenal AAA seen on CT scan. Case cussed Dr. Gilliam. Please see his addendum to follow. Digitally Signed by UMER LARKIN on 02/05/2023 10:24 AM [id number] Note Discharge Instructions Thank you for allowing [facility] to assist you with your healthcare needs. The following is importantdischarge information regarding your hospital visit. Your Care [...] forms of activity and are encouraged in postoperativeperiod. Spirometer use and deep breathing/coughing exercises are also encouraged after discharge toprevent respiratory complications such as pneumonia and blood clots. You may shower. No tub bathingor soaking your incision, and no pools/hot tub [...] analgesia (pain medication.). Concern encouraged to take hzae-hod-gvhckzk stool softeners (such as Colace) and over the counter laxatives (such as Miralax) as needed for constipation. Additional medications that can be taken for operative constipation including milk of magnesia, Metamucil and Senokot. 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 BRING YOUR INSURANCE CARD AND PHOTO ID Where: [address] [place] [address]- Follow Up with LUIS MAGALLANES MD, [facility], Vascular Service, Vascular Surgeons When In 4 weeks Why: Follow up in approximately 4 weeks Where: [address] [facility] [place] [address]- [phone] Business (1) The Following Activity and Diet [...] and or supplements as they may interact withyour home medications. What How Much When Why Instructions Last Dose New amoxicillin-clavulanate (amoxicillin-clavulanate 875 mg-125 mg oral tablet) 1 tab(s) by mouth Every 12 hours Appendicitis Duration: 4 Days Printed Prescription New losartan (losartan 50 mg oral tablet) 1 tab(s) by mouth Once a day Pickup at [id number] Pharmacy Information [id number]: [address], [place] [phone] [phone] Please take this list to your next [...] Follow these instructions at home: Medicines Take jvfi-qqk-cchmbkf and prescription medicines only as told by your health care provider. If you were prescribed an antibiotic medicine, take it as told by your health care provider. Do notstop taking the antibiotic even if you start to feel better. Do not drive or use heavy machinery while taking prescription pain medicine. Ask your health care provider if the medicine prescribed to you can cause constipation. You may need to take steps to prevent or treat constipation, such as: ? Drink enough fluid to keep your urine pale yellow. ? Take qlyh-faw-zxvotfh or prescription medicines. ? Eat foods that [...] and water are not available, use hand filtration plant mechanic. ? Change your dressing as told by [...] weeks, or until your health care provider approves.You may take showers after 48 hours. Activity [...] from your health care provider about how tocare for it. Take deep breaths. This helps [...] 07/28/2006 Document Revised: 01/28/2019 Document Reviewed: 01/28/2019 [employer] Patient Education 2020 [employer] Appendicitis, Adult Appendicitis is inflammation of the appendix. The appendix is a finger-shaped tube that is attachedto the large intestine. If appendicitis is not [...] to remove the appendix (appendectomy). There are twomethods for doing an appendectomy: Open appendectomy. In [...] to care for your incision. Medicines Take jgye-pxi-ykyytiw and prescription medicines only as told by your health care provider. If you were prescribed an antibiotic medicine, take it as told by your health care provider. Do notstop taking the antibiotic even if you start to feel better. Eating and drinking Follow instructions from your health care provider about eating restrictions. You may slowly resumea regular diet once your nausea or vomiting stops. General instructions Do not use any products that contain nicotine or tobacco, such as cigarettes, e- cigarettes, and chewing tobacco. If you need help [...] keep your urine pale yellow. ? Take gztr-wtk-lgxlwlv or prescription medicines. ? Eat foods that [...] 07/28/2006 Document Revised: 01/13/2019 Document Reviewed: 01/13/2019 [employer] Patient Education 2020 [employer] [employer] Additional Information VACCINATE! IT SAVES LIVES! Members of the community who have not yet received the COVID-19 vaccine and would like to receive it can visit one of [facility] vaccine clinics. There are many vaccine clinic locations within the [facility]. For locations and available times, please visit [email or web address]/. It is important to note that some COVID mobile vaccine clinics are held outdoors and may be canceled in rainy or stormy conditions. To learn more about pediatric vaccinations (ages 5-11), we invite you to visit the [facility] webpage. https://www.[facility].org/pages/3718-Cjifg-Hwyklyftsis-Nduekjmrxn-Rffzt-Mhf stions.htmlTo learn more about the COVID-19 vaccine, we invite you to visit the CDC website for a list of frequently asked questions.https://www.cdc.gov/coronavirus/2019-ncov/vaccines/faq.html [employer] Patient Portal Access Instructions: Stay connected with your healthcare team and access your personal medical information anytime with the [employer] Patient Portal. Please follow the directions below to create your [employer] account: 1.Access the email account you provided upon registration to the hospital/physician office.2.Look for an invitation email from [facility].3.Open the email and access the invitation link: AcceptInvitation to [facility].4.Fill in the required bauer to create your account. To access your account, visit [email or web address]. Click the blue button labeled "Access Patient Portal" and then log in with the username and password that you created in the steps above. You will be able to view your test results, lab results, a summary of your visits, upcoming appointments and more. There is also a convenient messaging option where you can send secure messages to your p rovider. In addition, you will have the ability to download any documents or summaries to your computer and/or send the information securely to a physician. Remember that your healthcare information is confidential, so carefully consider who you will allowto register on the [facility] Patient Portal for access to your information. You can also access the [facility] Patient Portal on the [facility] suze. Simply click on "Patient Portal" and then log into your account. If you would like to receive a full copy of your medical records, please contact the [facility] Medical Records Department by calling [phone], Friday through Friday between 8 a.m. and 4:30 p.m. HOW TO SAFELY DISPOSE OF PRESCRIPTION MEDICATIONS Please use one of the following methods to safely dispose of your unused medications. 1.Use a drug disposal kit: the drug disposal pouch allows you to safely discard your old and unuseddrugs. Ask your nurse to give you one when you are discharged.2.Visit a local take-back location: Many local pharmacies and police departments have programs that collect old and unwanted prescriptiondrugs. Call your local pharmacy or go to http://bit.ly/2D4Vt0l to find one close to you.3.Make use of household items: Use cat litter or old coffee grounds to dispose medications if other options arenot available. Mix your drugs with these household products, seal them in an airtight container andthrow it into the garbage. Call [facility]: [phone] to be sure your drugs can be [...] questions, I am aware that I should contactmy doctor. Patient/Pipelines Supervisor Signature: Date/Time: Relationship to Patient: Witness Name/Signature: Date/Time: [id number] Note Discharge Instructions Thank you for allowing [facility] to assist you with your healthcare needs. The following is importantdischarge information regarding your hospital visit. Your Care [...] forms of activity and are encouraged in postoperativeperiod. Spirometer use and deep breathing/coughing exercises are also encouraged after discharge toprevent respiratory complications such as pneumonia and blood clots. You may shower. No tub bathingor soaking your incision, and no pools/hot tub [...] analgesia (pain medication.). Concern encouraged to take osqa-pdg-kkbqwfo stool softeners (such as Colace) and over the counter laxatives (such as Miralax) as needed for constipation. Additional medications that can be taken for operative constipation including milk of magnesia, Metamucil and Senokot. 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 BRING YOUR INSURANCE CARD AND PHOTO ID Where: [address] [place] [address]- Follow Up with LUIS MAGALLANES MD, [facility], Vascular Service, Vascular Surgeons When In 4 weeks Why: Follow up in approximately 4 weeks Where: [address] [facility] [place] [address]- [phone] Business (1) The Following Activity and Diet [...] and or supplements as they may interact withyour home medications. What How Much When Why Instructions Last Dose New amoxicillin-clavulanate (amoxicillin-clavulanate 875 mg-125 mg oral tablet) 1 tab(s) by mouth Every 12 hours Appendicitis Duration: 4 Days Printed Prescription New losartan (losartan 50 mg oral tablet) 1 tab(s) by mouth Once a day Pickup at [facility] #[id number] Pharmacy Information [facility][id number]: [address], [place] [id number] [phone] Please take this list to your next [...] Follow these instructions at home: Medicines Take akwn-boq-wwunzxb and prescription medicines only as told by your health care provider. If you were prescribed an antibiotic medicine, take it as told by your health care provider. Do notstop taking the antibiotic even if you start to feel better. Do not drive or use heavy machinery while taking prescription pain medicine. Ask your health care provider if the medicine prescribed to you can cause constipation. You may need to take steps to prevent or treat constipation, such as: ? Drink enough fluid to keep your urine pale yellow. ? Take qaun-flr-ajjxtjs or prescription medicines. ? Eat foods that [...] and water are not available, use hand filtration plant mechanic. ? Change your dressing as told by [...] weeks, or until your health care provider approves.You may take showers after 48 hours. Activity [...] from your health care provider about how tocare for it. Take deep breaths. This helps [...] 07/28/2006 Document Revised: 01/28/2019 Document Reviewed: 01/28/2019 [employer] Patient Education 2020 [employer] Appendicitis, Adult Appendicitis is inflammation of the appendix. The appendix is a finger-shaped tube that is attachedto the large intestine. If appendicitis is not [...] to remove the appendix (appendectomy). There are twomethods for doing an appendectomy: Open appendectomy. In [...] to care for your incision. Medicines Take ygrj-eyy-tzwoqoj and prescription medicines only as told by your health care provider. If you were prescribed an antibiotic medicine, take it as told by your health care provider. Do notstop taking the antibiotic even if you start to feel better. Eating and drinking Follow instructions from your health care provider about eating restrictions. You may slowly resumea regular diet once your nausea or vomiting stops. General instructions Do not use any products that contain nicotine or tobacco, such as cigarettes, e- cigarettes, and chewing tobacco. If you need help [...] keep your urine pale yellow. ? Take baqf-dfd-mashafc or prescription medicines. ? Eat foods that [...] 07/28/2006 Document Revised: 01/13/2019 Document Reviewed: 01/13/2019 Elsevier Patient Education 2020 [employer] Additional Information VACCINATE! IT SAVES LIVES! Members of the community who have not yet received the COVID-19 vaccine and would like to receive it can visit one of [facility] vaccine clinics. There are many vaccine clinic locations within the [facility]. For locations and available times, please visit [email or web address]/. It is important to note that some COVID mobile vaccine clinics are held outdoors and may be canceled in rainy or stormy conditions. To learn more about pediatric vaccinations (ages 5-11), we invite you to visit the [facility] webpage. https://www.[facility].org/pages/3762-Kdskj-Inwrhruoofu-Khhjjttvas-Qqzdo-Xvn stions.htmlTo learn more about the COVID-19 vaccine, we invite you to visit the CDC website for a list of frequently asked questions.https://www.cdc.gov/coronavirus/2019-ncov/vaccines/faq.html [employer] Patient Portal Access Instructions: Stay connected with your healthcare team and access your personal medical information anytime with the [facility] Patient Portal. Please follow the directions below to create your [employer] account: 1.Access the email account you provided upon registration to the hospital/physician office.2.Look for an invitation email from [facility].3.Open the email and access the invitation link: AcceptInvitation to [facility] [employer] [facility].4.Fill in the required bauer to create your account. To access your account, visit [email or web address]. Click the blue button labeled "Access Patient Portal" and then log in with the username and password that you created in the steps above. You will be able to view your test results, lab results, a summary of your visits, upcoming appointments and more. There is also a convenient messaging option where you can send secure messages to your p rovider. In addition, you will have the ability to download any documents or summaries to your computer and/or send the information securely to a physician. Remember that your healthcare information is confidential, so carefully consider who you will allowto register on the [facility] Patient Portal for access to your information. You can also access the [facility] on the [facility] suze. Simply click on "Patient Portal" and then log into your account. If you would like to receive a full copy of your medical records, please contact the [facility] Medical Records Department by calling [phone], Friday through Friday between 8 a.m. and 4:30 p.m. HOW TO SAFELY DISPOSE OF PRESCRIPTION MEDICATIONS Please use one of the following methods to safely dispose of your unused medications. 1.Use a drug disposal kit: the drug disposal pouch allows you to safely discard your old and unuseddrugs. Ask your nurse to give you one when you are discharged.2.Visit a local take-back location: Many local pharmacies and police departments have programs that collect old and unwanted prescriptiondrugs. Call your local pharmacy or go to http://Pixlee/9B5Wa7d to find one close to you.3.Make use of household items: Use cat litter or old coffee grounds to dispose medications if other options arenot available. Mix your drugs with these household products, seal them in an airtight container andthrow it into the garbage. Call [facility]: [phone] to be sure your drugs can be [...] questions, I am aware that I should contactmy doctor. Patient/Pipelines Supervisor Signature: Date/Time: Relationship to Patient: Witness Name/Signature: Date/Time: [id number] Note Date of Service 02.05.23 Chief Complaint htn Subjective 77-year-old male with no previously known past medical history [facility] due toab[facility] pain. He was found to have leukocytosis on presentation 14,400 and also blood pressure of202/97. Also bradycardic as low as 47. EKG obtained with sinus bradycardia ND of [address] changes.Troponin of 14.0. Creatinine of 1.34. CT abdomen [...] has some surgical pain. was able to eatthis morning Objective Vitals and Measurements T: 36.6 [...] vascular surgery and will be following up withthem as an outpatient. Also found to have [...] qDay, # 30 tab(s), 0 Refill(s), Pharmacy: [facility] #[id number],167.6, cm, 02/04/23 14:25:00 EDT, Height Time Spent I spent a total of 36 minutes reviewing the patient s diagnostic labs/tests, seeing and examining the patient and documenting in the medical record, see assessment for further detail. Digitally Signed by MIREYA SALGUERO on 02/05/2023 03:09 PM [id number] Vascular surgery Consult note Date of Service 02/05/2023 Reason for Consultation Infrarenal abdominal aortic aneurysm without rupture History of Present Illness This is a 77-year-old male who presented to an outside emergency department with abdominal pain. Heunderwent CT abdomen and pelvis that revealed acute [...] noted, DTRs are 2+, CN II through XIIappear to be intact Skin: No active skin [...] mg= 1 mL, IV Push, q3h, PRN [place] 325- 5 mg oral tablet, 1 tab(s), [...] LUIS MAGALLANES MD on 02/05/2023 12:13 PM [id number] Surgery Hospital Progress note Date of Service 02/05/2023 Chief Complaint Postoperative day #1 Subjective On examination of the patient he is seen resting supine in bed, no acute distress. Patient reports that his right lower abdominal pain is gone however he is experiencing mild pain to the laparoscopicsites. States that he is tolerating his diet [...] hernia reproducible, no changes to skin or erythremianoted Extremities: Freely moving. Skin: Normal color for [...] a primary PCP. I did speak to health care social worker in regards to helpingthe patient find a primary PCP. -Anticipate discharge within the next 24 hours. 2. Medical management per the hospitalist-appreciate input -Patient scheduled for an echocardiogram due to elevated blood pressure 3. Vascular surgery consulted for newly diagnosed 5.1 infrarenal AAA seen on CT scan. Case cussed Dr. Gilliam. Please see his addendum to follow. Digitally Signed by UMER LARKIN on 02/05/2023 10:24 AM [id number] Cardiology Consult note Date of Service 02/04/2023 Reason for [...] AAA CVC: New 77-year-old man admitted to [facility] as transfer from [place] for acute appendicitis, cardiology service consulted for [...] with resting sinus bradycardia. blood pressure mildly elevated.TTE is ordered. Recommendations: Can proceed with planned surgery without further cardiac testing or optimization We will start losartan 50 mg p.o. daily on 02/06 for hypertension Cardiology service will sign off, please do not hesitate to reach out for any questions. Thank you for the consult. d/w Dr Robin Sherman MD Senior Support Engineer [employer] or Pager [phone] Problem List/Past Medical History Ongoing No qualifying [...] qualifying data available. Digitally Signed by GURPREET SHEMRAN MD on 02/04/2023 03:45 PM Digitally Signed by GURPREET SHERMAN MD on 02/04/2023 03:51 PM [id number] Anesthesiology Consult note Patient: ROSIBEL STEELE Age: [...] PASCUAL BEE MD on 02/04/2023 09:05 PM [id number] History and physical note Date of Service 02/04/2023 Chief Complaint Acute appendicitis History of Present Illness This patient is a 77-year-old gentleman who presented to [facility] with complaint of right lower abdominal pain. [...] he has not seen a physician in over40 years. Initial work-up in the emergency room included CBC which showed mild leukocytosis of 14.4, CMP witha creatinine of 1.34, glucose of 119 all [...] and a dose of morphine. Patient was alsonoted to have a heart rate of 49. [...] cooperative. Lab Results Seen and reviewed from [facility] Imaging Results and Diagnostics lisa for Exam: Pain. Sharp right lower quadrant pain onset on Friday. Known right-sided inguinal hernia. FINDINGS: Calcified granuloma seen in the lingula and right lower lobe. Minimal basilar atelectasis. There is no visible pleural or pericardial effusion. The heart is normal in size. Uasm-hk-zzydjaas coronary artery atherosclerosis. Numerous low attenuating lesions [...] noticed 4 years ago who presented to [facility] emergency room for complaints of sudden sharp [...] these findings the patient was transferred from [facility] to [facility] and admitted to the surgical services [...] by UMER LARKIN on 02/04/2023 03:34 PM [id number] Anesthesiology Consult note Patient: ROSIBEL STEELE Age: [...] Weight 77.3 kg Weight Lbs 170.1 lb [place] Body Weight 63.76 kg BSA Admission 1.87 [...] Anesthesiologist SN - CAt - Role Performed BLINDSTITCH LAPEL PADDER SN - CAt - Role Performed Power Distributor 1 SN - CAt - Role Performed [...] Type 0-10 Pain scale Nail Bed Color [place] Capillary Refill < 2 seconds Heart Rhythm [...] Facial Movement Symmetric resting/crying All Extremity Description [place], Normal for ethnicity Skin Temperature Warm Temperature All Extremities Warm Skin Description [place] Skin Integrity Intact Skin Turgor Elastic Mucous Membrane Color [place] Mucous Membrane Description Moist Sensory Perception Joseph [...] Detail No Transport Mode Order Detail Wheelchair Jewel Stripper Details Form Jewel Stripper Details Form 02/04/2023 14:25 EDT Designated Person #1 We May Share PHYLLIS Mcwilliams Designated Person #1 Relationship Other: grandson Privacy Restrictions Requested None Height 167.6 cm Height in inches 66 inch(es) Admission Weight 77.3 kg Weight Lbs 170.1 lb [place] Body Weight 63.76 kg BSA Admission 1.87 [...] Evaluation Verbalizes/Nonverbally indicates understanding Preferred Written Language Sierra Leonean Preferred Spoken Language [place] Leonean Information Given by Patient Patient's Current Physicians [...] Transfer Ground ambulance Required Personnel for Transfer Lamination Spinner Belongings At Bedside Transferred with patient Personal [...] 95 % 02/04/2023 12:45 EDT [place] 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 in Last 3 [...] ONLY 02/04/2023 10:20 EDT Accompanied By Staff Bar Roller Out of Room Returned from Current Location [...] Lipase Level 31 U/L 02/04/2023 9:51 EDT [place] Emergency Room Note History and Physical 02/04/2023 [...] Recommended GENESIS Level 3 Nail Bed Color [place] Capillary Refill < 2 seconds Respirations Unlabored Respiratory Pattern Regular Breath Sounds Auscultated Anterior only All Lobes Breath Sounds Clear, Diminished Oxygen Therapy Room air Oxygen Saturation 94 % Abdomen Description Non-distended, Soft Abdomen Palpation Tender Abdomen Tender RLQ Bowel Sounds All Quadrants Present Urinary Elimination Voiding, no difficulties Urine Color Yellow Urine Description Medium amount Skin Temperature Warm Skin Description [place], Normal for ethnicity, Dry Skin Integrity Intact Skin Turgor Elastic Mucous Membrane Color [place] Mucous Membrane Description Moist Gait Steady Level [...] No Weight Loss No Preferred Written Language [place] Leonean Preferred Spoken Language [place] Leonean Tracking Group ED AO Tracking Group Tracking [...] Count 0 EA . Assessment and Plan [place] Society of Anesthesiologists (ASA) physical status classification: [...] PASCUAL BEE MD on 02/04/2023 04:19 PM [id number] History and physical note Date of Service 02/04/2023 Chief Complaint Acute appendicitis History of Present Illness This patient is a 77-year-old gentleman who presented to [facility] with complaint of right lower abdominal pain. [...] he has not seen a physician in over40 years. Initial work-up in the emergency room included CBC which showed mild leukocytosis of 14.4, CMP witha creatinine of 1.34, glucose of 119 all [...] and a dose of morphine. Patient was alsonoted to have a heart rate of 49. [...] cooperative. Lab Results Seen and reviewed from [facility] Imaging Results and Diagnostics lisa for Exam: Pain. Sharp right lower quadrant pain onset on Friday. Known right-sided inguinal hernia. FINDINGS: Calcified granuloma seen in the lingula and right lower lobe. Minimal basilar atelectasis. There is no visible pleural or pericardial effusion. The heart is normal in size. Uocx-mp-codsvmgd coronary artery atherosclerosis. Numerous low attenuating lesions [...] noticed 4 years ago who presented to [facility] emergency room for complaints of sudden sharp [...] these findings the patient was transferred from [facility] to [facility] and admitted to the surgical services [...] by UMER LARKIN on 02/04/2023 03:34 PM [id number] Cardiology Consult note Date of Service 02/04/2023 Reason for [...] AAA CVC: New 77-year-old man admitted to [facility] as transfer from [place] for acute appendicitis, cardiology service consulted for [...] with resting sinus bradycardia. blood pressure mildly elevated.TTE is ordered. Recommendations: Can proceed with planned surgery without further cardiac testing or optimization We will start losartan 50 mg p.o. daily on 02/06 for hypertension Cardiology service will sign off, please do not hesitate to reach out for any questions. Thank you for the consult. d/w Dr Robin Sherman MD Senior Support Engineer [employer] or Pager [phone] Problem List/Past Medical History Ongoing No qualifying [...] GURPREET SHERMAN MD on 02/04/2023 03:51 PM [id number] Consult note Date of Service 02/04/23 Reason for Consultation hypertension, bradycardia Referring Physician Dr. Gilliam History of Present Illness 77-year-old male with no previously known past medical history [facility] to[facility]. He was found to have leukocytosis on presentation 14,400 and also blood pressure of202/97. Also bradycardic as low as 47. EKG obtained with sinus bradycardia ND of [address] changes.Troponin of 14.0. Creatinine of 1.34. CT abdomen [...] of distal small bowel with extensive scrotal withoutobstruction Plan 1. Given elevated blood pressure start on hydralazine 25 mg 3 times daily given concern for ROXY andbradycardia avoiding amlodipine, lisinopril or ARB, beta- bridget and also clonidine. EKG sinus bradycardia first-degree AV block. Consult cardiology. TSH. Echocardiogram given hypertension. As needed 10 mg IV hydralazine as needed for SBP greater than 165. 14. Personally reviewed his EKG with sinus bradycardia ND of 221 concerning for first-degree AV block. [...] participate in the care of this patient. Medicalteam will continue to follow. This document was [...] CHARLEEN FUENTES MD on 02/04/2023 03:30 PM [id number] Evaluation + Plan noteExtracted from: Title:History and Physical Author:JANICE LARKIN POSITION CLASSIFICATION SPECIALIST-NEEDLE SETTER Date:02/04/23 This patient is a pleasant [age]-year-old gentleman who denies any past medical history other than a right inguinal hernia he noticed 4 years ago who presented to [facility] emergency room for complaints of sudden sharp [...] these findings the patient was transferred from [facility] to [facility] and admitted to the surgical services [...] Appointments Appointment Date:02/12/2023 04:00:00 PM Scheduled Provider:LASHON GOLDBREG Location:[facility] Appointment Type:MILA MORTGAGE MANAGER Unassigned Hospital Follow Up Appointment Date:02/20/2023 01:50:00 PM Scheduled Provider:TANNER GILLIAM MD Location:[facility] Appointment Type:GS OV Post Op [facility] 06-27-2023 Note ORIGINAL EXAMINATION: CT OF THE [...] effusion. The heart is normal in size. [id number] coronary artery atherosclerosis. Numerous low attenuating lesions [...] Sign Date: 02/04/2023 11:18:15 AM Ordering Provider: [facility] Note ORIGINAL EXAMINATION: CT OF THE ABDOMEN [...] effusion. The heart is normal in size. [id number] coronary artery atherosclerosis. Numerous low attenuating lesions [...] Sign Date: 02/04/2023 11:18:15 AM Ordering Provider: [facility] Anesthesiology Consult note* PASCUAL BEE MD: PERFORM, SIGN, VERIFY Event Display: Anesthesiology Consultation Authored Date: [id number] Patient: ROSIBEL STEELE Age: 77 years Sex: [...] VERIFY Event Display: Anesthesiology Consultation Authored Date: [id number] Patient: ROSIBEL STEELE Age: 77 years Sex: [...] Weight 77.3 kg Weight Lbs 170.1 lb [place] Body Weight 63.76 kg BSA Admission 1.87 [...] Anesthesiologist SN - CAt - Role Performed BLINDSTITCH LAPEL PADDER SN - CAt - Role Performed Power Distributor 1 SN - CAt - Role Performed [...] Type 0-10 Pain scale Nail Bed Color [place] Capillary Refill < 2 seconds Heart Rhythm [...] Facial Movement Symmetric resting/crying All Extremity Description [place], Normal for ethnicity Skin Temperature Warm Temperature All Extremities Warm Skin Description [place] Skin Integrity Intact Skin Turgor Elastic Mucous Membrane Color [place] Mucous Membrane Description Moist Sensory Perception Joseph [...] Detail No Transport Mode Order Detail Wheelchair Jewel Stripper Details Form Jewel Stripper Details Form 02/04/2023 14:25 EDT Designated Person #1 We May Share PHYLLIS Mcwilliams Designated Person #1 Relationship Other: grandson Privacy Restrictions Requested None Height 167.6 cm Height in inches 66 inch(es) Admission Weight 77.3 kg Weight Lbs 170.1 lb [place] Body Weight 63.76 kg BSA Admission 1.87 [...] Evaluation Verbalizes/Nonverbally indicates understanding Preferred Written Language [place] Leonean Preferred Spoken Language [place] Leonean Information Given by Patient Patient's Current Physicians [...] LINDA RICHMOND [facility] Pt [facility]-transfer line Date/Time Transfer Accepted 02/04/2023 12:[address] 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 in Last 3 [...] ONLY 02/04/2023 10:20 EDT Accompanied By Staff Bar Roller Out of Room Returned from Current Location [...] Lipase Level 31 U/L 02/04/2023 9:51 EDT [facility] Note History and Physical 02/04/2023 [...] Recommended GENESIS Level 3 Nail Bed Color [place] Capillary Refill < 2 seconds Respirations Unlabored Respiratory Pattern Regular Breath Sounds Auscultated Anterior only All Lobes Breath Sounds Clear, Diminished Oxygen Therapy Room air Oxygen Saturation 94 % Abdomen Description Non-distended, Soft Abdomen Palpation Tender Abdomen Tender RLQ Bowel Sounds All Quadrants Present Urinary Elimination Voiding, no difficulties Urine Color Yellow Urine Description Medium amount Skin Temperature Warm Skin Description [place], Normal for ethnicity, Dry Skin Integrity Intact Skin Turgor Elastic Mucous Membrane Color [place] Mucous Membrane Description Moist Gait Steady Level of Consciousness Alert Eye Opening Response Kenny Spontaneously Best Motor Response Kenny Obeys simple commands Best Verbal Response Vance Oriented Vance Coma Score 15 Violence Risk Confused No [...] No Weight Loss No Preferred Written Language [place] Leonean Preferred Spoken Language [place] Leonean Tracking Group ED AO Tracking Group Tracking [...] Count 0 EA . Assessment and Plan [place] [employer] Anesthesiologists (ASA) physical status classification: [...] PASCUAL BEE MD on 02/04/2023 04:19 PM [facility] Evaluation + Plan note No data available for this section [facility] Evaluation + Plan note Future Appointments Appointment Date:02/20/2023 01:50:00 PM Scheduled Provider:TANNER GILLIAM MD Location:[facility] Appointment Type:GS OV Post Op [facility] Evaluation + Plan note Future Appointments [facility] Evaluation + Plan note Future Appointments Appointment Date:10/31/2023 02:00:00 PM Scheduled Provider: Location:[facility] Appointment Type:VL AOH - ABIs (ankles only) Appointment Date:10/31/2023 03:00:00 PM Scheduled Provider: Location:[facility] Appointment Type:CT Angiography Abd Aorta + Iliofemoral Future Scheduled Tests Radiology* CT Angiography Abd Aorta + Iliofemoral 10/31/23 [facility] Evaluation noteNo assessment information available [facility] Work Phone: Hospital Discharge instructions No data available for this section [facility] Progress note No data available for this section [facility] Reason for referral (narrative)No reason for referral information availableWAdena [facility] Work Phone: Summary Purpose Family History Relationship Condition Age at Onset Recorded Date/T pia Not Specified Malignant neoplasm Unknown Hypertension Unknown No Family History Records Found Advance Directives No Advanced Directives Records FoundNo Advanced Directives Records Found Chief Complaint and Reason for Visit Chief Complaint Admit Date Abdominal Aortic Aneurysm March 09 3:24pm Chief Complaint Admit Date Abdominal Aortic Aneurysm March 09 3:24pm AAA March 30, 2025 6: 07am Reason for Visit Admit Date AAA (abdominal aortic aneurysm) February 3:24pm Chief Complaint Admit Date Abdominal Aortic Aneurysm March 09 3:24pm AAA March 30, 2025 6: 07am Discuss Results May 30, 2025 1 2:47pm INT LAB ORDERS May 30, 2025 1 :49pm Reason for Visit Admit Date AAA (abdominal aortic aneurysm) February 3:24pm AAA (abdominal aortic aneurysm) May 30, 2025 12:47pm Additional Source Comments Patient Care team informatio n (unrecognized section and content) Team Status: Active Member Role Status Dates Jamal Beam VSC, MORTGAGE MANAGER-C Primary Care Provider Active Team Status: Inactive Member Role Status Dates Zebulun Beam VSC, MORTGAGE MANAGER-C Primary Care Provider Active Start: January 28, 2025 End: January 28, 2025 Zebulun Beam VSC, MORTGAGE MANAGER-C Attending Provider Active Start: January 28, 2025 End: January 28, 2025 Team Status: Active Member Role/Relationship Status Dates Zebulun Beam VSC, MORTGAGE MANAGER-C Primary Care Provider Active Team Status: Inactive Member Role/Relationship Status Dates Zebulun Beam VSC, MORTGAGE MANAGER-C Primary Care Provider Active Start: January 28, 2025 End: January 28, 2025 Zebulun Beam VSC, MORTGAGE MANAGER-C Attending Provider Active Start: January 28, 2025 End: January 28, 2025 Team Status: Inactive Member Role/Relationship Status Dates Zebulun Beam VSC, MORTGAGE MANAGER-C Primary Care Provider Active Start: March 09, 2025 End: March 09, 2025 Zebulun Beam VSC, MORTGAGE MANAGER-C Referring Provider Active Start: March 09, 2025 End: March 09, 2025 Dr. Dickson Sanchez MD Attending Provider Active S tart: March 09, 2025 End: March 09, 2025 Team Status: Inactive Member Role/Relationship Status Dates Zebulun Beam VSC, MORTGAGE MANAGER-C Primary Care Provider Active Start: March 24, 2025 End: March 24, 2025 Zebulun Beam VSC, MORTGAGE MANAGER-C Attending Provider Active Start: March 24, 2025 End: March 24, 2025 Team Status: Active Member Role/Relationship Status Dates Zebulun Beam VSC, MORTGAGE MANAGER-C Primary Care Provider Active Start: March 30, 2025 Dr. Dickson Sanchez MD Attending Provider Active S tart: March 30, 2025 Dr. Dickson Sanchez MD Referring Provider Active S tart: March 30, 2025 Team Status: Inactive Member Role/Relationship Status Dates Zebulun Beam VSC, MORTGAGE MANAGER-C Primary Care Provider Active Start: March 30, 2025 End: March 30, 2025 Dr. Dickson Sanchez MD Attending Provider Active S tart: March 30, 2025 End: March 30, 2025 Dr. Dickson Sanchez MD Referring Provider Active S tart: March 30, 2025 End: March 30, 2025 Team Status: Active Member Role/Relationship Status Dates Zebulun Beam VSC, MORTGAGE MANAGER-C Primary care physician Active Team Status: Inactive Member Role/Relationship Status Dates Zebulun Beam VSC, MORTGAGE MANAGER-C Primary care physician Active Start: January 28, 2025 End: January 28, 2025 Zebulun Beam VSC, MORTGAGE MANAGER-C Attending physician Active Start: January 28, 2025 End: January 28, 2025 Team Status: Inactive Member Role/Relationship Status Dates Zebulun Beam VSC, MORTGAGE MANAGER-C Primary care physician Active Start: March 09, 2025 End: March 09, 2025 Zebulun Beam VSC, MORTGAGE MANAGER-C Referring Provider Active Start: March 09, 2025 End: March 09, 2025 Dr. Dickson Sanchez MD Attending physician Active Start: March 09, 2025 End: March 09, 2025 Team Status: Inactive Member Role/Relationship Status Dates Zebulun Beam VSC, MORTGAGE MANAGER-C Primary care physician Active Start: March 24, 2025 End: March 24, 2025 Zebulun Beam VSC, MORTGAGE MANAGER-C Attending physician Active Start: March 24, 2025 End: March 24, 2025 Team Status: Inactive Member Role/Relationship Status Dates Zebulun Beam VSC, MORTGAGE MANAGER-C Primary care physician Active Start: March 30, 2025 End: March 30, 2025 Dr. Dickson Sanchez MD Attending physician Active Start: March 30, 2025 End: March 30, 2025 Dr. Dickson Sanchez MD Referring Provider Active S tart: March 30, 2025 End: March 30, 2025 Team Status: Inactive Member Role/Relationship Status Dates Zebulun Beam VSC, MORTGAGE MANAGER-C Primary care physician Active Start: April 18, 2025 End: April 18, 2025 Zebulun Beam VSC, MORTGAGE MANAGER-C Attending physician Active Start: April 18, 2025 End: April 18, 2025 Zebulun Beam VSC, MORTGAGE MANAGER-C Referring Provider Active Start: April 18, 2025 End: April 18, 2025 Team Status: Inactive Member Role/Relationship Status Dates Zebulun Beam VSC, MORTGAGE MANAGER-C Primary care physician Active Start: March 09, 2025 End: March 09, 2025 Zebulun Beam VSC, MORTGAGE MANAGER-C Referring Provider Active Start: March 09, 2025 End: March 09, 2025 Dr. Dickson Sanchez MD Attending physician Active Start: March 09, 2025 End: March 09, 2025 Team Status: Inactive Member Role/Relationship Status Dates Zebulun Beam VSC, MORTGAGE MANAGER-C Primary care physician Active Start: March 24, 2025 End: March 24, 2025 Zebulun Beam VSC, MORTGAGE MANAGER-C Attending physician Active Start: March 24, 2025 End: March 24, 2025 Team Status: Inactive Member Role/Relationship Status Dates Zebulun Beam VSC, MORTGAGE MANAGER-C Primary care physician Active Start: March 30, 2025 End: March 30, 2025 Dr. Dickson Sanchez MD Attending physician Active Start: March 30, 2025 End: March 30, 2025 Dr. Dickson Sanchez MD Referring Provider Active S tart: March 30, 2025 End: March 30, 2025 Team Status: Inactive Member Role/Relationship Status Dates Zebulun Beam VSC, MORTGAGE MANAGER-C Primary care physician Active Start: April 18, 2025 End: April 18, 2025 Zebulun Beam VSC, MORTGAGE MANAGER-C Attending physician Active Start: April 18, 2025 End: April 18, 2025 Zebulun Beam VSC, MORTGAGE MANAGER-C Referring Provider Active Start: April 18, 2025 End: April 18, 2025 Team Status: Inactive Member Role/Relationship Status Dates Zebulun Beam VSC, MORTGAGE MANAGER-C Primary care physician Active Start: May 30, 2025 End: May 30, 2025 Zebulun Beam VSC, MORTGAGE MANAGER-C Referring Provider Active Start: May 30, 2025 End: May 30, 2025 Dr. Dickson Sanchez MD Attending physician Active Start: May 30, 2025 End: May 30, 2025 Team Status: Inactive Member Role/Relationship Status Dates Zebulun Beam VSC, MORTGAGE MANAGER-C Primary care physician Active Start: May 30, 2025 End: May 30, 2025 Dr. Dickson Sanchez MD Attending physician Active Start: May 30, 2025 End: May 30, 2025 Dr. Dickson Sanchez MD Referring Provider Active S tart: May 30, 2025 End: May 30, 2025 (unrecognized sect ion and content) No Status Records FoundNo Status Records Found INFORMATION SOURCE (unrecogn ized section and content) DATE CREATED AUTHOR 11/07/2023 [facility] ([place]) DATE CREATED AUTHOR AUTHOR'S ELENI REEVES 06/21/2025 [facility] Goals (unrecognized section and content) Goals [...] BE BASED ON THE PRIMARY CLINICAL RECORDS. [employer] [facility]. provides no warranty or guarantee of the accuracy or completeness of information in this document.
[2025-06-21] MEDS: Lactated Ringers 1,000 ML 15 ML IV (06:03)
--- NOTE | 2025-06-21 06:28 | PCM.PRE.AN2 ---
ASA Classification* ASA Classification ASA Classification: 3 (AAA - 6.3 cm. ) Assessment & Plan Anesthesia* Anesthesia Assessment Anesthesia Assessment: Discussed sedation and/or anesthesia options, risks, benefits, and alternatives with patient/parents/legal guardian/POA. Questions invited. The patient/parents/legal guardian/POA seems to understand and agrees to proceed with anesthesia plan. Reviewed the physical assessment, medical history, allergy history and patient home medications list prior to surgery/procedure/anesthetic and documented any changes. Performed airway and anesthesia risk assessments. I reviewed the patient's comorbidities with him, and advised him that this procedure has risk to it, including myocardial infarction, stroke, and . The patient verbalized understanding and wished to proceed with the procedure today. Opportunity for questions illicited. Benefits/risks/alternatives explained. The patient verbalized understanding Anesthesia Type Anesthesia Type: General History Source History Obtained from:: Patient and Chart Anesthesia Focused Assessment* Temperature: 97.6 F Pulse Rate: 78 Blood Pressure: 170/74 Respiratory Rate: 16 Pulse Ox: 98 Oxygen Delivery Method: Room Air Airway Assessment Mouth opens: >3 cm Mallampati Score: III Neck Range of motion (ROM): Full ROM Labs Anesthesia Preop lab: CBC WBC, (4.4-11.0) 10.4 K/mm3 06/16/25, 12:12 RBC, (4.6-6.2) 5.37 M/mm3 06/16/25, 12:12 Hgb, (13.0-16.5) 15.5 g/dL 06/16/25, 12:12 Hct, (40-54) 48.4 % 06/16/25, 12:12 Plt Count, (150-450) 254 K/mm3 06/16/25, 12:12 CHEMISTRY Potassium, (3.3-5.1) 4.2 mmol/L 06/16/25, 12:12 Sodium, (133-145) 142 mmol/L 06/16/25, 12:12 BUN, (4-19) 17 mg/dL 06/16/25, 12:12 Creatinine, (0.70-1.20) 1.47 mg/dL H 06/16/25, 12:12 Glucose, (70-99) 113 mg/dL H 06/16/25, 12:12 TSH, (0.300-4.200) 2.440 uIU/mL 01/28/25, 10:46 COAG Pre-Assessment Diagnosis/Proposed Procedure Planned Operative Procedure(s): EVAR, Endovascular Aneurysm Repair in [employer] Safety Program Coordinator with OR Staff, Js SPARKS Anesthesia History Anesthesia History - email campaign specialist: Anesthesia History - email campaign specialist Hx Hospitalization No 06/06/25 08:16 Any Problems With Anesthesia No 06/06/25 08:16 Cholinesterase deficiency No 06/06/25 08:16 You/Your Family Experience No 06/06/25 08:16 fever (hyperthermia) with Relationship Recent Exposure to Contagious No 06/21/25 05:51 Disease Does patient have nerve No 06/06/25 08:16 stimulator Patient instructed to have device shut off --Does patient have Pacemaker No 06/21/25 05:53 or ICD? When Was Last Pacemaker Check QUESTION #4 FULL TEXT: You/Your Family Experience fever (hyperthermia) with Anesthesia Last Oral Intake Last Oral intake: Last Oral Intake NPO since 16:00 06/21/25 05:53 Meds taken in AM with sips of Yes 06/21/25 05:53 water? Meds patient instructed to take am of surgery PONV PONV - email campaign specialist: PONV - email campaign specialist Female No 06/06/25 08:16 HX of Motion Sickness No 06/06/25 08:16 HX of N/V After Surgery No 06/06/25 08:16 Non-Smoker Yes 06/06/25 08:16 Duration of Surgery greater Yes 06/06/25 08:16 than 60 minutes Number of Risk Factors 2 06/06/25 08:16 PONV Score Moderate Risk 06/06/25 08:16 Height & Weight Height & Weight: Anesthesia: Height & Weight Height 5 ft 4 in 06/21/25 05:53 Weight: 76.294 kg 06/21/25 05:53 Body Mass Index (BMI) 28.8 06/21/25 05:53 Respiratory Assessment Respiratory Assessment - email campaign specialist: Respiratory Tract Infection Hx - email campaign specialist Hx Respiratory Tract Infection No 06/06/25 08:16 STOP Sleep Apnea STOP Sleep Apnea - email campaign specialist: STOP Sleep Apnea - email campaign specialist Hx Hypertension Yes: PCP D/C'D MEDS APPROX. 06/06/25 08:16 30 DAYS AGO Hx Sleep Apnea No 06/06/25 08:16 CPAP BIPAP Do you snore loudly (louder No 06/06/25 08:16 than talking or can be heard Do you often feel tired/ No 06/06/25 08:16 fatigued/ sleepy during daytime? Has anyone observed you stop No 06/06/25 08:16 breathing during sleep? STOP Results Negative 06/06/25 08:16 QUESTION #5 FULL TEXT : Do you snore loudly (louder than talking or can be heard through closed doors)? Tobacco Use History Tobacco Use History - email campaign specialist: Tobacco Use History - email campaign specialist Tobacco Use Smoking Status Former smoker 06/06/25 08:16 Hx Tobacco Use No 06/06/25 08:16 Years Smoking Packs Smoked per Day Smoking Cessation Date was No - quit smoking greater 06/06/25 08:16 within the last 15 years than 15 years ago Hx Smoking Cessation Date Hx Smoking Cessation Counseling Hematologic Medial History Hematologic Hx - email campaign specialist: Hematologic Medical Hx - dust sampler Hx of Blood Transfusion No 06/06/25 08:16 Hx of Transfusion in last 3 No 06/06/25 08:16 Months Date of Last Transfusion (if within last 3 months) Ever experience any problems No 06/06/25 08:16 with transfusion(s)? Specify any problems Hx of Preganancy in last 3 N/A 06/06/25 08:16 Months Nurse Filling Out Transfusion VCHRISTIN 06/06/25 08:16 & Questions: Date: 06/06/25 06/06/25 08:16 Time: 08:18 06/06/25 08:16 Patient unable to answer at this time (ie. confused, unrespo /Reproduction History /Reproductive History - email campaign specialist: /Reproductive Hx- email campaign specialist Hx Now No 06/06/25 08:16 Gestational Age (in weeks): EDC: Hx Hx Para Hx Section SAB No 06/06/25 08:16 Does the father of the baby or his family experience fever w Father of the baby Malignant Hypertension history comment Active Medications Active Medications: Current Medications Generic Name Dose Route Start Last Admin Trade Name Freq PRN Reason Stop Dose Admin Cefazolin Sodium 2 gm/ Sodium 110 mls @ 200 mls/hr 06/21/25 07:00 Chloride IV 06/21/25 07:32 INTRAOP ONE Lactated Ringer's 1,000 mls @ 15 mls/hr 06/21/25 05:45 06/21/25 06:03 IV 15 mls/hr .Q48H JENNIFER Administration PFSH Medical History (Updated 06/06/25 @ 08:15 by Paula Ryan) Arthritis Former smoker AAA (abdominal aortic aneurysm) HTN (hypertension) Home Medications Medication Instructions Recorded Last Taken Type losartan 50 mg tablet 50 mg PO DAILY 06/21/25 06/21/25 04:00 History Allergy/AdvReac Type Severity Reaction Status Date / Time No Known Allergies Allergy Verified 06/21/25 05:50 Family History Other Cancer Hypertension Surgical History Hx of hernia repair (~2021) Hx of appendectomy (~2021) Social History Smoking Status: Former smoker Tobacco: How many years used: 30 Review of Systems (Anesthesia) ROS Narrative System reviewed and no additional complaints, except as documented.
--- NOTE | 2025-06-21 07:29 | PCM.HP.BLA ---
History and Physical Allergies No Known Allergies Allergy (Verified 05/30/25 12:52) Medications Medication Instructions Recorded Confirmed Type NK 05/30/25 05/30/25 History Have you fallen in the past year?: No PFSH Medical History AAA (abdominal aortic aneurysm) HTN (hypertension) Surgical History Hx of hernia repair (~2021) Hx of appendectomy (~2021) Family History Other Cancer Hypertension Social History Smoking Status: Former smoker Tobacco: How many years used: 30 HPI HPI HPI: ROSIBEL STEELE, is a 80 M who presents to the office today for follow up of AAA initially identified incidentally last year at which time it was 5.4 cm. He has now had his repeat CTA and is here to discuss options. No back/abd pain, no CP/SOB with activity, able to climb hills in [place], up and down stairs without limitation. ROS General General: No weight change, appetite, fatigue, colon cancer, breast cancer or weakness HEENT HEENT: No difficulty swallowing, eye injury, eye surgery, swollen glands or hoarseness Endo Endocrine: No thyroid disease, diabetes mellitus, thyroid cancer, Hair loss, heat intolerance or cold intolerance Skin Skin: No rash or changing moles Musc Musculoskeletal: No back problems, arthritis, rheumatoid arthritis, gout or joint pain Cardio Cardiovascular: Yes high blood pressure; No murmur, pacemaker, heart disease, atrial fibrillation, heart attack, heart stent, palpitations, shortness of breath with exertion or chest pain Psych Psychiatric: No depression, anxiety or hearing voices Resp Respiratory: No shortness of breath, No sleep apnea, No cough, No COPD, No asthma, No emphysema and No wheezing Gastro Gastrointestinal: No abdominal pain, No nausea or vomiting, No diarrhea, No constipation, No blood in stool, No acid reflux, No hemorrhoids, No ulcers, No gallbladder problem and No black,tarry stools Anders Hematologic: No blood thinners, No blood disorders, No bleeding, No anemia and No blood clots Neuro Neurologic: No system reviewed and no additional complaints, except as documented, No as per HPI, No abnormal gait, No abnormal hearing, No abnormal movements, No abnormal speech, No behavioral changes, No burning sensations, No confusion, No convulsions, No disequilibrium, No dizziness, No localized weakness, No frequent falls, No headache(s), No lack of coordination, No loss of vision, No memory loss, No numbness, No other visual disturbances, No radicular pain, No restless legs, No sensory deficit, No syncope, No tingling, No tremor(s), No weakness and No other Exam Const General: cooperative, healthy appearing, comfortable, no acute distress and well developed Nutritional Appearance: well nourished Orientation: alert, awake and oriented x3 HENMT Head: normocephalic and atraumatic Ears: hearing grossly normal bilaterally Nose: external nose normal Eyes General: appearance normal, both eyes and all related structures EOM: EOM intact bilaterally Neck Neck: normal visual inspection, full ROM, no lymphadenopathy and trachea midline Thyroid: thyroid normal Lymphatic: no lymphadenopathy noted Resp Effort & Inspection: normal respiratory effort, able to speak in complete sentences, symmetric chest movement, no audible wheezes, not labored, no stridor and no use of accessory muscles Auscultation: clear to auscultation bilaterally Cardio Rate: regular rate Rhythm: regular rhythm Heart Sounds: no murmurs Bruits: no carotid bruits Pulses: brachial pulses present and radial pulses present GI Inspection: non-distended Palpation: soft, no hernias, no pulsatile masses and nontender Skin General: no rashes or lesions noted and no erythema Wounds: no wounds Neuro Cranial Nerves: CN's II-XI intact bilaterally and EOM intact bilaterally Speech: speech normal Gait: normal gait Motor: strength 5/5 throughout Sensory Exam: no sensory deficits noted Psych Appearance: grossly normal and well kempt Mental Status: mental status grossly normal Mood: congruent mood Speech and Movement: speech and movement normal Thought Content: normal Judgment: judgment good Coding Level of Care Code Off vis,est,level 3 Diagnoses Infrarenal abdominal aortic aneurysm (AAA) without rupture I71.43 Abdominal aorta location: infrarenal aorta Presence of rupture: without rupture Assessment and Plan Assessment and Plan (1) AAA (abdominal aortic aneurysm): Status: Chronic Qualifiers: Abdominal aorta location: infrarenal aorta Presence of rupture: without rupture Qualified Code(s): I71.43 - Infrarenal abdominal aortic aneurysm, without rupture Comment: CTA- images reviewed, 6.3 cm AAA, normal caliber visceral segment, ectasia distal thoracic aorta Plan: -proximal landing zone adequate for EVAR -risks/benefits/alternatives discussed, agreeable to proceed
[2025-06-21] MEDS: Cefazolin 1 GM/5 ML Vial 2 GM IV (07:50)
[2025-06-21] MEDS: Heparin Injection 5,000 UNITS/ML Syringe 9000 UNITS IV (08:44)
[2025-06-21] MEDS: Lactated Ringers 2,000 ML 2000 ML IV (08:50)
[2025-06-21] MEDS: fentaNYL 100 MCG/2 ML Ampul 200 MCG IV (09:45)
[2025-06-21 09:51] LABS: ACT Activated Clotting Time 245 sec (74-137)
[2025-06-21 09:51] LABS: ACT Activated Clotting Time 240 sec (74-137)
[2025-06-21 09:51] LABS: ACT Activated Clotting Time 143 sec (74-137)
[2025-06-21] MEDS: Midazolam 2 MG/2 ML Syringe IV (09:57)
--- NOTE | 2025-06-21 10:24 | OP.PCM_ITS ---
Operative Report (Standard) Operative Information Date of Procedure: 06/21/25 Pre-Operative Diagnosis: AAA Post-Operative Diagnosis: Same Surgery/Procedure Performed: Endovascular repair abdominal aortic aneurysm nail artist: Yes Cell Builder: Sarai Santiago Tasks completed by senior it assistant: Opening, Closing, Opening & closing and Implanting device Type of Anesthesia: General RN Documented Start/Stop Times: Operation Date: 06/21/25 08:00 Case Time Into Pre-Op 06/21/25 05:34 Into Recovery 06/21/25 10:12 Out of Recovery 06/21/25 11:08 Procedure Start Time: 08:10 Procedure Stop Time: 09:40 Select all DRAINS/GRAFTS/IMPLANTS that apply: Implanted device Implanted device details: Endologix Proctor Estimated Blood Loss: 14 Specimen collected: No Description of surgery: HPI: Patient is an 80-year-old male with a large infrarenal abdominal aortic aneurysm with anatomy which is amenable to endovascular exclusion. He is taken now for elective endovascular abdominal aortic aneurysm repair. Description of procedure: Upon obtaining informed consent and verification correct patient procedure and site the patient was taken to the [facility] where he was placed under general anesthesia. He was then positioned prepped and draped in usual sterile fashion and time was performed. Under ultrasound guidance the right common femoral artery was accessed with a micropuncture needle and wire which was exchanged for a micropuncture sheath. Through the micropuncture sheath hand-injection iliofemoral angiogram was performed revea ling satisfactory positioning with no extravasation or dissection. Through the micropuncture sheath a Bentson wire was advanced the micropuncture sheath exchanged for a short 8 [place] sheath. Given tortuosity in the iliac artery a KMP catheter and Bentson wire we to traverse the vessel advancing into the abdominal aorta. The catheter and 6 [place] sheath was then withdrawn and a pair of Pro-glide suture mediated closure devices were then deployed in preclose technique after which an 8 [place] sheath was advanced over the wire into the abdominal aorta. Next under ultrasound guidance the left common femoral artery was accessed with a micropuncture needle wire. This was then exchanged for micropuncture sheath through which hand-injection iliofemoral angiogram was performed revealing satisfactory positioning with no extravasation or dissection. Through the micropuncture sheath a Bentson wire was advanced into the abdominal aorta and the micropuncture sheath exchanged for a 6 [place] sheath to dilate the tract. Pro-glide suture mediated closure devices were then deployed in preclose technique after which an 8 [place] sheath was advanced over the wire into the abdominal aorta. The patient was then heparinized and allowed to circulate for 3 minutes after which subsequent heparin dosing was based on ACT results. The KMP catheter and Bentson wire were then advanced into the proximal thoracic aorta and the Bentson wire exchanged for a Lunderquist wire. The catheter and 8 [place] sheath were then exchanged for the Endologix alto main body 29 mm device which was advanced to the proximal abdominal aorta. A marker pigtail catheter was then advanced via the left femoral access sheath and a magnified digital subtraction aortogram performed to determine the position of the renal vessels with regard to the proximal aspect of the aneurysm. The device was then positioned to land at the inferior edge of the left renal artery which was the lowest. The device was then deployed and the polymer autoinjector attached per utility bill collection clerk's instructions. An angled Glidewire was then advanced via the pigtail catheter which was then exchanged for a KMP catheter and the contralateral gate cannulated from the left femoral access site. The KMP catheter was exchanged for the pigtail catheter which traversed the lumen of the graft without difficulty confirming presence within the lumen of the graft. The wire and catheter were then advanced in the proximal thoracic aorta and the Glidewire exchanged for a second Lunderquist wire. The marker pigtail catheter was then withdrawn down to the iliac vessels and hand-injection subtraction and iliac angiogram performed in order to determine appropriate length for our left iliac limb. An Endologix ovation iliac limb 16 x 140 was then selected. The left femoral 8 [place] sheath was then withdrawn and the iliac limb advanced in the position with satisfactory overlap into the main body. The device was then deployed with distal landing of the device cephalad to the iliac bifurcation. Next the integrated angioplasty balloon was inflated and the main body to ensure appropriate polymer cuff wall apposition. The main body deployment system was then detached and withdrawn and a 14 [place] sheath advanced via the right femoral access site. The marker pigtail catheter was then advanced and digital subtraction leg angiogram performed confirming appropriate length for the right iliac limb. An endovascular ovation 16 x 140 limb was then selected and advanced through the 14 [place] sheath and positioned with satisfactory overlap. This was then deployed with distal landing cephalad to the iliac bifurcation. The overlap of the iliac limbs were then postdilated with the Q50 balloon to profile and then the balloon deflated withdrawn. Pigtail catheter was then advanced into the visceral segment of the aorta and digital subtraction completion aortogram performed revealing satisfactory stent graft positioning with patent bilateral renal arteries, no endoleak identified, and brisk contrast transit across both iliac limbs. The right femoral Pro-glide sutures were then secured as the sheath and wire were withdrawn with satisfactory hemostasis observed. Surgicel topical hemostatic was then placed within the tract and attention turned to the left femoral access site. The left femoral Pro-glide sutures were then secured as the sheath and wire were withdrawn with satisfactory hemostasis observed and Surgicel was placed within the wound tract. The incision was then closed with 4-0 Monoc[address] [facility] The patient was then awakened anesthesia taken to the recovery room with anticipate admission to the intensive care unit for hemodynamic and vascular monitoring. Surgical Findings: palpable popliteal pulse bilateral Complications Complications: No
[2025-06-21] MEDS: Lactated Ringers 1,000 ML 70 ML IV (12:27)
[2025-06-21] MEDS: Cefazolin 1 GM/50 ML BAG IV ×2 (14:42→21:00)
--- NOTE | 2025-06-21 15:41 | PCM.POST.ANE ---
Anesthesia: Postop Eval I Current Vital Signs Temperature: 97.1 F Pulse Rate: 48 Blood Pressure: 107/46 Respiratory Rate: 16 Pulse Ox: 92 Oxygen Delivery Method: Nasal Cannula Oxygen Flow Rate (L/min): 2 Assessment Airway patent: Yes Spontaneous unlabored respirations: Yes Mental status: Awake nausea: No Vomiting: No Anesthesia Complication: No Fluid Hydration Crystalloid volume administer (ml): 1,000 Total IV fluid infused: 1,000 Progress Note Anesthesia document: Postop Eval 1 completed: Yes
--- NOTE | 2025-06-21 15:42 | PCM.POSTANE2 ---
Anesthesia Postop Eval I Sum Postop Eval Completion status Anesthesia document: Postop Eval 1 completed: Yes Anesthesia Postop Eval I Summary Anesthesia Postop Eval I Summary: Anesthesia Postop Eval I: Assessment Summary Airway patent Yes 06/21/25 15:42 Spontaneous unlabored Yes 06/21/25 15:42 respirations Mental status Awake 06/21/25 15:42 nausea No 06/21/25 15:42 Vomiting No 06/21/25 15:42 Anesthesia Postop Eval I: Fluid Summary Crystalloid volume administer 1,000 06/21/25 15:42 (ml) Colloids volume administered ( ml) Blood Product volume administered (ml) Total IV fluid infused 1,000 06/21/25 15:42 Anesthesia Postop Eval I: Summary Notes Anesthesia Complication No 06/21/25 15:42 Anesthesia Complication Comment: Post-operative progress note Anesthesia: Postop Eval II Evaluation Mental status: Awake Pain Level: 0 nausea: No Vomiting: No Complications Anesthesia Complication: No
[2025-06-21] MEDS: 0.9% Saline Lock 10 ML Syringe IV ×2 (18:04→20:59)
[2025-06-22] VITALS (12 sets, daily range): BP systolic 125–174; BP diastolic 47–96; PULSE 60–84; RESP 14–22; TEMP 36.6–36.7; O2SAT 94–98; BMI 29.2
[2025-06-22 04:22] LABS: Hematocrit 43.6 % (40-54); Hemoglobin 14.6 g/dL (13.0-16.5); Immature Granulocytes Count 0.110 X10^3/uL (0.0-0.0); Mean Corp Hgb Conc 33.5 g/dL (32-36); Mean Corpuscular Volume 86.3 fL (80-94); Mean Platelet Vol. 10.7 fl (6.2-12.0); NRBC Flagged by Analyzer 0 % (0-5); Platelet Count 244 K/mm3 (150-450); RBC Distribution Width CV 13.6 % (11.6-14.6); RBC Distribution Width SD 42.0 fl (35.1-43.9); Red Blood Count 5.05 M/mm3 (4.6-6.2); White Blood Count 22.4 K/mm3 (4.4-11.0)
[2025-06-22 04:41] LABS: Anion Gap 12 (5-15); BUN 24 mg/dL (4-19); BUN/Creat Ratio 14.9 RATIO (10-20); Calcium,Total 9.4 mg/dL (7.6-11.0); Carbon Dioxide 22.9 mmol/L (21.0-32.0); Chloride 102 mmol/L (98-108); Estimated Creatinine Clearance 34.24 ml/min (50-250); Glucose 206 mg/dL (70-99); Potassium 4.3 mmol/L (3.3-5.1)
--- NOTE | 2025-06-22 07:53 | PCM.PN.SRG ---
Subjective Subjective I saw Mr. Kumari this morning, he was up to the chair and reports he just walked with nursing and felt good with that. He is eager to go home. He denies any abdominal, chest, back, flank, or lower extremity pain. He reports no concerns at the groin incision sites. BP was systolic 130s when I saw him in the room. He does report some urinary retention, he does have this at baseline at home as well. Objective Data Objective Data Vital Signs: Vital Signs Temp Pulse Resp BP Pulse Ox O2 Del Method O2 Flow Rate 97.9 F 69 20 H 152/52 H 96 Room Air 2 06/22/25 04:00 06/22/25 07:00 06/22/25 07:00 06/22/25 07:00 06/22/25 07:00 06/22/25 07:00 06/21/25 15:42 Oxygen Flow Rate (L/min) 2 Oxygen Delivery Method Room Air Weight: 171 lb 1.259 oz Body Mass Index (BMI) 29.2 Intake & Output: Intake and Output for Last 24 Hours 06/20/25 06/21/25 06/22/25 23:59 23:59 23:59 Intake Total 1768.42 / 2128.42 360 / 360 Output Total 14 / 364 700 / 700 Balance 1754.42 / 1764.42 -340 / -340 Lab / Micro Data 06/22/25 04:08 06/22/25 04:08 Labs: Laboratory Results - last 24 hr 06/21/25 07:56: Activated Clotting Time 143 H 06/21/25 08:41: Activated Clotting Time 240 H 06/21/25 09:18: Activated Clotting Time 245 H 06/22/25 04:08: WBC 22.4 H, RBC 5.05, Hgb 14.6, Hct 43.6, MCV 86.3, MCH 28.9, MCHC 33.5, RDW Std Deviation 42.0, RDW Coeff of Matthew 13.6, Plt Count 244, MPV 10.7, Immature Gran % (Auto) 0.500, Neut % (Auto) 87.4 H, Lymph % (Auto) 5.5 L, Glenn % (Auto) 6.3, Eos % (Auto) 0.1, Baso % (Auto) 0.2, Absolute Neuts (auto) 19.6 H, Absolute Lymphs (auto) 1.24, Nucleated RBC % 0, Sodium 137, Potassium 4.3, Chloride 102, Carbon Dioxide 22.9, Anion Gap 12, BUN 24 H, Creatinine 1.62 H, Estim Creat Clear Calc 34.24 L, Est GFR (MDRD) Non-Af 43 L, BUN/Creatinine Ratio 14.9, Glucose 206 H, Calcium 9.4 Physical Exam Const alert, oriented x3 and no apparent distress General Appearance: cooperative and comfortable HEENT normocephalic, hearing grossly normal bilaterally, external ears normal and external nose normal Eyes General Eye: normal appearance of both eyes Neck General: normal visual inspection and trachea midline Resp Effort and Inspection: able to speak in complete sentences; Negative for labored, grunting or stridor Cardio regular rate and regular rhythm Extremity normal to inspection and no clubbing, cyanosis or edema Extremity Narrative: Bilateral groin incision sites with dressings C/D/I. No hematoma. Peripheral Pulses: Yes popliteal pulses present and dorsalis pedis pulses present Skin no rashes or lesions noted Neuro moves all extremities, no focal motor deficits and no sensory deficits noted Speech: speech normal Psych mental status grossly normal Appearance: grossly normal Attitude: calm and engaged Activity / Motor Behavior: appropriate eye contact Speech: normal speech Assessment & Plan Assessment/Plan (1) AAA (abdominal aortic aneurysm): QUALIFIERS: Abdominal aorta location: infrarenal aorta Presence of rupture: without rupture Qualified Code(s): I71.43 - Infrarenal abdominal aortic aneurysm, without rupture PLAN: He is POD#1 from EVAR. He is doing well, tolerating normal diet, ambulating without difficulty, and with only mild discomfort at the groin incision sites. He has remained hemodynamically stable and vascular exam has been stable. Plan for discharge home today. Charges/Coding Procedures Integumentary 111xxx-113xx: 04451 Global Visit
--- NOTE | 2025-06-22 08:32 | PCM.DC.SUM ---
Providers Date of Admission: 06/21/25 Primary Care Physician: Dr. 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 He is doing well, tolerating normal diet, ambulating without difficulty, and with only mild discomfort at the groin incision sites. He has remained hemodynamically stable and vascular exam has been stable. Plan for discharge home today. Medications at Discharge Home Medications losartan 50 mg tablet 50 mg PO DAILY 06/21/25 aspirin 81 mg chewable tablet 81 mg PO BREAKFAST 30 days #30 tabs 06/22/25 atorvastatin 40 mg tablet 40 mg PO QHS 30 days #30 tabs 06/22/25 oxycodone 5 mg tablet 5 mg PO Q8H PRN PRN Pain Score 4-10 2 days #6 tabs 06/22/25 Hospital Course Summary of Care Provided Hospital Course: Mr. Jorge Kumari is an 80 y/o male who underwent EVAR on 06/21/2025. Postoperatively, he was routinely admitted to the ICU for ongoing monitoring of his hemodynamics and vascular status. He has remained hemodynamically stable and had stable vascular exam. He is tolerating a normal diet, ambulating without difficulty, voiding to his baseline, and pain is well controlled. He is stable for discharge home today with scheduled outpatient follow-up. Physical Exam Const alert, oriented x3 and no apparent distress General Appearance: cooperative and comfortable HEENT normocephalic, hearing grossly normal bilaterally, external ears normal and external nose normal Eyes General Eye: normal appearance of both eyes Neck General: normal visual inspection and trachea midline Resp Effort and Inspection: able to speak in complete sentences; Negative for labored, grunting or stridor Cardio regular rate and regular rhythm Extremity normal to inspection and no clubbing, cyanosis or edema Extremity Narrative: Bilateral groin incision sites with dressings C/D/I. No hematoma. Peripheral Pulses: Yes popliteal pulses present and dorsalis pedis pulses present Skin no rashes or lesions noted Neuro moves all extremities, no focal motor deficits and no sensory deficits noted Speech: speech normal Psych mental status grossly normal Appearance: grossly normal Attitude: calm and engaged Activity / Motor Behavior: appropriate eye contact Speech: normal speech Weight / BMI Weight Weight: 171 lb 1.259 oz Body Mass Index (BMI) 29.2 ABG / Lab / Microbiology Data 06/22/25 04:08 06/22/25 04:08 Laboratory: Laboratory Results - last 24 hr 06/21/25 07:56: Activated Clotting Time 143 H 06/21/25 08:41: Activated Clotting Time 240 H 06/21/25 09:18: Activated Clotting Time 245 H 06/22/25 04:08: WBC 22.4 H, RBC 5.05, Hgb 14.6, Hct 43.6, MCV 86.3, MCH 28.9, MCHC 33.5, RDW Std Deviation 42.0, RDW Coeff of Matthew 13.6, Plt Count 244, MPV 10.7, Immature Gran % (Auto) 0.500, Neut % (Auto) 87.4 H, Lymph % (Auto) 5.5 L, Holmes % (Auto) 6.3, Eos % (Auto) 0.1, Baso % (Auto) 0.2, Absolute Neuts (auto) 19.6 H, Absolute Lymphs (auto) 1.24, Nucleated RBC % 0, Sodium 137, Potassium 4.3, Chloride 102, Carbon Dioxide 22.9, Anion Gap 12, BUN 24 H, Creatinine 1.62 H, Estim Creat Clear Calc 34.24 L, Est GFR (MDRD) Non-Af 43 L, BUN/Creatinine Ratio 14.9, Glucose 206 H, Calcium 9.4 D/C Instructions May shower in (days): 1 Weight Bearing Status: Weight bearing as tolerated Lifting Restricted to (Lbs): 20 Lifting Restrictions: Do not lift greater than 20 pounds for 3 weeks Call your doctor if your incision/area has: Sudden Increased Bleeding, Increased Pain/ Swelling and Foul Smelling Discharge Call your doctor if you observe: Fever of 101 or Higher and Uncontrolled pain Remove Dressing in: 1 day DC O2, CPAP, BIPAP Needs Home O2 Discharge instructions: No Additional Instructions: You may remove the dressings from your bilateral groin incision sites after your first shower tomorrow. You may re-cover the sites with bandaids or you may leave them open to air. Keep these areas clean, and be sure to pat gently to dry after showering. You may shower tomorrow. Do not take a bath or otherwise submerge the incision sites such as to swim, go in a hot tub, etc for 3 weeks. Do not lift greater than 20 pounds for 3 weeks. Otherwise, you may continue with activity as tolerated. Please Follow Up With: Rebekah Infante PA When: 07/12/2025 Meaningful Use Info Meaningful Use Meaningful Use Diagnoses (Choose all that apply): None applicable Discharge Plan Admission Admit Date/Time: 06/21/25 09:56 Attending Provider: Dickson Sanchez Primary Care Provider: Prasanth Renee Discharge Orders/Prescriptions Prescriptions: New atorvastatin 40 mg Tablet 40 mg PO QHS 30 Days Qty: 30 11RF aspirin 81 mg Tablet,Chewable 81 mg PO BREAKFAST 30 Days Qty: 30 11RF oxycodone 5 mg Tablet 5 mg PO Q8H PRN PRN (Reason: Pain Score 4-10) 2 Days Qty: 6 0RF Continued losartan 50 mg tablet 50 mg PO DAILY Referrals / Follow Up: Jamal Hurtado, AIRPLANE INSPECTOR-C [[facility], [facility]] Disposition Disposition (needs filled in before D/C Order can be placed): Home, Self Care Charges/Coding Procedures Integumentary 111xxx-113xx: [id number] Global Visit
--- NOTE | 2025-06-22 10:13 | CASEMGMT ---
LIVAN MACE ASSESSMENT RN CM to room to meet with patient for initial transition planning/care coordination assessment. LIVAN MACE introduced self and role at [facility]. Pt voices understanding and consents to assessment at this time. Pt sitting up in chair in no distress at this time. Pt is A/O at this time and answers all questions appropriately. Care providers, pharmacy, and demographics verified/updated at this time. Strata:1 PCP: Dr Renee. Pt states Dr Renee has ordered an overnight trending pulse ox to be done in July. Specialists: Dr Sanchez-vascular. Pt has a f/u appt w/ARLEEN Shearer, on 07/12/25 @ 1:30 PM. This is documented in dc instructions and pt made aware of appt. Preferred Pharmacy: [facility] Insurance: [employer] [facility] Prescription Benefit: yes Living Will/HPOA: States does not have LW or HCPOA . Made aware this can be completed w/SW while @ [facility], if he wishes to complete. He states does not want to talk with SW at this time to complete paperwork. Made aware SW can be contacted as an out-pt and make appt in the future if desired in the future. LNOK: Pt states has one biological daughter, but states she is "not with it" and that she uses drugs. He has a grandson and a step-daughter, Eugenia. Living Arrangements: Lives w/25-yr-old grandson in 2-story home w/2-3 steps to enter. Bedroom is on 2nd floor, bathroom is on main floor. Pt denies difficulty w/stairs. Independent w/ADL's and IADL's. Transportation: Pt states drives self and states no transportation concerns at this time. Grandson also drives. Step-dtr will be taking him home today. DME: Denies using any DME and denies needs. HHC/SNF: No hx of either. No needs identified. Pt wishes to return home and states has no concerns or discharge needs. PLAN: Home. Dino RODRIGUEZ RN, CM
== END 2025-06-22 11:30 | disposition home or self-care (01) | DRG 269 ==
LOC: SDC 10:32 → ICU 10:32
PROVIDERS: Admitting Provider Surgery Trauma Surgery; PCP Family Medicine; Referring Provider Surgery Trauma Surgery; Visit Provider Surgery Trauma Surgery
DX: I71.43 Infrarenal abdominal aortic aneurysm, without rupture (principal); I10 Essential (primary) hypertension; R33.9 Retention of urine, unspecified; Z87.891 Personal history of nicotine dependence
CPT/HCPCS: 34705; 34709; 34713; 36415; 80048; 85025; 85027; 85347; 86850; 86900; 86901; 93005; 94668; 99252; A4648; C1725; C1769; C1773; C1887; C1894; C2628; Q9967; A4216; C1760; G0463

== ENCOUNTER → 2025-07-28 | Outpatient (CLI) | payer MEDICARE, SELFPAY ==
[2025-07-28 11:48] LABS: Mucous, Urine 0 SEEN /hpf (<or=2+); Red Blood Cells-Urine 0 SEEN /hpf (0-5)
[2025-07-28 15:54] LABS: Color, Urine Yellow (Yellow); Glucose, Dipstick Normal (Normal); Hematocrit 41.5 % (40-54); Hemoglobin 13.3 g/dL (13.0-16.5); Immature Granulocytes Count 0.020 X10^3/uL (0.0-0.0); Ketone-Dipstick Negative (Negative); Leukocyte Esterase-Dipstick 25 /ul (Negative); Mean Corp Hgb Conc 32.0 g/dL (32-36); Mean Corpuscular Volume 89.6 fL (80-94); Mean Platelet Vol. 11.0 fl (6.2-12.0); NRBC Flagged by Analyzer 0 % (0-5); Nitrite-Dipstick Negative (Negative); Occult Blood-Urine Negative /ul (Negative); Platelet Count 214 K/mm3 (150-450); Protein-Dipstick 15 mg/dl (Negative); RBC Distribution Width CV 13.9 % (11.6-14.6); RBC Distribution Width SD 44.9 fl (35.1-43.9); Red Blood Count 4.63 M/mm3 (4.6-6.2); Specific Gravity, Urine 1.020 (1.002-1.030); Urine Bilirubin Dipstick Negative (Negative); White Blood Count 7.9 K/mm3 (4.4-11.0)
[2025-07-28 16:03] LABS: Creatinine, Urine (random) 153.00 mg/dL (39.00-259.00); Protein, Urine (Random) 17.9 mg/dL (0.0-12.0); Protein:Creat Ratio 117 mg/g CRE (0-200)
[2025-07-28 16:06] LABS: PTHIN 69 pg/mL (11-61)
[2025-07-28 16:24] LABS: AST(SGOT) 19 U/L (<=37); Alanine Aminotransfer ALT/SGPT 17 U/L (<=46); Albumin, Serum 4.1 g/dL (3.4-4.8); Alkaline Phosphatase 138 U/L (40-129); Anion Gap 11 (5-15); BUN 26 mg/dL (4-19); BUN/Creat Ratio 14.4 RATIO (10-20); Calcium,Total 9.6 mg/dL (7.6-11.0); Carbon Dioxide 22.8 mmol/L (21.0-32.0); Chloride 106 mmol/L (98-108); Cholesterol 169 mg/dL (<=200); Globulin 3.2 g/dL (2.2-4.2); Glucose 109 mg/dL (70-99); Low Density Lipoprotein Calc. 104 mg/dL; Magnesium 2.2 mg/dL (1.5-2.2); Potassium 4.6 mmol/L (3.3-5.1); Triglycerides 79 mg/dL; Very Low Density Lipoprotein 16 mg/dL (5-40); Vitamin B12 347 pg/mL (180-914); Vitamin D,25 Hydroxy 23.0 ng/mL (30-100); cholesterol:hdl ratio screen 3.41
== END | disposition home or self-care (01) ==
LOC: MFPLAB 11:43
PROVIDERS: PCP Family Medicine; Visit Provider Family Medicine
DX: R73.09 Other abnormal glucose (principal); N18.30 Chronic kidney disease, stage 3 unspecified; I12.9 Hypertensive chronic kidney disease with stage 1 through stage 4 chronic kidney disease, or unspecified chronic kidney disease; R53.83 Other fatigue
CPT/HCPCS: 80053; 80061; 81001; 82306; 82570; 82607; 83036; 83735; 83970; 84100; 84156; 84439; 84443; 85025; 86376; 86800

== ENCOUNTER → 2025-07-30 | Outpatient (CLI) | payer MEDICARE, SELFPAY ==
--- NOTE | 2025-07-30 11:08 | US_ITS ---
PROCEDURE: THYROID 07/30/2025 REASON FOR EXAM: NODULE TECHNIQUE: Procedure Code: USTHY Modality: US Procedure: THYROID COMPARISON: No relevant prior FINDINGS: Right thyroid lobe size: 4.3 x 1.8 x 2.1 cm Left thyroid lobe size: 4.3 x 1.6 x 1.8 cm Isthmus: 0.3 cm Background parenchymal echotexture in the right lobe is homogeneous and heterogeneous in the left lobe. Nodules: Lobe: Right, Location: Midpole, Size: 0.7 x 0.6 x 0.4 cm, Composition: Mixed cystic and solid. Echogenicity: Primarily isoechoic Carolyne Margin: Well-circumscribed Shape: Wider than tall Echogenic Foci: Not present. TI-RADS: TR 2 Lobe: Left. No nodules. US/Thyroid IMPRESSION: 1. A TR 2 micronodule in the right thyroid lobe. Not suspicious. No FNA paula mmended. No follow-up unless clinically indicated. Reading Location: [place] [id number]
--- OUTSIDE RECORDS SUMMARY | 2025-07-30 11:08 | XMS RPT_ITS | CCD ---
Author Organization [facility]ini[facility] Care Team Providers Care Funeral Service Manager Name Role Phone PHYSICIAN, NONE Primary Care Physician Unavailab le ASHLYN STATIONARY STEAM ENGINEER-AIRCRAFT INSPECTION RECORD CLERK, LASHON A Primary Care Physi jana ZULEYMA ESTRADA, SHANNA Kimball Attending Unavailable ASHLYN STATIONARY STEAM ENGINEER-AIRCRAFT INSPECTION RECORD CLERK, LASHON A Primary Care Un available ASHLYN STATIONARY STEAM ENGINEER-AIRCRAFT INSPECTION RECORD CLERK, LASHON A Primary Care Un available TANNER GILLIAM Attending Unavailable MANE, TANNER Consulting Unavailable ASHLYN STATIONARY STEAM ENGINEER-AIRCRAFT INSPECTION RECORD CLERK, LASHON A Primary Care Un available TANNER GILLIAM Attending Unavailable JUANCHO ESTRADA, MADELYN Consulting Unavailable MANE, TANNER Attending Unavailable TANNER GILLIAM Admitting Unavailable ASHLYN STATIONARY STEAM ENGINEER-AIRCRAFT INSPECTION RECORD CLERK, LASHON A Primary Care Un available ALFREDO ESTRADA, DR CHARLEEN Rogers Consulting Haley URBAN MD, DR SALMERON Consulting Unavailab virgilio MAGALLANES MD, LUIS Consulting Unavailable LANE ESTRADA, GURPREET Consulting Unavailable CRISTAL ESTRADA, PASCUAL Acuna Consulting Unavailable PHYSICIAN, NONE Primary Care Unavailable MANE, TANNER Consulting Unavailable BASILIO ESTRADA, DR LINDA Keane Attending Unavai radhale ASHLYN STATIONARY STEAM ENGINEER-AIRCRAFT INSPECTION RECORD CLERK, LASHON A Primary Care Un available ASHLYN STATIONARY STEAM ENGINEER-AIRCRAFT INSPECTION RECORD CLERK, LASHON A Attending Un available ZULEYMA ESTRADA, SHANNA Kimball Attending Unavailable ASHLYN STATIONARY STEAM ENGINEER-AIRCRAFT INSPECTION RECORD CLERK, LASHON A Primary Care Un available Beam WEB UI DEVELOPER-C, Zebulun Primary Care Provider [phone] Beam WEB UI DEVELOPER-C, Zebulun Attending Provider Beam WEB UI DEVELOPER-C, Zebulun Referring Provider Daniel ESTRADA, Dr. Forman Attending Provider Dr. Dickson Sanchez MD Referring Provider Beam WEB UI DEVELOPER-C, Zebulun Primary Care Physician Beam WEB UI DEVELOPER-C, Zebulun Attending Physician Daniel ESTRADA, Dr. Forman Attending Physician Beam WEB UI DEVELOPER-C, Zebulun Primary Care Physician Beam WEB UI DEVELOPER-C, Zebulun Referring Provider Daniel ESTRADA, Dr. Forman Attending Physician Beam WEB UI DEVELOPER-C, Zebulupatricia Attending Physician Daniel ESTRADA, Dr. Forman Referring Provider Rebekah Infante Attending Unavailable Schinner, Prasanth E Primary Care Unavailable Daniel, Dickson Referring Unavailable [place], Dickson Admitting Unavailable Daniel, Dickson Consulting Unavailable Daniel, Dickson Attending Unavailable Schinner, Prasanth E Primary Care Unavailable [place], Dickson Referring Unavailable [place], Dickson Consulting Unavailable Beam, Zebulun Primary Care Unavailable Beam, Zebulun Attending Unavailable Beam, Zebulun Referring Unavailable [place], Dickson Attending Unavailable Beam, Zebulun Primary Care Unavailable Daniel, Dickson Referring Unavailable Beam, Zebulun Primary Care Unavailable Beam, Zebulun Attending Unavailable Beam, Zebulun Primary Care Unavailable [place], Dickson Attending Unavailable [place], Dickson Referring Unavailable Beam, Zebulun Primary Care Unavailable Beam, Zebulun Attending Unavailable [place], Dickson Attending Unavailable Schinner, Prasanth E Primary Care Unavailable [place], Dickson Referring Unavailable [place], Dickson Admitting Unavailable Beam, Zebulun Primary Care Unavailable Beam, Zebulun Referring Unavailable Daniel, Dickson Attending Unavailable [place], Dickson Attending Unavailable Beam, Zebulun Referring Unavailable Beam, Zebulun Primary Care Unavailable Medications [...] tab(s), 0 Refill(s), 02/09/23 17:51:00 EDT, Pharmacy: [facility] #[id number], Appendicitis, 167.6, cm, 02/04/23 14:25:00 EDT, Height, 77.3, kg, 02/04/23 14:25:00 EDT, Dosing Weight Start Date: 02/05/23 Stop Date: 02/09/23 Status: Ordered losartan potassium 50 mg oral tablet (5 sources) Angiotensin 2 Receptor Bridget Start: 09-08-2023 End: 09-02-2024 losartan 50 mg oral tablet Dose : 50 mg = 1 tab(s), Oral, qDay, # 90 tab(s), 3 Refill(s), Pharmacy: [facility] #[id number], 163, cm, 09/08/23 9:22:00 EST, Height, kg, 09/08/23 9:22:00 EST, Dosing Weight Start Date: 09/08/23 Stop Date: 09/02/24 Status: Ordered Start: 02-12-2023 End: 08-11-2023 losartan 50 mg oral tablet D ose : 50 mg = 1 tab(s), Oral, qDay, # 90 tab(s), 1 Refill(s), Pharmacy: [id number], 167.6, cm, 02/12/23 15:51:00 EDT, Height, kg, 02/12/23 15:51:00 EDT, Dosing Weight Start Date: 02/12/23 Stop Date: 08/11/23 Status: Ordered Start: 02-05-2023 losartan 50 mg oral tablet Dose : 50 mg = 1 tab(s), Oral, qDay, # 30 tab(s), 0 Refill(s), Pharmacy: [facility] #[id number], 167.6, cm, 02/04/23 14:25:00 EDT, Height Start [...] Completed Problems Problem Classification Problem Date Documented Date Episodic/Chronic Abdominal hernia (4 sources) Right inguinal [...] (2 sources) Surgical follow-up 06-06-2023 Episodic Other nervous system disorders (2 sources) Other acute postprocedural pain; Translations: [Other acute postprocedural pain] Onset: 06-22-2025 Episodic Other screening for suspected conditions (not [...] [Infrarenal abdominal aortic aneurysm, without rupture] Onset: 06-23-2025 Results Test Name Value Interpretation Reference Range Facility Basic Metabolic Profile (BMP )on 06-22-2025 BUN/CRE 14.9 RATIO Normal 10-20 [facility] Comment on above: Performed By: #### L 100.0100, L500.2500 #### [facility] [address] [place], [address] Calcium [Mass/Vol] 9.4 mg/dL Normal 7.6-11.0 [facility] Comment on above: Performed By: #### L 100.0100, L500.2500 #### [facility] [address] [place], [address] Chloride [Moles/Vol] 102 mmol/L Normal 98-108 [facility] Comment on above: Performed By: #### L 100.0100, L500.2500 #### [facility] [address] [place], [address] CO2 [Moles/Vol] 22.9 mmol/L Normal 21.0-32.0 [facility] Comment on above: Performed By: #### L 100.0100, L500.2500 #### [facility] [address] [place], [address] Creatinine [Mass/Vol] 1.62 mg/dL High 0.70-1.20 [facility] Comment on above: Performed By: #### L 100.0100, L500.2500 #### [facility] [address] [place], [address] ECRCL 34.24 ml/min Low 50-250 [facility] Comment on above: Performed By: #### L 100.0100, L500.2500 #### [facility] [address] [place], [address] GAP 12 Normal 5-15 [facility] Comment on above: Performed By: #### L 100.0100, L500.2500 #### [facility] [address] [place], [address] GFR/1.73 sq M.predicted among non-blacks MDRD (S/P/Bld) [Vol rate/Area] 43 mL/min/{1.73_m2} Low >60 [facility] Comment on above: Result Comment: mL/m in/1.73m2 CKD-EPI Creatinine Equation (2020) Performed By: #### L 100.0100, L500.2500 #### [facility] [address] [place], [address] Glucose [Mass/Vol] 206 mg/dL High 70-99 [facility] Comment on above: Performed By: #### L 100.0100, L500.2500 #### [facility] [address] [place], [address] Potassium [Moles/Vol] 4.3 mmol/L Normal 3.3-5.1 [facility] Comment on above: Performed By: #### L 100.0100, L500.2500 #### [facility] [address] [place], [address] Sodium [Moles/Vol] 137 mmol/L Normal 133-145 [facility] Comment on above: Performed By: #### L 100.0100, L500.2500 #### [facility] [address] [place], [address] Urea nitrogen [Mass/Vol] 24 mg/dL High 4-19 [facility] Comment on above: Performed By: #### L 100.0100, L500.2500 #### [facility] [address] [place], [address] CBC W/Diff, Automatedon 06-11 Absolute Lymph 1.24 X10 3/uL Normal 0.83-4.51 [facility] Comment on above: Performed By: #### L 100.0100, L500.2500 #### [facility] [address] [place], [address] Absolute Neut 19.6 X10 3/uL High 2.0-7.7 [facility] Comment on above: Performed By: #### L 100.0100, L500.2500 #### [facility] [address] [place], [address] Basophils/100 WBC (Bld) 0.2 % Normal 0-1 [facility] Comment on above: Performed By: #### L 100.0100, L500.2500 #### [facility] [address] [place], [address] Eosinophils/100 WBC (Bld) 0.1 % Normal 0-5 [facility] Comment on above: Performed By: #### L 100.0100, L500.2500 #### [facility] [address] [place], [address] Erythrocyte distribution width (RBC) [Ratio] 13.6 % Normal 11.6-14.6 [facility] Comment on above: Performed By: #### L 100.0100, L500.2500 #### [facility] [address] [place], [address] Hematocrit (Bld) [Volume fraction] 43.6 % Normal 40-54 [facility] Comment on above: Performed By: #### L 100.0100, L500.2500 #### [facility] [address] [place], [address] Hemoglobin (Bld) [Mass/Vol] 14.6 g/dL Normal 13.0-16.5 [facility] Comment on above: Performed By: #### L 100.0100, L500.2500 #### [facility] [address] [place], [address] IG% 0.500 Normal 0.0-0.9 [facility] Comment on above: Result Comment: IG% - Immature Granulocytes (promyelocytes, myelocytes and metamyelocytes) > 1% indicates that a LEFT SHIFT is Present. Performed By: #### L 100.0100, L500.2500 #### [facility] [address] [place], [address] Lymphocytes/100 WBC (Bld) 5.5 % Low 19-41 [facility] Comment on above: Performed By: #### L 100.0100, L500.2500 #### [facility] [address] [place], [address] MCH (RBC) [Entitic mass] 28.9 pg Normal 27.0-32.0 [facility] Comment on above: Performed By: #### L 100.0100, L500.2500 #### [facility] [address] [place], [address] MCHC (RBC) [Mass/Vol] 33.5 g/dL Normal 32-36 [facility] Comment on above: Performed By: #### L 100.0100, L500.2500 #### [facility] [address] [place], [address] MCV (RBC) [Entitic vol] 86.3 fL Normal 80-94 [facility] Comment on above: Performed By: #### L 100.0100, L500.2500 #### [facility] [address] [place], [address] Monocytes/100 WBC (Bld) 6.3 % Normal 0-10 [facility] Comment on above: Performed By: #### L 100.0100, L500.2500 #### [facility] [address] [place], [address] Neutrophils/100 WBC (Bld) 87.4 % High 47-70 [facility] Comment on above: Performed By: #### L 100.0100, L500.2500 #### [facility] [address] [place], [address] Nucleated RBC (Bld) [#/Vol] 0 10*3/uL Normal 0-5 [facility] Comment on above: Performed By: #### L 100.0100, L500.2500 #### [facility] [address] [place], [address] Platelet mean volume (Bld) [Entitic vol] 10.7 fL Normal 6.2-12.0 [facility] Comment on above: Performed By: #### L 100.0100, L500.2500 #### [facility] [address] [place], [address] Platelets (Bld) [#/Vol] 244 10*3/uL Normal 150-450 [facility] Comment on above: Performed By: #### L 100.0100, L500.2500 #### [facility] [address] [place], [address] RBC (Bld) [#/Vol] 5.05 10*6/uL Normal 4.6-6.2 [facility] Comment on above: Performed By: #### L 100.0100, L500.2500 #### [facility] [address] [place], [address] RDW SD 42.0 fl Normal 35.1-43.9 [facility] Comment on above: Performed By: #### L 100.0100, L500.2500 #### [facility] [address] [place], [address] WBC (Bld) [#/Vol] 22.4 10*3/uL High 4.4-11.0 [facility] Comment on above: Performed By: #### L 100.0100, L500.2500 #### [facility] [address] [place], [address] ACT Activated Clotting Timeo n 06-21-2025 ACTk CLOT TIME 245 sec High 74-137 [facility] Comment on above: Performed By: #### L 9100.0100 #### [facility] [address] [place], [address] ACTk CLOT TIME 143 sec High 74-137 [facility] Comment on above: Performed By: #### L 9100.0100 #### [facility] [address] [place], [address] ACTk CLOT TIME 240 sec High 74-137 [facility] Comment on above: Performed By: #### L 9100.0100 #### [facility] [address] [place], [address] MR/POSTOP.ANE 06-21-2025 MR/POSTOP.[facility] Medical Records Department [address] [place] [address] Anesthesia Postop Eval I 06/21/25 1541 MR#: [id number] Acct: [id number] Name: ROSIBEL KUMARI Rep #: [id number] : 1945 80 From: Butch Trent MD PCP: Dr. Prasanth Renee MD Status:ADM IN Y Race: C Location: ICU ICU02-1 Anesthesia: Postop Eval I Current Vital Signs Temperature: 97.1 F Pulse Rate: 48 Blood Pressure: 107/46 Respiratory Rate: 16 Pulse Ox: 92 Oxygen Delivery Method: Nasal Cannula Oxygen Flow Rate (L/min): 2 Assessment Airway patent: Yes Spontaneous unlabored respirations: Yes Mental status: Awake nausea: No Vomiting: No Anesthesia Complication: No Fluid Hydration Crystalloid volume administer (ml): 1,000 Total IV fluid infused: 1,000 Progress Note Anesthesia document: Postop Eval 1 completed: Yes 06/21/25 1542 Date Butch Trent MD Cosigner Signature: Date CC: Signed Normal [facility] MR/[id number] 06-21-2025 MR/POSTOPAN2 [facility] Medical Records Department [address] [place] [address] Anesthesia Postop Eval II 06/21/25 1542 MR#: [id number] Acct: [id number] Name: ROSIBEL KUMARI Rep #: [id number] : 1945 80 From: Butch Trent MD PCP: Dr. Prasanth Renee MD Status:ADM IN Y Race: C Location: ICU ICU02- Anesthesia Postop Eval I Sum Postop Eval Completion status Anesthesia document: Postop Eval 1 completed: Yes Anesthesia Postop Eval I Summary Anesthesia Postop Eval I Summary: Anesthesia Postop Eval I: Assessment Summary Airway patent Yes 06/21/25 15:42 Spontaneous unlabored Yes 06/21/25 15:42 respirations Mental status Awake 06/21/25 15:42 nausea No 06/21/25 15:42 Vomiting No 06/21/25 15:42 Anesthesia Postop Eval I: Fluid Summary Crystalloid volume administer 1,000 06/21/25 15:42 (ml) Colloids volume administered ( ml) Blood Product volume administered (ml) Total IV fluid infused 1,000 06/21/25 15:42 Anesthesia Postop Eval I: Summary Notes Anesthesia Complication No 06/21/25 15:42 Anesthesia Complication Comment: Post-operative progress note Anesthesia: Postop Eval II Evaluation Mental status: Awake Pain Level: 0 nausea: No Vomiting: No Complications Anesthesia Complication: No 06/21/25 1542 Date Butch Trent MD Cosigner Signature: Date CC: Signed Normal [facility] Operative Reporton Operative Report [facility] Medical Records Department [address] [place] [address] Operative Report 06/21/25 1024 MR#: [id number] Acct: [id number] Name: ROSIBEL KUMARI Rep #: [id number] : 1945 80 From: Dickson Sanchez MD PCP: Dr. Prasanth Renee MD Status:ADM IN Location: ICU ICU02-1 Operative Report (Standard) Operative Information Date of Procedure: 06/21/25 Pre-Operative Diagnosis: AAA Post-Operative Diagnosis: Same Surgery/Procedure Performed: Endovascular repair abdominal aortic aneurysm casualty underwriter: Yes Appeals Court Associate Justice: Sarai Santiago Tasks completed by medical record assistant: Opening, Closing, Opening closing and Implanting device Type of Anesthesia: General RN Documented Start/Stop Times: Operation Date: 06/21/25 08:00 Case Time Into Pre-Op 06/21/25 05:34 Into Recovery 06/21/25 10:12 Out of Recovery 06/21/25 11:08 Procedure Start Time: 08:10 Procedure Stop Time: 09:40 Select all DRAINS/GRAFTS/IMPLANTS that apply: Implanted device Implanted device details: Endologix Chancellor Estimated Blood Loss: 14 Specimen collected: No Description of surgery: HPI: Patient is an 80-year-old male with a large infrarenal abdominal aortic aneurysm with anatomy which is amenable to endovascular exclusion. He is taken now for elective endovascular abdominal aortic aneurysm repair. Description of procedure: Upon obtaining informed consent and verification correct patient procedure and site the patient was taken to the [facility] where he was placed under general anesthesia. He was then positioned prepped and draped in usual sterile fashion and time was performed. Under ultrasound guidance the right common femoral artery was accessed with a micropuncture needle and wire which was exchanged for a micropuncture sheath. Through the micropuncture sheath hand- injection iliofemoral angiogram was performed revealing satisfactory positioning with no extravasation or dissection. Through the micropuncture sheath a Bentson wire was advanced the micropuncture sheath exchanged for a short 8 Vincentian sheath. Given tortuosity in the iliac artery a KMP catheter and Bentson wire we to traverse the vessel advancing into the abdominal aorta. The catheter and 6 Vincentian sheath was then withdrawn and a pair of Pro-glide suture mediated closure devices were then deployed in preclose technique after which an 8 Vincentian sheath was advanced over the wire into the abdominal aorta. Next under ultrasound guidance the left common femoral artery was accessed with a micropuncture needle wire. This was then exchanged for micropuncture sheath through which hand-injection iliofemoral angiogram was performed revealing satisfactory positioning with no extravasation or dissection. Through the micropuncture sheath a Bentson wire was advanced into the abdominal aorta and the micropuncture sheath exchanged for a 6 Vincentian sheath to dilate the tract. Pro-glide suture mediated closure devices were then deployed in preclose technique after which an 8 Vincentian sheath was advanced over the wire into the abdominal aorta. The patient was then heparinized and allowed to circulate for 3 minutes after which subsequent heparin dosing was based on ACT results. The KMP catheter and Bentson wire were then advanced into the proximal thoracic aorta and the Bentson wire exchanged for a Lunderquist wire. The catheter and 8 Vincentian sheath were then exchanged for the Endologix Reality Mobile main body 29 mm device which was advanced to the proximal abdominal aorta. A marker pigtail catheter was then advanced via the left femoral access sheath and a magnified digital subtraction aortogram performed to determine the position of the renal vessels with regard to the proximal aspect of the aneurysm. The device was then positioned to land at the inferior edge of the left renal artery which was the lowest. The device was then deployed and the polymer autoinjector attached per route returner's instructions. An angled Glidewire was then advanced via the pigtail catheter which was then exchanged for a KMP catheter and the contralateral gate cannulated from the left femoral access site. The KMP catheter was exchanged for the pigtail catheter which traversed the lumen of the graft without difficulty confirming presence within the lumen of the graft. The wire and catheter were then advanced in the proximal thoracic aorta and the Glidewire exchanged for a second Lunderquist wire. The marker pigtail catheter was then withdrawn down to the iliac vessels and hand-injection subtraction and iliac angiogram performed in order to determine appropriate length for our left iliac limb. An Endologix ovation iliac limb 16 x 140 was then selected. The left femoral 8 Vincentian sheath was then withdrawn and the iliac limb advanced in the position with satisfactory overlap into the main body. The device was then deployed with distal landing (more content not included)... Normal [facility] Basic Metabolic Profile (BMP )on 06-16-2025 BUN/CRE 11.6 RATIO Normal 10-20 [facility] Comment on above: Performed By: #### B TSPAT, L100.0500, L500.2500 #### [facility] [address] [place], [address] Calcium [Mass/Vol] 9.3 mg/dL Normal 7.6-11.0 [facility] Comment on above: Performed By: #### B TSPAT, L100.0500, L500.2500 #### [facility] [address] [place], [address] Chloride [Moles/Vol] 106 mmol/L Normal 98-108 [facility] Comment on above: Performed By: #### B TSPAT, L100.0500, L500.2500 #### [facility] [address] [place], [address] CO2 [Moles/Vol] 25.8 mmol/L Normal 21.0-32.0 [facility] Comment on above: Performed By: #### B TSPAT, L100.0500, L500.2500 #### [facility] [address] [place], [address] Creatinine [Mass/Vol] 1.47 mg/dL High 0.70-1.20 [facility] Comment on above: Performed By: #### B TSPAT, L100.0500, L500.2500 #### [facility] [address] [place], [address] GAP 9 Normal 5-15 [facility] Comment on above: Performed By: #### B TSPAT, L100.0500, L500.2500 #### [facility] [address] [place], [address] GFR/1.73 sq M.predicted among non-blacks MDRD (S/P/Bld) [Vol rate/Area] 48 mL/min/{1.73_m2} Low >60 [facility] Comment on above: Result Comment: mL/m in/1.73m2 CKD-EPI Creatinine Equation (2020) Performed By: #### B TSPAT, L100.0500, L500.2500 #### [facility] [address] [place], [address] Glucose [Mass/Vol] 113 mg/dL High 70-99 [facility] Comment on above: Performed By: #### B TSPAT, L100.0500, L500.2500 #### [facility] [address] [place], [address] Potassium [Moles/Vol] 4.2 mmol/L Normal 3.3-5.1 [facility] Comment on above: Performed By: #### Ken TSPAT, L100.0500, L500.2500 #### [facility] [address] [place], [address] Sodium [Moles/Vol] 142 mmol/L Normal 133-145 [facility] Comment on above: Performed By: #### Ken TSPAT, L100.0500, L500.2500 #### [facility] [address] [place], [address] Urea nitrogen [Mass/Vol] 17 mg/dL Normal 4-19 [facility] Comment on above: Performed By: #### B TSPAT, L100.0500, L500.2500 #### [facility] [address] [place], [address] CBC-Complete Blood Cnt No Di ffon 06-16-2025 Erythrocyte distribution width (RBC) [Ratio] 13.6 % Normal 11.6-14.6 [facility] Comment on above: Performed By: #### B TSPAT, L100.0500, L500.2500 #### [facility] [address] [place], [address] Hematocrit (Bld) [Volume fraction] 48.4 % Normal 40-54 [facility] Comment on above: Performed By: #### B TSPAT, L100.0500, L500.2500 #### [facility] [address] [place], [address] Hemoglobin (Bld) [Mass/Vol] 15.5 g/dL Normal 13.0-16.5 [facility] Comment on above: Performed By: #### B TSPAT, L100.0500, L500.2500 #### [facility] [address] [place], [address] MCH (RBC) [Entitic mass] 28.9 pg Normal 27.0-32.0 [facility] Comment on above: Performed By: #### B TSPAT, L100.0500, L500.2500 #### [facility] [address] [place], [address] MCHC (RBC) [Mass/Vol] 32.0 g/dL Normal 32-36 [facility] Comment on above: Performed By: #### B TSPAT, L100.0500, L500.2500 #### [facility] [address] [place], [address] MCV (RBC) [Entitic vol] 90.1 fL Normal 80-94 [facility] Comment on above: Performed By: #### B TSPAT, L100.0500, L500.2500 #### [facility] [address] [place], [address] Platelet mean volume (Bld) [Entitic vol] 10.9 fL Normal 6.2-12.0 [facility] Comment on above: Performed By: #### B TSPAT, L100.0500, L500.2500 #### [facility] [address] [place], [address] Platelets (Bld) [#/Vol] 254 10*3/uL Normal 150-450 [facility] Comment on above: Performed By: #### B TSPAT, L100.0500, L500.2500 #### [facility] [address] [place], [address] RBC (Bld) [#/Vol] 5.37 10*6/uL Normal 4.6-6.2 [facility] Comment on above: Performed By: #### B TSPAT, L100.0500, L500.2500 #### [facility] [address] [place], [address] RDW SD 45.1 fl High 35.1-43.9 [facility] Comment on above: Performed By: #### B TSPAT, L100.0500, L500.2500 #### [facility] [address] [place], [address] WBC (Bld) [#/Vol] 10.4 10*3/uL Normal 4.4-11.0 [facility] Comment on above: Performed By: #### B TSPAT, L100.0500, L500.2500 #### [facility] [address] 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 Normal [facility] Glomerular filtration rate ( GFR) estimation/1.73 sq m using serum, plasma, or whole bOrdered By: Dickson Sanchez on 05-30-2025 GFR/1.73 sq M.predicted among non-blacks MDRD (S/P/Bld) [Vol rate/Area] 53 mL/min/{1.73_m2} Low >60 [facility] Comment on above: mL/min/1.73m2 CKD-EP I Creatinine Equation (2020) MR/Marvel 05-30-2025 MR/GIOVANI [facility] [address] [place] [address] OFFICE VISIT Date of Service: 05/30/25 MR#: [id number] Acct: [id number] Name: ROSIBEL KUMARI Rep #: [id number] : 1945 Provider: Dr. Dickson Sanchez MD Age/Sex: 80/M Location: [facility] Status: Signed Intake Vital Signs 05/30/25 12:50 Height 5 ft 4.5 in Weight: 169 lb BMI 28.5 BP 195/83 H Blood Pressure Location Lt brachial Position Sitting Respiration 16 Pulse 62 Pulse Source NIBP Temp 98.6 F Temp Source Temporal Pulse Oximetry (%) 97 Oxygen Delivery Method room air Intake Visit Reasons: Discuss Results Promotion Producer Required: No Accompanied by: Self Is patient [...] years used: 30 HPI HPI HPI: ROSIBEL KUMARI, is a 80 M who presents to the office today for follow up of AAA initially identified incidentally last year at which time it was 5.4 cm. He has now had his repeat CTA and is here to discuss options. No back/abd pain, no CP/SOB with activity, able to climb hills in [place], up and down stairs without limitation. ROS [...] Gait: normal (more content not included)... Normal [facility] Serum Creatinine AND GFRon Creatinine [Mass/Vol] 1.35 mg/dL High 0.70-1.20 [facility] Comment on above: Performed By: #### L 500.2500 #### [facility] [address] [place], [place], [id number] GFR/1.73 sq M.predicted among non-blacks MDRD (S/P/Bld) [Vol rate/Area] 53 mL/min/{1.73_m2} Low >60 [facility] Comment on above: Result Comment: mL/m in/1.73m2 CKD-EPI Creatinine Equation (2020) Performed By: #### L 500.2500 #### [facility] [address] [place], [address] Serum creatinine measurement (mass/volume)Ordered By: Dickson Sanchez on 05-30-2025 Creatinine [Mass/Vol] 1.35 mg/dL High 0.70-1.20 [facility] Anion gap in Serum or Plasma Ordered By: Zebulun Beam on 04-18-2025 Anion gap [Moles/Vol] 13 mmol/L 12-23 [facility] BUN/creatinine ratioOrdered By: Zebulun Beam on 04-18-2025 Urea nitrogen/Creatinine [Mass ratio] 11.4 mg/mg 05-30 [facility] Basic Metabolic Profile (BMP )on 04-18-2025 BUN/CRE 11.4 RATIO Normal 05-30 [facility] Comment on above: Performed By: #### L 500.2500 #### [facility] [address] [place], [address] Calcium [Mass/Vol] 9.4 mg/dL Normal 7.6-11.0 [facility] Comment on above: Performed By: #### L 500.2500 #### [facility] [address] [place], [address] Chloride [Moles/Vol] 108 mmol/L Normal 98-108 [facility] Comment on above: Performed By: #### L 500.2500 #### [facility] [address] [place], [address] CO2 [Moles/Vol] 22.9 mmol/L Normal 21.0-32.0 [facility] Comment on above: Performed By: #### L 500.2500 #### [facility] [address] [place], [address] Creatinine [Mass/Vol] 2.01 mg/dL High 0.70-1.20 [facility] Comment on above: Performed By: #### L 500.2500 #### [facility] [address] [place], [address] GAP 13 Normal 5-15 [facility] Comment on above: Performed By: #### L 500.2500 #### [facility] [address] [place], [address] GFR/1.73 sq M.predicted among non-blacks MDRD (S/P/Bld) [Vol rate/Area] 33 mL/min/{1.73_m2} Low >60 [facility] Comment on above: Result Comment: mL/m in/1.73m2 CKD-EPI Creatinine Equation (2020) Performed By: #### L 500.2500 #### [facility] [address] [place], [address] Glucose [Mass/Vol] 89 mg/dL Normal 70-99 [facility] Comment on above: Performed By: #### L 500.2500 #### [facility] [address] [place], [address] Potassium [Moles/Vol] 4.1 mmol/L Normal 3.3-5.1 [facility] Comment on above: Performed By: #### L 500.2500 #### [facility] [address] [place], [address] Sodium [Moles/Vol] 144 mmol/L Normal 133-145 [facility] Comment on above: Performed By: #### L 500.2500 #### [facility] [address] [place], [address] Urea nitrogen [Mass/Vol] 23 mg/dL High 4-19 [facility] Comment on above: Performed By: #### L 500.2500 #### [facility] [address] [place], [address] Carbon dioxide, total [Moles /volume] in Central venous bloodOrdered By: Jamal Hurtado on 04-18-2025 CO2 [Moles/Vol] 22.9 mmol/L 21.0-32.0 [facility] Chloride assayOrdered By: Jr Hurtado on 04-18-2025 Chloride [Moles/Vol] 108 mmol/L 98-108 [facility] Glomerular filtration rate ( GFR) estimation/1.73 sq m using serum, plasma, or whole bOrdered By: Jamal Hurtado on 04-18-2025 GFR/1.73 sq M.predicted among non-blacks MDRD (S/P/Bld) [Vol rate/Area] 33 mL/min/{1.73_m2} Low >60 [facility] Comment on above: mL/min/1.73m2 CKD-EP I Creatinine Equation (2020) Potassium measurement (mass/ volume)Ordered By: Jamal Hurtado on 04-18-2025 Potassium (Unsp spec) [Mass/Vol] 4.1 mmol/L 3.3-5.1 [facility] Serum creatinine measurement (mass/volume)Ordered By: Jamal Hurtado on 04-18-2025 Creatinine [Mass/Vol] 2.01 mg/dL High 0.70-1.20 [facility] Serum glucose measurement (m ass/volume)Ordered By: Jamal Hurtado on 04-18-2025 Glucose [Mass/Vol] 89 mg/dL 70-99 [facility] Serum or plasma calcium gato urement (mass/volume)Ordered By: Jamal Hurtado on 04-18-2025 Calcium [Mass/Vol] 9.4 mg/dL 7.6-11.0 [facility] Serum or plasma urea nitroge n measurement (mass/volume)Ordered By: Jamal Hurtado on 04-18-2025 Urea nitrogen [Mass/Vol] 23 mg/dL High 4-19 [facility] Sodium levelOrdered By: Magdalena Hurtado on 04-18-2025 Sodium [Moles/Vol] 144 mmol/L 133-145 [facility] CTA Abd/Pelvis W/WO Contrast on 03-30-2025 CTA Abd/Pelvis W/WO Contrast [facility] Imaging Services [address] [place] [address] CTA Abd/Pelvis W/WO Contrast MR#: [id number] Acct: [id number] Name: ROSIBEL KUMARI Rep #: [id number] : 1945 M 79 From: Ranjit la MD PCP: Jamal Hurtado [facility] [employer] 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 Reading Location: [id number] CC: Dr. Dickson Sanchez MD; [facility] WE[employer] UI DEVELOPER-C [employer] Designer: Signed Normal [facility] Anion gap in Serum or Plasma Ordered By: Zebulun Beam on 03-24-2025 Anion gap [Moles/Vol] 11 mmol/L - [facility] BUN/creatinine ratioOrdered By: Zebulun Beam on 03-24-2025 Urea nitrogen/Creatinine [Mass ratio] 10.9 mg/mg - [facility] Basic Metabolic Profile (BMP )on 03-24-2025 BUN/CRE 10.9 RATIO Normal - [facility] Comment on above: Performed By: #### L 500.2500 #### [facility] [address] [place], [address] Calcium [Mass/Vol] 9.7 mg/dL Normal 7.6-11.0 [facility] Comment on above: Performed By: #### L 500.2500 #### [facility] [address] [place], [address] Chloride [Moles/Vol] 105 mmol/L Normal 98-108 [facility] Comment on above: Performed By: #### L 500.2500 #### [facility] [address] [place], [address] CO2 [Moles/Vol] 23.4 mmol/L Normal 21.0-32.0 [facility] Comment on above: Performed By: #### L 500.2500 #### [facility] [address] [place], [address] Creatinine [Mass/Vol] 1.64 mg/dL High 0.70-1.20 [facility] Comment on above: Performed By: #### L 500.2500 #### [facility] [address] [place], [address] GAP 11 Normal - [facility] Comment on above: Performed By: #### L 500.2500 #### [facility] [address] [place], [address] GFR/1.73 sq M.predicted among non-blacks MDRD (S/P/Bld) [Vol rate/Area] 42 mL/min/{1.73_m2} Low >60 [facility] Comment on above: Result Comment: mL/m in/1.73m2 CKD-EPI Creatinine Equation (2020) Performed By: #### L 500.2500 #### [facility] [address] [place], [address] Glucose [Mass/Vol] 92 mg/dL Normal 70-99 [facility] Comment on above: Performed By: #### L 500.2500 #### [facility] [address] [place], [address] Potassium [Moles/Vol] 4.5 mmol/L Normal 3.3-5.1 [facility] Comment on above: Performed By: #### L 500.2500 #### [facility] [address] [place], [address] Sodium [Moles/Vol] 140 mmol/L Normal 133-145 [facility] Comment on above: Performed By: #### L 500.2500 #### [facility] [address] [place], [address] Urea nitrogen [Mass/Vol] 18 mg/dL Normal 4-19 [facility] Comment on above: Performed By: #### L 500.2500 #### [facility] [address] [place], [address] Carbon dioxide, total [Moles /volume] in Central venous bloodOrdered By: Jamal Hurtado on 03-24-2025 CO2 [Moles/Vol] 23.4 mmol/L 21.0-32.0 [facility] Chloride assayOrdered By: Jr Hurtado on 03-24-2025 Chloride [Moles/Vol] 105 mmol/L 98-108 [facility] Glomerular filtration rate ( GFR) estimation/1.73 sq m using serum, plasma, or whole bOrdered By: Jamal Hurtado on 03-24-2025 GFR/1.73 sq M.predicted among non-blacks MDRD (S/P/Bld) [Vol rate/Area] 42 mL/min/{1.73_m2} Low >60 [facility] Comment on above: mL/min/1.73m2 CKD-EP I Creatinine Equation (2020) Potassium measurement (mass/ volume)Ordered By: Magdalenapatricia Hurtado on 03-24-2025 Potassium (Unsp spec) [Mass/Vol] 4.5 mmol/L 3.3-5.1 [facility] Serum creatinine measurement (mass/volume)Ordered By: Magdalenapatricia Hurtado on 03-24-2025 Creatinine [Mass/Vol] 1.64 mg/dL High 0.70-1.20 [facility] Serum glucose measurement (m ass/volume)Ordered By: [facility] Hurtado on 03-24-2025 Glucose [Mass/Vol] 92 mg/dL 70-99 [facility] Serum or plasma calcium gato urement (mass/volume)Ordered By: [facility] centerpatricia Hurtado on 03-24-2025 Calcium [Mass/Vol] 9.7 mg/dL 7.6-11.0 [facility] Serum or plasma urea nitroge n measurement (mass/volume)Ordered By: Jrland[facility] centerpatricia Beam on 03-24-2025 Urea nitrogen [Mass/Vol] 18 mg/dL 4-19 [facility] Sodium levelOrdered By: roberto Hurtado on 03-24-2025 Sodium [Moles/Vol] 140 mmol/L 133-145 [facility] MR/BMSJacky 03-09-2025 MR/BMS.ROWAN [facility] [address] [place] [address] OFFICE VISIT Date of Service: 03/09/25 MR#: [id number] Acct: [id number] Name: CEDRICROSIBEL Ziyad Rep #: [id number] : 1945 Provider: Dr. Dickson Sanchez MD Age/Sex: 79/M Location: [facility] Status: Signed Intake Vital Signs 03/09/25 15:53 [...] years used: 30 HPI HPI HPI: ROSIBEL KUMARI, is a 79 M who presents to the office today for evaluation of 5.4 cm AAA initially discovered in early 2023 on imaging to evaluate appendicitis. He had seen Dr. Mckeon at his [place] location and had CTA at that time [...] and Movement: (more content not included)... Normal [facility] Absolute lymphocyte countOrd ered By: Jamal Hurtado on 01-28-2025 Lymphocytes Auto (Unsp spec) [#/Vol] 2.27 10*3/uL 0.83-4.51 [facility] Absolute neutrophil countOrd ered By: Jamal Hurtado on 01-28-2025 Neutrophils (Bld) [#/Vol] 4.7 10*3/uL 2.0-7.7 [facility] Anion gap in Serum or Plasma Ordered By: Ingrisn Beam on 01-28-2025 Anion gap [Moles/Vol] 14 mmol/L 12-23 [facility] Automated lymphocyte count a s percentage of total leukocytesOrdered By: Zebulun Beam on 01-28-2025 Lymphocytes/100 WBC Auto (Unsp spec) 28.6 % [facility] BUN/creatinine ratioOrdered By: bulun Beam on 01-28-2025 Urea nitrogen/Creatinine [Mass ratio] 12.2 mg/mg 05-30 [facility] Basophil percentageOrdered B y: Zebulun Beam on 01-28-2025 Basophils/100 WBC (Bld) 0.9 % 0-1 [facility] Bilirubin Test strip Ql (U)O rdered By: Zerobertolun Beam on 01-28-2025 Bilirubin Ql (U) Negative Negative [facility] Bilirubin, totalOrdered By: Zebulun Beam on 01-28-2025 Bilirubin [Mass/Vol] 0.44 mg/dL 0.00-1.30 [facility] CBC W/Diff, Automatedon 01-10 Absolute Lymph 2.27 X10 3/uL Normal 0.83-4.51 [facility] Comment on above: Performed By: #### B TSPAT, L100.0500, L500.2500 #### [facility] [address] [place], [address] Absolute Neut 4.7 X10 3/uL Normal 2.0-7.7 [facility] Comment on above: Performed By: #### B TSPAT, L100.0500, L500.2500 #### [facility] [address] [place], [address] Basophils/100 WBC (Bld) 0.9 % Normal 0-1 [facility] Comment on above: Performed By: #### B TSPAT, L100.0500, L500.2500 #### [facility] [address] [place], [address] Eosinophils/100 WBC (Bld) 3.8 % Normal 0-5 [facility] Comment on above: Performed By: #### B TSPAT, L100.0500, L500.2500 #### [facility] [address] [place], [address] Erythrocyte distribution width (RBC) [Ratio] 13.4 % Normal 11.6-14.6 [facility] Comment on above: Performed By: #### B TSPAT, L100.0500, L500.2500 #### [facility] [address] [place], [address] Hematocrit (Bld) [Volume fraction] 48.4 % Normal 40-54 [facility] Comment on above: Performed By: #### Ken TSPAT, L100.0500, L500.2500 #### [facility] [address] [place], [address] Hemoglobin (Bld) [Mass/Vol] 16.0 g/dL Normal 13.0-16.5 [facility] Comment on above: Performed By: #### Ken TSPAT, L100.0500, L500.2500 #### [facility] [address] [place], [address] IG% 0.400 Normal 0.0-0.9 [facility] Comment on above: Result Comment: IG% - Immature Granulocytes (promyelocytes, myelocytes and metamyelocytes) > 1% indicates that a LEFT SHIFT is Present. Performed By: #### B TSPAT, L100.0500, L500.2500 #### [facility] [address] [place], [address] Lymphocytes/100 WBC (Bld) 28.6 % Normal 19-41 [facility] Comment on above: Performed By: #### B TSPAT, L100.0500, L500.2500 #### [facility] [address] [place], [address] MCH (RBC) [Entitic mass] 28.9 pg Normal 27.0-32.0 [facility] Comment on above: Performed By: #### B TSPAT, L100.0500, L500.2500 #### [facility] [address] [place], [address] MCHC (RBC) [Mass/Vol] 33.1 g/dL Normal 32-36 [facility] Comment on above: Performed By: #### B TSPAT, L100.0500, L500.2500 #### [facility] [address] [place], [address] MCV (RBC) [Entitic vol] 87.5 fL Normal 80-94 [facility] Comment on above: Performed By: #### B TSPAT, L100.0500, L500.2500 #### [facility] [address] [place], [address] Monocytes/100 WBC (Bld) 7.4 % Normal 0-10 [facility] Comment on above: Performed By: #### B TSPAT, L100.0500, L500.2500 #### [facility] [address] [place], [address] Neutrophils/100 WBC (Bld) 58.9 % Normal 47-70 [facility] Comment on above: Performed By: #### B TSPAT, L100.0500, L500.2500 #### [facility] [address] [place], [address] Nucleated RBC (Bld) [#/Vol] 0 10*3/uL Normal 0-5 [facility] Comment on above: Performed By: #### B TSPAT, L100.0500, L500.2500 #### [facility] [address] [place], [address] Platelet mean volume (Bld) [Entitic vol] 11.0 fL Normal 6.2-12.0 [facility] Comment on above: Performed By: #### B TSPAT, L100.0500, L500.2500 #### [facility] [address] [place], [address] Platelets (Bld) [#/Vol] 246 10*3/uL Normal 150-450 [facility] Comment on above: Performed By: #### B TSPAT, L100.0500, L500.2500 #### [facility] [address] [place], [address] RBC (Bld) [#/Vol] 5.53 10*6/uL Normal 4.6-6.2 [facility] Comment on above: Performed By: #### B TSPAT, L100.0500, L500.2500 #### [facility] [address] [place], [address] RDW SD 42.9 fl Normal 35.1-43.9 [facility] Comment on above: Performed By: #### B TSPAT, L100.0500, L500.2500 #### [facility] [address] [place], [address] WBC (Bld) [#/Vol] 8.0 10*3/uL Normal 4.4-11.0 [facility] Comment on above: Performed By: #### B TSPAT, L100.0500, L500.2500 #### [facility] [address] [place], [address] Carbon dioxide, total [Moles /volume] in Central venous bloodOrdered By: Jamal Hurtado on 01-28-2025 CO2 [Moles/Vol] 20.5 mmol/L Low 21.0-32.0 [facility] Chloride assayOrdered By: Jr Hurtado on 01-28-2025 Chloride [Moles/Vol] 107 mmol/L 98-108 [facility] Comprehensive Metabolic Prof ilon 01-28-2025 Albumin [Mass/Vol] 4.4 g/dL Normal 3.4-4.8 [facility] Comment on above: Performed By: #### B TSPAT, L100.0500, L500.2500 #### [facility] [address] [place], [address] Albumin/Globulin [Mass ratio] 1.3 {ratio} Normal 0.9-2.4 [facility] Comment on above: Performed By: #### B TSPAT, L100.0500, L500.2500 #### [facility] [address] [place], [address] ALK PHOS 117 U/L Normal 40-129 [facility] Comment on above: Performed By: #### B TSPAT, L100.0500, L500.2500 #### [facility] [address] [place], [address] ALT [Catalytic activity/Vol] 12 U/L Normal <=46 [facility] Comment on above: Performed By: #### B TSPAT, L100.0500, L500.2500 #### [facility] [address] [place], [address] AST [Catalytic activity/Vol] 18 U/L Normal <=37 [facility] Comment on above: Performed By: #### B TSPAT, L100.0500, L500.2500 #### [facility] [address] [place], [address] Bilirubin [Mass/Vol] 0.44 mg/dL Normal 0.00-1.30 [facility] Comment on above: Performed By: #### B TSPAT, L100.0500, L500.2500 #### [facility] [address] [place], [address] BUN/CRE 12.2 RATIO Normal 10-20 [facility] Comment on above: Performed By: #### B TSPAT, L100.0500, L500.2500 #### [facility] [address] [place], [address] Calcium [Mass/Vol] 9.3 mg/dL Normal 7.6-11.0 [facility] Comment on above: Performed By: #### B TSPAT, L100.0500, L500.2500 #### [facility] [address] [place], [address] Chloride [Moles/Vol] 107 mmol/L Normal 98-108 [facility] Comment on above: Performed By: #### B TSPAT, L100.0500, L500.2500 #### [facility] [address] [place], [address] CO2 [Moles/Vol] 20.5 mmol/L Low 21.0-32.0 [facility] Comment on above: Performed By: #### B TSPAT, L100.0500, L500.2500 #### [facility] [address] [place], [address] Creatinine [Mass/Vol] 1.38 mg/dL High 0.70-1.20 [facility] Comment on above: Performed By: #### B TSPAT, L100.0500, L500.2500 #### [facility] [address] [place], [address] GAP 14 Normal 5-15 [facility] Comment on above: Performed By: #### B TSPAT, L100.0500, L500.2500 #### [facility] [address] [place], [address] GFR/1.73 sq M.predicted among non-blacks MDRD (S/P/Bld) [Vol rate/Area] 52 mL/min/{1.73_m2} Low >60 [facility] Comment on above: Result Comment: mL/m in/1.73m2 CKD-EPI Creatinine Equation (2020) Performed By: #### B TSPAT, L100.0500, L500.2500 #### [facility] [address] [place], [address] Globulin (S) [Mass/Vol] 3.3 g/dL Normal 2.2-4.2 [facility] Comment on above: Performed By: #### B TSPAT, L100.0500, L500.2500 #### [facility] [address] [place], [address] Glucose [Mass/Vol] 94 mg/dL Normal 70-99 [facility] Comment on above: Performed By: #### B TSPAT, L100.0500, L500.2500 #### [facility] [address] [place], [address] Potassium [Moles/Vol] 4.3 mmol/L Normal 3.3-5.1 [facility] Comment on above: Performed By: #### B TSPAT, L100.0500, L500.2500 #### [facility] [address] [place], [address] Sodium [Moles/Vol] 141 mmol/L Normal 133-145 [facility] Comment on above: Performed By: #### B TSPAT, L100.0500, L500.2500 #### [facility] [address] [place], [address] T PROT 7.7 g/dL Normal 5.9-8.4 [facility] Comment on above: Performed By: #### B TSPAT, L100.0500, L500.2500 #### [facility] [address] [place], [address] Urea nitrogen [Mass/Vol] 17 mg/dL Normal 4-19 [facility] Comment on above: Performed By: #### B TSPAT, L100.0500, L500.2500 #### [facility] [address] [place], [address] Eosinophil percentageOrdered By: Jamal Hurtado on 01-28-2025 Eosinophils/100 WBC (Bld) 3.8 % 0-5 [facility] Erythrocyte distribution wid th ratioOrdered By: [facility] Hurtado on 01-28-2025 Erythrocyte distribution width (RBC) [Ratio] 13.4 % 11.6-14.6 [facility] Erythrocyte distribution wid th standard deviationOrdered By: robertopatricia Hurtado on 01-28-2025 Erythrocyte distribution width (RBC) [Ratio] 42.9 fl 35.1-43.9 [facility] Glomerular filtration rate ( GFR) estimation/1.73 sq m using serum, plasma, or whole bOrdered By: [facility] Hurt[facility] on 01-28-2025 GFR/1.73 sq M.predicted among non-blacks MDRD (S/P/Bld) [Vol rate/Area] 52 mL/min/{1.73_m2} Low >60 [facility] Comment on above: mL/min/1.73m2 CKD-EP I Creatinine Equation (2020) Hematocrit Auto (Bld) [Volum e fraction]Ordered By: [facility] on 01-28-2025 Hematocrit (Bld) [Volume fraction] 48.4 % 40-54 [facility] Hemoglobin measurementOrdere d By: Jamal Hurtado on 01-28-2025 Hemoglobin (Bld) [Mass/Vol] 16.0 g/dL 13.0-16.5 [facility] Immature granulocytes/100 WB C Auto (Bld)Ordered By: Jamal Hurtado on 01-28-2025 Immature granulocytes/100 WBC (Bld) 0.400 % 0.0-0.9 [facility] Comment on above: IG% - Immature Granu locytes (promyelocytes, myelocytes and metamyelocytes) > 1% indicates that a LEFT SHIFT is Present. Ketones Test strip Ql (U)Ord ered By: Jamal Hurtado on 01-28-2025 Ketones Ql (U) Negative Negative [facility] - Chemistry and C hemistry - challengeOrdered By: Jamal Hurtado on 06-20-2025 AST [Catalytic activity/Vol] 18 U/L <38 [facility] MCV (mean corpuscular volume ) determinationOrdered By: Jrbulun Beam on 01-28-2025 MCV (RBC) [Entitic vol] 87.5 fL 80-94 [facility] Mean corpuscular hemoglobin (MCH) determinationOrdered By: bun Beam on 01-28-2025 MCH (RBC) [Entitic mass] 28.9 pg 27.0-32.0 [facility] Mean corpuscular hemoglobin concentration (MCHC) determinationOrdered By: bulun Beam on 01-28-2025 MCHC (RBC) [Mass/Vol] 33.1 g/dL 32-36 [facility] Mean platelet volume determi nationOrdered By: bulun Beam on 01-28-2025 Platelet mean volume (Bld) [Entitic vol] 11.0 fL 6.2-12.0 [facility] Microalbumin,Random Urineon 01-28-2025 MICROALBUMIN,UR 43.1 mg/L Normal NO RANGE EST. [facility] Comment on above: Performed By: #### B TSPAT, L100.0500, L500.2500 #### [facility] [address] [place] [address], [address] Monocyte percentageOrdered B y: [facility] Be[facility] on 01-28-2025 Monocytes/100 WBC (Bld) 7.4 % 0-10 [facility] Neutrophil percentageOrdered By: [facility] on 01-28-2025 Neutrophils/100 WBC (Bld) 58.9 % 47-70 [facility] Nitrite Test strip Ql (U)Ord ered By: varun Hurtado on 01-28-2025 Nitrite Ql (U) Negative Negative [facility] Nucleated red blood cell per centageOrdered By: [facility] on 01-28-2025 Nucleated RBC/100 WBC (Bld) [Ratio] 0 % 0-5 [facility] PSA,Total - Annual Screenon 01-28-2025 PSA,TOT SCREEN 1.63 ng/mL Normal 0.02-4.00 [facility] Comment on above: Result Comment: This test [...] to confirm baseline values. Performed By: #### B TSPAT, L100.0500, L500.2500 #### [facility] [address] [place], [address] Platelet countOrdered By: Jr Hurtado on 01-28-2025 Platelets (Bld) [#/Vol] 246 10*3/uL 150-450 [facility] Potassium measurement (mass/ volume)Ordered By: Jamal Hurtado on 01-28-2025 Potassium (Unsp spec) [Mass/Vol] 4.3 mmol/L 3.3-5.1 [facility] Protein Test strip Ql (U)Ord ered By: Jamal Hurtado on 01-28-2025 Protein Ql (U) 15 mg/dl High Negative [facility] RBC Auto (Bld) [#/Vol]Ordere d By: Jamal Hurtado on 01-28-2025 RBC (Bld) [#/Vol] 5.53 10*6/uL 4.6-6.2 [facility] Serum creatinine measurement (mass/volume)Ordered By: Jamal Hurtado on 01-28-2025 Creatinine [Mass/Vol] 1.38 mg/dL High 0.70-1.20 [facility] Serum globulin measurementOr dered By: Jamal Hurtado on 01-28-2025 Globulin (S) [Mass/Vol] 3.3 g/dL 2.2-4.2 [facility] Serum glucose measurement (m ass/volume)Ordered By: Jamal Hurtado on 01-28-2025 Glucose [Mass/Vol] 94 mg/dL 70-99 [facility] Serum or plasma alanine gage otransferase (ALT) measurementOrdered By: Jamal Hurtado on 01-28-2025 ALT [Catalytic activity/Vol] 12 U/L <47 [facility] Serum or plasma albumin gato urement (mass/volume)Ordered By: Jamal Hurtado on 01-28-2025 Albumin [Mass/Vol] 4.4 g/dL 3.4-4.8 [facility] Serum or plasma albumin/glob ulin mass ratioOrdered By: Zebulun Beam on 01-28-2025 Albumin/Globulin [Mass ratio] 1.3 {ratio} 0.9-2.4 [facility] Serum or plasma alkaline froylan sphatase measurementOrdered By: Zebulun Beam on 01-28-2025 ALP [Catalytic activity/Vol] 117 U/L 40-129 [facility] Serum or plasma calcium gato urement (mass/volume)Ordered By: Zebulun Beam on 01-28-2025 Calcium [Mass/Vol] 9.3 mg/dL 7.6-11.0 [facility] Serum or plasma urea nitroge n measurement (mass/volume)Ordered By: Zebulun Beam on 01-28-2025 Urea nitrogen [Mass/Vol] 17 mg/dL 4-19 [facility] Sodium levelOrdered By: Jrbu home Beam on 01-28-2025 Sodium [Moles/Vol] 141 mmol/L 133-145 [facility] TSH DL <= 0.005 mIU/L QnOrde red By: Jrbulun Beam on 01-28-2025 TSH Qn 2.440 uIU/mL 0.300-4.200 [facility] Thyroid Stim Hormone (TSH)on 01-28-2025 TSH 2.440 uIU/mL Normal 0.300-4.200 [facility] Comment on above: Performed By: #### B TSPAT, L100.0500, L500.2500 #### [facility] [place], [address] Total proteinOrdered By: Roman Hurtado on 01-28-2025 Protein [Mass/Vol] 7.7 g/dL 5.9-8.4 [facility] Urinalysis, Routine (Dipstic k)on 01-28-2025 BILIRUBIN URINE Negative Normal Negative [facility] Comment on above: Order Comment: CLEAN CATCH Performed By: #### B TSPAT, L100.0500, L500.2500 #### [facility] [address] [place], [address] Clarity (U) Clear Normal Clear [facility] Comment on above: Order Comment: CLEAN CATCH Performed By: #### B TSPAT, L100.0500, L500.2500 #### [facility] [address] [place], [address] Color (U) Yellow Normal Yellow [facility] Comment on above: Order Comment: CLEAN CATCH Performed By: #### B TSPAT, L100.0500, L500.2500 #### [facility] [address] [place], [address] GLUCOSE, UR Normal Normal Normal [facility] Comment on above: Order Comment: CLEAN CATCH Performed By: #### B TSPAT, L100.0500, L500.2500 #### [facility] [address] [place], [address] KETONE UR Negative Normal Negative [facility] Comment on above: Order Comment: CLEAN CATCH Performed By: #### B TSPAT, L100.0500, L500.2500 #### [facility] [address] [place], [address] LEUK ESTERASE Negative Normal Negative [facility] Comment on above: Order Comment: CLEAN CATCH Performed By: #### B TSPAT, L100.0500, L500.2500 #### [facility] [address] [place], [address] Nitrite Ql (U) Negative Normal Negative [facility] Comment on above: Order Comment: CLEAN CATCH Performed By: #### B TSPAT, L100.0500, L500.2500 #### [facility] [address] [place], [address] OCCULT BLOOD-UR Negative Normal Negative [facility] Comment on above: Order Comment: CLEAN CATCH Performed By: #### B TSPAT, L100.0500, L500.2500 #### [facility] [address] [place], [address] pH UR 6.0 Normal 5.0 - 8.0 [facility] Comment on above: Order Comment: CLEAN CATCH Performed By: #### B TSPAT, L100.0500, L500.2500 #### [facility] [address] [place], [address] PROT DIPSTX 15 mg/dl Abnormal Negative [facility] Comment on above: Order Comment: CLEAN CATCH Performed By: #### B TSPAT, L100.0500, L500.2500 #### [facility] [address] [place], [address] SP.GR. DIPSTX 1.010 Normal 1.002-1.030 [facility] Comment on above: Order Comment: CLEAN CATCH Performed By: #### B TSPAT, L100.0500, L500.2500 #### [facility] [address] [place], [address] UROBILI Normal Normal Normal [facility] Comment on above: Order Comment: CLEAN CATCH Performed By: #### B TSPAT, L100.0500, L500.2500 #### [facility] [address] [place], [address] Urine albumin measurement [facility] detection limit of 20 mg/L or less (mass/volume)Ordered By: Jamal Hurtado on 01-28-2025 Albumin DL <= 20 mg/L (U) [Mass/Vol] 43.1 mg/L NO RANGE EST. [facility] Urine clarityOrdered By: Roman Hurtado on 01-28-2025 Clarity (U) Clear Clear [facility] Urine color determinationOrd ered By: Jamal Hurtado on 01-28-2025 Color (U) Yellow Yellow [facility] Urine glucose detectionOrder ed By: Jamal Hurtado on 01-28-2025 Glucose Ql (U) Normal mg/dl Normal [facility] Urine leukocyte esterase det ection by dipstickOrdered By: Jamal Hurtado on 01-28-2025 Leukocyte esterase Test strip Ql (U) Negative Negative [facility] Urine pHOrdered By: [facility] on 01-28-2025 pH (U) 6.0 [pH] 5.0 - 8.0 [facility] Urine specific gravity measu rementOrdered By: [facility] on 01-28-2025 Specific gravity (U) [Rel density] 1.010 1.002-1.030 [facility] Urine urobilinogen measureme ntOrdered By: [facility] on 01-28-2025 Urobilinogen Ql (U) Normal mg/dl Normal [facility] White blood cell (WBC) count Ordered By: [facility] on 01-28-2025 WBC (Bld) [#/Vol] 8.0 10*3/uL 4.4-11.0 [facility] CT ANGIOGRAPHY ABD AORTA + I [...] Date: 10/31/2023 4:37:40 PM Ordering Provider: SHANNA MCKEON Normal [facility] ([place]) .GFRon 10-27-2023 GFR Non- 44 ml/min/1.73sqm Normal [facility] ([place]) Comment on above: Result Comment: GFR Population [...] By: #### B UN, CRE, GFR #### [address] [address] GFR 54 ml/min/1.73sqm Normal [facility] ([place]) Comment on above: Result Comment: GFR Population [...] By: #### B UN, CRE, GFR #### [address] [address] BUNon 10-27-2023 Urea nitrogen [Mass/Vol] 20 mg/dL High 02-25 [facility] ([place]) Comment on above: Performed By: #### B UN, CRE, GFR #### [address] [address] CREon 10-27-2023 Creatinine [Mass/Vol] 1.53 mg/dL High 0.70-1.30 [facility] ([place]) Comment on above: Performed By: #### B UN, CRE, GFR #### [address] [address] LABORATORYOrdered By: SYSTEM SYSTEM on 10-27-2023 Creatinine [...] Basophil, Absolute 0.1 10 3/mcL Normal 0.0-0.2 [facility] ([place]) Comment on above: Performed By: #### G FR, ANEU, CBC, BMP, ADIFF #### [address] [address] Basophils/100 WBC (Bld) 1.0 % Normal 0.0-2.5 [facility] ([place]) Comment on above: Performed By: #### G FR, ANEU, CBC, BMP, ADIFF #### [address] [address] Eosinophil, Absolute 0.3 10 3/mcL Normal 0.0-0.4 [facility] ([place]) Comment on above: Performed By: #### G FR, ANEU, CBC, BMP, ADIFF #### [address] [address] Eosinophils/100 WBC (Bld) 3.3 % Normal 0.0-7.0 [facility] ([place]) Comment on above: Performed By: #### G FR, ANEU, CBC, BMP, ADIFF #### [address] [address] Lymphocyte, Absolute 2.4 10 3/mcL Normal 0.8-3.9 [facility] ([place]) Comment on above: Performed By: #### G FR, ANEU, CBC, BMP, ADIFF #### [address] [address] Lymphocytes/100 WBC (Bld) 24.7 % Normal 10.0-50.0 [facility] ([place] Comment on above: Performed By: #### G FR, ANEU, CBC, BMP, ADIFF #### [address] [address] Monocyte, Absolute 0.7 10 3/mcL Normal 0.2-1.0 [facility] ([place] Comment on above: Performed By: #### G FR, ANEU, CBC, BMP, ADIFF #### [address] [address] Monocytes/100 WBC (Bld) 7.6 % Normal 1.7-13.0 [facility] [place] Comment on above: Performed By: #### G FR, ANEU, CBC, BMP, ADIFF #### [address] [address] Neutrophils/100 WBC (Bld) 63.4 % Normal 37.0-80.0 [facility] ([place] Comment on above: Performed By: #### G FR, ANEU, CBC, BMP, ADIFF #### [address] [address] .GFRon 05-07-2023 GFR 60 ml/min/1.73sqm Normal [facility] ([place]) Comment on above: Result Comment: GFR Population [...] G FR, ANEU, CBC, BMP, ADIFF #### [address] [address] GFR Non- 49 ml/min/1.73sqm Normal [facility] ([place]) Comment on above: Result Comment: GFR Population [...] G FR, ANEU, CBC, BMP, ADIFF #### [address] [address] .NEUABSon 05-07-2023 Neutrophil, Absolute 6.2 10 3/mcL Normal 2.9-6.2 [facility] ([place] Comment on above: Performed By: #### G FR, ANEU, CBC, BMP, ADIFF #### [address] [address] BMPon 05-07-2023 BUN/Creatinine Ratio 15 ratio Normal 7-27 [facility] ([place] Comment on above: Performed By: #### G FR, ANEU, CBC, BMP, ADIFF #### [address] [address] Calcium [Mass/Vol] 9.4 mg/dL Normal 8.4-10.2 [facility] [place] Comment on above: Performed By: #### G FR, ANEU, CBC, BMP, ADIFF #### [address] [address] Chloride [Moles/Vol] 103 mmol/L Normal 98-107 [facility] ([place] Comment on above: Performed By: #### G FR, ANEU, CBC, BMP, ADIFF #### [address] [address] CO2 [Moles/Vol] 28 mmol/L Normal 23-31 [facility] ([place] Comment on above: Performed By: #### G FR, ANEU, CBC, BMP, ADIFF #### [address] [address] Creatinine [Mass/Vol] 1.40 mg/dL High 0.70-1.30 [facility] ([place]) Comment on above: Performed By: #### G FR, ANEU, CBC, BMP, ADIFF #### [address] [address] Electrolyte Balance 7.0 mEq/L Normal 4.0-15.0 [facility] ([place]) Comment on above: Performed By: #### G FR, ANEU, CBC, BMP, ADIFF #### [address] [address] Glucose [Mass/Vol] 111 mg/dL High 83-110 [facility] [place] Comment on above: Performed By: #### G FR, ANEU, CBC, BMP, ADIFF #### [address] [address] Potassium [Moles/Vol] 4.7 mmol/L Normal 3.5-5.1 [facility] ([place]) Comment on above: Performed By: #### G FR, ANEU, CBC, BMP, ADIFF #### [address] [address] Sodium [Moles/Vol] 138 mmol/L Normal 136-145 [facility] [place] Comment on above: Performed By: #### G FR, ANEU, CBC, BMP, ADIFF #### [address] [address] Urea nitrogen [Mass/Vol] 21 mg/dL High 7-18 [facility] ([place] Comment on above: Performed By: #### G FR, ANEU, CBC, BMP, ADIFF #### [address] [address] CBCon 05-07-2023 Erythrocyte distribution width (RBC) [Ratio] 15.6 % High 11.5-14.5 [facility] ([place]) Comment on above: Order Comment: Pre-A dmission Testing Performed By: #### G FR, ANEU, CBC, BMP, ADIFF #### [address] [address] Hematocrit (Bld) [Volume fraction] 44.0 % Normal 42.0-52.0 [facility] ([place]) Comment on above: Order Comment: Pre-A dmission Testing Performed By: #### G FR, ANEU, CBC, BMP, ADIFF #### [address] [address] Hgb 14.9 G/dL Normal 14.0-18.0 [facility] ([place]) Comment on above: Order Comment: Pre-A dmission Testing Performed By: #### G FR, ANEU, CBC, BMP, ADIFF #### [address] [address] MCH (RBC) [Entitic mass] 29.3 pg Normal 27.0-31.2 [facility] ([place]) Comment on above: Order Comment: Pre-A dmission Testing Performed By: #### G FR, ANEU, CBC, BMP, ADIFF #### [address] [address] MCHC 33.9 G/dL Normal 31.8-35.4 [facility] ([place]) Comment on above: Order Comment: Pre-A dmission Testing Performed By: #### G FR, ANEU, CBC, BMP, ADIFF #### [address] [address] MCV (RBC) [Entitic vol] 86.5 fL Normal 80.0-94.0 [facility] ([place] Comment on above: Order Comment: Pre-A dmission Testing Performed By: #### G FR, ANEU, CBC, BMP, ADIFF #### [address] [address] Platelet 232 10 3/mcL Normal 130-400 [facility] ([place]) Comment on above: Order Comment: Pre-A dmission Testing Performed By: #### G FR, ANEU, CBC, BMP, ADIFF #### [address] [address] Platelet mean volume (Bld) [Entitic vol] 8.9 fL Normal 7.4-10.4 [facility] ([place] Comment on above: Order Comment: Pre-A dmission Testing Performed By: #### G FR, ANEU, CBC, BMP, ADIFF #### [address] [address] RBC 5.08 10 6/mcL Normal 4.04-6.13 [facility] ([place]) Comment on above: Order Comment: Pre-A dmission Testing Performed By: #### G FR, ANEU, CBC, BMP, ADIFF #### [address] [place], [place] [address] WBC 9.7 10 3/mcL Normal 4.6-10.8 [facility] ([place]) Comment on above: Order Comment: Pre-A dmission Testing Performed By: #### G FR, ANEU, CBC, BMP, ADIFF #### [place] [address] [place], [place] [address] LABORATORYOrdered By: SYSTEM SYSTEM on 05-07-2023 Basophil, [...] Basophil, Absolute 0.1 10 3/mcL Normal 0.0-0.2 [facility] ([place] Comment on above: Performed By: #### MAKSIM WHITE #### [address] [address] Basophils/100 WBC (Bld) 1.0 % Normal 0.0-2.5 [facility] ([place]) Comment on above: Performed By: #### MAKSIM WHITE #### Nadja [address] [address] Eosinophil, Absolute 0.4 10 3/mcL Normal 0.0-0.4 [facility] ([place]) Comment on above: Performed By: #### MAKSIM WHITE #### [address] [address] Eosinophils/100 WBC (Bld) 3.7 % Normal 0.0-7.0 [facility] ([place]) Comment on above: Performed By: #### MAKSIM WHITE #### Nadja [address] [address] Lymphocyte, Absolute 2.4 10 3/mcL Normal 0.8-3.9 [facility] ([place]) Comment on above: Performed By: #### MAKSIM WHITE #### Nadja [address] [address] Lymphocytes/100 WBC (Bld) 22.2 % Normal 10.0-50.0 [facility] ([place]) Comment on above: Performed By: #### MAKSIM WHITE #### Nadja [address] [address] Monocyte, Absolute 0.8 10 3/mcL Normal 0.2-1.0 [facility] ([place]) Comment on above: Performed By: #### MAKSIM WHITE #### Nadja [address] [address] Monocytes/100 WBC (Bld) 7.1 % Normal 1.7-13.0 [facility] ([place]) Comment on above: Performed By: #### MAKSIM WHITE #### [address] [address] Neutrophils/100 WBC (Bld) 66.0 % Normal 37.0-80.0 [facility] ([place]) Comment on above: Performed By: #### MAKSIM WHITE #### [address] [address] .GFRon 02-17-2023 GFR 61 ml/min/1.73sqm Normal [facility] ([place]) Comment on above: Result Comment: GFR Population [...] Performed By: #### Héctor ZARCO UA #### [address] [address] GFR Non- 50 ml/min/1.73sqm Normal [facility] ([place]) Comment on above: Result Comment: GFR Population [...] Performed By: #### Héctor ZARCO UA #### [address] [address] .NEUABSon 02-17-2023 Neutrophil, Absolute 7.2 10 3/mcL High 2.9-6.2 [facility] ([place]) Comment on above: Performed By: #### Héctor ZARCO UA #### [address] [address] BMPon 02-17-2023 BUN/Creatinine Ratio 16 ratio Normal 7-27 [facility] ([place] Comment on above: Performed By: #### Héctor ZARCO UA #### [address] [address] Calcium [Mass/Vol] 9.5 mg/dL Normal 8.4-10.2 [facility] [place] Comment on above: Performed By: #### Héctor SAVAGEO, UA #### [address] [address] Chloride [Moles/Vol] 104 mmol/L Normal 98-107 [facility] ([place] Comment on above: Performed By: #### U AMICAO, UA #### [address] [address] CO2 [Moles/Vol] 26 mmol/L Normal 23-31 [facility] ([place] Comment on above: Performed By: #### U AMICAO, UA #### [address] [address] Creatinine [Mass/Vol] 1.38 mg/dL High 0.70-1.30 [facility] ([place] Comment on above: Performed By: #### U AMICAO, UA #### [address] [address] Electrolyte Balance 10.0 mEq/L Normal 4.0-15.0 [facility] ([place]) Comment on above: Performed By: #### U AMICAO, UA #### [address] [address] Glucose [Mass/Vol] 105 mg/dL Normal 83-110 [facility] [place] Comment on above: Performed By: #### U AMICAO, UA #### [address] [address] Potassium [Moles/Vol] 5.1 mmol/L Normal 3.5-5.1 [facility] ([place] Comment on above: Performed By: #### U AMICAO, UA #### [address] [address] Sodium [Moles/Vol] 140 mmol/L Normal 136-145 [facility] [place] Comment on above: Performed By: #### U AMICAO, UA #### [address] [address] Urea nitrogen [Mass/Vol] 22 mg/dL High 7-18 [facility] ([place] Comment on above: Performed By: #### MAKSIM WHITE #### [address] [address] CBCon 02-17-2023 Erythrocyte distribution width (RBC) [Ratio] 13.8 % Normal 11.5-14.5 [facility] ([place]) Comment on above: Performed By: #### Héctor ZARCO UA #### [address] [address] Hematocrit (Bld) [Volume fraction] 42.3 % Normal 42.0-52.0 [facility] ([place]) Comment on above: Performed By: #### MAKSIM WHITE #### [address] [address] Hgb 14.0 G/dL Normal 14.0-18.0 [facility] ([place]) Comment on above: Performed By: #### MAKSIM WHITE #### [address] [address] MCH (RBC) [Entitic mass] 28.4 pg Normal 27.0-31.2 [facility] ([place]) Comment on above: Performed By: #### MAKSIM WHITE #### [address] [address] MCHC 33.1 G/dL Normal 31.8-35.4 [facility] ([place]) Comment on above: Performed By: #### Héctor ZARCO UA #### [address] [address] MCV (RBC) [Entitic vol] 85.9 fL Normal 80.0-94.0 [facility] ([place]) Comment on above: Performed By: #### Héctor ZARCO UA #### [address] [address] Platelet 419 10 3/mcL High 130-400 [facility] ([place]) Comment on above: Performed By: #### Héctor ZARCO UA #### [address] [address] Platelet mean volume (Bld) [Entitic vol] 8.3 fL Normal 7.4-10.4 [facility] ([place]) Comment on above: Performed By: #### MAKSIM WHITE #### [address] [place], [place] [address] RBC 4.93 10 6/mcL Normal 4.04-6.13 [facility] ([place] Comment on above: Performed By: #### MAKSIM WHITE #### [address] [place], [place] [address] WBC 10.9 10 3/mcL High 4.6-10.8 [facility] ([place] Comment on above: Performed By: #### MAKSIM WHITE #### [address] [place], [place] [address] LABORATORYOrdered By: SYSTEM SYSTEM on 02-17-2023 Basophil, [...] Prostate Specific Antigen 1.55 ng/mL Normal 0.00-4.00 [facility] ([place]) Comment on above: Performed By: #### U MAKSIM ZARCO #### [id number] [place], [place] [address] Final Surgical Pathology Rep sue 02-07-2023 Final Surgical Pathology Report . Pathology Reports Accession: Collected Date/Time: Received Date/Time: Pathologist: [id number] 02/04/2023 17:37 EDT 02/05/2023 08:21 EDT VICTORIANO EATON MD Final Surgical Pathology Report DIAGNOSIS: APPENDIX: - ACUTE APPENDICITIS AND SEROSITIS CLINICAL INFORMATION: Procedure: LAPAROSCOPIC APPENDECTOMY Preoperative diagnosis: ACUTE APPENDICITIS Postoperative diagnosis: ACUTE APPENDICITIS SPECIMEN: A APPENDIX GROSS DESCRIPTION: All parts labelled with patient name and [id number] Received in formalin labeled appendix is sullivan-farnsworth cylindrical portion of tissue with small foci of hemorrhage on the serosal aspect, measuring 5 cm in length with an average diameter of 1.3 cm. The serosal surface shows patchy sullivan-white purulent exudate. The lumen shows necrotic material. Hot [employer] Press Feeder sections submitted. RS-1 Dictated by VICTORIANO EATON MICROSCOPIC DESCRIPTION: The microscopic examination is performed, except in the case of Gross Only. Electronically Signed by Pathology Report verified by [facility] VICTORIANO EATON Sign out Date: 02/07/2023 09:39 Performing Lab: [facility], [address] [place] [address] Pathology Dept Disclaimer If ancillary studies were utilized, the following Laboratory Developed Test (LDT) disclaimer will apply: Under CLIA requirements, [facility] is qualified to perform high complexity testing. For all ancillary stains, positive and negative controls stain appropriately. Performance characteristics of immunohistochemical and chromogenic in-situ hybridization tests have been determined by [facility]. These tests are used for clinical purposes, They should not be regarded as investigational or for research. Normal [facility] ([place]) .Auto Diffon 02-05-2023 Basophil, Absolute 0.0 10 3/mcL Normal 0.0-0.3 [facility] ([place] Comment on above: Performed By: #### U HAROLDO UA #### [address] [address] Basophils/100 WBC (Bld) 0.0 % Normal 0.0-2.5 [facility] [place] Comment on above: Performed By: #### U AMIGIDEON UA #### [address] [address] Eosinophil, Absolute 0.0 10 3/mcL Normal 0.0-0.7 [facility] ([place] Comment on above: Performed By: #### U AMINALLELYO, UA #### [address] [address] Eosinophils/100 WBC (Bld) 0.0 % Normal 0.0-6.0 [facility] [place] Comment on above: Performed By: #### U AMINALLELYO UA #### [address] [address] Lymphocyte, Absolute 0.9 10 3/mcL Normal 0.9-4.3 [facility] ([place] Comment on above: Performed By: #### U AMICAO, UA #### [address] [address] Lymphocytes/100 WBC (Bld) 4.5 % Low 20.0-40.0 [facility] ([place] Comment on above: Performed By: #### U AMICAO, UA #### [address] [address] Monocyte, Absolute 1.6 10 3/mcL High 0.1-1.4 [facility] [place] Comment on above: Performed By: #### U AMICAO, UA #### [address] [address] Monocytes/100 WBC (Bld) 8.3 % Normal 2.0-13.0 [facility] [place] Comment on above: Performed By: #### U AMICAO, UA #### [address] [address] Neutrophils/100 WBC (Bld) 87.2 % High 50.0-75.0 [facility] [place] Comment on above: Performed By: #### U AMICAO, UA #### [address] [address] .GFRon 02-05-2023 GFR >60 Normal [facility] ([place] Comment on above: Result Comment: GFR Population [...] By: #### B UN, CRE, GFR #### [address] [address] GFR Non- 60 ml/min/1.73sqm Normal [facility] ([place] Comment on above: Result Comment: GFR Population [...] By: #### B UN, CRE, GFR #### [address] [address] .NEUABSon 02-05-2023 Neutrophil, Absolute 17.1 10 3/mcL High 2.3-8.1 [facility] [place] Comment on above: Performed By: #### B UN, CRE, GFR #### [address] [address] A1Con 02-05-2023 HbA1c (Bld) [Mass fraction] 5.2 % Normal 4.0-6.0 [facility] ([place] Comment on above: Performed By: #### B UN, CRE, GFR #### [address] [address] BMPon 02-05-2023 BUN/Creatinine Ratio 15.3 ratio Normal 10.0-22.0 [facility] [place] Comment on above: Performed By: #### B UN, CRE, GFR #### [address] [address] Calcium [Mass/Vol] 8.7 mg/dL Normal 8.7-10.4 [facility] [place] Comment [place] above: Performed By: #### B UN, CRE, GFR #### [address] [address] Chloride [Moles/Vol] 107 mmol/L Normal 98-110 [facility] [place] Comment on above: Performed By: #### B UN, CRE, GFR #### [address] [address] CO2 [Moles/Vol] 24 mmol/L Normal 22-32 [facility] [place] Comment on above: Performed By: #### B UN, CRE, GFR #### [address] [address] Creatinine [Mass/Vol] 1.18 mg/dL Normal 0.60-1.40 [facility] ([place] Comment on above: Performed By: #### B UN, CRE, GFR #### [address] [address] Electrolyte Balance 10.0 mEq/L Normal 4.0-15.0 [facility] ([place] Comment on above: Performed By: #### B UN, CRE, GFR #### [address] [address] Glucose [Mass/Vol] 124 mg/dL High 82-115 [facility] [place] Comment on above: Performed By: #### B UN, CRE, GFR #### [address] [address] Potassium [Moles/Vol] 4.5 mmol/L Normal 3.5-5.0 [facility] [place] Comment on above: Result Comment: Spec imen slightly hemolyzed. Performed By: #### B UN, CRE, GFR #### [address] [address] Sodium [Moles/Vol] 141 mmol/L Normal 136-145 [facility] [place] Comment on above: Performed By: #### B UN, CRE, GFR #### [address] [address] Urea nitrogen [Mass/Vol] 18.0 mg/dL Normal 8.0-22.0 [facility] ([place] Comment on above: Performed By: #### B UN, CRE, GFR #### [address] [address] CBCon 02-05-2023 Erythrocyte distribution width (RBC) [Ratio] 14.4 % Normal 11.5-15.5 [facility] ([place] Comment on above: Performed By: #### U AMICAO, UA #### [address] [address] Hematocrit (Bld) [Volume fraction] 43.5 % Normal 40.0-52.0 [facility] [place] Comment on above: Performed By: #### MAKSIM WHITE #### [address] [address] Hgb 14.5 G/dL Normal 13.0-17.5 [facility] ([place] Comment on above: Performed By: #### Héctor ZARCO UA #### [address] [address] MCH (RBC) [Entitic mass] 28.8 pg Normal 27.0-33.0 [facility] ([place] Comment on above: Performed By: #### Hétcor ZARCO UA #### [address] [address] MCHC 33.2 G/dL Normal 32.0-36.0 [facility] ([place] Comment on above: Performed By: #### Héctor ZARCO UA #### [address] [address] MCV (RBC) [Entitic vol] 86.6 fL Normal 81.0-100.0 [facility] ([place]) Comment on above: Performed By: #### Héctor ZARCO UA #### [address] [address] Platelet 189 10 3/mcL Normal 150-450 [facility] ([place] Comment on above: Performed By: #### Héctor ZARCO UA #### [address] [address] Platelet mean volume (Bld) [Entitic vol] 9.6 fL Normal 6.4-10.5 [facility] ([place] Comment on above: Performed By: #### Héctor ZARCO UA #### [address] [address] RBC 5.03 10 6/mcL Normal 4.50-6.00 [facility] ([place] Comment on above: Performed By: #### Héctor ZARCO UA #### [address] [address] WBC 19.6 10 3/mcL High 4.5-10.8 [facility] ([place] Comment on above: Performed By: #### U MAKSIM ZARCO #### [facility] [address] [place], [place] [address] LABORATORYOrdered By: SYSTEM SYSTEM on 02-05-2023 Basophils [...] Invalid Interpretation Code 0.0 - 0.7 10^3/mcL AH Workflow SS Eosinophils/100 WBC (Bld) 0.0 % [...] 02-05-2023 Cholesterol [Mass/Vol] 172 mg/dL Normal 50-199 [facility] [place] Comment on above: Result Comment: Chol esterol Reference Interval: Less than 200 Desirable 200-239 Borderline high risk 240 and above High risk Performed By: #### B UN, CRE, GFR #### [address] [address] Cholesterol in HDL [Mass/Vol] 56 mg/dL Normal 40-59 [facility] ([place] Comment on above: Performed By: #### B UN, CRE, GFR #### [address] [address] Cholesterol in LDL [Mass/Vol] 106 mg/dL Normal 0-129 [facility] [place] Comment on above: Performed By: #### B UN, CRE, GFR #### [address] [address] Triglyceride [Mass/Vol] 49 mg/dL Normal 3-149 [facility] [place] Comment on above: Performed By: #### B UN, CRE, GFR #### [address] [address] .Auto Diffon 02-04-2023 Basophil, Absolute 0.1 10 3/mcL Normal 0.0-0.2 [facility] [place] Comment on above: Performed By: #### B UN, CRE, GFR #### [address] [address] Basophils/100 WBC (Bld) 0.4 % Normal 0.0-2.5 [facility] [place] Comment on above: Performed By: #### B UN, CRE, GFR #### [address] [address] Eosinophil, Absolute 0.1 10 3/mcL Normal 0.0-0.4 [facility] [place] Comment on above: Performed By: #### B UN, CRE, GFR #### [address] [address] Eosinophils/100 WBC (Bld) 0.6 % Normal 0.0-7.0 [facility] ([place]) Comment on above: Performed By: #### B UN, CRE, GFR #### [address] [address] Lymphocyte, Absolute 1.2 10 3/mcL Normal 0.8-3.9 [facility] [place] Comment on above: Performed By: #### B UN, CRE, GFR #### [address] [address] Lymphocytes/100 WBC (Bld) 8.4 % Low 10.0-50.0 [facility] ([place]) Comment on above: Performed By: #### B UN, CRE, GFR #### [address] [address] Monocyte, Absolute 0.8 10 3/mcL Normal 0.2-1.0 [facility] [place] Comment on above: Performed By: #### B UN, CRE, GFR #### [address] [address] Monocytes/100 WBC (Bld) 5.7 % Normal 1.7-13.0 [facility] [place] Comment on above: Performed By: #### B UN, CRE, GFR #### [address] [address] Neutrophils/100 WBC (Bld) 84.9 % High 37.0-80.0 [facility] ([place] Comment on above: Performed By: #### B UN, CRE, GFR #### [address] [address] .GFRon 02-04-2023 GFR Non- 52 ml/min/1.73sqm Normal [facility] ([place] Comment on above: Result Comment: GFR Population [...] By: #### B UN, CRE, GFR #### [address] [address] GFR 63 ml/min/1.73sqm Normal [facility] ([place] Comment on above: Result Comment: GFR Population [...] By: #### B UN, CRE, GFR #### [address] [address] .MDWon 02-04-2023 Monocyte Distribution Width Not performed Normal 0.00-20.00 [facility] ([place] Comment on above: Performed By: #### B UN, CRE, GFR #### [address] [address] .NEUABSon 02-04-2023 Neutrophil, Absolute 12.2 10 3/mcL High 2.9-6.2 [facility] [place] Comment on above: Performed By: #### B UN, CRE, GFR #### [address] [address] .Urinalysis Microscopic (AO) on 02-04-2023 UA Bacteria Trace Abnormal [facility] [place] Comment on above: Performed By: #### U AMICAO, UA #### [address] [address] UA Mucous 1+ /hpf Normal [facility] ([place] Comment on above: Performed By: #### U AMICAO, UA #### [address] [address] UA RBC 0-5 Abnormal None Seen [facility] [place] Comment on above: Performed By: #### U AMICAO, UA #### [address] [place] [address] UA Squam Epithelial None Seen Normal None Seen [facility] [place] Comment on above: Performed By: #### U AMICAO, UA #### [address] [place] [address] UA WBC 0-5 Abnormal None Seen [facility] [place] Comment on above: Performed By: #### U AMICAO, UA #### [address] [address] CBCon 02-04-2023 Erythrocyte distribution width (RBC) [Ratio] 14.2 % Normal 11.5-14.5 [facility] ([place] Comment on above: Performed By: #### B UN, CRE, GFR #### [place] [address] Hematocrit (Bld) [Volume fraction] 46.7 % Normal 42.0-52.0 [facility] [place] Comment on above: Performed By: #### B UN, CRE, GFR #### [address] [place] [address] Hgb 15.7 G/dL Normal 14.0-18.0 [facility] [place] Comment on above: Performed By: #### B UN, CRE, GFR #### [address] [address] MCH (RBC) [Entitic mass] 28.8 pg Normal 27.0-31.2 [facility] [place] Comment on above: Performed By: #### B UN, CRE, GFR #### [address] [address] MCHC 33.6 G/dL Normal 31.8-35.4 [facility] ([place] Comment on above: Performed By: #### B UN, CRE, GFR #### [address] [address] MCV (RBC) [Entitic vol] 85.7 fL Normal 80.0-94.0 [facility] [place] Comment on above: Performed By: #### B UN, CRE, GFR #### [address] [address] Platelet 205 10 3/mcL Normal 130-400 [facility] [place] Comment on above: Performed By: #### B UN, CRE, GFR #### [address] [address] Platelet mean volume (Bld) [Entitic vol] 8.6 fL Normal 7.4-10.4 [facility] ([place] Comment on above: Performed By: #### B UN, CRE, GFR #### [address] [address] RBC 5.46 10 6/mcL Normal 4.04-6.13 [facility] ([place] Comment on above: Performed By: #### B UN, CRE, GFR #### [address] [address] WBC 14.4 10 3/mcL High 4.6-10.8 [facility] ([place] Comment on above: Performed By: #### B UN, CRE, GFR #### [address] [address] CMPon 02-04-2023 Albumin Level 4.2 G/dL Normal 3.4-4.8 [facility] ([place] Comment on above: Performed By: #### B UN, CRE, GFR #### [address] [address] Albumin/Globulin [Mass ratio] 1.2 {ratio} Normal 1.1-2.5 [facility] [place] Comment on above: Performed By: #### B UN, CRE, GFR #### [address] [address] ALP [Catalytic activity/Vol] 124 U/L Normal 40-135 [facility] ([place] Comment on above: Performed By: #### B UN, CRE, GFR #### [address] [address] ALT [Catalytic activity/Vol] 20 U/L Normal 16-63 [facility] ([place] Comment on above: Performed By: #### B UN, CRE, GFR #### [address] [address] AST [Catalytic activity/Vol] 15 U/L Normal 10-40 [facility] ([place] Comment on above: Performed By: #### B UN, CRE, GFR #### [address] [address] Bili Total 0.8 mg/dL Normal 0.2-1.0 [facility] ([place] Comment on above: Result Comment: Use of this assay is not recommended for patients undergoing treatment with eltrombopag due to the potential for falsely elevated results. Performed By: #### B UN, CRE, GFR #### [address] [address] BUN/Creatinine Ratio 13 ratio Normal 7-27 [facility] [place] Comment on above: Performed By: #### B UN, CRE, GFR #### [address] [address] Calcium [Mass/Vol] 9.4 mg/dL Normal 8.4-10.2 [facility] [place] Comment [place] above: Performed By: #### B UN, CRE, GFR #### [address] [address] Chloride [Moles/Vol] 102 mmol/L Normal 98-107 [facility] [place] Comment on above: Performed By: #### B UN, CRE, GFR #### [address] [address] CO2 [Moles/Vol] 26 mmol/L Normal 23-31 [facility] [place] Comment on above: Performed By: #### B UN, CRE, GFR #### [address] [address] Electrolyte Balance 10.0 mEq/L Normal 4.0-15.0 [facility] [place] Comment on above: Performed By: #### B UN, CRE, GFR #### [address] [address] Globulin 3.5 G/dL Normal [facility] ([place] Comment on above: Performed By: #### B UN, CRE, GFR #### [address] [address] Glucose [Mass/Vol] 119 mg/dL High 83-110 [facility] [place] Comment [place] above: Performed By: #### B UN, CRE, GFR #### [address] [address] Potassium [Moles/Vol] 4.1 mmol/L Normal 3.5-5.1 [facility] [place] Comment on above: Performed By: #### B UN, CRE, GFR #### [address] [address] Sodium [Moles/Vol] 138 mmol/L Normal 136-145 [facility] [place] Comment [place] above: Performed By: #### B UN, CRE, GFR #### [address] [address] Total Protein 7.7 G/dL Normal 6.4-8.2 [facility] ([place] Comment on above: Performed By: #### B UN, CRE, GFR #### [facility] [address] [place], [place] [address] Urea nitrogen [Mass/Vol] 18 mg/dL Normal 7-18 [facility] ([place] Comment on above: Performed By: #### B UN, CRE, GFR #### [facility] [address] [place], [place] [address] Creatinine [Mass/Vol] 1.34 mg/dL High 0.70-1.30 [facility] ([place] Comment on above: Performed By: #### B UN, CRE, GFR #### [address] [place], [place] [address] CT ABD/PELVIS W/ IV CONTRAST ONLYon 02-04-2023 [...] effusion. The heart is normal in size. [id number] coronary artery atherosclerosis. Numerous low attenuating lesions [...] 02/04/2023 11:18:15 AM Ordering Provider: LINDA Au [facility] ([place]) LABORATORYOrdered By: SYSTEM SYSTEM on 02-04-2023 HbA1c [...] 02-04-2023 Lipase Level 31 U/L Normal 16-77 [facility] ([place] Comment on above: Performed By: #### B UN, CRE, GFR #### [address] [address] TROPHSon 02-04-2023 Troponin I High Sensitivity 14.0 ng/L Normal 0.0-76.2 [facility] ([place] Comment on above: Performed By: #### U AMICAO, UA #### [place] [address] TSHon 02-04-2023 TSH 1.821 mIU/mL Normal 0.550-4.780 [facility] ([place]) Comment on above: Result Comment: No te - New Reference Range in effect 20 Performed By: #### B UN, CRE, GFR #### [address] [address] UAon 02-04-2023 Color (U) Yellow Normal [facility] ([place] Comment on above: Performed By: #### U AMICAO, UA #### [address] [address] Glucose (U) [Mass/Vol] Negative Normal Negative [facility] ([place] Comment on above: Performed By: #### U AMICAO, UA #### [address] [address] Ketones Ql (U) 15 mg/dL Abnormal Negative [facility] ([place] Comment on above: Performed By: #### U AMICAO, UA #### Nadja [address] [address] UA Appear Slightly Cloudy Abnormal Clear [facility] ([place] Comment on above: Performed By: #### U AMICAO, UA #### Nadja [address] [address] UA Blood Trace Abnormal Negative [facility] ([place] Comment on above: Performed By: #### U AMICAO, UA #### [address] [address] UA Leuk Est Negative Normal Negative [facility] ([place] Comment on above: Performed By: #### U AMICAO, UA #### [address] [address] UA Nitrite Negative Normal Negative [facility] ([place] Comment on above: Performed By: #### U AMICAO, UA #### [address]ja [address] [address] UA pH 5.5 Normal 5.0 - 8.0 [facility] ([place] Comment on above: Performed By: #### U AMICAO, UA #### [address] [address] UA Protein 100 mg/dL Abnormal Negative [facility] ([place] Comment on above: Performed By: #### U AMICAO, UA #### [address] [address] UA Spec Grav 1.025 Normal 1.015-1.025 [facility] ([place] Comment on above: Performed By: #### U AMICAO, UA #### [address] [address] UA Specimen Type Clean Catch Normal [facility] ([place] Comment on above: Performed By: #### U AMICAO, UA #### [address] [address] UA Urobilinogen 0.2 E.U./dL Normal 0.2-1.0 [facility] ([place] Comment on above: Performed By: #### U AMICAO, UA #### [address] [address] Urobilinogen (U) [Mass/Vol] Negative Normal Negative [facility] ([place] Comment on above: Performed By: #### U AMICAO, UA #### [address] [place], [place] [address] Vital Signs Date Time Vital Sign Value Performing Clinician Facility 05-30-2025 12:50-0400 Body height 163.83 cm Zebulun Beam [employer] Work Phone: [phone] [place] [address] 05-30-2025 12:50-0400 Body mass index (BMI) [Ratio] 28.5 kg/m2 Zebulun Beam [employer] Work Phone: 9(959)[phone] [place] [address] 05-30-2025 12:50-0400 Body temperature 98.6 [degF] Zebulun Beam [employer] Work Phone: 1(076)[phone] [place] [address] 05-30-2025 12:50-0400 Body weight 76.65 kg Zebulun Beam [employer] Work Phone: 4(072)[phone] [place] [address] 05-30-2025 12:50-0400 Diastolic blood pressure 83 mm[Hg] Zebulun Beam [employer] Work Phone: 8(165)[phone] [place] [address] 05-30-2025 12:50-0400 Heart rate 62 /min Zebulun Beam [employer] Work Phone: 2(314)[phone] [place] [address] 05-30-2025 12:50-0400 Respiratory rate 16 /min Zebulun Beam [employer] Work Phone: 4(870)[phone] [place] [address] 05-30-2025 12:50-0400 SaO2% (BldA) [Mass fraction] 97 % Zebulun Beam [employer] Work Phone: [phone])[phone] [place] [address] 05-30-2025 12:50-0400 Systolic blood pressure 195 mm[Hg] Zebulun Beam [employer] Work Phone: 8(080)[phone] [place] [address] 03-09-2025 15:53-0400 Diastolic blood pressure 80 mm[Hg] Zebulun Beam [employer] Work Phone: 4(385)[phone] [place] [address] 03-09-2025 15:53-0400 Heart rate 60 /min Zebulun Beam [employer] Work Phone: 9(044)[phone] [place] [address] 03-09-2025 15:53-0400 Respiratory rate 16 /min Zebulun Beam [employer] Work Phone: [facility] 03-09-2025 15:53-0400 Systolic blood pressure 170 mm[Hg] Zebulun Beam [employer] Work Phone: [facility] 05-07-2023 10:02-0400 Body height 167.6 cm TANNER GILLIAM MD [facility] 05-07-2023 10:02-0400 Body weight 72.7 kg TANNER GILLIAM MD [facility] 05-07-2023 10:02-0400 Body weight 25.88 kg/m2 TANNER GILLIAM MD [facility] 02-05-2023 14:39-0400 Blood Pressure Location TANNER GILLIAM MD [facility] 02-05-2023 14:39-0400 Blood Pressure Method TANNER GILLIAM MD [facility] 02-05-2023 14:39-0400 Body temperature 97.88 [degF] TANNER GILLIAM MD [facility] 02-05-2023 14:39-0400 Diastolic Blood Pressure Non-Invasive 72 1 TANNER GILLIAM MD [facility] 02-05-2023 14:39-0400 Heart rate 61 /min TANNER GILLIAM MD [facility] 02-05-2023 14:39-0400 Reason For Taking VItal Signs TANNER GILLIAM MD [facility] 02-05-2023 14:39-0400 Respiratory rate 17 /min TANNER GILLIAM MD [facility] 02-05-2023 14:39-0400 Systolic Blood Pressure Non-Invasive 126 1 TANNER GILLIAM MD [facility] 02-05-2023 10:49-0400 Blood Pressure Cuff Size TANNER GILLIAM MD [facility] 02-05-2023 10:49-0400 Blood Pressure Location TANNER GILLIAM MD [facility] 02-05-2023 10:49-0400 Blood Pressure Method TANNER GILLIAM MD [facility] 02-05-2023 10:49-0400 Body temperature 97.7 [degF] TANNER GILLIAM MD [facility] 02-05-2023 10:49-0400 Diastolic Blood Pressure Non-Invasive 64 1 TANNER GILLIAM MD [facility] 02-05-2023 10:49-0400 Heart rate 63 /min TANNER GILLIAM MD [facility] 02-05-2023 10:49-0400 Reason For Taking VItal Signs TANNER GILLIAM MD [facility] 02-05-2023 10:49-0400 Respiratory rate 16 /min TANNER GILLIAM MD [facility] 02-05-2023 10:49-0400 Systolic Blood Pressure Non-Invasive 138 1 TANNER GILLIAM MD [facility] 02-05-2023 07:36-0400 Diastolic Blood Pressure Non-Invasive 66 1 TANNER GILLIAM MD [facility] 02-05-2023 07:36-0400 Systolic Blood Pressure Non-Invasive 139 1 TANNER GILLIAM MD [facility] 02-05-2023 07:26-0400 Blood Pressure Cuff Size TANNER GILLIAM MD [facility] 02-05-2023 07:26-0400 Blood Pressure Location TANNER GILLIAM MD [facility] 02-05-2023 07:26-0400 Blood Pressure Method TANNER GILLIAM MD [facility] 02-05-2023 07:26-0400 Body temperature 98.6 [degF] TANNER GILLIAM MD [facility] 02-05-2023 07:26-0400 Heart rate 65 /min TANNER GILLIAM MD [facility] 02-05-2023 07:26-0400 Reason For Taking VItal Signs TANNER GILLIAM MD [facility] 02-05-2023 07:26-0400 Respiratory rate 16 /min TANNER GILLIAM MD [facility] 02-05-2023 04:26-0400 Heart rate 65 /min TANNER GILLIAM MD [facility] 02-04-2023 23:10-0400 Heart rate 63 /min TANNER GILLIAM MD [facility] 02-04-2023 19:44-0400 Heart rate 62 /min TANNER GILLIAM MD [facility] 02-04-2023 18:22-0400 Mean blood pressure 114 mm[Hg] TANNER GILLIAM MD [facility] 02-04-2023 18:04-0400 Mean blood pressure 111 mm[Hg] TANNER GILLIAM MD [facility] 02-04-2023 17:49-0400 Body temperature 97.34 [degF] TANNER GILLIAM MD [facility] 02-04-2023 17:49-0400 Mean blood pressure 120 mm[Hg] TANNER GILLIAM MD [facility] 02-04-2023 17:45-0400 Respiratory Rate - Anes 0 br/min TANNER GILLIAM MD [facility] 02-04-2023 17:40-0400 Respiratory Rate - Anes 15 br/min TANNER GILLIAM MD [facility] 02-04-2023 17:35-0400 Body temperature 97.41 [degF] TANNER GILLIAM MD [facility] 02-04-2023 17:35-0400 Respiratory Rate - Anes 15 br/min TANNER GILLIAM MD [facility] 02-04-2023 17:30-0400 Body temperature 97.47 [degF] TANNER GILLIAM MD [facility] 02-04-2023 17:25-0400 Body temperature 97.48 [degF] TANNER GILLIAM MD [facility] 02-04-2023 15:44-0400 Blood Pressure Cuff Size TANNER GILLIAM MD [facility] 02-04-2023 14:31-0400 Heart rate 50 /min TANNER GILLIAM MD [facility] 02-04-2023 14:25-0400 Body height 167.6 cm TANNER GILLIAM MD [facility] 02-04-2023 14:25-0400 Body weight 77.3 kg TANNER GILLIAM MD [facility] 02-04-2023 14:25-0400 Body weight 27.52 kg/m2 TANNER GILLIAM MD [facility] 02-04-2023 13:26-0400 Diastolic Blood Pressure Non-Invasive [address] LINDA RICHMOND MD [facility] 02-04-2023 13:26-0400 Heart rate 47 /min DR LINDA RICHMOND MD [facility] 02-04-2023 13:26-0400 Respiratory rate 16 /min DR LINDA RICHMOND MD [facility] 02-04-2023 13:26-0400 Systolic Blood Pressure Non-Invasive [address] LINDA RICHMOND MD [facility] 02-04-2023 12:52-0400 Diastolic Blood Pressure Non-Invasive [address] LINDA RICHMOND MD [facility] 02-04-2023 12:52-0400 Heart rate 48 /min DR LINDA RICHMOND MD [facility] 02-04-2023 12:52-0400 Respiratory rate 16 /min DR LINDA RICHMOND MD [facility] 02-04-2023 12:52-0400 Systolic Blood Pressure Non-Invasive [address] LINDA RICHMOND MD [facility] 02-04-2023 11:49-0400 Body temperature 98.96 [degF] DR LINDA RICHMOND MD [facility] 02-04-2023 11:49-0400 Diastolic Blood Pressure Non-Invasive [address] LINDA RICHMOND MD [facility] 02-04-2023 11:49-0400 Heart rate 48 /min DR LINDA RICHMOND MD [facility] 02-04-2023 11:49-0400 Reason For Taking VItal Signs DR LINDA RICHMOND MD [facility] 02-04-2023 11:49-0400 Respiratory rate 16 /min DR LINDA RICHMOND MD [facility] 02-04-2023 11:49-0400 Systolic Blood Pressure Non-Invasive [address] LINDA RICHMOND MD [facility] 02-04-2023 09:40-0400 Body temperature 97.88 [degF] DR LINDA RICHMOND MD [facility] 02-04-2023 09:40-0400 Body weight 76.[address] LINDA RICHMOND MD [facility] Encounters Encounter Date Encounter Type Care Provider Facility Start: 06-23-2025 Encounter for other preprocedural examination Dickson Dnaiel [facility] Start: 06-21-2025 ambulatory Rebekah Infante Facility:[facility] Start: 06-21-2025 End: 06-22-2025 Evaluation and management of inpatient [facility] Facility:[facility] Start: 06-21-2025 ambulatory Dickson Sanchez Facility:[facility] Start: 05-30-2025 End: 05-30-[address] Dickson Sanchez MD -Laboratory Work Phone: Start: 05-30-2025 End: 05-30-[address] Dickson Sanchez MD -[facility] Work Phone: Start: 05-30-2025 End: 05-30-2025 ambulatory Zebulun Beam WEB UI DEVELOPER-C Work Phone: -[facility] Start: 05-30-2025 End: 05-30-2025 ambulatory Dickson Sanchez Facility:[facility] Start: 04-18-2025 End: 04-18-2025 ambulatory Zebulun Beam WEB UI DEVELOPER-C Work Phone: -Laboratory [place] Start: 04-18-2025 End: 04-18-2025 Patient encounter procedure Zebulun Beam WEB UI DEVELOPER-C -Laboratory [place] Work Phone: Start: 04-18-2025 End: 04-18-2025 ambulatory Zebulun Beam Facility:[facility] Start: 03-30-2025 End: 03-30-2025 ambulatory Zebulun Beam WEB UI DEVELOPER-C Work Phone: -Cat [facility] Start: 03-30-2025 End: 03-30-[address] Dickson Sanchez MD -Cat [facility] Work Phone: Start: 03-30-2025 End: 03-30-2025 ambulatory Zebulun Beam Facility:[facility] Start: 03-24-2025 End: 03-24-2025 ambulatory Zebulun Beam WEB UI DEVELOPER-C Work Phone: -Laboratory [place] [facility] Start: 03-24-2025 End: 03-24-2025 Patient encounter procedure Zebulun Beam WEB UI DEVELOPER-C -Laboratory [place] [facility] Start: 03-24-2025 End: 03-24-2025 ambulatory Zebulun Beam Facility:[facility] Start: 03-09-2025 End: 03-09-[address] Dickson Sanchez MD -[facility] Work Phone: Start: 03-09-2025 End: 03-09-2025 ambulatory Zebulun Beam WEB UI DEVELOPER-C Work Phone: -[facility] Start: 01-28-2025 End: 01-28-2025 ambulatory Zebulun Beam WEB UI DEVELOPER-C Work Phone: [facility] Work Phone: Start: 01-28-2025 End: 01-28-2025 Patient encounter procedure Zebulun Beam WEB UI DEVELOPER-C -Laboratory [place] [facility] Start: 01-28-2025 End: 01-28-2025 ambulatory Zebulun Beam Facility:[facility] Start: 10-31-2023 End: 11-01-2023 ambulatory SHANNA MCKEON MD Facility:B Start: 10-31-2023 End: 10-31-2023 Patient encounter procedure SHANNA MCKEON MD [facility] Start: 10-27-2023 End: 10-28-2023 ambulatory SHANNA MCKEON MD Facility:[facility] Start: 10-27-2023 End: 10-27-2023 Patient encounter procedure SHANNA MCKEON MD [facility] Start: 05-19-2023 End: 05-19-2023 ambulatory LASHON Rehana ASHLYN STATIONARY STEAM ENGINEER-AIRCRAFT INSPECTION RECORD CLERK Facility:B Start: 05-07-2023 End: 05-08-2023 ambulatory LASHON GOLDBERG STATIONARY STEAM ENGINEER-AIRCRAFT INSPECTION RECORD CLERK Facility:B Start: 05-07-2023 End: 05-07-2023 Admission to establishment TANNER GILLIAM MD [facility] Start: 02-17-2023 End: 02-18-2023 ambulatory LASHON GOLDBERG STATIONARY STEAM ENGINEER-AIRCRAFT INSPECTION RECORD CLERK Facility:B Start: 02-17-2023 End: 02-17-2023 Patient encounter procedure LASHON A ASHLYN STATIONARY STEAM ENGINEER-AIRCRAFT INSPECTION RECORD CLERK [facility] Start: 02-04-2023 End: 02-05-2023 ambulatory MADELYN DAWKINS MD Facility:A Start: 02-04-2023 End: 02-05-2023 Observation TANNER GILLIAM MD [facility] Start: 02-04-2023 End: 02-04-2023 Emergency department patient visit NONE PHYSICIAN Facility:B Start: 02-04-2023 End: 02-04-2023 Emergency department patient visit DR LINDA RICHMOND MD [facility] Procedures Date Procedure Procedure Detail Performing Clinician Start: 03-30-2025 Computed tomography of abdomen and pelvis with contrast Zebulun Beam WEB UI DEVELOPER-C Work Phone: Start: 01-28-2025 Prostate specific an tigen measurement Zebulun Beam WEB UI DEVELOPER-C Work Phone: Comment on above: This test [...] stick/tabl et reagent auto microscopy Zebulun Beam WEB UI DEVELOPER-C Work Phone: Start: 05-19-2023 Right inguinal herni a (disorder) SHANNA MCKEON MD Start: 02-04-2023 Appendectomy TANNER CHIN MD Payers Date Payer Category Payer Self-pay 2023 Private Health Insurance [id number] 1945 Unknown [id number] 2.16.8 [id number] 1945 Unknown [id number] 2.16.8 [id number] 1945 Unknown [id number] 2.16.8 [id number] 1945 Unknown [id number] 2.16.8 [id number] 1945 Unknown [id number] 2.16.8 [id number] 1945 Unknown [id number] 2.16.8 40.1.871865.3.579.2.627 1945 Unknown [id number] 2.16.8 [id number] Unknown [id number] 2.16.8 [id number] Unknown [id number] 2.16.8 40.1.268320.3.579.2.462 Unknown [id number] 2.16.8 [id number] Unknown [id number] 2.16.8 [id number] Unknown [id number] 2.16.8 [id number] Unknown [id number] 2.16.8 [id number] Unknown [id number] 2.16.8 40.1.915626.3.579.2.462 Unknown [id number] 2.16.8 [id number] Unknown [id number] 2.16.8 [id number] Unknown [id number] 2.16.8 [id number] Social History Date Type Detail Facility Start: 02-04-2023 End: 06-06-2025 Tobacco smoking status Ex-smoker (finding) [facility] Start: 1945 Sex Assigned At Male [facility] Tobacco smoking stat [facility] Unknown if ever smoked [facility] Work Phone: Sex Male [facility] Functional Status Date Assessment Result Facility 05-07-2023 Functional Status Sensory Deficits None [facility] 02-05-2023 Functional Status Room check performed [facility] 02-05-2023 Functional Status [facility] 02-05-2023 Functional Status Multilevel home [facility] 02-05-2023 Functional Status [facility] 02-05-2023 Functional Status [facility] 02-04-2023 Functional Status [facility] 02-04-2023 Functional Status [facility] 02-04-2023 Functional Status Sensory Deficits None [facility] 02-04-2023 Functional Status Ambulation in [facility] 02-04-2023 Functional Status [facility] Mental Status Date Assessment Result Facility 02-05-2023 Mental Status Oriented x 4 [facility] 02-05-2023 Mental Status [facility] 02-04-2023 Mental Status Orientation Asse ssment Oriented x 4, Appropriate for developmental age, Oriented to person, Oriented to place, Oriented to time, Oriented to situation [facility] 02-04-2023 Mental Status [facility] 02-04-2023 Mental Status Orientation Oriented x 4 [facility] 02-04-2023 Mental Status [facility] Clinical Notes 02-04-2023 to 06-22-2025 Note Date & Type Note Facility 06-22-2025 Note [facility] Medical Records Department [address] [place] [address] Discharge Summary 06/22/25 0832 MR#: [id number] Acct: [id number] Name: ROSIBEL KUMARI Rep #: [id number] : 1945 80 From: Rebekah BACON PCP: Dr. Prasanth Renee MD Status:ADM IN Location: ICU ICU02-1 Providers Date of Admission: 06/21/25 Primary Care Physician: Dr. 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 He is doing well, tolerating normal diet, ambulating without difficulty, and with only mild discomfort at the groin incision sites. He has remained hemodynamically stable and vascular exam has been stable. Plan for discharge home today. Medications at Discharge Home Medications losartan 50 mg tablet 50 mg PO DAILY 06/21/25 aspirin 81 mg chewable tablet 81 mg PO BREAKFAST 30 days #30 tabs 06/22/25 atorvastatin 40 mg tablet 40 mg PO QHS 30 days #30 tabs 06/22/25 oxycodone 5 mg tablet 5 mg PO Q8H PRN PRN Pain Score 4-10 2 days #6 tabs 06/22/25 Hospital Course Summary of Care Provided Hospital Course: Mr. Rosibel Kumari is an 80 y/o male who underwent EVAR on 06/21/2025. Postoperatively, he was routinely admitted to the ICU for ongoing monitoring of his hemodynamics and vascular status. He has remained hemodynamically stable and had stable vascular exam. He is tolerating a normal diet, ambulating without difficulty, voiding to his baseline, and pain is well controlled. He is stable for discharge home today with scheduled outpatient follow-up. Physical Exam Const alert, oriented x3 and no apparent distress General Appearance: cooperative and comfortable HEENT normocephalic, hearing grossly normal bilaterally, external ears normal and external nose normal Eyes General Eye: normal appearance of both eyes Neck General: normal visual inspection and trachea midline Resp Effort and Inspection: able to speak in complete sentences; Negative for labored, grunting or stridor Cardio regular rate and regular rhythm Extremity normal to inspection and no clubbing, cyanosis or edema Extremity Narrative: Bilateral groin incision sites with dressings C/D/I. No hematoma. Peripheral Pulses: Yes popliteal pulses present and dorsalis pedis pulses present Skin no rashes or lesions noted Neuro moves all extremities, no focal motor deficits and no sensory deficits noted Speech: speech normal Psych mental status grossly normal Appearance: grossly normal Attitude: calm and engaged Activity / Motor Behavior: appropriate eye contact Speech: normal speech Weight / BMI Weight Weight: 171 lb 1.259 oz Body Mass Index (BMI) 29.2 ABG / Lab / Microbiology Data 06/22/25 04:08 06/22/25 04:08 Laboratory: Laboratory Results - last 24 hr 06/21/25 07:56: Activated Clotting Time 143 H 06/21/25 08:41: Activated Clotting Time 240 H 06/21/25 09:18: Activated Clotting Time 245 H 06/22/25 04:08: WBC 22.4 H, RBC 5.05, Hgb 14.6, Hct 43.6, MCV 86.3, MCH 28.9, MCHC 33.5, RDW Std Deviation 42.0, RDW Coeff of Matthew 13.6, Plt Count 244, MPV 10.7, Immature Gran % (Auto) 0.500, Neut % (Auto) 87.4 H, Lymph % (Auto) 5.5 L, Scott % (Auto) 6.3, Eos % (Auto) 0.1, Baso % (Auto) 0.2, A bsolute Neuts (auto) 19.6 H, Absolute Lymphs (auto) 1.24, Nucleated RBC % 0, Sodium 137, Potassium 4.3, Chloride 102, Carbon Dioxide 22.9, Anion Gap 12, BUN 24 H, Creatinine 1.62 H, Estim Creat Clear Calc 34.24 L, Est GFR (MDRD) Non-Af 43 L, BUN/Creatinine Ratio 14.9, Glucose 206 H, Calcium 9.4 D/C Instructions May shower in (days): 1 Weight Bearing Status: Weight bearing as tolerated Lifting Restricted to (Lbs): 20 Lifting Restrictions: Do not lift greater than 20 pounds for 3 weeks Call your doctor if your incision/area has: Sudden Increased Bleeding, Increased Pain/ Swelling and Foul Smelling Discharge Call your doctor if you observe: Fever of 101 or Higher and Uncontrolled pain Remove Dressing in: 1 day DC O2, CPAP, BIPAP Needs Home O2 Discharge instructions: No Additional Instructions: You may remove the dressings from your bilateral groin incision sites after your first shower tomorrow. You may re-cover the sites with bandaids or you may leave them open to air. Keep these areas clean, and be sure to pat gently to dry after showering. You may shower tomorrow. Do not take a bath or otherwise submerge the incision sites such as to swim, go in a hot tub, etc for 3 weeks. Do not lift greater th (more content not included)... [facility] 06-21-2025 Note [facility] Medical Records Department [address] [place] [address] History Physical Exam 06/21/25 0729 MR#: [id number] Acct: [id number] Name: ROSIBEL KUMARI Rep #: [id number] : 1945 80 From: Dickson Sanchez MD PCP: Dr. Prasanth Renee MD Status:[facility] Location: [place] [address] History and Physical Allergies No Known Allergies Allergy (Verified 05/30/25 12:52) Medications ???Medication ???Instructions ???Recorded ???Confirmed ???Type NK 05/30/25 05/30/25 History Have you fallen in the past year?: No [facility] Medical History AAA (abdominal aortic aneurysm) HTN (hypertension) Surgical History Hx of hernia repair ( 2021) Hx of appendectomy ( 2021) Family History Other Cancer Hypertension Social History Smoking Status: Former smoker Tobacco: How many years used: 30 HPI HPI HPI: ROSIBEL KUMARI, is a 80 M who presents to the office today for follow up of AAA initially identified incidentally last year at which time it was 5.4 cm. He has now had his repeat CTA and is here to discuss options. No back/abd pain, no CP/SOB with activity, able to climb hills in [place], up and down stairs without limitation. ROS [...] ulcers, No gallbladder problem and No black,tarry s tools Anders Hematologic: No blood thinners, No blood [...] abdominal aortic aneurysm (AAA) without rupture I71.43 Abdo (more content not included)... [facility] 05-30-2025 Progress note [facility] 05-30-2025 Progress note Note Date/Time May 30, 2025 2:46pm [facility] [address] [place] [address] OFFICE VISIT Date of Service: 05/30/25 MR#: [id number] Acct: [id number] Name: ROSIBEL KUMARI Rep #: [id number] : 1945 Provider: Dr. Dickson Sanchez MD Age/Sex: 80/M [facility] Status: Signed Intake Vital Signs 05/30/25 12:50 Height 5 ft 4.5 in Weight: 169 lb BMI 28.5 BP 195/83 H Blood Pressure Location Lt brachial Position Sitting Respiration 16 Pulse 62 Pulse Source NIBP Temp 98.6 F Temp Source Temporal Pulse Oximetry (%) 97 Oxygen Delivery Method room air Intake Visit Reasons: Discuss Results Promotion Producer Required: No Accompanied by: Self Is patient [...] years used: 30 HPI HPI HPI: ROSIBEL KUMARI, is a 80 M who presents to the office today for follow up of AAA initially identified incidentally last year at which time it was 5.4 cm. He has now had his repeat CTA and is here to discuss options. No back/abd pain, no CP/SOB with activity, able to climb hills in [place], up and down stairs without limitation. ROS [...] adequate for EVAR -will review with device personal financial representative -risks/benefits/alternatives discussed, agreeable to proceed Orders: Orders Serum Creatinine & GFR Today I10 - Essential (primary) hypertension Clinical Quality Measures Falls Risk Screening/Assistive Devices Have you fallen in the past year?: No 05/30/25 1402 <Electronically signed by Dickson Arzola> Date _ Dickson Sanchez MD Cosigner Signature: Date (if applicable) CC: ~ [facility] Work Phone: 1(558) 386-167108-21-2025 Radiology Diagnostic study note [facility] Imaging Services [address] [place], [place] [id number] CTA Abd/Pelvis W/WO Contrast MR#: [id number] Acct: [id number] Name: ROSIBEL KUMARI Rep #: [id number] : 1945 M 79 From: Chetan Gamble MD PCP: Jamal Hurtado WEB UI DEVELOPER-C Status: REG CLI Study:CTA Abd/Pelvis W/WO Contrast Date of Ex am: 03/30/25 Exam# [id number] Ordering Dr: Ja Sanchez MD PROCEDURE: CTA [...] of the examination is unchanged. Reading Location: [id number] CC: Dr. 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 Hospital Discharge instructions Patient Education [...] Follow these instructions at home: Medicines Take epkq-cnc-wwxadty and prescription medicines only as told by [...] to keep your urine pale yellow. ?Take tzdp-ndr-ssnwmao or prescription medicines. ?Eat foods that are [...] and water are not available, use hand hot knife foxing cutter. ?Change your dressing as told by your [...] 07/28/2006 Document Revised: 01/28/2019 Document Reviewed: 01/28/2019 [employer] Patient Education 2020 [employer]. 02/05/2023 16:53:03 Appendicitis, Adult Appendicitis, Adult Appendicitis [...] to care for your incision. Medicines Take juth-tbu-myaqpgg and prescription medicines only as told by [...] to keep your urine pale yellow. ?Take qnwt-bxl-rctbsdg or prescription medicines. ?Eat foods that are [...] 07/28/2006 Document Revised: 01/13/2019 Document Reviewed: 01/13/2019 [employer] Patient Education 2020 [employer]. Follow Up Care 02/04/2023 13:42:34 With:TANNER GILLIAM MD, Surgery Address: [address] [place] [address] [address] [facility] [place] [address]- When:02/20/2023 13:50:00 Comments:Follow up appointment With:LUIS MAGALLANES MD, [facility], Vascular Service, Vascular Surgeons Address: [address] [facility] [address] [facility] [place] [address] [phone] Business (1) When:Within 4 Week(s) Comments:Follow up in approximately 4 weeks With:LASHON GOLDBERG APRN-[facility] Address: [address] [place] [address] [place] [address]- When:02/12/2023 16:00:00 Comments:PLEASE ARRIVE AT 3:30 PM TO FILL OUT PAPERWORK . BRING YOUR INSURANCE CARD AND PHOTO ID [facility] 06-28-2023 Surgery Hospital Progress note Date of [...] PCP. I did speak to social media campaign manager in regards to helpingthe patient find a primary PCP. -Anticipate discharge within the next 24 hours. 2. Medical management per the hospitalist-appreciate input -Patient scheduled for an echocardiogram due to elevated blood pressure 3. Vascular surgery consulted for newly diagnosed 5.1 infrarenal AAA seen on CT scan. Case kaci Gilliam. Please see his addendum to follow. Digitally Signed by UMER LARKIN on 02/05/2023 10:24 AM [id number] Note Discharge Instructions Thank you for allowing [facility] to assist you with your healthcare needs. [...] analgesia (pain medication.). Concern encouraged to take arsx-hiv-vwiugxk stool softeners (such as Colace) and over the counter laxatives (such as Miralax) as needed for constipation. Additional medications that can be taken for operative constipation including milk of magnesia, Metamucil and Senokot. Scheduled Follow-Up Appointments Appointment Type When With Where Contact InformationPC WEB UI DEVELOPER Unassigned Hospital Follow Up 02/12/2023 04:00 PM LASHON COYNE APRN-MARCI [address] [phone] GS OV Post Op 02/20/2023 01:50 PM EDT TANNER GILLIAM MD [facility] General [facility] [place] Follow Up Appointments Follow Up with TANNER GILLIAM MD, Surgery When 02/20/2023 01:50 PM EDT Why: Follow up appointment Where: [address] [place] [address]- Follow Up with LASHON GOLDBERG APRN-AIRCRAFT INSPECTION RECORD CLERK When 02/12/2023 04:00 PM EDT Why: PLEASE ARRIVE AT 3:30 PM TO FILL OUT PAPERWORK . BRING YOUR INSURANCE CARD AND PHOTO ID Where: [address] [facility] [place] [address]- Follow Up with LUIS MAGALLANES MD, [facility], Vascular Service, Vascular Surgeons When In 4 weeks Why: Follow up in approximately 4 weeks Where: [address] [facility] [address] [facility] V[facility] & [place] [phone] Business (1) The Following Activity and Diet [...] by mouth Once a day Pickup at [facility] #[id number] Pharmacy Information [id number]: [address], [place] [phone] Please take this list to your next [...] Follow these instructions at home: Medicines Take akby-sue-jjumbhj and prescription medicines only as told by [...] keep your urine pale yellow. ? Take ramv-vub-cigrcxd or prescription medicines. ? Eat foods that [...] and water are not available, use hand hot knife foxing cutter. ? Change your dressing as told by [...] 07/28/2006 Document Revised: 01/28/2019 Document Reviewed: 01/28/2019 Rentalutions Patient Education 2020 CreateTrips. Appendicitis, Adult Appendicitis is inflammation of the [...] to care for your incision. Medicines Take rdih-fkg-vwbjfue and prescription medicines only as told by [...] keep your urine pale yellow. ? Take zxml-yqv-tihpsnq or prescription medicines. ? Eat foods that [...] 07/28/2006 Document Revised: 01/13/2019 Document Reviewed: 01/13/2019 Rentalutions Patient Education 2020 CreateTrips. Additional Information VACCINATE! IT SAVES LIVES! Members of the community who have not yet received the COVID-19 vaccine and would like to receive it can visit one of [facility] vaccine clinics. There are many vaccine clinic locations within the [facility]. For locations and available times, please visit https://[email or web address].[place].gov/. It is important to note that some COVID mobile vaccine clinics are held outdoors and may be canceled in rainy or stormy conditions. To learn more about pediatric vaccinations (ages 5-11), we invite you to visit the [facility] webpage. https://www.[facility].org/pages/2828-Uqjgn-Yafkeviazvy-Mtxgjjyzmy-Jevdp-Cvv stions.htmlTo learn more about the COVID-19 vaccine, we invite you to visit the CDC website for a list of frequently asked questions.https://www.cdc.gov/coronavirus/2019-ncov/vaccines/faq.html [facility] Patient Portal Access Instructions: Stay connected with your healthcare team and access your personal medical information anytime with the [facility] Patient Portal. Please follow the directions below to create your [facility] account: 1.Access the email account you provided upon registration to the hospital/physician office.2.Look for an invitation email from [facility].3.Open the email and access the invitation link: AcceptInvitation to [facility].4.Fill in the required bauer to create your account. To access your account, visit [email or web address]. Click the blue button labeled Access Patient [...] who you will allowto register on the [facility] for access to your information. You can also access the [facility] Patient Portal on the [place] [facility] suze. Simply click on Patient Portal and then log into your account. If you would like to receive a full copy of your medical records, please contact the [facility] Medical Records Department by calling [phone], Friday through Friday between 8 a.m. and [...] Call your local pharmacy or go to http://Frog Industry.Survival Media/6N8Ps7p to find one close to you.3.Make use of household items: Use cat litter or old coffee grounds to dispose medications if other options arenot available. Mix your drugs with these household products, seal them in an airtight container andthrow it into the garbage. Call [facility]: [phone] to be sure your drugs can be [...] reviewed and explained to me and I,ROSIBEL KUMARI understand my current condition and have read and understand these discharge instructions. I have received a written copy of the plan/instructions. If I have questions, I am aware that I should contactmy doctor. Patient/Hot Die Press Feeder Signature: Date/Time: Relationship to Patient: Witness Name/Signature: Date/Time: [id number] Note Discharge Instructions Thank you for allowing [...] analgesia (pain medication.). Concern encouraged to take uuge-rpa-rnpqxfm stool softeners (such as Colace) and over the counter laxatives (such as Miralax) as needed for constipation. Additional medications that can be taken for operative constipation including milk of magnesia, Metamucil and Senokot. Scheduled Follow-Up Appointments Appointment Type When With Where Contact InformationPC WEB UI DEVELOPER Unassigned Hospital Follow Up 02/12/2023 04:00 PM EDT LASHON GOLDBERG [address] [phone] OV Post Op 02/20/2023 01:50 PM EDT TANNER GILLIAM MD [facility] General Surgery [place] Follow Up Appointments Follow Up with TANNER GILLIAM MD, Surgery When 02/20/2023 01:50 PM EDT Why: Follow up appointment Where: [address] [facility] [address] [facility] [place] [address]- Follow Up with LASHON GOLDBERG When 02/12/2023 04:00 PM EDT Why: PLEASE ARRIVE AT 3:30 PM TO FILL OUT PAPERWORK . BRING YOUR INSURANCE CARD AND PHOTO ID Where: [address] [place] [address]- Follow Up with LUIS MAGALLANES MD, [facility], Vascular Service, Vascular Surgeons When In 4 weeks Why: Follow up in approximately 4 weeks Where: [address] [facility] [address] [facility] Vascular & [place] [phone] Business (1) The Following Activity and Diet [...] by mouth Once a day Pickup at [id number] Pharmacy Information [facility][id number]: [address] [place], [place] [phone] Please take this list to your next [...] Follow these instructions at home: Medicines Take fldv-czx-cafqzut and prescription medicines only as told by [...] keep your urine pale yellow. ? Take asca-lin-tflpcjv or prescription medicines. ? Eat foods that [...] and water are not available, use hand hot knife foxing cutter. ? Change your dressing as told by [...] 07/28/2006 Document Revised: 01/28/2019 Document Reviewed: 01/28/2019 Rentalutions Patient Education 2020 CreateTrips. Appendicitis, Adult Appendicitis is inflammation of the [...] to care for your incision. Medicines Take gkno-ffi-ljcotjx and prescription medicines only as told by [...] keep your urine pale yellow. ? Take scio-vsh-bmevkem or prescription medicines. ? Eat foods that [...] 07/28/2006 Document Revised: 01/13/2019 Document Reviewed: 01/13/2019 Rentalutions Patient Education 2020 CreateTrips. Additional Information VACCINATE! IT SAVES LIVES! Members of the community who have not yet received the COVID-19 vaccine and would like to receive it can visit one of [facility] vaccine clinics. There are many vaccine clinic locations within the [facility]. For locations and available times, please visit https://[email or web address].[place].gov/. It is important to note that some COVID mobile vaccine clinics are held outdoors and may be canceled in rainy or stormy conditions. To learn more about pediatric vaccinations (ages 5-11), we invite you to visit the [facility] webpage. https://www.[facility].org/pages/9576-Pzdsr-Cnlxjkalvso-Mufaxsmvie-Tmtjl-Ghv stions.htmlTo learn more about the COVID-19 vaccine, we invite you to visit the CDC website for a list of frequently asked questions.https://www.cdc.gov/coronavirus/2019-ncov/vaccines/faq.html [facility] Patient Portal Access Instructions: Stay connected with your healthcare team and access your personal medical information anytime with the [facility] Patient Portal. Please follow the directions below to create your [facility] account: 1.Access the email account you provided upon registration to the hospital/physician office.2.Look for an invitation email from [facility].3.Open the email and access the invitation link: AcceptInvitation to [facility].4.Fill in the required bauer to create your account. To access your account, visit [email or web address]. Click the blue button labeled Access Patient Portal and then log in with the username and password that you created in the steps above. You will be able to view your test results, lab results, a summary of your visits, upcoming appointments and more. There is also a convenient messaging option where you can send secure messages to your p Mydishvider. In addition, you will have the ability to download any documents or summaries to your computer and/or send the information securely to a physician. Remember that your healthcare information is confidential, so carefully consider who you will allowto register on the [facility] Patient Portal for access to your information. You can also access the [facility] Patient Portal on the [facility] suze. Simply click on Patient Portal and then log into your account. If you would like to receive a full copy of your medical records, please contact the [facility] Medical Records Department by calling [phone], Friday through Friday between 8 a.m. and [...] Call your local pharmacy or go to http://Frog Industry.Survival Media/3R1Nl2m to find one close to you.3.Make use of household items: Use cat litter or old coffee grounds to dispose medications if other options arenot available. Mix your drugs with these household products, seal them in an airtight container andthrow it into the garbage. Call [facility]: [phone] to be sure your drugs can be [...] reviewed and explained to me and I,ROSIBEL KUMARI understand my current condition and have read and understand these discharge instructions. I have received a written copy of the plan/instructions. If I have questions, I am aware that I should contactmy doctor. Patient/Hot Die Press Feeder Signature: Date/Time: Relationship to Patient: Witness Name/Signature: Date/Time: [facility] HospitalBoknhvoa65-09-1168 Note Date of Service 02.05.23 Chief Complaint htn Subjective 77-year-old male with no previously known past medical history presenting [facility] due toabdominal pain. He was found to have leukocytosis on presentation 14,400 and also blood pressure of202/97. Also bradycardic as low as 47. EKG obtained with sinus bradycardia [place] of [address] changes.Troponin of 14.0. [...] with primary team. Split/shared visit with Dr. O Vu Orders: losartan, Dose : 50 mg = 1 tab(s), Oral, qDay, # 30 tab(s), 0 Refill(s), Pharmacy: [facility] #[id number],167.6, cm, 02/04/23 14:25:00 EDT, Height Time Spent I spent a total of 36 minutes reviewing the patient s diagnostic labs/tests, seeing and examining the patient and documenting in the medical record, see assessment for further detail. Digitally Signed by MIREYA SALGUERO on 02/05/2023 03:09 PM [facility] HospitalFeetjmyp80-19-7099 Vascular surgery Consult note Date of Service [...] mg= 1 mL, IV Push, q3h, PRN [place] 325- 5 mg oral tablet, 1 tab(s), [...] LUIS MAGALLANES MD on 02/05/2023 12:13 PM [facility] [id number] Surgery Hospital Progress note Date of Service [...] PCP. I did speak to social media campaign manager in regards to helpingthe patient find a [...] by UMER LARKIN on 02/05/2023 10:24 AM [facility] HospitalXqcsexoa80-97-1698 Cardiology Consult note Date of Service 02/04/2023 [...] AAA CVC: New 77-year-old man admitted to [facility] as transfer from [place] for acute appendicitis, cardiology service consulted for [...] the consult. d/w Dr Robin Sherman MD Qi Specialist Cortext or Pager [phone] Problem List/Past Medical History Ongoing No qualifying [...] GURPREET SHERMAN MD on 02/04/2023 03:51 PM [facility] HospitalFaybwmeu53-79-0065 Anesthesiology Consult note Patient: ROSIBEL KUMARI Age: 77 years Sex: Male : 1945 [...] PASCUAL BEE MD on 02/04/2023 09:05 PM [facility] HospitalRabapdpy32-40-5824 History and physical note Date of Service 02/04/2023 Chief Complaint Acute appendicitis History of Present Illness This patient is a 77-year-old gentleman who presented to [facility] with complaint of right lower [...] cooperative. Lab Results Seen and reviewed from [facility] Imaging Results and Diagnostics lisa for Exam: Pain. Sharp right lower quadrant pain onset on Friday. Known right-sided inguinal hernia. FINDINGS: Calcified granuloma seen in the lingula and right lower lobe. Minimal basilar atelectasis. There is no visible pleural or pericardial effusion. The heart is normal in size. Ozys-nx-wynrnjjr coronary artery atherosclerosis. Numerous low attenuating lesions [...] noticed 4 years ago who presented to [place] emergency room for complaints of sudden sharp [...] these findings the patient was transferred from [facility] to [facility] and admitted to the surgical services team [...] by UMER LARKIN on 02/04/2023 03:34 PM [facility] HospitalZpfpejqj12-22-2234 Anesthesiology Consult note Patient: ROSIBEL KUMARI Age: 77 years Sex: Male : 1945 [...] Weight 77.3 kg Weight Lbs 170.1 lb [place] Body Weight 63.76 kg BSA Admission 1.87 [...] Anesthesiologist SN - CAt - Role Performed POULTRY RAISER SN - CAt - Role Performed Paper Inspector 1 SN - CAt - Role Performed [...] Type 0-10 Pain scale Nail Bed Color [place] Capillary Refill < 2 seconds Heart Rhythm [...] Facial Movement Symmetric resting/crying All Extremity Description [place], Normal for ethnicity Skin Temperature Warm Temperature All Extremities Warm Skin Description [place] Skin Integrity Intact Skin Turgor Elastic Mucous Membrane Color [place] Mucous Membrane Description Moist Sensory Perception Joseph [...] Detail No Transport Mode Order Detail Wheelchair Collet Gluer Details Form Collet Gluer Details Form 02/04/2023 14:25 EDT Designated Person #1 We May Share PHYLLIS Mcwilliams Designated Person #1 Relationship Other: grandson Privacy Restrictions Requested None Height 167.6 cm Height in inches 66 inch(es) Admission Weight 77.3 kg Weight Lbs 170.1 lb [place] Body Weight 63.76 kg BSA Admission 1.87 [...] Evaluation Verbalizes/Nonverbally indicates understanding Preferred Written Language Finnish Preferred Spoken Language Finnish Information Given by Patient Patient's Current Physicians [...] Transfer Ground ambulance Required Personnel for Transfer Plant Specialist Belongings At Bedside Transferred with patient Personal [...] 95 % 02/04/2023 12:45 EDT [facility] Screen ED/V BELT COVERER patient History of Fall in Last 3 [...] ONLY 02/04/2023 10:20 EDT Accompanied By Staff Roofing Technician Out of Room Returned from Current Location [...] Lipase Level 31 U/L 02/04/2023 9:51 EDT [place] Emergency Room Note History and Physical 02/04/2023 [...] Recommended GENESIS Level [address] Capillary Refill < 2 seconds Respirations Unlabored Respiratory Pattern Regular Breath Sounds Auscultated Anterior only All Lobes Breath Sounds Clear, Diminished Oxygen Therapy Room air Oxygen Saturation 94 % Abdomen Description Non-distended, Soft Abdomen Palpation Tender Abdomen Tender RLQ Bowel Sounds All Quadrants Present Urinary Elimination Voiding, no difficulties Urine Color Yellow Urine Description Medium amount Skin Temperature Warm Skin Description [place], Normal for ethnicity, Dry Skin Integrity Intact Skin Turgor Elastic Mucous Membrane Color [place] Mucous Membrane Description Moist Gait Steady Level [...] No Weight Loss No Preferred Written Language Finnish Preferred Spoken Language Finnish Tracking Group ED AO Tracking Group Tracking [...] Count 0 EA . Assessment and Plan [place] Society of Anesthesiologists (ASA) physical status classification: [...] PASCUAL BEE MD on 02/04/2023 04:19 PM [facility] [id number] History and physical note Date of Service 02/04/2023 Chief Complaint Acute appendicitis History of Present Illness This patient is a 77-year-old gentleman who presented to [facility] with complaint of right lower [...] cooperative. Lab Results Seen and reviewed from [facility] Imaging Results and Diagnostics lisa for Exam: Pain. Sharp right lower quadrant pain onset on Friday. Known right-sided inguinal hernia. FINDINGS: Calcified granuloma seen in the lingula and right lower lobe. Minimal basilar atelectasis. There is no visible pleural or pericardial effusion. The heart is normal in size. Jeti-li-pbkvyfkl coronary artery atherosclerosis. Numerous low attenuating lesions [...] noticed 4 years ago who presented to [place] emergency room for complaints of sudden sharp [...] these findings the patient was transferred from [facility] to [facility] and admitted to the surgical services team [...] by UMER LARKIN on 02/04/2023 03:34 PM [facility] HospitalRreauifw19-25-3297 Cardiology Consult note Date of Service 02/04/2023 [...] AAA CVC: New 77-year-old man admitted to [facility] as transfer from [place] for acute appendicitis, cardiology service consulted for [...] the consult. d/w Dr Robin Sherman MD Qi Specialist Cortext or Pager [phone] Problem List/Past Medical History Ongoing No qualifying [...] GURPREET SHERMAN MD on 02/04/2023 03:51 PM [facility] HospitalCpqinsoj72-22-5510 Consult note Date of Service 02/04/23 Reason for Consultation hypertension, bradycardia Referring Physician Dr. Gilliam History of Present Illness 77-year-old male with no previously known past medical history presenting [facility] due toabdominal pain. He was found to have leukocytosis on presentation 14,400 and also blood pressure of202/97. Also bradycardic as low as 47. EKG obtained with sinus bradycardia [place] of [address] changes.Troponin of 14.0. [...] Personally reviewed his EKG with sinus bradycardia WV of 221 concerning for first-degree AV block. [...] CHARLEEN FUENTES MD on 02/04/2023 03:30 PM [facility] [id number] Evaluation + Plan noteExtracted from: Title:History and Physical Author:JANICE LARKIN STATIONARY STEAM ENGINEER-AIRCRAFT INSPECTION RECORD CLERK Date:02/04/23 This patient is a pleasant [age]-year-old gentleman who denies any past medical history other than a right inguinal hernia he noticed 4 years ago who presented to [place] emergency room for complaints of sudden sharp [...] these findings the patient was transferred from [facility] to [facility] and admitted to the surgical services team [...] Appointment Date:02/12/2023 04:00:00 PM Scheduled Provider:LASHON GOLDBERG Location:[facility] Appointment Type:PC WEB UI DEVELOPER Unassigned Hospital Follow Up Appointment Date:02/20/2023 01:50:00 PM Scheduled Provider:TANNER GILLIAM MD Location:Gen Surg [facility] Appointment Type:GS OV Post Op [facility] 06-27-2023 Note ORIGINAL EXAMINATION: CT OF [...] effusion. The heart is normal in size. Eduh-ke-hpuolljk coronary artery atherosclerosis. Numerous low attenuating lesions [...] Date: 02/04/2023 11:18:15 AM Ordering Provider: LINDA LANIAUSKAS [facility]06-27-2023 Note ORIGINAL EXAMINATION: CT OF THE ABDOMEN [...] effusion. The heart is normal in size. Exhp-kz-buibzhrl coronary artery atherosclerosis. Numerous low attenuating lesions [...] Sign Date: 02/04/2023 11:18:15 AM Ordering Provider: [facility] Anesthesiology Consult note* PASCUAL BEE MD: PERFORM, SIGN, VERIFY Event Display: Anesthesiology Consultation Authored Date: [id number] Patient: ROSIBEL KUMARI Age: 77 years Sex: Male : 1945 [...] VERIFY Event Display: Anesthesiology Consultation Authored Date: [id number] Patient: ROSIBEL KUMARI Age: 77 years Sex: Male : 1945 [...] Weight 77.3 kg Weight Lbs 170.1 lb [place] Body Weight 63.76 kg BSA Admission 1.87 [...] Anesthesiologist SN - CAt - Role Performed POULTRY RAISER SN - CAt - Role Performed Paper Inspector 1 SN - CAt - Role Performed [...] Type 0-10 Pain scale Nail Bed Color [facility] Capillary Refill < 2 seconds Heart Rhythm [...] Facial Movement Symmetric resting/crying All Extremity Description [place], Normal for ethnicity Skin Temperature Warm Temperature All Extremities Warm Skin Description [facility] Skin Integrity Intact Skin Turgor Elastic Mucous Membrane Color [facility] Mucous Membrane Description Moist Sensory Perception Joseph [...] Detail No Transport Mode Order Detail Wheelchair Collet Gluer Details Form Collet Gluer Details Form 02/04/2023 14:25 EDT Designated Person #1 We May Share PHYLLIS Mcwilliams Designated Person #1 Relationship Other: grandson Privacy Restrictions Requested None Height 167.6 cm Height in inches 66 inch(es) Admission Weight 77.3 kg Weight Lbs 170.1 lb [place] Body Weight 63.76 kg BSA Admission 1.87 [...] Evaluation Verbalizes/Nonverbally indicates understanding Preferred Written Language Finnish Preferred Spoken Language Finnish Information Given by Patient Patient's Current Physicians [...] Transfer Ground ambulance Required Personnel for Transfer Plant Specialist Belongings At Bedside Transferred with patient Personal [...] 95 % 02/04/2023 12:45 EDT [place] Screen ED/V BELT COVERER patient History of Fall in Last 3 [...] ONLY 02/04/2023 10:20 EDT Accompanied By Staff Roofing Technician Out of Room Returned from Current Location [...] Lipase Level 31 U/L 02/04/2023 9:51 EDT [place] Emergency Room Note History and Physical 02/04/2023 [...] Recommended GENESIS Level [address] [place] Capillary Refill < 2 seconds Respirations Unlabored Respiratory Pattern Regular Breath Sounds Auscultated Anterior only All Lobes Breath Sounds Clear, Diminished Oxygen Therapy Room air Oxygen Saturation 94 % Abdomen Description Non-distended, Soft Abdomen Palpation Tender Abdomen Tender RLQ Bowel Sounds All Quadrants Present Urinary Elimination Voiding, no difficulties Urine Color Yellow Urine Description Medium amount Skin Temperature Warm Skin Description [place], Normal for ethnicity, Dry Skin Integrity Intact Skin Turgor Elastic Mucous Membrane Color [place] Mucous Membrane Description Moist Gait Steady Level of Consciousness Alert Eye Opening Response [place] Spontaneously Best Motor Response [place] Obeys simple commands Best Verbal Response [place] Oriented Kenny Coma Score 15 Violence Risk [...] No Weight Loss No Preferred Written Language Finnish Preferred Spoken Language Finnish Tracking Group ED AO Tracking Group Tracking [...] Count 0 EA . Assessment and Plan [place] Society of Anesthesiologists (ASA) physical status classification: [...] PASCUAL BEE MD on 02/04/2023 04:19 PM [facility] Evaluation + Plan note No data available for this section [facility] Evaluation + Plan note Future Appointments Appointment Date:02/20/2023 01:50:00 PM Scheduled Provider:TANNER GILLIAM MD Location:Gen Surg [facility] Appointment Type:GS OV Post Op [facility] Evaluation + Plan note Future Appointments [facility] Evaluation + Plan note Future Appointments Appointment Date:10/31/2023 02:00:00 PM Scheduled Provider: Location:[facility] Appointment Type:VL AOH - ABIs (ankles only) Appointment Date:10/31/2023 03:00:00 PM Scheduled Provider: Location:[facility] Appointment Type:CT Angiography Abd Aorta + Iliofemoral Future Scheduled Tests Radiology* CT Angiography Abd Aorta + Iliofemoral 10/31/23 [facility] Evaluation noteNo assessment information available [facility] Work Phone: Hospital Discharge instructions No data available for this section [facility] Progress note No data available for this section [facility] Reason for referral (narrative)No reason for referral information availableK[facility] Work Phone: Summary Purpose Family History Relationship [...] Member Role Status Dates Jamal Beam VSC, WEB UI DEVELOPER-C Primary Care Provider Active Team Status: Inactive Member Role Status Dates Jamal Beam VSC, WEB UI DEVELOPER-C Primary Care Provider Active Start: January 28, 2025 End: January 28, 2025 Jrbulun Beam VSC, WEB UI DEVELOPER-C Attending Provider Active Start: January 28, 2025 End: January 28, 2025 Team Status: Active Member Role/Relationship Status Dates Jamal Beam VSC, WEB UI DEVELOPER-C Primary Care Provider Active Team Status: Inactive Member Role/Relationship Status Dates Zebulun Beam VSC, WEB UI DEVELOPER-C Primary Care Provider Active Start: January 28, 2025 End: January 28, 2025 Zebulun Beam VSC, WEB UI DEVELOPER-C Attending Provider Active Start: January 28, 2025 End: January 28, 2025 Team Status: Inactive Member Role/Relationship Status Dates Zebulun Beam VSC, WEB UI DEVELOPER-C Primary Care Provider Active Start: March 09, 2025 End: March 09, 2025 Zebulun Beam VSC, WEB UI DEVELOPER-C Referring Provider Active Start: March 09, 2025 End: March 09, 2025 Dr. Dickson Sanchez MD Attending Provider Active S tart: March 09, 2025 End: March 09, 2025 Team Status: Inactive Member Role/Relationship Status Dates Zebulun Beam VSC, WEB UI DEVELOPER-C Primary Care Provider Active Start: March 24, 2025 End: March 24, 2025 Zebulun Beam VSC, WEB UI DEVELOPER-C Attending Provider Active Start: March 24, 2025 End: March 24, 2025 Team Status: Active Member Role/Relationship Status Dates Zebulun Beam VSC, WEB UI DEVELOPER-C Primary Care Provider Active Start: March 30, 2025 Dr. Dickson Sanchez MD Attending Provider Active S tart: March 30, 2025 Dr. Dickson Sanchez MD Referring Provider Active S tart: March 30, 2025 Team Status: Inactive Member Role/Relationship Status Dates Zebulun Beam VSC, WEB UI DEVELOPER-C Primary Care Provider Active Start: March 30, 2025 End: March 30, 2025 Dr. Dickson Sanchez MD Attending Provider Active S tart: March 30, 2025 End: March 30, 2025 Dr. Dickson Sanchez MD Referring Provider Active S tart: March 30, 2025 End: March 30, 2025 Team Status: Active Member Role/Relationship Status Dates Zebulun Beam VSC, WEB UI DEVELOPER-C Primary care physician Active Team Status: Inactive Member Role/Relationship Status Dates Zebulun Beam VSC, WEB UI DEVELOPER-C Primary care physician Active Start: January 28, 2025 End: January 28, 2025 Zebulun Beam VSC, WEB UI DEVELOPER-C Attending physician Active Start: January 28, 2025 End: January 28, 2025 Team Status: Inactive Member Role/Relationship Status Dates Zebulun Beam VSC, WEB UI DEVELOPER-C Primary care physician Active Start: March 09, 2025 End: March 09, 2025 Zebulun Beam VSC, WEB UI DEVELOPER-C Referring Provider Active Start: March 09, 2025 End: March 09, 2025 Dr. Dickson Sanchez MD Attending physician Active Start: March 09, 2025 End: March 09, 2025 Team Status: Inactive Member Role/Relationship Status Dates Zebulun Beam VSC, WEB UI DEVELOPER-C Primary care physician Active Start: March 24, 2025 End: March 24, 2025 Zebulun Beam VSC, WEB UI DEVELOPER-C Attending physician Active Start: March 24, 2025 End: March 24, 2025 Team Status: Inactive Member Role/Relationship Status Dates Zebulun Beam VSC, WEB UI DEVELOPER-C Primary care physician Active Start: March 30, 2025 End: March 30, 2025 Dr. Dickson Sanchez MD Attending physician Active Start: March 30, 2025 End: March 30, 2025 Dr. Dickson Sanchez MD Referring Provider Active S tart: March 30, 2025 End: March 30, 2025 Team Status: Inactive Member Role/Relationship Status Dates Zebulun Beam VSC, WEB UI DEVELOPER-C Primary care physician Active Start: April 18, 2025 End: April 18, 2025 Zebulun Beam VSC, WEB UI DEVELOPER-C Attending physician Active Start: April 18, 2025 End: April 18, 2025 Zebulun Beam VSC, WEB UI DEVELOPER-C Referring Provider Active Start: April 18, 2025 End: April 18, 2025 Team Status: Inactive Member Role/Relationship Status Dates Zebulun Beam VSC, WEB UI DEVELOPER-C Primary care physician Active Start: March 09, 2025 End: March 09, 2025 Zebulun Beam VSC, WEB UI DEVELOPER-C Referring Provider Active Start: March 09, 2025 End: March 09, 2025 Dr. Dickson Sanchez MD Attending physician Active Start: March 09, 2025 End: March 09, 2025 Team Status: Inactive Member Role/Relationship Status Dates Zebulun Beam VSC, WEB UI DEVELOPER-C Primary care physician Active Start: March 24, 2025 End: March 24, 2025 Zebulun Beam VSC, WEB UI DEVELOPER-C Attending physician Active Start: March 24, 2025 End: March 24, 2025 Team Status: Inactive Member Role/Relationship Status Dates Zebulun Beam VSC, WEB UI DEVELOPER-C Primary care physician Active Start: March 30, 2025 End: March 30, 2025 Dr. Dickson Sanchez MD Attending physician Active Start: March 30, 2025 End: March 30, 2025 Dr. Dickson Sanchez MD Referring Provider Active S tart: March 30, 2025 End: March 30, 2025 Team Status: Inactive Member Role/Relationship Status Dates Zebulun Beam VSC, WEB UI DEVELOPER-C Primary care physician Active Start: April 18, 2025 End: April 18, 2025 Zebulun Beam VSC, WEB UI DEVELOPER-C Attending physician Active Start: April 18, 2025 End: April 18, 2025 Zebulun Beam VSC, WEB UI DEVELOPER-C Referring Provider Active Start: April 18, 2025 End: April 18, 2025 Team Status: Inactive Member Role/Relationship Status Dates Zebulun Beam VSC, WEB UI DEVELOPER-C Primary care physician Active Start: May 30, 2025 End: May 30, 2025 Zebulun Beam VSC, WEB UI DEVELOPER-C Referring Provider Active Start: May 30, 2025 End: May 30, 2025 Dr. Dickson Sanchez MD Attending physician Active Start: May 30, 2025 End: May 30, 2025 Team Status: Inactive Member Role/Relationship Status Dates Zebulun Beam VSC, WEB UI DEVELOPER-C Primary care physician Active Start: May 30, [...] section and content) DATE CREATED AUTHOR 11/07/2023 [facility] ([place]) DATE CREATED AUTHOR AUTHOR'S ORGANIZ ATION 06/23/2025 [facility] Goals (unrecognized section and content) Goals may [...] BE BASED ON THE PRIMARY CLINICAL RECORDS. [facility]. provides no warranty or guarantee of the accuracy or completeness of information in this document.
== END | disposition home or self-care (01) ==
LOC: US 11:05
PROVIDERS: PCP Family Medicine; Referring Provider Family Medicine; Visit Provider Family Medicine
DX: E04.1 Nontoxic single thyroid nodule (principal)
CPT/HCPCS: 76536

== ENCOUNTER → 2025-08-08 | Outpatient (CLI) | payer MEDICARE, SELFPAY ==
--- OUTSIDE RECORDS SUMMARY | 2025-08-08 09:21 | XMS RPT_ITS | CCD ---
Author Organization [facility] CliniSyri Care Team Providers Care Field Inspector Name Role Phone PHYSICIAN, NONE Primary Care Physician Unavailab le ASHLYN DELIVERER FOOD-APARTMENT RENTAL CLERK, LASHON A Primary Care Physi jana ZULEYMA ESTRADA, SHANNA Kimball Attending Unavailable ASHLYN DELIVERER FOOD-APARTMENT RENTAL CLERK, LASHON A Primary Care Un available ASHLYN DELIVERER FOOD-APARTMENT RENTAL CLERK, LASHON A Primary Care Un available TANNER GILLIAM Attending Unavailable MANE, TANNER Consulting Unavailable ASHLYN DELIVERER FOOD-APARTMENT RENTAL CLERK, LASHON A Primary Care Un available TANNER GILLIAM Attending Unavailable JUANCHO ESTRADA, MADELYN Consulting Unavailable MANE, TANNER Attending Unavailable TANNER GILLIAM Admitting Unavailable ASHLYN DELIVERER FOOD-APARTMENT RENTAL CLERK, LASHON A Primary Care Un available ALFREDO ESTRADA, DR CHARLEEN Rogers Consulting Haley URBAN MD, DR SALMERON Consulting Unavailab virgilio MAGALLANES MD, LUIS Consulting Unavailable LANE ESTRADA, GURPREET Consulting Unavailable CRISTAL ESTRADA, PASCUAL Acuna Consulting Unavailable PHYSICIAN, NONE Primary Care Unavailable MANE, TANNER Consulting Unavailable BASILIO ESTRADA, DR LINDA Keane Attending Unavai radhale ASHLYN DELIVERER FOOD-APARTMENT RENTAL CLERK, LASHON A Primary Care Un available ASHLYN DELIVERER FOOD-APARTMENT RENTAL CLERK, LASHON A Attending Un available ZULEYMA ESTRADA, SHANNA Kimball Attending Unavailable ASHLYN DELIVERER FOOD-APARTMENT RENTAL CLERK, LASHON A Primary Care Un available Beam MONEY LAUNDERING INVESTIGATOR-C, Zebulun Primary Care Provider Beam MONEY LAUNDERING INVESTIGATOR-C, Zebulun Attending Provider Beam MONEY LAUNDERING INVESTIGATOR-C, Zebulun Referring Provider Daniel ESTRADA, Dr. Forman Attending Provider Dr. Dickson Sanchez MD Referring Provider Beam MONEY LAUNDERING INVESTIGATOR-C, Zebulun Primary Care Physician Beam MONEY LAUNDERING INVESTIGATOR-C, Zebulun Attending Physician Daniel ESTRADA, Dr. Forman Attending Physician Beam MONEY LAUNDERING INVESTIGATOR-C, Zebulun Primary Care Physician Beam MONEY LAUNDERING INVESTIGATOR-C, Zebulun Referring Provider Daniel ESTRADA, Dr. Forman Attending Physician Beam MONEY LAUNDERING INVESTIGATOR-C, Zebulupatricia Attending Physician Daniel ESTRADA, Dr. Forman Referring Provider Rebekah Infante Attending Unavailable Schinner, Prasanth E Primary Care Unavailable Daniel, Dickson Referring Unavailable Newcastle, Dickson Admitting Unavailable Daniel, Dickson Consulting Unavailable Daniel, Dickson Attending Unavailable Schinner, Prasanth E Primary Care Unavailable Newcastle, Dickson Referring Unavailable Newcastle, Dickson Consulting Unavailable Beam, Zebulun Primary Care Unavailable Beam, Zebulun Attending Unavailable Beam, Zebulun Referring Unavailable Newcastle, Dickson Attending Unavailable Beam, Zebulun Primary Care Unavailable Daniel, Dickson Referring Unavailable Beam, Zebulun Primary Care Unavailable Beam, Zebulun Attending Unavailable Beam, Zebulun Primary Care Unavailable Newcastle, Dickson Attending Unavailable Newcastle, Dickson Referring Unavailable Beam, Zebulun Primary Care Unavailable Beam, Zebulun Attending Unavailable Newcastle, Dickson Attending Unavailable Schinner, Prasanth E Primary Care Unavailable Newcastle, Dickson Referring Unavailable Newcastle, Dickson Admitting Unavailable Beam, Zebulun Primary Care Unavailable Beam, Zebulun Referring Unavailable Danile, Dickson Attending Unavailable Newcastle, Dickson Attending Unavailable Beam, Zebulun Referring Unavailable [...] Refill(s), 02/09/23 17:51:00 EDT, Pharmacy: [facility] #[id number], Appendicitis, 167.6, cm, 02/04/23 14:25:00 EDT, Height, 77.3, kg, 02/04/23 14:25:00 EDT, Dosing Weight Start Date: 02/05/23 Stop Date: 02/09/23 Status: Ordered losartan potassium 50 mg oral tablet (5 sources) Angiotensin 2 Receptor Bridget Start: 09-08-2023 End: 09-02-2024 losartan 50 mg oral tablet Dose : 50 mg = 1 tab(s), Oral, qDay, # 90 tab(s), 3 Refill(s), Pharmacy: [facility] #[id number], 163, cm, 09/08/23 9:22:00 EST, Height, kg, 09/08/23 9:22:00 EST, Dosing Weight Start Date: 09/08/23 Stop Date: 09/02/24 Status: Ordered Start: 02-12-2023 End: 08-11-2023 losartan 50 mg oral tablet D ose : 50 mg = 1 tab(s), Oral, qDay, # 90 tab(s), 1 Refill(s), [id number], 167.6, cm, 02/12/23 15:51:00 EDT, Height, kg, 02/12/23 15:51:00 EDT, Dosing Weight Start Date: 02/12/23 Stop Date: 08/11/23 Status: Ordered Start: 02-05-2023 losartan 50 mg oral tablet Dose : 50 mg = 1 tab(s), Oral, qDay, # 30 tab(s), 0 Refill(s), Pharmacy: [facility] #[id number], 167.6, cm, 02/04/23 14:25:00 EDT, Height Start [...] )on 06-22-2025 BUN/CRE 14.9 RATIO Normal 10-20 [facility] Comment on above: Performed By: #### L 100.0100, L500.2500 #### [facility] [address] [place], [address] Calcium [Mass/Vol] 9.4 mg/dL Normal 7.6-11.0 [facility] Comment on above: Performed By: #### L 100.0100, L500.2500 #### [facility] [address] [place], [address] Chloride [Moles/Vol] 102 mmol/L Normal 98-108 [facility] Comment on above: Performed By: #### L 100.0100, L500.2500 #### [facility] [address] [place], [address] CO2 [Moles/Vol] 22.9 mmol/L Normal 21.0-32.0 [facility] Comment on above: Performed By: #### L 100.0100, L500.2500 #### [facility] [address] [place], [address] Creatinine [Mass/Vol] 1.62 mg/dL High 0.70-1.20 [facility] Comment on above: Performed By: #### L 100.0100, L500.2500 #### [facility] [address] [place], [address] ECRCL 34.24 ml/min Low 50-250 [facility] Comment on above: Performed By: #### L 100.0100, L500.2500 #### [facility] [address] [place], [address] GAP 12 Normal 5-15 [facility] Comment on above: Performed By: #### L 100.0100, L500.2500 #### [facility] [address] [place], [address] GFR/1.73 sq M.predicted among non-blacks MDRD (S/P/Bld) [Vol rate/Area] 43 mL/min/{1.73_m2} Low >60 [facility] Comment on above: Result Comment: mL/m in/1.73m2 CKD-EPI Creatinine Equation (2020) Performed By: #### L 100.0100, L500.2500 #### [facility] [address] [place], [address] Glucose [Mass/Vol] 206 mg/dL High 70-99 [facility] Comment on above: Performed By: #### L 100.0100, L500.2500 #### [facility] [address] [place], [address] Potassium [Moles/Vol] 4.3 mmol/L Normal 3.3-5.1 [facility] Comment on above: Performed By: #### L 100.0100, L500.2500 #### [facility] [address] [place], [address] Sodium [Moles/Vol] 137 mmol/L Normal 133-145 [facility] Comment on above: Performed By: #### L 100.0100, L500.2500 #### [facility] [address] [place], [address] Urea nitrogen [Mass/Vol] 24 mg/dL High 4-19 [facility] Comment on above: Performed By: #### L 100.0100, L500.2500 #### [facility] [address] [place], [address] CBC W/Diff, Automatedon 06-11 Absolute Lymph 1.24 X10 3/uL Normal 0.83-4.51 [facility] Comment on above: Performed By: #### L 100.0100, L500.2500 #### [facility] [address] [place], [address] Absolute Neut 19.6 X10 3/uL High 2.0-7.7 [facility] Comment on above: Performed By: #### L 100.0100, L500.2500 #### [facility] [address] [place], [address] Basophils/100 WBC (Bld) 0.2 % Normal 0-1 [facility] Comment on above: Performed By: #### L 100.0100, L500.2500 #### [facility] [address] [place], [address] Eosinophils/100 WBC (Bld) 0.1 % Normal 0-5 [facility] Comment on above: Performed By: #### L 100.0100, L500.2500 #### [facility] [address] [place], [address] Erythrocyte distribution width (RBC) [Ratio] 13.6 % Normal 11.6-14.6 [facility] Comment on above: Performed By: #### L 100.0100, L500.2500 #### [facility] [address] [place], [address] Hematocrit (Bld) [Volume fraction] 43.6 % Normal 40-54 [facility] Comment on above: Performed By: #### L 100.0100, L500.2500 #### [facility] [address] [place], [address] Hemoglobin (Bld) [Mass/Vol] 14.6 g/dL Normal 13.0-16.5 [facility] Comment on above: Performed By: #### L 100.0100, L500.2500 #### [facility] [address] [place], [address] IG% 0.500 Normal 0.0-0.9 [facility] Comment on above: Result Comment: IG% - Immature Granulocytes (promyelocytes, myelocytes and metamyelocytes) > 1% indicates that a LEFT SHIFT is Present. Performed By: #### L 100.0100, L500.2500 #### [facility] [address] [place], [address] Lymphocytes/100 WBC (Bld) 5.5 % Low 19-41 [facility] Comment on above: Performed By: #### L 100.0100, L500.2500 #### [facility] [address] [place], [address] MCH (RBC) [Entitic mass] 28.9 pg Normal 27.0-32.0 [facility] Comment on above: Performed By: #### L 100.0100, L500.2500 #### [facility] [address] [place], [address] MCHC (RBC) [Mass/Vol] 33.5 g/dL Normal 32-36 [facility] Comment on above: Performed By: #### L 100.0100, L500.2500 #### [facility] [address] [place], [address] MCV (RBC) [Entitic vol] 86.3 fL Normal 80-94 [facility] Comment on above: Performed By: #### L 100.0100, L500.2500 #### [facility] [address] [place], [address] Monocytes/100 WBC (Bld) 6.3 % Normal 0-10 [facility] Comment on above: Performed By: #### L 100.0100, L500.2500 #### [facility] [address] [place], [address] Neutrophils/100 WBC (Bld) 87.4 % High 47-70 [facility] Comment on above: Performed By: #### L 100.0100, L500.2500 #### [facility] [address] [place], [address] Nucleated RBC (Bld) [#/Vol] 0 10*3/uL Normal 0-5 [facility] Comment on above: Performed By: #### L 100.0100, L500.2500 #### [facility] [address] [place], [address] Platelet mean volume (Bld) [Entitic vol] 10.7 fL Normal 6.2-12.0 [facility] Comment on above: Performed By: #### L 100.0100, L500.2500 #### [facility] [address] [place], [address] Platelets (Bld) [#/Vol] 244 10*3/uL Normal 150-450 [facility] Comment on above: Performed By: #### L 100.0100, L500.2500 #### [facility] [address] [place], [address] RBC (Bld) [#/Vol] 5.05 10*6/uL Normal 4.6-6.2 [facility] Comment on above: Performed By: #### L 100.0100, L500.2500 #### [facility] [address] [place], [address] RDW SD 42.0 fl Normal 35.1-43.9 [facility] Comment on above: Performed By: #### L 100.0100, L500.2500 #### [facility] [address] [place], [address] WBC (Bld) [#/Vol] 22.4 10*3/uL High 4.4-11.0 [facility] Comment on above: Performed By: #### L 100.0100, L500.2500 #### [facility] [address] [place], [address] ACT Activated Clotting Timeo n 06-21-2025 ACTk CLOT TIME 245 sec High 74-137 [facility] Comment on above: Performed By: #### L 9100.0100 #### [facility] [address] [place], [address] ACTk CLOT TIME 143 sec High 74-137 [facility] Comment on above: Performed By: #### L 9100.0100 #### [facility] [address] [place], [address] ACTk CLOT TIME 240 sec High 74-137 [facility] Comment on above: Performed By: #### L 9100.0100 #### [facility] [address] [place], [address] MR/POSTOP.ANE 06-21-2025 MR/POSTOP.[facility] Medical Records Department [address] [place] [address] Anesthesia Postop Eval I 06/21/25 1541 MR#: [id number] Acct: [id number] Name: ROSIBEL KUMARI Rep #: [id number] : 1945 80 From: Butch Trent MD [...] MD Cosigner Signature: Date CC: Signed Normal [facility] MR/[id number] 06-21-2025 MR/POSTOPAN2 [facility] Medical Records Department [address] [place] [address] Anesthesia Postop Eval II 06/21/25 1542 MR#: [id number] Acct: [id number] Name: ROSIBEL KUMARI Rep #: [id number] : 1945 80 From: Butch Trent MD [...] MD Cosigner Signature: Date CC: Signed Normal [facility] Operative Reporton Operative Report [facility] Medical Records Department [address] [place] [address] Operative Report 06/21/25 1024 MR#: [id number] Acct: [id number] Name: ROSIBEL KUMARI Rep #: [id number] : 1945 80 From: Dickson Sanchez MD PCP: Dr. Prasanth Renee MD Status:ADM IN Location: ICU ICU02-1 Operative Report (Standard) Operative Information Date of Procedure: 06/21/25 Pre-Operative Diagnosis: AAA Post-Operative Diagnosis: Same Surgery/Procedure Performed: Endovascular repair abdominal aortic aneurysm biosolids management technician: Yes Billboard Mechanic: Sarai Santiago Tasks completed by surgical first assistant: Opening, Closing, Opening closing and Implanting device Type of Anesthesia: General RN Documented Start/Stop Times: Operation Date: 06/21/25 08:00 Case Time Into Pre-Op 06/21/25 05:34 Into Recovery 06/21/25 10:12 Out of Recovery 06/21/25 11:08 Procedure Start Time: 08:10 Procedure Stop Time: 09:40 Select all DRAINS/GRAFTS/IMPLANTS that apply: Implanted device Implanted device details: [employer]ix [employer] Estimated Blood Loss: 14 Specimen collected: No Description of surgery: HPI: Patient is an 80-year-old male with a large infrarenal abdominal aortic aneurysm with anatomy which is amenable to endovascular exclusion. He is taken now for elective endovascular abdominal aortic aneurysm repair. Description of procedure: Upon obtaining informed consent and verification correct patient procedure and site the patient was taken to the [facility] where he was placed under general anesthesia. [...] micropuncture sheath exchanged for a short 8 [place] sheath. Given tortuosity in the iliac artery a KMP catheter and Bentson wire we to traverse the vessel advancing into the abdominal aorta. The catheter and 6 [place] sheath was then withdrawn and a pair of Pro-glide suture mediated closure devices were then deployed in preclose technique after which an 8 [place] sheath was advanced over the wire into [...] the micropuncture sheath exchanged for a 6 [place] sheath to dilate the tract. Pro-glide suture mediated closure devices were then deployed in preclose technique after which an 8 [place] sheath was advanced over the wire into the abdominal aorta. The patient was then heparinized and allowed to circulate for 3 minutes after which subsequent heparin dosing was based on ACT results. The KMP catheter and Bentson wire were then advanced into the proximal thoracic aorta and the Bentson wire exchanged for a Lunderquist wire. The catheter and 8 [place] sheath were then exchanged for the [employer] main body 29 mm device which was [...] deployed and the polymer autoinjector attached per general service technician's instructions. An angled Glidewire was then advanced [...] was then selected. The left femoral 8 [place] sheath was then withdrawn and the iliac limb advanced in the position with satisfactory overlap into the main body. The device was then deployed with distal landing (more content not included)... Normal [facility] Basic Metabolic Profile (BMP )on 06-16-2025 BUN/CRE 11.6 RATIO Normal 10-20 [facility] Comment on above: Performed By: #### B TSPAT, L100.0500, L500.2500 #### [facility] [address] [place], [address] Calcium [Mass/Vol] 9.3 mg/dL Normal 7.6-11.0 [facility] Comment on above: Performed By: #### B TSPAT, L100.0500, L500.2500 #### [facility] [address] [place], [address] Chloride [Moles/Vol] 106 mmol/L Normal 98-108 [facility] Comment on above: Performed By: #### B TSPAT, L100.0500, L500.2500 #### [facility] [address] [place], [address] CO2 [Moles/Vol] 25.8 mmol/L Normal 21.0-32.0 [facility] Comment on above: Performed By: #### B TSPAT, L100.0500, L500.2500 #### [facility] [address] [place], [address] Creatinine [Mass/Vol] 1.47 mg/dL High 0.70-1.20 [facility] Comment on above: Performed By: #### B TSPAT, L100.0500, L500.2500 #### [facility] [address] [place], [address] GAP 9 Normal 5-15 [facility] Comment on above: Performed By: #### B TSPAT, L100.0500, L500.2500 #### [facility] [address] [place], [address] GFR/1.73 sq M.predicted among non-blacks MDRD (S/P/Bld) [Vol rate/Area] 48 mL/min/{1.73_m2} Low >60 [facility] Comment on above: Result Comment: mL/m in/1.73m2 CKD-EPI Creatinine Equation (2020) Performed By: #### B TSPAT, L100.0500, L500.2500 #### [facility] [address] [place], [address] Glucose [Mass/Vol] 113 mg/dL High 70-99 [facility] Comment on above: Performed By: #### B TSPAT, L100.0500, L500.2500 #### [facility] [address] [place], [address] Potassium [Moles/Vol] 4.2 mmol/L Normal 3.3-5.1 [facility] Comment on above: Performed By: #### Ken TSPAT, L100.0500, L500.2500 #### [facility] [address] [place], [address] Sodium [Moles/Vol] 142 mmol/L Normal 133-145 [facility] Comment on above: Performed By: #### Ken TSPAT, L100.0500, L500.2500 #### [facility] [address] [place], [address] Urea nitrogen [Mass/Vol] 17 mg/dL Normal 4-19 [facility] Comment on above: Performed By: #### B TSPAT, L100.0500, L500.2500 #### [facility] [address] [place], [address] CBC-Complete Blood Cnt No Di ffon 06-16-2025 Erythrocyte distribution width (RBC) [Ratio] 13.6 % Normal 11.6-14.6 [facility] Comment on above: Performed By: #### B TSPAT, L100.0500, L500.2500 #### [facility] [address] [place], [address] Hematocrit (Bld) [Volume fraction] 48.4 % Normal 40-54 [facility] Comment on above: Performed By: #### B TSPAT, L100.0500, L500.2500 #### [facility] [address] [place], [address] Hemoglobin (Bld) [Mass/Vol] 15.5 g/dL Normal 13.0-16.5 [facility] Comment on above: Performed By: #### B TSPAT, L100.0500, L500.2500 #### [facility] [address] [place], [address] MCH (RBC) [Entitic mass] 28.9 pg Normal 27.0-32.0 [facility] Comment on above: Performed By: #### B TSPAT, L100.0500, L500.2500 #### [facility] [address] [place], [address] MCHC (RBC) [Mass/Vol] 32.0 g/dL Normal 32-36 [facility] Comment on above: Performed By: #### B TSPAT, L100.0500, L500.2500 #### [facility] [address] [place], [address] MCV (RBC) [Entitic vol] 90.1 fL Normal 80-94 [facility] Comment on above: Performed By: #### B TSPAT, L100.0500, L500.2500 #### [facility] [address] [place], [address] Platelet mean volume (Bld) [Entitic vol] 10.9 fL Normal 6.2-12.0 [facility] Comment on above: Performed By: #### B TSPAT, L100.0500, L500.2500 #### [facility] [address] [place], [address] Platelets (Bld) [#/Vol] 254 10*3/uL Normal 150-450 [facility] Comment on above: Performed By: #### B TSPAT, L100.0500, L500.2500 #### [facility] [address] [place], [address] RBC (Bld) [#/Vol] 5.37 10*6/uL Normal 4.6-6.2 [facility] Comment on above: Performed By: #### B TSPAT, L100.0500, L500.2500 #### [facility] [address] [place], [address] RDW SD 45.1 fl High 35.1-43.9 [facility] Comment on above: Performed By: #### B TSPAT, L100.0500, L500.2500 #### [facility] [address] [place], [address] WBC (Bld) [#/Vol] 10.4 10*3/uL Normal 4.4-11.0 [facility] Comment on above: Performed By: #### B TSPAT, L100.0500, L500.2500 #### [facility] [address] [place], [address] Type AND Screen - PAT ONLYon 06-16-2025 ABO and Rh group Nom (Bld) Blood group O Rh(D) positive Normal [facility] Comment on above: Order Comment: Surge ry Date: 06/21/25 Reason for Laboratory Test PRE-OP [id number] No N N S EVAR, Endovascular Aneurysm Repair in [facility] with OR Performed By: #### B TSPAT, L100.0500, L500.2500 #### [facility] [address] [place], [address] MR/PAT.ANEon 06-08-2025 MR/PAT.[facility] Medical Records Department [address] [place] [address] PAT - Anesthesia 06/08/25 1422 MR#: [id number] Acct: [id number] Name: ROSIBEL KUMARI Rep #: [id number] : 1945 80 From: Red Lazaro MD PCP: Jamal Hurtado [facility] MONEY LAUNDERING INVESTIGATOR-C Status:PRE SDC Y Race: C [place] [facility] [place] Diagnosis/Proposed Procedure Planned Operative Procedure(s): EVAR, Endovascular Aneurysm Repair in [facility] with OR Staff, Js SPARKS Anesthesia History Anesthesia History - utility person: Anesthesia History - utility person Hx Hospitalization No 06/06/25 08:16 Any Problems [...] take am of surgery PONV PONV - utility person: PONV - utility person Female No 06/06/25 08:16 HX of Motion [...] 05/30/25 12:50 Respiratory Assessment Respiratory Assessment - utility person: Respiratory Tract Infection Hx - utility person Hx Respiratory Tract Infection No 06/06/25 08:16 STOP Sleep Apnea STOP Sleep Apnea - utility person: STOP Sleep Apnea - utility person Hx Hypertension Yes: PCP D/C'D MEDS APPROX. 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 Normal [facility] Glomerular filtration rate ( GFR) estimation/1.73 sq m using serum, plasma, or whole bOrdered By: Dickson Sanchez on 05-30-2025 GFR/1.73 sq M.predicted among non-blacks MDRD (S/P/Bld) [Vol rate/Area] 53 mL/min/{1.73_m2} Low >60 [facility] Comment on above: mL/min/1.73m2 CKD-EP I Creatinine Equation (2020) MR/Marvel 05-30-2025 MR/GIOVANI [facility] [address] [place] [address] OFFICE VISIT Date of Service: 05/30/25 MR#: [id number] Acct: [id number] Name: ROSIBEL KUMARI Rep #: [id number] : 1945 Provider: Dr. Dickson Sanchez MD Age/Sex: 80/M Location: [facility] Status: Signed Intake Vital Signs 05/30/25 12:50 Height 5 ft 4.5 in Weight: 169 lb BMI 28.5 BP 195/83 H Blood Pressure Location Lt brachial Position Sitting Respiration 16 Pulse 62 Pulse Source NIBP Temp 98.6 F Temp Source Temporal Pulse Oximetry (%) 97 Oxygen Delivery Method room air Intake Visit Reasons: Discuss Results Director Of Placement Required: No Accompanied by: Self Is patient [...] Gait: normal (more content not included)... Normal [facility] Serum Creatinine AND GFRon Creatinine [Mass/Vol] 1.35 mg/dL High 0.70-1.20 [facility] Comment on above: Performed By: #### L 500.2500 #### [facility] [address] [place], [place], [id number] GFR/1.73 sq M.predicted among non-blacks MDRD (S/P/Bld) [Vol rate/Area] 53 mL/min/{1.73_m2} Low >60 [facility] Comment on above: Result Comment: mL/m in/1.73m2 CKD-EPI Creatinine Equation (2020) Performed By: #### L 500.2500 #### [facility] [address] [place], [address] Serum creatinine measurement (mass/volume)Ordered By: Dickson Sanchez on 05-30-2025 Creatinine [Mass/Vol] 1.35 mg/dL High 0.70-1.20 [facility] Anion gap in Serum or Plasma Ordered By: Zebulun Beam on 04-18-2025 Anion gap [Moles/Vol] 13 mmol/L 12-23 [facility] BUN/creatinine ratioOrdered By: Zebulun Beam on 04-18-2025 Urea nitrogen/Creatinine [Mass ratio] 11.4 mg/mg 05-30 [facility] Basic Metabolic Profile (BMP )on 04-18-2025 BUN/CRE 11.4 RATIO Normal 05-30 [facility] Comment on above: Performed By: #### L 500.2500 #### [facility] [address] [place], [address] Calcium [Mass/Vol] 9.4 mg/dL Normal 7.6-11.0 [facility] Comment on above: Performed By: #### L 500.2500 #### [facility] [address] [place], [address] Chloride [Moles/Vol] 108 mmol/L Normal 98-108 [facility] Comment on above: Performed By: #### L 500.2500 #### [facility] [address] [place], [address] CO2 [Moles/Vol] 22.9 mmol/L Normal 21.0-32.0 [facility] Comment on above: Performed By: #### L 500.2500 #### [facility] [address] [place], [address] Creatinine [Mass/Vol] 2.01 mg/dL High 0.70-1.20 [facility] Comment on above: Performed By: #### L 500.2500 #### [facility] [address] [place], [address] GAP 13 Normal 5-15 [facility] Comment on above: Performed By: #### L 500.2500 #### [facility] [address] [place], [address] GFR/1.73 sq M.predicted among non-blacks MDRD (S/P/Bld) [Vol rate/Area] 33 mL/min/{1.73_m2} Low >60 [facility] Comment on above: Result Comment: mL/m in/1.73m2 CKD-EPI Creatinine Equation (2020) Performed By: #### L 500.2500 #### [facility] [address] [place], [address] Glucose [Mass/Vol] 89 mg/dL Normal 70-99 [facility] Comment on above: Performed By: #### L 500.2500 #### [facility] [address] [place], [address] Potassium [Moles/Vol] 4.1 mmol/L Normal 3.3-5.1 [facility] Comment on above: Performed By: #### L 500.2500 #### [facility] [address] [place], [address] Sodium [Moles/Vol] 144 mmol/L Normal 133-145 [facility] Comment on above: Performed By: #### L 500.2500 #### [facility] [address] [place], [address] Urea nitrogen [Mass/Vol] 23 mg/dL High 4-19 [facility] Comment on above: Performed By: #### L 500.2500 #### [facility] [address] [place], [address] Carbon dioxide, total [Moles /volume] in Central venous bloodOrdered By: Jamal Hurtado on 04-18-2025 CO2 [Moles/Vol] 22.9 mmol/L 21.0-32.0 [facility] Chloride assayOrdered By: Jr Hurtado on 04-18-2025 Chloride [Moles/Vol] 108 mmol/L 98-108 [facility] Glomerular filtration rate ( GFR) estimation/1.73 sq m using serum, plasma, or whole bOrdered By: Jamal Hurtado on 04-18-2025 GFR/1.73 sq M.predicted among non-blacks MDRD (S/P/Bld) [Vol rate/Area] 33 mL/min/{1.73_m2} Low >60 [facility] Comment on above: mL/min/1.73m2 CKD-EP I Creatinine Equation (2020) Potassium measurement (mass/ volume)Ordered By: Jamal Hurtado on 04-18-2025 Potassium (Unsp spec) [Mass/Vol] 4.1 mmol/L 3.3-5.1 [facility] Serum creatinine measurement (mass/volume)Ordered By: Jamal Hurtado on 04-18-2025 Creatinine [Mass/Vol] 2.01 mg/dL High 0.70-1.20 [facility] Serum glucose measurement (m ass/volume)Ordered By: Jamal Hurtado on 04-18-2025 Glucose [Mass/Vol] 89 mg/dL 70-99 [facility] Serum or plasma calcium gato urement (mass/volume)Ordered By: Jamal Hurtado on 04-18-2025 Calcium [Mass/Vol] 9.4 mg/dL 7.6-11.0 [facility] Serum or plasma urea nitroge n measurement (mass/volume)Ordered By: Jamal Hurtado on 04-18-2025 Urea nitrogen [Mass/Vol] 23 mg/dL High 4-19 [facility] Sodium levelOrdered By: Magdalena Hurtado on 04-18-2025 Sodium [Moles/Vol] 144 mmol/L 133-145 [facility] CTA Abd/Pelvis W/WO Contrast on 03-30-2025 CTA Abd/Pelvis W/WO Contrast [facility] Imaging Services [address] [place] [address] CTA Abd/Pelvis W/WO Contrast MR#: [id number] Acct: [id number] Name: ROSIBEL KUMARI Rep #: [id number] : 1945 M 79 From: Ranjit la MD PCP: Jamal Hurtado [facility] 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 Reading Location: [id number] CC: Dr. 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, [address] Calcium [Mass/Vol] 9.7 mg/dL Normal 7.6-11.0 [facility] Comment on above: Performed By: #### L 500.2500 #### [facility] [address] [place], [address] Chloride [Moles/Vol] 105 mmol/L Normal 98-108 [facility] Comment on above: Performed By: #### L 500.2500 #### [facility] [address] [place], [address] CO2 [Moles/Vol] 23.4 mmol/L Normal 21.0-32.0 [facility] Comment on above: Performed By: #### L 500.2500 #### [facility] [address] [place], [address] Creatinine [Mass/Vol] 1.64 mg/dL High 0.70-1.20 [facility] Comment on above: Performed By: #### L 500.2500 #### [facility] [address] [place], [address] GAP 11 Normal - [facility] Comment on above: Performed By: #### L 500.2500 #### [facility] [address] [place], [address] GFR/1.73 sq M.predicted among non-blacks MDRD (S/P/Bld) [Vol rate/Area] 42 mL/min/{1.73_m2} Low >60 [facility] Comment on above: Result Comment: mL/m in/1.73m2 CKD-EPI Creatinine Equation (2020) Performed By: #### L 500.2500 #### [facility] [address] [place], [address] Glucose [Mass/Vol] 92 mg/dL Normal 70-99 [facility] Comment on above: Performed By: #### L 500.2500 #### [facility] [address] [place], [address] Potassium [Moles/Vol] 4.5 mmol/L Normal 3.3-5.1 [facility] Comment on above: Performed By: #### L 500.2500 #### [facility] [address] [place], [address] Sodium [Moles/Vol] 140 mmol/L Normal 133-145 [facility] Comment on above: Performed By: #### L 500.2500 #### [facility] [address] [place], [address] Urea nitrogen [Mass/Vol] 18 mg/dL Normal 4-19 [facility] Comment on above: Performed By: #### L 500.2500 #### [facility] [address] [place], [address] Carbon dioxide, total [Moles /volume] in Central venous bloodOrdered By: Jamal Hurtado on 03-24-2025 CO2 [Moles/Vol] 23.4 mmol/L 21.0-32.0 [facility] Chloride assayOrdered By: Jr Hurtado on 03-24-2025 Chloride [Moles/Vol] 105 mmol/L 98-108 [facility] Glomerular filtration rate ( GFR) estimation/1.73 sq m using serum, plasma, or whole bOrdered By: Jamal Hurtado on 03-24-2025 GFR/1.73 sq M.predicted among non-blacks MDRD (S/P/Bld) [Vol rate/Area] 42 mL/min/{1.73_m2} Low >60 [facility] Comment on above: mL/min/1.73m2 CKD-EP I Creatinine Equation (2020) Potassium measurement (mass/ volume)Ordered By: Magdalenapatricia Hurtado on 03-24-2025 Potassium (Unsp spec) [Mass/Vol] 4.5 mmol/L 3.3-5.1 [facility] Serum creatinine measurement (mass/volume)Ordered By: Magdalenapatricia Hurtado on 03-24-2025 Creatinine [Mass/Vol] 1.64 mg/dL High 0.70-1.20 [facility] Serum glucose measurement (m ass/volume)Ordered By: [facility] H[facility] on 03-24-2025 Glucose [Mass/Vol] 92 mg/dL 70-99 [facility] Serum or plasma calcium gato urement (mass/volume)Ordered By: [facility] Hurtado on 03-24-2025 Calcium [Mass/Vol] 9.7 mg/dL 7.6-11.0 [facility] Serum or plasma urea nitroge n measurement (mass/volume)Ordered By: [facility]ricia Beam on 03-24-2025 Urea nitrogen [Mass/Vol] 18 mg/dL 4-19 [facility] Sodium levelOrdered By: roberto Hurtado on 03-24-2025 Sodium [Moles/Vol] 140 mmol/L 133-145 [facility] MR/BMSJacky 03-09-2025 MR/BMS.ROWAN [facility] Vascular Surgery [address] [place] [address] OFFICE VISIT Date of Service: 03/09/25 MR#: [id number] Acct: [id number] Name: CEDRICROSIBEL Ziyad Rep #: [id number] : 1945 Provider: Dr. Dickson Sanchez MD Age/Sex: 79/M Location: [facility] Status: Signed Intake Vital Signs 03/09/25 [...] He had seen Dr. Mckeon at his [place] location and had CTA at that time [...] and Movement: (more content not included)... Normal [facility] Absolute lymphocyte countOrd ered By: Jamal Hurtado on 01-28-2025 Lymphocytes Auto (Unsp spec) [#/Vol] 2.27 10*3/uL 0.83-4.51 [facility] Absolute neutrophil countOrd ered By: Jamal Hurtado on 01-28-2025 Neutrophils (Bld) [#/Vol] 4.7 10*3/uL 2.0-7.7 [facility] Anion gap in Serum or Plasma Ordered By: Ingrisn Beam on 01-28-2025 Anion gap [Moles/Vol] 14 mmol/L 12-23 [facility] Automated lymphocyte count a s percentage of total leukocytesOrdered By: Zebulun Beam on 01-28-2025 Lymphocytes/100 WBC Auto (Unsp spec) 28.6 % [facility] BUN/creatinine ratioOrdered By: bulun Beam on 01-28-2025 Urea nitrogen/Creatinine [Mass ratio] 12.2 mg/mg 05-30 [facility] Basophil percentageOrdered B y: Zebulun Beam on 01-28-2025 Basophils/100 WBC (Bld) 0.9 % 0-1 [facility] Bilirubin Test strip Ql (U)O rdered By: Zerobertolun Beam on 01-28-2025 Bilirubin Ql (U) Negative Negative [facility] Bilirubin, totalOrdered By: Zebulun Beam on 01-28-2025 Bilirubin [Mass/Vol] 0.44 mg/dL 0.00-1.30 [facility] CBC W/Diff, Automatedon 01-10 Absolute Lymph 2.27 X10 3/uL Normal 0.83-4.51 [facility] Comment on above: Performed By: #### B TSPAT, L100.0500, L500.2500 #### [facility] [address] [place], [address] Absolute Neut 4.7 X10 3/uL Normal 2.0-7.7 [facility] Comment on above: Performed By: #### B TSPAT, L100.0500, L500.2500 #### [facility] [address] [place], [address] Basophils/100 WBC (Bld) 0.9 % Normal 0-1 [facility] Comment on above: Performed By: #### B TSPAT, L100.0500, L500.2500 #### [facility] [address] [place], [address] Eosinophils/100 WBC (Bld) 3.8 % Normal 0-5 [facility] Comment on above: Performed By: #### B TSPAT, L100.0500, L500.2500 #### [facility] [address] [place], [address] Erythrocyte distribution width (RBC) [Ratio] 13.4 % Normal 11.6-14.6 [facility] Comment on above: Performed By: #### B TSPAT, L100.0500, L500.2500 #### [facility] [address] [place], [address] Hematocrit (Bld) [Volume fraction] 48.4 % Normal 40-54 [facility] Comment on above: Performed By: #### Ken TSPAT, L100.0500, L500.2500 #### [facility] [address] [place], [address] Hemoglobin (Bld) [Mass/Vol] 16.0 g/dL Normal 13.0-16.5 [facility] Comment on above: Performed By: #### Ken TSPAT, L100.0500, L500.2500 #### [facility] [address] [place], [address] IG% 0.400 Normal 0.0-0.9 [facility] Comment on above: Result Comment: IG% - Immature Granulocytes (promyelocytes, myelocytes and metamyelocytes) > 1% indicates that a LEFT SHIFT is Present. Performed By: #### B TSPAT, L100.0500, L500.2500 #### [facility] [address] [place], [address] Lymphocytes/100 WBC (Bld) 28.6 % Normal 19-41 [facility] Comment on above: Performed By: #### B TSPAT, L100.0500, L500.2500 #### [facility] [address] [place], [address] MCH (RBC) [Entitic mass] 28.9 pg Normal 27.0-32.0 [facility] Comment on above: Performed By: #### B TSPAT, L100.0500, L500.2500 #### [facility] [address] [place], [address] MCHC (RBC) [Mass/Vol] 33.1 g/dL Normal 32-36 [facility] Comment on above: Performed By: #### B TSPAT, L100.0500, L500.2500 #### [facility] [address] [place], [address] MCV (RBC) [Entitic vol] 87.5 fL Normal 80-94 [facility] Comment on above: Performed By: #### B TSPAT, L100.0500, L500.2500 #### [facility] [address] [place], [address] Monocytes/100 WBC (Bld) 7.4 % Normal 0-10 [facility] Comment on above: Performed By: #### B TSPAT, L100.0500, L500.2500 #### [facility] [address] [place], [address] Neutrophils/100 WBC (Bld) 58.9 % Normal 47-70 [facility] Comment on above: Performed By: #### B TSPAT, L100.0500, L500.2500 #### [facility] [address] [place], [address] Nucleated RBC (Bld) [#/Vol] 0 10*3/uL Normal 0-5 [facility] Comment on above: Performed By: #### B TSPAT, L100.0500, L500.2500 #### [facility] [address] [place], [address] Platelet mean volume (Bld) [Entitic vol] 11.0 fL Normal 6.2-12.0 [facility] Comment on above: Performed By: #### B TSPAT, L100.0500, L500.2500 #### [facility] [address] [place], [address] Platelets (Bld) [#/Vol] 246 10*3/uL Normal 150-450 [facility] Comment on above: Performed By: #### B TSPAT, L100.0500, L500.2500 #### [facility] [address] [place], [address] RBC (Bld) [#/Vol] 5.53 10*6/uL Normal 4.6-6.2 [facility] Comment on above: Performed By: #### B TSPAT, L100.0500, L500.2500 #### [facility] [address] [place], [address] RDW SD 42.9 fl Normal 35.1-43.9 [facility] Comment on above: Performed By: #### B TSPAT, L100.0500, L500.2500 #### [facility] [address] [place], [address] WBC (Bld) [#/Vol] 8.0 10*3/uL Normal 4.4-11.0 [facility] Comment on above: Performed By: #### B TSPAT, L100.0500, L500.2500 #### [facility] [address] [place], [address] Carbon dioxide, total [Moles /volume] in Central venous bloodOrdered By: Jamal Hurtado on 01-28-2025 CO2 [Moles/Vol] 20.5 mmol/L Low 21.0-32.0 [facility] Chloride assayOrdered By: Jr Hurtado on 01-28-2025 Chloride [Moles/Vol] 107 mmol/L 98-108 [facility] Comprehensive Metabolic Prof ilon 01-28-2025 Albumin [Mass/Vol] 4.4 g/dL Normal 3.4-4.8 [facility] Comment on above: Performed By: #### B TSPAT, L100.0500, L500.2500 #### [facility] [address] [place], [address] Albumin/Globulin [Mass ratio] 1.3 {ratio} Normal 0.9-2.4 [facility] Comment on above: Performed By: #### B TSPAT, L100.0500, L500.2500 #### [facility] [address] [place], [address] ALK PHOS 117 U/L Normal 40-129 [facility] Comment on above: Performed By: #### B TSPAT, L100.0500, L500.2500 #### [facility] [address] [place], [address] ALT [Catalytic activity/Vol] 12 U/L Normal <=46 [facility] Comment on above: Performed By: #### B TSPAT, L100.0500, L500.2500 #### [facility] [address] [place], [address] AST [Catalytic activity/Vol] 18 U/L Normal <=37 [facility] Comment on above: Performed By: #### B TSPAT, L100.0500, L500.2500 #### [facility] [address] [place], [address] Bilirubin [Mass/Vol] 0.44 mg/dL Normal 0.00-1.30 [facility] Comment on above: Performed By: #### B TSPAT, L100.0500, L500.2500 #### [facility] [address] [place], [address] BUN/CRE 12.2 RATIO Normal 10-20 [facility] Comment on above: Performed By: #### B TSPAT, L100.0500, L500.2500 #### [facility] [address] [place], [address] Calcium [Mass/Vol] 9.3 mg/dL Normal 7.6-11.0 [facility] Comment on above: Performed By: #### B TSPAT, L100.0500, L500.2500 #### [facility] [address] [place], [address] Chloride [Moles/Vol] 107 mmol/L Normal 98-108 [facility] Comment on above: Performed By: #### B TSPAT, L100.0500, L500.2500 #### [facility] [address] [place], [address] CO2 [Moles/Vol] 20.5 mmol/L Low 21.0-32.0 [facility] Comment on above: Performed By: #### B TSPAT, L100.0500, L500.2500 #### [facility] [address] [place], [address] Creatinine [Mass/Vol] 1.38 mg/dL High 0.70-1.20 [facility] Comment on above: Performed By: #### B TSPAT, L100.0500, L500.2500 #### [facility] [address] [place], [address] GAP 14 Normal 5-15 [facility] Comment on above: Performed By: #### B TSPAT, L100.0500, L500.2500 #### [facility] [address] [place], [address] GFR/1.73 sq M.predicted among non-blacks MDRD (S/P/Bld) [Vol rate/Area] 52 mL/min/{1.73_m2} Low >60 [facility] Comment on above: Result Comment: mL/m in/1.73m2 CKD-EPI Creatinine Equation (2020) Performed By: #### B TSPAT, L100.0500, L500.2500 #### [facility] [address] [place], [address] Globulin (S) [Mass/Vol] 3.3 g/dL Normal 2.2-4.2 [facility] Comment on above: Performed By: #### B TSPAT, L100.0500, L500.2500 #### [facility] [address] [place], [address] Glucose [Mass/Vol] 94 mg/dL Normal 70-99 [facility] Comment on above: Performed By: #### B TSPAT, L100.0500, L500.2500 #### [facility] [address] [place], [address] Potassium [Moles/Vol] 4.3 mmol/L Normal 3.3-5.1 [facility] Comment on above: Performed By: #### B TSPAT, L100.0500, L500.2500 #### [facility] [address] [place], [address] Sodium [Moles/Vol] 141 mmol/L Normal 133-145 [facility] Comment on above: Performed By: #### B TSPAT, L100.0500, L500.2500 #### [facility] [address] [place], [address] T PROT 7.7 g/dL Normal 5.9-8.4 [facility] Comment on above: Performed By: #### B TSPAT, L100.0500, L500.2500 #### [facility] [address] [place], [address] Urea nitrogen [Mass/Vol] 17 mg/dL Normal 4-19 [facility] Comment on above: Performed By: #### B TSPAT, L100.0500, L500.2500 #### [facility] [address] [place], [address] Eosinophil percentageOrdered By: Jamal Hurtado on 01-28-2025 Eosinophils/100 WBC (Bld) 3.8 % 0-5 [facility] Erythrocyte distribution wid th ratioOrdered By: [facility] Hurtado on 01-28-2025 Erythrocyte distribution width (RBC) [Ratio] 13.4 % 11.6-14.6 [facility] Erythrocyte distribution wid th standard deviationOrdered By: robertopatricia Hurtado on 01-28-2025 Erythrocyte distribution width (RBC) [Ratio] 42.9 fl 35.1-43.9 [facility] Glomerular filtration rate ( GFR) estimation/1.73 sq m using serum, plasma, or whole bOrdered By: [facility] Hurtado on 01-28-2025 GFR/1.73 sq M.predicted among non-blacks MDRD (S/P/Bld) [Vol rate/Area] 52 mL/min/{1.73_m2} Low >60 [facility] Comment on above: mL/min/1.73m2 CKD-EP I Creatinine Equation (2020) Hematocrit Auto (Bld) [Volum e fraction]Ordered By: [facility] on 01-28-2025 Hematocrit (Bld) [Volume fraction] 48.4 % 40-54 [facility] Hemoglobin measurementOrdere d By: Jamal Hurtado on 01-28-2025 Hemoglobin (Bld) [Mass/Vol] 16.0 g/dL 13.0-16.5 [facility] Immature granulocytes/100 WB C Auto (Bld)Ordered By: Jamal Hurtado on 01-28-2025 Immature granulocytes/100 WBC (Bld) 0.400 % 0.0-0.9 [facility] Comment on above: IG% - Immature Granu locytes (promyelocytes, myelocytes and metamyelocytes) > 1% indicates that a LEFT SHIFT is Present. Ketones Test strip Ql (U)Ord ered By: Jamal Hurtado on 01-28-2025 Ketones Ql (U) Negative Negative [facility] Laboratory - Chemistry and C hemistry - challengeOrdered By: Jamal Hurtado on 06-20-2025 AST [Catalytic activity/Vol] 18 U/L <38 [facility] MCV (mean corpuscular volume ) determinationOrdered By: Jrbulun Beam on 01-28-2025 MCV (RBC) [Entitic vol] 87.5 fL 80-94 [facility] Mean corpuscular hemoglobin (MCH) determinationOrdered By: bun Beam on 01-28-2025 MCH (RBC) [Entitic mass] 28.9 pg 27.0-32.0 [facility] Mean corpuscular hemoglobin concentration (MCHC) determinationOrdered By: bulun Beam on 01-28-2025 MCHC (RBC) [Mass/Vol] 33.1 g/dL 32-36 [facility] Mean platelet volume determi nationOrdered By: bulun Beam on 01-28-2025 Platelet mean volume (Bld) [Entitic vol] 11.0 fL 6.2-12.0 [facility] Microalbumin,Random Urineon 01-28-2025 MICROALBUMIN,UR 43.1 mg/L Normal NO RANGE EST. [facility] Comment on above: Performed By: #### B TSPAT, L100.0500, L500.2500 #### [facility] [address] [place] [address], [address] Monocyte percentageOrdered B y: [facility] on 01-28-2025 Monocytes/100 WBC (Bld) 7.4 % 0-10 [facility] Neutrophil percentageOrdered By: [facility] on 01-28-2025 Neutrophils/100 WBC (Bld) 58.9 % 47-70 [facility] Nitrite Test strip Ql (U)Ord ered By: varun Hurtado on 01-28-2025 Nitrite Ql (U) Negative Negative [facility] Nucleated red blood cell per centageOrdered By: [facility] on 01-28-2025 Nucleated RBC/100 WBC (Bld) [Ratio] 0 % 0-5 [facility] PSA,Total - Annual Screenon 01-28-2025 PSA,TOT SCREEN 1.63 ng/mL Normal 0.02-4.00 [facility] Comment on above: Result Comment: This test [...] By: #### B TSPAT, L100.0500, L500.2500 #### [facility] [address] [place], [address] Platelet countOrdered By: Jr Hurtado on 01-28-2025 Platelets (Bld) [#/Vol] 246 10*3/uL 150-450 [facility] Potassium measurement (mass/ volume)Ordered By: Jamal Hurtado on 01-28-2025 Potassium (Unsp spec) [Mass/Vol] 4.3 mmol/L 3.3-5.1 [facility] Protein Test strip Ql (U)Ord ered By: Jamal Hurtado on 01-28-2025 Protein Ql (U) 15 mg/dl High Negative [facility] RBC Auto (Bld) [#/Vol]Ordere d By: Jamal Hurtado on 01-28-2025 RBC (Bld) [#/Vol] 5.53 10*6/uL 4.6-6.2 [facility] Serum creatinine measurement (mass/volume)Ordered By: Jamal Hurtado on 01-28-2025 Creatinine [Mass/Vol] 1.38 mg/dL High 0.70-1.20 [facility] Serum globulin measurementOr dered By: Jamal Hurtado on 01-28-2025 Globulin (S) [Mass/Vol] 3.3 g/dL 2.2-4.2 [facility] Serum glucose measurement (m ass/volume)Ordered By: Jamal Hurtado on 01-28-2025 Glucose [Mass/Vol] 94 mg/dL 70-99 [facility] Serum or plasma alanine gage otransferase (ALT) measurementOrdered By: Jamal Hurtado on 01-28-2025 ALT [Catalytic activity/Vol] 12 U/L <47 [facility] Serum or plasma albumin gato urement (mass/volume)Ordered By: Jamal Hurtado on 01-28-2025 Albumin [Mass/Vol] 4.4 g/dL 3.4-4.8 [facility] Serum or plasma albumin/glob ulin mass ratioOrdered By: Zebulun Beam on 01-28-2025 Albumin/Globulin [Mass ratio] 1.3 {ratio} 0.9-2.4 [facility] Serum or plasma alkaline froylan sphatase measurementOrdered By: Zebulun Beam on 01-28-2025 ALP [Catalytic activity/Vol] 117 U/L 40-129 [facility] Serum or plasma calcium gato urement (mass/volume)Ordered By: Zebulun Beam on 01-28-2025 Calcium [Mass/Vol] 9.3 mg/dL 7.6-11.0 [facility] Serum or plasma urea nitroge n measurement (mass/volume)Ordered By: Zebulun Beam on 01-28-2025 Urea nitrogen [Mass/Vol] 17 mg/dL 4-19 [facility] Sodium levelOrdered By: Jrbu home Beam on 01-28-2025 Sodium [Moles/Vol] 141 mmol/L 133-145 [facility] TSH DL <= 0.005 mIU/L QnOrde red By: Jrbulun Beam on 01-28-2025 TSH Qn 2.440 uIU/mL 0.300-4.200 [facility] Thyroid Stim Hormone (TSH)on 01-28-2025 TSH 2.440 uIU/mL Normal 0.300-4.200 [facility] Comment on above: Performed By: #### B TSPAT, L100.0500, L500.2500 #### [facility] Laboratory [facility] [place], [address] Total proteinOrdered By: Roman Hurtado on 01-28-2025 Protein [Mass/Vol] 7.7 g/dL 5.9-8.4 [facility] Urinalysis, Routine (Dipstic k)on 01-28-2025 BILIRUBIN URINE Negative Normal Negative [facility] Comment on above: Order Comment: CLEAN CATCH Performed By: #### B TSPAT, L100.0500, L500.2500 #### [facility] [address] [place], [address] Clarity (U) Clear Normal Clear [facility] Comment on above: Order Comment: CLEAN CATCH Performed By: #### B TSPAT, L100.0500, L500.2500 #### [facility] [address] [place], [address] Color (U) Yellow Normal Yellow [facility] Comment on above: Order Comment: CLEAN CATCH Performed By: #### B TSPAT, L100.0500, L500.2500 #### [facility] [address] [place], [address] GLUCOSE, UR Normal Normal Normal [facility] Comment on above: Order Comment: CLEAN CATCH Performed By: #### B TSPAT, L100.0500, L500.2500 #### [facility] [address] [place], [address] KETONE UR Negative Normal Negative [facility] Comment on above: Order Comment: CLEAN CATCH Performed By: #### B TSPAT, L100.0500, L500.2500 #### [facility] [address] [place], [address] LEUK ESTERASE Negative Normal Negative [facility] Comment on above: Order Comment: CLEAN CATCH Performed By: #### B TSPAT, L100.0500, L500.2500 #### [facility] [address] [place], [address] Nitrite Ql (U) Negative Normal Negative [facility] Comment on above: Order Comment: CLEAN CATCH Performed By: #### B TSPAT, L100.0500, L500.2500 #### [facility] [address] [place], [address] OCCULT BLOOD-UR Negative Normal Negative [facility] Comment on above: Order Comment: CLEAN CATCH Performed By: #### B TSPAT, L100.0500, L500.2500 #### [facility] [address] [place], [address] pH UR 6.0 Normal 5.0 - 8.0 [facility] Comment on above: Order Comment: CLEAN CATCH Performed By: #### B TSPAT, L100.0500, L500.2500 #### [facility] [address] [place], [address] PROT DIPSTX 15 mg/dl Abnormal Negative [facility] Comment on above: Order Comment: CLEAN CATCH Performed By: #### B TSPAT, L100.0500, L500.2500 #### [facility] [address] [place], [address] SP.GR. DIPSTX 1.010 Normal 1.002-1.030 [facility] Comment on above: Order Comment: CLEAN CATCH Performed By: #### B TSPAT, L100.0500, L500.2500 #### [facility] [address] [place], [address] UROBILI Normal Normal Normal [facility] Comment on above: Order Comment: CLEAN CATCH Performed By: #### B TSPAT, L100.0500, L500.2500 #### [facility] [address] [place], [address] [facility] detection limit of 20 mg/L or less (mass/volume)Ordered By: Jamal Hurtado on 01-28-2025 Albumin DL <= 20 mg/L (U) [Mass/Vol] 43.1 mg/L NO RANGE EST. [facility] Urine clarityOrdered By: Roman Hurtado on 01-28-2025 Clarity (U) Clear Clear [facility] Urine color determinationOrd ered By: Jamal Hurtado on 01-28-2025 Color (U) Yellow Yellow [facility] Urine glucose detectionOrder ed By: Jamal Hurtado on 01-28-2025 Glucose Ql (U) Normal mg/dl Normal [facility] Urine leukocyte esterase det ection by dipstickOrdered By: Jamal Hurtado on 01-28-2025 Leukocyte esterase Test strip Ql (U) Negative Negative [facility] Urine pHOrdered By: [facility] on 01-28-2025 pH (U) 6.0 [pH] 5.0 - 8.0 [facility] Urine specific gravity measu rementOrdered By: [facility] on 01-28-2025 Specific gravity (U) [Rel density] 1.010 1.002-1.030 [facility] Urine urobilinogen measureme ntOrdered By: [facility] on 01-28-2025 Urobilinogen Ql (U) Normal mg/dl Normal [facility] White blood cell (WBC) count Ordered By: [facility] on 01-28-2025 WBC (Bld) [#/Vol] 8.0 10*3/uL 4.4-11.[address] [facility] [address] ANGIOGRAPHY ABD AORTA + I [...] 4:37:40 PM Ordering Provider: SHANNA MCKEON Normal [facility] ([place]) .GFRon 10-27-2023 GFR Non- 44 ml/min/1.73sqm Normal [facility] ([place]) Comment on above: Result Comment: GFR Population [...] By: #### B UN, CRE, GFR #### [address] [address] GFR 54 ml/min/1.73sqm Normal [facility] ([place]) Comment on above: Result Comment: GFR Population [...] By: #### B UN, CRE, GFR #### [address] [address] BUNon 10-27-2023 Urea nitrogen [Mass/Vol] 20 mg/dL High 02-25 [facility] ([place]) Comment on above: Performed By: #### B UN, CRE, GFR #### [address] [address] CREon 10-27-2023 Creatinine [Mass/Vol] 1.53 mg/dL High 0.70-1.30 [facility] ([place]) Comment on above: Performed By: #### B UN, CRE, GFR #### [address] [address] LABORATORYOrdered By: SYSTEM SYSTEM on 10-27-2023 Creatinine [...] Basophil, Absolute 0.1 10 3/mcL Normal 0.0-0.2 [facility] ([place]) Comment on above: Performed By: #### G FR, ANEU, CBC, BMP, ADIFF #### [address] [address] Basophils/100 WBC (Bld) 1.0 % Normal 0.0-2.5 A [facility] ([place]) Comment on above: Performed By: #### G FR, ANEU, CBC, BMP, ADIFF #### [address] [address] Eosinophil, Absolute 0.3 10 3/mcL Normal 0.0-0.4 [facility] ([place]) Comment on above: Performed By: #### G FR, ANEU, CBC, BMP, ADIFF #### [address] [address] Eosinophils/100 WBC (Bld) 3.3 % Normal 0.0-7.0 [facility] ([place] Comment on above: Performed By: #### G FR, ANEU, CBC, BMP, ADIFF #### [address] [address] Lymphocyte, Absolute 2.4 10 3/mcL Normal 0.8-3.9 [facility] ([place]) Comment on above: Performed By: #### G FR, ANEU, CBC, BMP, ADIFF #### [address] [address] Lymphocytes/100 WBC (Bld) 24.7 % Normal 10.0-50.0 [facility] ([place] Comment on above: Performed By: #### G FR, ANEU, CBC, BMP, ADIFF #### [address] [address] Monocyte, Absolute 0.7 10 3/mcL Normal 0.2-1.0 [facility] ([place]) Comment on above: Performed By: #### G FR, ANEU, CBC, BMP, ADIFF #### [address] [address] Monocytes/100 WBC (Bld) 7.6 % Normal 1.7-13.0 A [facility] ([place]) Comment on above: Performed By: #### G FR, ANEU, CBC, BMP, ADIFF #### [address] [address] Neutrophils/100 WBC (Bld) 63.4 % Normal 37.0-80.0 [facility] ([place] Comment on above: Performed By: #### G FR, ANEU, CBC, BMP, ADIFF #### [address] [address] .GFRon 05-07-2023 GFR 60 ml/min/1.73sqm Normal [facility] ([place] Comment on above: Result Comment: GFR Population [...] G FR, ANEU, CBC, BMP, ADIFF #### [address] [address] GFR Non- 49 ml/min/1.73sqm Normal [facility] ([place] Comment on above: Result Comment: GFR Population [...] G FR, ANEU, CBC, BMP, ADIFF #### [address] [address] .NEUABSon 05-07-2023 Neutrophil, Absolute 6.2 10 3/mcL Normal 2.9-6.2 [facility] ([place]) Comment on above: Performed By: #### G FR, ANEU, CBC, BMP, ADIFF #### [address] [address] BMPon 05-07-2023 BUN/Creatinine Ratio 15 ratio Normal 7-27 [facility] ([place]) Comment on above: Performed By: #### G FR, ANEU, CBC, BMP, ADIFF #### [address] [address] Calcium [Mass/Vol] 9.4 mg/dL Normal 8.4-10.2 [facility] ([place]) Comment on above: Performed By: #### G FR, ANEU, CBC, BMP, ADIFF #### [address] [address] Chloride [Moles/Vol] 103 mmol/L Normal 98-107 [facility] ([place]) Comment on above: Performed By: #### G FR, ANEU, CBC, BMP, ADIFF #### [address] [address] CO2 [Moles/Vol] 28 mmol/L Normal 23-31 [facility] ([place] Comment on above: Performed By: #### G FR, ANEU, CBC, BMP, ADIFF #### [address] [address] Creatinine [Mass/Vol] 1.40 mg/dL High 0.70-1.30 [facility] ([place]) Comment on above: Performed By: #### G FR, ANEU, CBC, BMP, ADIFF #### [address] [address] Electrolyte Balance 7.0 mEq/L Normal 4.0-15.0 [facility] ([place]) Comment on above: Performed By: #### G FR, ANEU, CBC, BMP, ADIFF #### [address] [address] Glucose [Mass/Vol] 111 mg/dL High 83-110 [facility] ([place] Comment on above: Performed By: #### G FR, ANEU, CBC, BMP, ADIFF #### [address] [address] Potassium [Moles/Vol] 4.7 mmol/L Normal 3.5-5.1 [facility] ([place]) Comment on above: Performed By: #### G FR, ANEU, CBC, BMP, ADIFF #### [address] [address] Sodium [Moles/Vol] 138 mmol/L Normal 136-145 [facility] ([place] Comment on above: Performed By: #### G FR, ANEU, CBC, BMP, ADIFF #### [address] [address] Urea nitrogen [Mass/Vol] 21 mg/dL High 7-18 [facility] ([place] Comment on above: Performed By: #### G FR, ANEU, CBC, BMP, ADIFF #### [address] [address] CBCon 05-07-2023 Erythrocyte distribution width (RBC) [Ratio] 15.6 % High 11.5-14.5 [facility] ([place] Comment on above: Order Comment: Pre-A dmission Testing Performed By: #### G FR, ANEU, CBC, BMP, ADIFF #### [address] [address] Hematocrit (Bld) [Volume fraction] 44.0 % Normal 42.0-52.0 [facility] ([place] Comment on above: Order Comment: Pre-A dmission Testing Performed By: #### G FR, ANEU, CBC, BMP, ADIFF #### [address] [address] Hgb 14.9 G/dL Normal 14.0-18.0 [facility] ([place] Comment on above: Order Comment: Pre-A dmission Testing Performed By: #### G FR, ANEU, CBC, BMP, ADIFF #### [address] [address] MCH (RBC) [Entitic mass] 29.3 pg Normal 27.0-31.2 [facility] ([place] Comment on above: Order Comment: Pre-A dmission Testing Performed By: #### G FR, ANEU, CBC, BMP, ADIFF #### [address] [address] MCHC 33.9 G/dL Normal 31.8-35.4 [facility] ([place] Comment on above: Order Comment: Pre-A dmission Testing Performed By: #### G FR, ANEU, CBC, BMP, ADIFF #### [address] [address] MCV (RBC) [Entitic vol] 86.5 fL Normal 80.0-94.0 A [facility] ([place]) Comment on above: Order Comment: Pre-A dmission Testing Performed By: #### G FR, ANEU, CBC, BMP, ADIFF #### [address] [address] Platelet 232 10 3/mcL Normal 130-400 [facility] ([place] Comment on above: Order Comment: Pre-A dmission Testing Performed By: #### G FR, ANEU, CBC, BMP, ADIFF #### [address] [address] Platelet mean volume (Bld) [Entitic vol] 8.9 fL Normal 7.4-10.4 [facility] ([place] Comment on above: Order Comment: Pre-A dmission Testing Performed By: #### G FR, ANEU, CBC, BMP, ADIFF #### [address] [address] RBC 5.08 10 6/mcL Normal 4.04-6.13 [facility] ([place] Comment on above: Order Comment: Pre-A dmission Testing Performed By: #### G FR, ANEU, CBC, BMP, ADIFF #### [address] [place], [place] [address] WBC 9.7 10 3/mcL Normal 4.6-10.8 [facility] ([place] Comment on above: Order Comment: Pre-A dmission Testing Performed By: #### G FR, ANEU, CBC, BMP, ADIFF #### [address] [place], [place] [address] LABORATORYOrdered By: SYSTEM SYSTEM on 05-07-2023 Basophil, [...] Basophil, Absolute 0.1 10 3/mcL Normal 0.0-0.2 [facility] ([place]) Comment on above: Performed By: #### MAKSIM WHITE #### [address] [address] Basophils/100 WBC (Bld) 1.0 % Normal 0.0-2.5 A [facility] ([place] Comment on above: Performed By: #### MAKSIM WHITE #### Nadja [address] [address] Eosinophil, Absolute 0.4 10 3/mcL Normal 0.0-0.4 [facility] ([place] Comment on above: Performed By: #### MAKSIM WHITE #### [address] [address] Eosinophils/100 WBC (Bld) 3.7 % Normal 0.0-7.0 [facility] ([place] Comment on above: Performed By: #### MAKSIM WHITE #### Nadja [address] [address] Lymphocyte, Absolute 2.4 10 3/mcL Normal 0.8-3.9 [facility] ([place]) Comment on above: Performed By: #### MAKSIM WHITE #### Nad[address] [address] Lymphocytes/100 WBC (Bld) 22.2 % Normal 10.0-50.0 [facility] ([place]) Comment on above: Performed By: #### MAKSIM WHITE #### Nad[address] [address] Monocyte, Absolute 0.8 10 3/mcL Normal 0.2-1.0 [facility] ([place]) Comment on above: Performed By: #### MAKSIM WHITE #### Nadja [address] [address] Monocytes/100 WBC (Bld) 7.1 % Normal 1.7-13.0 A [facility] ([place]) Comment on above: Performed By: #### MAKSIM WHITE #### [address] [address] Neutrophils/100 WBC (Bld) 66.0 % Normal 37.0-80.0 [facility] ([place]) Comment on above: Performed By: #### MAKSIM WHITE #### [address] [address] .GFRon 02-17-2023 GFR 61 ml/min/1.73sqm Normal [facility] ([place]) Comment on above: Result Comment: [...] Performed By: #### Héctor ZARCO UA #### [address] [address] GFR Non- 50 ml/min/1.73sqm Normal [facility] ([place] Comment on above: Result Comment: GFR Population [...] Performed By: #### Héctor ZARCO UA #### [address] [address] .NEUABSon 02-17-2023 Neutrophil, Absolute 7.2 10 3/mcL High 2.9-6.2 [facility] ([place] Comment on above: Performed By: #### Héctor ZARCO UA #### [address] [address] BMPon 02-17-2023 BUN/Creatinine Ratio 16 ratio Normal 7-27 [facility] ([place]) Comment on above: Performed By: #### Héctor ZARCO UA #### [address] [address] Calcium [Mass/Vol] 9.5 mg/dL Normal 8.4-10.2 [facility] ([place]) Comment on above: Performed By: #### Héctor SAVAGEO, UA #### [address] [address] Chloride [Moles/Vol] 104 mmol/L Normal 98-107 [facility] ([place]) Comment on above: Performed By: #### U AMICAO, UA #### [address] [address] CO2 [Moles/Vol] 26 mmol/L Normal 23-31 [facility] ([place] Comment on above: Performed By: #### U AMICAO, UA #### [address] [address] Creatinine [Mass/Vol] 1.38 mg/dL High 0.70-1.30 [facility] ([place]) Comment on above: Performed By: #### U AMICAO, UA #### [address] [address] Electrolyte Balance 10.0 mEq/L Normal 4.0-15.0 [facility] ([place]) Comment on above: Performed By: #### U AMICAO, UA #### [address] [address] Glucose [Mass/Vol] 105 mg/dL Normal 83-110 [facility] ([place]) Comment on above: Performed By: #### U AMICAO, UA #### [address] [address] Potassium [Moles/Vol] 5.1 mmol/L Normal 3.5-5.1 [facility] ([place] Comment on above: Performed By: #### U AMICAO, UA #### [address] [address] Sodium [Moles/Vol] 140 mmol/L Normal 136-145 [facility] ([place] Comment on above: Performed By: #### U AMICAO, UA #### [address] [address] Urea nitrogen [Mass/Vol] 22 mg/dL High 7-18 [facility] ([place] Comment on above: Performed By: #### MAKSIM WHITE #### [address] [address] CBCon 02-17-2023 Erythrocyte distribution width (RBC) [Ratio] 13.8 % Normal 11.5-14.5 [facility] ([place]) Comment on above: Performed By: #### Héctor ZARCO UA #### [address] [address] Hematocrit (Bld) [Volume fraction] 42.3 % Normal 42.0-52.0 [facility] ([place]) Comment on above: Performed By: #### MAKSIM WHITE #### [address] [address] Hgb 14.0 G/dL Normal 14.0-18.0 [facility] ([place]) Comment on above: Performed By: #### MAKSIM WHITE #### [address] [address] MCH (RBC) [Entitic mass] 28.4 pg Normal 27.0-31.2 [facility] ([place] Comment on above: Performed By: #### MAKSIM WHITE #### [address] [address] MCHC 33.1 G/dL Normal 31.8-35.4 [facility] ([place] Comment on above: Performed By: #### Héctor ZARCO UA #### [address] [address] MCV (RBC) [Entitic vol] 85.9 fL Normal 80.0-94.0 A [facility] ([place]) Comment on above: Performed By: #### Héctor ZARCO UA #### [address] [address] Platelet 419 10 3/mcL High 130-400 [facility] ([place]) Comment on above: Performed By: #### Héctor ZARCO UA #### [address] [address] Platelet mean volume (Bld) [Entitic vol] 8.3 fL Normal 7.4-10.4 [facility] ([place] Comment on above: Performed By: #### MAKSIM WHITE #### [address] [place] [address] [place], [place] [address] RBC 4.93 10 6/mcL Normal 4.04-6.13 [facility] ([place] Comment on above: Performed By: #### MAKSIM WHITE #### [address] [place] [address] [place], [place] [address] WBC 10.9 10 3/mcL High 4.6-10.8 [facility] ([place] Comment on above: Performed By: #### MAKSIM WHITE #### [address] [place], [place] [address] LABORATORYOrdered By: SYSTEM SYSTEM on 02-17-2023 Basophil, [...] Prostate Specific Antigen 1.55 ng/mL Normal 0.00-4.00 [facility] ([place] Comment on above: Performed By: #### U MAKSIM ZARCO #### [address] [place], [place] [address] Final Surgical Pathology Rep sue 02-07-2023 Final Surgical Pathology Report . Pathology Reports Accession: Collected Date/Time: Received Date/Time: Pathologist: [id number] 02/04/2023 17:37 EDT 02/05/2023 08:21 EDT VICTORIANO EATON MD Final Surgical Pathology Report DIAGNOSIS: APPENDIX: - ACUTE APPENDICITIS AND SEROSITIS CLINICAL INFORMATION: Procedure: LAPAROSCOPIC APPENDECTOMY Preoperative diagnosis: ACUTE APPENDICITIS Postoperative diagnosis: ACUTE APPENDICITIS SPECIMEN: A APPENDIX GROSS DESCRIPTION: All parts labelled with patient name and [id number] Received in formalin labeled appendix is sullivan-farnsworth cylindrical portion of tissue with small foci of hemorrhage on the serosal aspect, measuring 5 cm in length with an average diameter of 1.3 cm. The serosal surface shows patchy sullivan-white purulent exudate. The lumen shows necrotic material. [employer] Supervisor sections submitted. RS-1 Dictated by VICTORIANO EATON MICROSCOPIC DESCRIPTION: The microscopic examination is performed, except in the case of Gross Only. Electronically Signed by Pathology Report verified by VICTORIANO AETON Sign out Date: 02/07/2023 09:39 Performing Lab: , [address] [place] [address] Pathology Dept Disclaimer If ancillary studies were utilized, the following Laboratory Developed Test (LDT) disclaimer will apply: Under CLIA requirements, Pathology Laboratory is qualified to perform high complexity testing. For all ancillary stains, positive and negative controls stain appropriately. Performance characteristics of immunohistochemical and chromogenic in-situ hybridization tests have been determined by Pathology Laboratory. These tests are used for clinical purposes, They should not be regarded as investigational or for research. Normal [facility] ([place]) .Auto Diffon 02-05-2023 Basophil, Absolute 0.0 10 3/mcL Normal 0.0-0.3 [facility] ([place]) Comment on above: Performed By: #### U HAROLDO UA #### [address] [address] Basophils/100 WBC (Bld) 0.0 % Normal 0.0-2.5 A [facility] ([place]) Comment on above: Performed By: #### U AMIGIDEON UA #### [address] [address] Eosinophil, Absolute 0.0 10 3/mcL Normal 0.0-0.7 [facility] [facility] Comment on above: Performed By: #### U AMINALLELYO, UA #### [address] [address] Eosinophils/100 WBC (Bld) 0.0 % Normal 0.0-6.0 [facility] ([place] Comment on above: Performed By: #### U AMINALLELYO UA #### [address] [address] Lymphocyte, Absolute 0.9 10 3/mcL Normal 0.9-4.3 [facility] ([place]) Comment on above: Performed By: #### U AMICAO, UA #### [address] [address] Lymphocytes/100 WBC (Bld) 4.5 % Low 20.0-40.0 [facility] ([place] Comment on above: Performed By: #### U AMICAO, UA #### [address] [address] Monocyte, Absolute 1.6 10 3/mcL High 0.1-1.4 [facility] ([place]) Comment on above: Performed By: #### U AMICAO, UA #### [address] [address] Monocytes/100 WBC (Bld) 8.3 % Normal 2.0-13.0 A [facility] ([place]) Comment on above: Performed By: #### U AMICAO, UA #### [address] [address] Neutrophils/100 WBC (Bld) 87.2 % High 50.0-75.0 [facility] [place] Comment on above: Performed By: #### U AMICAO, UA #### [address] [address] .GFRon 02-05-2023 GFR >60 Normal [facility] ([place] Comment on above: Result Comment: GFR Population [...] By: #### B UN, CRE, GFR #### [address] [address] GFR Non- 60 ml/min/1.73sqm Normal [facility] ([place] Comment on above: Result Comment: GFR Population [...] By: #### B UN, CRE, GFR #### [address] [address] .NEUABSon 02-05-2023 Neutrophil, Absolute 17.1 10 3/mcL High 2.3-8.1 A [facility] ([place] Comment on above: Performed By: #### B UN, CRE, GFR #### [address] [address] A1Con 02-05-2023 HbA1c (Bld) [Mass fraction] 5.2 % Normal 4.0-6.0 [facility] ([place] Comment on above: Performed By: #### B UN, CRE, GFR #### [address] [address] BMPon 02-05-2023 BUN/Creatinine Ratio 15.3 ratio Normal 10.0-22.0 [facility] ([place] Comment on above: Performed By: #### B UN, CRE, GFR #### [address] [address] Calcium [Mass/Vol] 8.7 mg/dL Normal 8.7-10.4 [facility] ([place]) Comment on above: Performed By: #### B UN, CRE, GFR #### [address] [address] Chloride [Moles/Vol] 107 mmol/L Normal 98-110 [facility] ([place] Comment on above: Performed By: #### B UN, CRE, GFR #### [address] [address] CO2 [Moles/Vol] 24 mmol/L Normal 22-32 [facility] ([place] Comment on above: Performed By: #### B UN, CRE, GFR #### [address] [address] Creatinine [Mass/Vol] 1.18 mg/dL Normal 0.60-1.40 [facility] ([place]) Comment on above: Performed By: #### B UN, CRE, GFR #### [address] [address] Electrolyte Balance 10.0 mEq/L Normal 4.0-15.0 [facility] ([place]) Comment on above: Performed By: #### B UN, CRE, GFR #### [address] [address] Glucose [Mass/Vol] 124 mg/dL High 82-115 [facility] ([place] Comment on above: Performed By: #### B UN, CRE, GFR #### [address] [address] Potassium [Moles/Vol] 4.5 mmol/L Normal 3.5-5.0 [facility] ([place] Comment on above: Result Comment: Spec imen slightly hemolyzed. Performed By: #### B UN, CRE, GFR #### [address] [address] Sodium [Moles/Vol] 141 mmol/L Normal 136-145 [facility] ([place] Comment on above: Performed By: #### B UN, CRE, GFR #### [address] [address] Urea nitrogen [Mass/Vol] 18.0 mg/dL Normal 8.0-22.0 [facility] [place] Comment on above: Performed By: #### B UN, CRE, GFR #### [address] [address] CBCon 02-05-2023 Erythrocyte distribution width (RBC) [Ratio] 14.4 % Normal 11.5-15.5 [facility] [place] Comment on above: Performed By: #### U AMICAO, UA #### [address] [address] Hematocrit (Bld) [Volume fraction] 43.5 % Normal 40.0-52.0 [facility] [place] Comment [place] above: Performed By: #### MAKSIM WHITE #### [address] [address] Hgb 14.5 G/dL Normal 13.0-17.5 [facility] [place] Comment [place] above: Performed By: #### Héctor ZARCO UA #### [address] [address] MCH (RBC) [Entitic mass] 28.8 pg Normal 27.0-33.0 [facility] ([place] Comment on above: Performed By: #### Héctor ZARCO UA #### [address] [address] MCHC 33.2 G/dL Normal 32.0-36.0 [facility] [place] Comment on above: Performed By: #### Héctor ZARCO UA #### [address] [address] MCV (RBC) [Entitic vol] 86.6 fL Normal 81.0-100.0 A [facility] ([place]) Comment on above: Performed By: #### Héctor ZARCO UA #### [address] [address] Platelet 189 10 3/mcL Normal 150-450 [facility] ([place] Comment on above: Performed By: #### Héctor ZARCO UA #### [address] [address] Platelet mean volume (Bld) [Entitic vol] 9.6 fL Normal 6.4-10.5 [facility] [place] Comment on above: Performed By: #### Héctor ZARCO UA #### [address] [address] RBC 5.03 10 6/mcL Normal 4.50-6.00 [facility] [place] Comment [place] above: Performed By: #### Héctor ZARCO UA #### [address] [address] WBC 19.6 10 3/mcL High 4.5-10.8 [facility] ([place] Comment on above: Performed By: #### U MAKSIM ZARCO #### [facility] [address] [place], [place] [address] LABORATORYOrdered By: SYSTEM SYSTEM on 02-05-2023 Basophils [...] 02-05-2023 Cholesterol [Mass/Vol] 172 mg/dL Normal 50-199 [facility] ([place] Comment on above: Result Comment: Chol esterol Reference Interval: Less than 200 Desirable 200-239 Borderline high risk 240 and above High risk Performed By: #### B UN, CRE, GFR #### [address] [address] Cholesterol in HDL [Mass/Vol] 56 mg/dL Normal 40-59 [facility] [place] Comment [place] above: Performed By: #### B UN, CRE, GFR #### [address] [address] Cholesterol in LDL [Mass/Vol] 106 mg/dL Normal 0-129 [facility] ([place] Comment on above: Performed By: #### B UN, CRE, GFR #### [address] [address] Triglyceride [Mass/Vol] 49 mg/dL Normal 3-149 A [facility] ([place] Comment on above: Performed By: #### B UN, CRE, GFR #### [address] [address] .Auto Diffon 02-04-2023 Basophil, Absolute 0.1 10 3/mcL Normal 0.0-0.2 [facility] ([place] Comment on above: Performed By: #### B UN, CRE, GFR #### [address] [address] Basophils/100 WBC (Bld) 0.4 % Normal 0.0-2.5 A [facility] ([place] Comment on above: Performed By: #### B UN, CRE, GFR #### [address] [address] Eosinophil, Absolute 0.1 10 3/mcL Normal 0.0-0.4 [facility] ([place] Comment on above: Performed By: #### B UN, CRE, GFR #### [address] [address] Eosinophils/100 WBC (Bld) 0.6 % Normal 0.0-7.0 [facility] ([place]) Comment on above: Performed By: #### B UN, CRE, GFR #### [address] [address] Lymphocyte, Absolute 1.2 10 3/mcL Normal 0.8-3.9 [facility] ([place] Comment on above: Performed By: #### B UN, CRE, GFR #### [address] [address] Lymphocytes/100 WBC (Bld) 8.4 % Low 10.0-50.0 [facility] ([place]) Comment on above: Performed By: #### B UN, CRE, GFR #### [address] [address] Monocyte, Absolute 0.8 10 3/mcL Normal 0.2-1.0 [facility] ([place] Comment on above: Performed By: #### B UN, CRE, GFR #### [address] [address] Monocytes/100 WBC (Bld) 5.7 % Normal 1.7-13.0 A [facility] ([place] Comment on above: Performed By: #### B UN, CRE, GFR #### [address] [address] Neutrophils/100 WBC (Bld) 84.9 % High 37.0-80.0 [facility] [place] Comment on above: Performed By: #### B UN, CRE, GFR #### [address] [address] .GFRon 02-04-2023 GFR Non- 52 ml/min/1.73sqm Normal [facility] [place] Comment on above: Result Comment: GFR Population [...] By: #### B UN, CRE, GFR #### [address] [address] GFR 63 ml/min/1.73sqm Normal [facility] [place] Comment on above: Result Comment: GFR Population [...] By: #### B UN, CRE, GFR #### [address] [address] .MDWon 02-04-2023 Monocyte Distribution Width Not performed Normal 0.00-20.00 [facility] ([place] Comment on above: Performed By: #### B UN, CRE, GFR #### [address] [address] .NEUABSon 02-04-2023 Neutrophil, Absolute 12.2 10 3/mcL High 2.9-6.2 A [facility] ([place] Comment on above: Performed By: #### B UN, CRE, GFR #### [place] [address] .Urinalysis Microscopic (AO) on 02-04-2023 UA Bacteria Trace Abnormal [facility] ([place] Comment on above: Performed By: #### U AMICAO, UA #### [address] [place] [address] UA Mucous 1+ /hpf Normal [facility] ([place] Comment on above: Performed By: #### U AMICAO, UA #### [address] [place] [address] UA RBC 0-5 Abnormal None Seen [facility] [place] Comment on above: Performed By: #### U AMICAO, UA #### [place] [address] UA Squam Epithelial None Seen Normal None Seen [facility] ([place]) Comment on above: Performed By: #### U AMICAO, UA #### [place] [address] UA WBC 0-5 Abnormal None Seen [facility] [place] Comment [place] above: Performed By: #### U AMICAO, UA #### [place] [address] CBCon 02-04-2023 Erythrocyte distribution width (RBC) [Ratio] 14.2 % Normal 11.5-14.5 [facility] [place] Comment on above: Performed By: #### B UN, CRE, GFR #### [place] [address] Hematocrit (Bld) [Volume fraction] 46.7 % Normal 42.0-52.0 [facility] [place] Comment on above: Performed By: #### B UN, CRE, GFR #### [place] [address] Hgb 15.7 G/dL Normal 14.0-18.0 [facility] [place] Comment [place] above: Performed By: #### B UN, CRE, GFR #### [address] [address] MCH (RBC) [Entitic mass] 28.8 pg Normal 27.0-31.2 [facility] [place] Comment [place] above: Performed By: #### B UN, CRE, GFR #### [address] [address] MCHC 33.6 G/dL Normal 31.8-35.4 [facility] [place] Comment [place] above: Performed By: #### B UN, CRE, GFR #### [address] [address] MCV (RBC) [Entitic vol] 85.7 fL Normal 80.0-94.0 A [facility] ([place] Comment on above: Performed By: #### B UN, CRE, GFR #### [address] [address] Platelet 205 10 3/mcL Normal 130-400 [facility] [place] Comment on above: Performed By: #### B UN, CRE, GFR #### [address] [address] Platelet mean volume (Bld) [Entitic vol] 8.6 fL Normal 7.4-10.4 [facility] [place] Comment [place] above: Performed By: #### B UN, CRE, GFR #### [address] [address] RBC 5.46 10 6/mcL Normal 4.04-6.13 [facility] [place] Comment on above: Performed By: #### B UN, CRE, GFR #### [address] [address] WBC 14.4 10 3/mcL High 4.6-10.8 [facility] [place] Comment [place] above: Performed By: #### B UN, CRE, GFR #### [address] [address] CMPon 02-04-2023 Albumin Level 4.2 G/dL Normal 3.4-4.8 [facility] [place] Comment [place] above: Performed By: #### B UN, CRE, GFR #### [address] [address] Albumin/Globulin [Mass ratio] 1.2 {ratio} Normal 1.1-2.5 [facility] [place] Comment on above: Performed By: #### B UN, CRE, GFR #### [address] [address] ALP [Catalytic activity/Vol] 124 U/L Normal 40-135 [facility] [place] Comment [place] above: Performed By: #### B UN, CRE, GFR #### [address] [address] ALT [Catalytic activity/Vol] 20 U/L Normal 16-63 [facility] [place] Comment on above: Performed By: #### B UN, CRE, GFR #### [address] [address] AST [Catalytic activity/Vol] 15 U/L Normal 10-40 [facility] [place] Comment on above: Performed By: #### B UN, CRE, GFR #### [address] [address] Bili Total 0.8 mg/dL Normal 0.2-1.0 [facility] ([place] Comment on above: Result Comment: Use of this assay is not recommended for patients undergoing treatment with eltrombopag due to the potential for falsely elevated results. Performed By: #### B UN, CRE, GFR #### [address] [address] BUN/Creatinine Ratio 13 ratio Normal 7-27 [facility] ([place]) Comment on above: Performed By: #### B UN, CRE, GFR #### [address] [address] Calcium [Mass/Vol] 9.4 mg/dL Normal 8.4-10.2 [facility] ([place] Comment on above: Performed By: #### B UN, CRE, GFR #### [address] [address] Chloride [Moles/Vol] 102 mmol/L Normal 98-107 [facility] ([place]) Comment on above: Performed By: #### B UN, CRE, GFR #### [address] [address] CO2 [Moles/Vol] 26 mmol/L Normal 23-31 [facility] [place] Comment on above: Performed By: #### B UN, CRE, GFR #### [address] [address] Electrolyte Balance 10.0 mEq/L Normal 4.0-15.0 [facility] ([place] Comment on above: Performed By: #### B UN, CRE, GFR #### [address] [address] Globulin 3.5 G/dL Normal [facility] ([place] Comment on above: Performed By: #### B UN, CRE, GFR #### [address] [address] Glucose [Mass/Vol] 119 mg/dL High 83-110 [facility] ([place] Comment on above: Performed By: #### B UN, CRE, GFR #### [address] [address] Potassium [Moles/Vol] 4.1 mmol/L Normal 3.5-5.1 [facility] ([place] Comment on above: Performed By: #### B UN, CRE, GFR #### [address] [address] Sodium [Moles/Vol] 138 mmol/L Normal 136-145 [facility] ([place] Comment on above: Performed By: #### B UN, CRE, GFR #### [address] [address] Total Protein 7.7 G/dL Normal 6.4-8.2 [facility] ([place] Comment on above: Performed By: #### B UN, CRE, GFR #### [facility] [address] [place], [place] [address] Urea nitrogen [Mass/Vol] 18 mg/dL Normal 7-18 [facility] ([place] Comment on above: Performed By: #### B UN, CRE, GFR #### [facility] [address] [place], [place] [address] Creatinine [Mass/Vol] 1.34 mg/dL High 0.70-1.30 [facility] ([place] Comment on above: Performed By: #### B UN, CRE, GFR #### [place] [address] [place], [place] [address] CT ABD/PELVIS W/ IV CONTRAST ONLYon 02-04-2023 [...] effusion. The heart is normal in size. [id number] coronary artery atherosclerosis. Numerous low attenuating lesions [...] 02/04/2023 11:18:15 AM Ordering Provider: LINDA Au [facility] ([place]) LABORATORYOrdered By: SYSTEM SYSTEM on 02-04-2023 HbA1c [...] 02-04-2023 Lipase Level 31 U/L Normal 16-77 [facility] ([place] Comment on above: Performed By: #### B UN, CRE, GFR #### [address] [address] TROPHSon 02-04-2023 Troponin I High Sensitivity 14.0 ng/L Normal 0.0-76.2 [facility] ([place] Comment on above: Performed By: #### U AMICAO, UA #### [place] [address] TSHon 02-04-2023 TSH 1.821 mIU/mL Normal 0.550-4.780 [facility] ([place] Comment on above: Result Comment: No te - New Reference Range in effect 20 Performed By: #### B UN, CRE, GFR #### [address] [address] UAon 02-04-2023 Color (U) Yellow Normal [facility] ([place] Comment [place] above: Performed By: #### U AMICAO, UA #### [address] [address] Glucose (U) [Mass/Vol] Negative Normal Negative [facility] ([place] Comment on above: Performed By: #### U AMICAO, UA #### [address] [address] Ketones Ql (U) 15 mg/dL Abnormal Negative [facility] ([place] Comment [place] above: Performed By: #### U AMICAO, UA #### [address] [address] UA Appear Slightly Cloudy Abnormal Clear [facility] ([place] Comment [place] above: Performed By: #### U AMICAO, UA #### [address] [address] UA Blood Trace Abnormal Negative [facility] ([place] Comment on above: Performed By: #### U AMICAO, UA #### [address] [address] UA Leuk Est Negative Normal Negative [facility] ([place] Comment on above: Performed By: #### U AMICAO, UA #### [address] [address] UA Nitrite Negative Normal Negative [facility] ([place] Comment on above: Performed By: #### U AMICAO, UA #### [address] [address] UA pH 5.5 Normal 5.0 - 8.0 [facility] [place] Comment on above: Performed By: #### U AMICAO, UA #### [address] [address] UA Protein 100 mg/dL Abnormal Negative [facility] [place] Comment on above: Performed By: #### U AMICAO, UA #### [address] [address] UA Spec Grav 1.025 Normal 1.015-1.025 [facility] ([place] Comment on above: Performed By: #### U AMICAO, UA #### [address] [address] UA Specimen Type Clean Catch Normal [facility] ([place] Comment on above: Performed By: #### U AMICAO, UA #### [address] [address] UA Urobilinogen 0.2 E.U./dL Normal 0.2-1.0 [facility] ([place] Comment on above: Performed By: #### U AMICAO, UA #### [address] [address] Urobilinogen (U) [Mass/Vol] Negative Normal Negative [facility] [place] Comment on above: Performed By: #### U AMICAO, UA #### [address] [place] [address] [place], [place] [address] Vital Signs Date Time Vital Sign Value Performing Clinician Facility 05-30-2025 12:50-0400 Body height 163.83 cm Zebulun Beam [employer] Work Phone: [phone] [place] [address] 05-30-2025 12:50-0400 Body mass index (BMI) [Ratio] 28.5 kg/m2 Zebulun Beam [employer] Work Phone: 5(662)[phone] [place] [address] 05-30-2025 12:50-0400 Body temperature 98.6 [degF] Zebulun Beam [employer] Work Phone: [phone])[phone] [place] [address] 05-30-2025 12:50-0400 Body weight 76.65 kg Zebulun Beam [employer] Work Phone: 5(519)[phone] [place] [address] 05-30-2025 12:50-0400 Diastolic blood pressure 83 mm[Hg] Zebulun Beam [employer] Work Phone: 6(589)[phone] [place] [address] 05-30-2025 12:50-0400 Heart rate 62 /min Zebulun Beam [employer] Work Phone: 3(295)[phone] [place] [address] 05-30-2025 12:50-0400 Respiratory rate 16 /min Zebulun Beam [employer] Work Phone: 1(790)[phone] [place] [address] 05-30-2025 12:50-0400 SaO2% (BldA) [Mass fraction] 97 % Zebulun Beam [employer] Work Phone: [phone] [place] [address] 05-30-2025 12:50-0400 Systolic blood pressure 195 mm[Hg] Zebulun Beam [employer] Work Phone: [phone](120)[phone] [place] [address] 03-09-2025 15:53-0400 Diastolic blood pressure 80 mm[Hg] Zebulun Beam [employer] Work Phone: [phone])[phone] [place] [address] 03-09-2025 15:53-0400 Heart rate 60 /min Zebulun Beam [employer] Work Phone: [phone] [place] [address] 03-09-2025 15:53-0400 Respiratory rate 16 /min Zebulun Beam [employer] Work Phone: [facility] 03-09-2025 15:53-0400 Systolic blood pressure 170 mm[Hg] Zebulun Beam [employer] Work Phone: [facility] 05-07-2023 10:02-0400 Body height 167.6 cm TANNER GILLIAM MD [facility] 05-07-2023 10:02-0400 Body weight 72.7 kg TANNER GILLIAM MD [facility] 05-07-2023 10:02-0400 Body weight 25.88 kg/m2 TANNER GILLIAM MD [facility] 02-05-2023 14:39-0400 Blood Pressure Location TANNER GILLIAM MD 02-05-2023 14:39-0400 Blood Pressure Method TANNER GILLIAM MD 02-05-2023 14:39-0400 Body temperature 97.88 [degF] TANNER GILLIAM MD 02-05-2023 14:39-0400 Diastolic Blood Pressure Non-Invasive 72 1 TANNER GILLIAM MD 02-05-2023 14:39-0400 Heart rate 61 /min TANNER GILLIAM MD 02-05-2023 14:39-0400 Reason For Taking VItal Signs TANNER GILLIAM MD 02-05-2023 14:39-0400 Respiratory rate 17 /min TANNER GILLIAM MD 02-05-2023 14:39-0400 Systolic Blood Pressure Non-Invasive 126 1 TANNER GILLIAM MD 02-05-2023 10:49-0400 Blood Pressure Cuff Size TANNER GILLIAM MD 02-05-2023 10:49-0400 Blood Pressure Location TANNER GILLIAM MD 02-05-2023 10:49-0400 Blood Pressure Method TANNER GILLIAM MD 02-05-2023 10:49-0400 Body temperature 97.7 [degF] TANNER GILLIAM MD 02-05-2023 10:49-0400 Diastolic Blood Pressure Non-Invasive 64 1 TANNER GILLIAM MD 02-05-2023 10:49-0400 Heart rate 63 /min TANNER GILLIAM MD 02-05-2023 10:49-0400 Reason For Taking VItal Signs TANNER GILLIAM MD 02-05-2023 10:49-0400 Respiratory rate 16 /min TANNER GILLIAM MD 02-05-2023 10:49-0400 Systolic Blood Pressure Non-Invasive 138 1 TANNER GILLIAM MD 02-05-2023 07:36-0400 Diastolic Blood Pressure Non-Invasive 66 1 TANNER GILLIAM MD 02-05-2023 07:36-0400 Systolic Blood Pressure Non-Invasive 139 1 TANNER GILLIAM MD 02-05-2023 07:26-0400 Blood Pressure Cuff Size TANNER GILLIAM MD 02-05-2023 07:26-0400 Blood Pressure Location TANNER GILLIAM MD 02-05-2023 07:26-0400 Blood Pressure Method TANNER GILLIAM MD 02-05-2023 07:26-0400 Body temperature 98.6 [degF] TANNER GILLIAM MD 02-05-2023 07:26-0400 Heart rate 65 /min TANNER GILLIAM MD 02-05-2023 07:26-0400 Reason For Taking VItal Signs TANNER GILLIAM MD 02-05-2023 07:26-0400 Respiratory rate 16 /min TANNER GILLIAM MD 02-05-2023 04:26-0400 Heart rate 65 /min TANNER GILLIAM MD 02-04-2023 23:10-0400 Heart rate 63 /min TANNER GILLIAM MD 02-04-2023 19:44-0400 Heart rate 62 /min TANNER GILLIAM MD 02-04-2023 18:22-0400 Mean blood pressure 114 mm[Hg] TANNER GILLIAM MD 02-04-2023 18:04-0400 Mean blood pressure 111 mm[Hg] TANNER GILLIAM MD 02-04-2023 17:49-0400 Body temperature 97.34 [degF] TANNER GILLIAM MD 02-04-2023 17:49-0400 Mean blood pressure 120 mm[Hg] TANNER GILLIAM MD 02-04-2023 17:45-0400 Respiratory Rate - Anes 0 br/min TANNER GILLIAM MD 02-04-2023 17:40-0400 Respiratory Rate - Anes 15 br/min TANNER GILLIAM MD 02-04-2023 17:35-0400 Body temperature 97.41 [degF] TANNER GILLIAM MD 02-04-2023 17:35-0400 Respiratory Rate - Anes 15 br/min TANNER GILLIAM MD 02-04-2023 17:30-0400 Body temperature 97.47 [degF] TANNER GILLIAM MD 02-04-2023 17:25-0400 Body temperature 97.48 [degF] TANNER GILLIAM MD 02-04-2023 15:44-0400 Blood Pressure Cuff Size TANNER GILLIAM MD 02-04-2023 14:31-0400 Heart rate 50 /min TANNER GILLIAM MD 02-04-2023 14:25-0400 Body height 167.6 cm TANNER GILLIAM MD 02-04-2023 14:25-0400 Body weight 77.3 kg TANNER GILLIAM MD 02-04-2023 14:25-0400 Body weight 27.52 kg/m2 TANNER GILLIAM MD 02-04-2023 13:26-0400 Diastolic Blood Pressure Non-Invasive [address] LINDA RICHMOND MD [facility] 02-04-2023 13:26-0400 Heart rate 47 /min DR LINDA RICHMOND MD [facility] 02-04-2023 13:26-0400 Respiratory rate 16 /min DR LINDA RICHMOND MD [facility] 02-04-2023 13:26-0400 Systolic Blood Pressure Non-Invasive [address] LINDA RICHMOND MD [facility] 02-04-2023 12:52-0400 Diastolic Blood Pressure Non-Invasive [address] LINDA RICHMOND MD [facility] 02-04-2023 12:52-0400 Heart rate 48 /min DR LINDA RICHMOND MD [facility] 02-04-2023 12:52-0400 Respiratory rate 16 /min DR LINDA RICHMOND MD [facility] 02-04-2023 12:52-0400 Systolic Blood Pressure Non-Invasive [address] LINDA RICHMOND MD [facility] 02-04-2023 11:49-0400 Body temperature 98.96 [degF] DR LINDA RICHMOND MD [facility] 02-04-2023 11:49-0400 Diastolic Blood Pressure Non-Invasive [address] LINDA RICHMOND MD [facility] 02-04-2023 11:49-0400 Heart rate 48 /min DR LINDA RICHMOND MD [facility] 02-04-2023 11:49-0400 Reason For Taking VItal Signs DR LINDA RICHMOND MD [facility] 02-04-2023 11:49-0400 Respiratory rate 16 /min DR LINDA RICHMOND MD [facility] 02-04-2023 11:49-0400 Systolic Blood Pressure Non-Invasive [address] LINDA RICHMOND MD [facility] 02-04-2023 09:40-0400 Body temperature 97.88 [degF] DR LINDA RICHMOND MD [facility] 02-04-2023 09:40-0400 Body weight 76.[address] LINDA RICHMOND MD [facility] Encounters Encounter Date Encounter Type Care Provider Facility Start: 06-23-2025 Encounter for other preprocedural examination Dickson Daniel [facility] Start: 06-21-2025 ambulatory Rebekah Infante Facility:[facility] Start: 06-21-2025 End: 06-22-2025 [facility] Start: 06-21-2025 ambulatory Dickson Sanchez Facility:[facility] Start: 05-30-2025 End: 05-30-[address] Dickson Sanchez MD -Laboratory Work Phone: Start: 05-30-2025 End: 05-30-[address] Dickson Sanchez MD -[facility] Work Phone: Start: 05-30-2025 End: 05-30-2025 ambulatory Zebulun Beam [employer] Work Phone: -[facility] Start: 05-30-2025 End: 05-30-2025 ambulatory Dickson Sanchez Facility:[facility] Start: 04-18-2025 End: 04-18-2025 ambulatory Zebulun Beam [employer] INVESTIGATOR-C Work Phone: -[facility] [place] Start: 04-18-2025 End: 04-18-2025 Patient encounter procedure Zebulun Beam MONEY LAUNDERING INVESTIGATOR-C -[facility] [place] Work Phone: Start: 04-18-2025 End: 04-18-2025 ambulatory Zebulun Beam Facility:[facility] Start: 03-30-2025 End: 03-30-2025 ambulatory Zebulun Beam MONEY LAUNDERING INVESTIGATOR-C Work Phone: -[facility] Start: 03-30-2025 End: 03-30-[address] Dickson Sanchez MD -[facility] Work Phone: Start: 03-30-2025 End: 03-30-2025 ambulatory Zebulun Beam Facility:[facility] Start: 03-24-2025 End: 03-24-2025 ambulatory Zebulun Beam MONEY LAUNDERING INVESTIGATOR-C Work Phone: -[facility] [place] Start: 03-24-2025 End: 03-24-2025 Patient encounter procedure Zebulun Beam MONEY LAUNDERING INVESTIGATOR-C -[facility] [place] Start: 03-24-2025 End: 03-24-2025 ambulatory Zebulun Beam Facility:[facility] Start: 03-09-2025 End: 03-09-[address] Dickson Sanchez MD -[facility] Work Phone: Start: 03-09-2025 End: 03-09-2025 ambulatory Zebulun Beam MONEY LAUNDERING INVESTIGATOR-C Work Phone: -[facility] Start: 01-28-2025 End: 01-28-2025 ambulatory Zebulun Beam MONEY LAUNDERING INVESTIGATOR-C Work Phone: [facility] Work Phone: Start: 01-28-2025 End: 01-28-2025 Patient encounter procedure Zebulun Beam MONEY LAUNDERING INVESTIGATOR-C -[facility] [place] Start: 01-28-2025 End: 01-28-2025 ambulatory Zebulun Beam Facility:[facility] Start: 10-31-2023 End: 11-01-2023 ambulatory SHANNA MCKEON MD Facility:[facility] Start: 10-31-2023 End: 10-31-2023 Patient encounter procedure SHANNA MCKEON MD [facility] Start: 10-27-2023 End: 10-28-2023 ambulatory SHANNA MCKEON MD Facility:[facility] Start: 10-27-2023 End: 10-27-2023 Patient encounter procedure SHANNA MCKEON MD [facility] Start: 05-19-2023 End: 05-19-2023 ambulatory LASHON Rehana ASHLYN DELIVERER FOOD-APARTMENT RENTAL CLERK Facility:B Start: 05-07-2023 End: 05-08-2023 ambulatory LASHON GOLDBERG DELIVERER FOOD-APARTMENT RENTAL CLERK Facility:B Start: 05-07-2023 End: 05-07-2023 Admission to establishment TANNER GILLIAM MD [facility] Start: 02-17-2023 End: 02-18-2023 ambulatory LASHON GOLDBERG DELIVERER FOOD-APARTMENT RENTAL CLERK Facility:[facility] Start: 02-17-2023 End: 02-17-2023 Patient encounter procedure LASHON A ASHLYN DELIVERER FOOD-APARTMENT RENTAL CLERK [facility] Start: 02-04-2023 End: 02-05-2023 ambulatory MADELYN DAWKINS MD Facility:A Start: 02-04-2023 End: 02-05-2023 Observation TANNER GILLIAM MD [facility] Start: 02-04-2023 End: 02-04-2023 Emergency department patient visit NONE PHYSICIAN Facility:B Start: 02-04-2023 End: 02-04-2023 Emergency department patient visit DR LINDA RICHMOND MD [facility] Procedures Date Procedure Procedure Detail Performing Clinician Start: 03-30-2025 Computed tomography of abdomen and pelvis with contrast Zebulun Beam MONEY LAUNDERING INVESTIGATOR-C Work Phone: Start: 01-28-2025 Prostate specific an tigen measurement Zebulun Beam MONEY LAUNDERING INVESTIGATOR-C Work Phone: Comment on above: This test [...] stick/tabl et reagent auto microscopy Zebulun Beam MONEY LAUNDERING INVESTIGATOR-C Work Phone: Start: 05-19-2023 Right inguinal herni a (disorder) SHANNA MCKEON MD Start: 02-04-2023 Appendectomy TANNER CHIN MD Payers Date Payer Category Payer Self-pay 2023 Private Health Insurance [id number] 1945 Unknown [id number] 2.16.8 [id number] 1945 Unknown [id number] 2.16.8 [id number] 1945 Unknown [id number] 2.16.8 40.1.858680.3.579.2.627 1945 Unknown [id number] 2.16.8 40.1.872788.3.579.2.627 1945 Unknown [id number] 2.16.8 40.1.164678.3.579.2.627 1945 Unknown [id number] 2.16.8 40.1.250604.3.579.2.627 1945 Unknown [id number] 2.16.8 40.1.686923.3.579.2.627 Unknown [id number] 2.16.8 40.1.348197.3.579.2.462 Unknown [id number] 2.16.8 40.1.173760.3.579.2.462 Unknown [id number] 2.16.8 40.1.653222.3.579.2.462 Unknown [id number] 2.16.8 40.1.724095.3.579.2.462 Unknown [id number] 2.16.8 40.1.522896.3.579.2.462 Unknown [id number] 2.16.8 40.1.070644.3.579.2.462 Unknown [id number] 2.16.8 40.1.340932.3.579.2.462 Unknown [id number] 2.16.8 40.1.575603.3.579.2.462 Unknown [id number] 2.16.8 40.1.165881.3.579.2.462 Unknown [id number] 2.16.8 40.1.728337.3.579.2.462 Social History Date Type Detail Facility Start: 02-04-2023 End: 06-06-2025 Tobacco smoking status Ex-smoker (finding) Start: 1945 Sex Assigned At Male [facility] Tobacco smoking stat [facility] Unknown if ever smoked [facility] Work Phone: Sex Male [facility] Functional Status Date Assessment Result Facility 05-07-2023 Functional Status Sensory Deficits None [facility] 02-05-2023 Functional Status Room check performed [facility] 02-05-2023 Functional Status [facility] 02-05-2023 Functional Status Multilevel home 02-05-2023 Functional Status [facility] 02-05-2023 Functional Status [facility] 02-04-2023 Functional Status [facility] 02-04-2023 Functional Status [facility] 02-04-2023 Functional Status Sensory Deficits None [facility] 02-04-2023 Functional Status Ambulation in [facility] 02-04-2023 Functional Status [facility] Mental Status Date Assessment Result Facility 02-05-2023 Mental Status Oriented x 4 [facility] 02-05-2023 Mental Status [facility] 02-04-2023 Mental Status Orientation Asse ssment Oriented x 4, Appropriate for developmental age, Oriented to person, Oriented to place, Oriented to time, Oriented to situation 02-04-2023 Mental Status [facility] 02-04-2023 Mental Status Orientation Oriented x 4 [facility] 02-04-2023 Mental Status [facility] Clinical Notes 02-04-2023 to 06-22-2025 Note Date & Type Note Facility 06-22-2025 Note [facility] Medical Records Department [address] [place] [address] Discharge Summary 06/22/25 0832 MR#: [id number] Acct: [id number] Name: ROSIBEL KUMARI Rep #: [id number] : 1945 80 From: Rebekah BACON PCP: Dr. Prasanth Renee MD Status:ADM IN Location: ICU ICU02-1 Providers Date of Admission: 06/21/25 Primary Care Physician: Dr. Prasanth Renee MD Reason For Visit: EVAR, Endovascular Aneurysm Repair in Dog Licenser wit Diagnosis Discharge Diagnosis (1) AAA (abdominal [...] 87.4 H, Lymph % (Auto) 5.5 L, Gove % (Auto) 6.3, Eos % (Auto) 0.1, [...] lift greater th (more content not included)... [facility] 06-21-2025 Note [facility] Medical Records Department [address] [place] [address] History Physical Exam 06/21/25 0729 MR#: [id number] Acct: [id number] Name: ROSIBEL KUMARI Rep #: [id number] : 1945 80 From: Dickson Sanchez MD PCP: Dr. Prasanth Renee MD Status:[facility] Location: [place] [address] History and Physical Allergies No Known Allergies Allergy (Verified 05/30/25 12:52) Medications ???Medication ???Instructions ???Recorded ???Confirmed ???Type NK 05/30/25 05/30/25 History Have you fallen in the past year?: No [facility] History AAA (abdominal aortic aneurysm) HTN [...] rupture I71.43 Abdo (more content not included)... [facility] 05-30-2025 Progress note [facility] 05-30-2025 Progress note Note Date/Time May 30, 2025 2:46pm [facility] [address] [place] [address] OFFICE VISIT Date of Service: 05/30/25 MR#: [id number] Acct: [id number] Name: ROSIBEL KUMARI Rep #: [id number] : 1945 Provider: Dr. Dickson Sanchez MD Age/Sex: 80/M Location: [facility] Status: Signed Intake Vital Signs 05/30/25 12:50 Height 5 ft 4.5 in Weight: 169 lb BMI 28.5 BP 195/83 H Blood Pressure Location Lt brachial Position Sitting Respiration 16 Pulse 62 Pulse Source NIBP Temp 98.6 F Temp Source Temporal Pulse Oximetry (%) 97 Oxygen Delivery Method room air Intake Visit Reasons: Discuss Results Director Of Placement Required: No Accompanied by: Self Is patient [...] adequate for EVAR -will review with device dermatology sales representative -risks/benefits/alternatives discussed, agreeable to proceed Orders: Orders Serum Creatinine & GFR Today I10 - Essential (primary) hypertension Clinical Quality Measures Falls Risk Screening/Assistive Devices Have you fallen in the past year?: No 05/30/25 1408 <Electronically signed by Dickson Arzola> Date _ Dickson Sanchez MD Cosigner Signature: Date (if applicable) CC: ~ [facility] Work Phone: 1(461) 165-931808-21-2025 Radiology Diagnostic study note [facility] Imaging Services [address] [place], [place] [id number] CTA Abd/Pelvis W/WO Contrast MR#: [id number] Acct: [id number] Name: ROSIBEL KUMARI Rep #: [id number] : 1945 M 79 From: Chetan Gamble MD PCP: Jamal Hurtado MONEY LAUNDERING INVESTIGATOR-C Status: REG CLI Study:CTA Abd/Pelvis W/WO Contrast Date of Ex am: 03/30/25 Exam# [id number] Ordering Dr: Ja Sanchez MD PROCEDURE: CTA [...] of the examination is unchanged. Reading Location: [id number] CC: Dr. Dickson Sanchez MD; [facility] MONEY LAUNDERING INVESTIGATOR-C Beam ~ [employer] Safety Engineer: Signed [facility]07-30-2025 Evaluation note* Diagnosis Onset Date Resolution Status Admit Date AAA (abdominal aortic aneurysm) spring former machine jennifer March 09, 2025 3:24pm [facility] Work Phone: 1(561) 546-797007-30-2025 Evaluation note* Diagnosis Onset Date Resolution Status Admit Date AAA (abdominal aortic aneurysm) chronic March 09, 2025 3:24pm AAA (abdominal aortic aneurysm) chronic May 30 12:47pm [facility] Work Phone: 1(715) 884-902203-22-2024 Note ORIGINAL EXAMINATION: CTA OF THE ABDOMEN [...] Sign Date: 10/31/2023 4:37:40 PM Ordering Provider: [facility]06-28-2023 Hospital Discharge instructions Patient Education 02/05/2023 16:54:06 [...] Follow these instructions at home: Medicines Take sjiy-roq-iepufvp and prescription medicines only as told by [...] to keep your urine pale yellow. ?Take jsxc-ctb-lbwaigd or prescription medicines. ?Eat foods that are [...] and water are not available, use hand box toe stitcher. ?Change your dressing as told by your [...] 07/28/2006 Document Revised: 01/28/2019 Document Reviewed: 01/28/2019 [employer] Patient Education 2020 [employer]. 02/05/2023 16:53:03 Appendicitis, Adult Appendicitis, Adult Appendicitis [...] to care for your incision. Medicines Take ebnb-nda-gllfefa and prescription medicines only as told by [...] to keep your urine pale yellow. ?Take clud-kkt-mytewqn or prescription medicines. ?Eat foods that are [...] 07/28/2006 Document Revised: 01/13/2019 Document Reviewed: 01/13/2019 [employer] Patient Education 2020 [employer]. Follow Up Care 02/04/2023 13:42:34 With:TANNER GILLIAM MD, Surgery Address: [address] [place] [address] [address] [facility] [place] [address]- When:02/20/2023 13:50:00 Comments:Follow up appointment With:LUIS MAGALLANES MD, [facility], Vascular Service, Vascular Surgeons Address: [address] [facility] Vascular [place] [address] [phone] Business (1) When:Within 4 Week(s) Comments:Follow up in approximately 4 weeks With:LASHON GOLDBERG APRN-[facility] Address: [address] [place] [address] [place] [address]- When:02/12/2023 16:00:00 Comments:PLEASE ARRIVE AT 3:30 PM TO FILL OUT PAPERWORK . BRING YOUR INSURANCE CARD AND PHOTO ID 06-28-2023 Surgery Hospital Progress note Date of [...] a primary PCP. I did speak to web content & social media manager in regards to helpingthe patient find [...] by UMER LARKIN on 02/05/2023 10:24 AM [id number] Note Discharge Instructions Thank you for allowing [facility] to assist you with your healthcare needs. [...] analgesia (pain medication.). Concern encouraged to take ntjs-hnl-blrmhsl stool softeners (such as Colace) and over the counter laxatives (such as Miralax) as needed for constipation. Additional medications that can be taken for operative constipation including milk of magnesia, Metamucil and Senokot. Scheduled Follow-Up Appointments Appointment Type When With Where Contact InformationPC MONEY LAUNDERING INVESTIGATOR Unassigned Hospital Follow Up 02/12/2023 04:00 PM LASHON COYNE APRN-[facility] [address] [phone] GS OV Post Op 02/20/2023 01:50 PM EDT TANNER GILLIAM MD [facility] General Surgery [place] Follow Up Appointments Follow Up with TANNER GILLIAM MD, Surgery When 02/20/2023 01:50 PM EDT Why: Follow up appointment Where: [address] [place] [address]- Follow Up with LASHON GOLDBERG APRN-APARTMENT RENTAL CLERK When 02/12/2023 04:00 PM EDT Why: PLEASE ARRIVE AT 3:30 PM TO FILL OUT PAPERWORK . BRING YOUR INSURANCE CARD AND PHOTO ID Where: [address] [facility] [place] [address]- Follow Up with LUIS MAGALLANES MD, [facility], Vascular Service, Vascular Surgeons When In 4 weeks Why: Follow up in approximately 4 weeks Where: [address] [facility] Vascular [place] [address] [phone] Business (1) The Following Activity and Diet [...] by mouth Once a day Pickup at [id number] Pharmacy Information [id number]: [address], [place] [phone] Please take this list to your next [...] Follow these instructions at home: Medicines Take eite-uzt-ipiahby and prescription medicines only as told by [...] keep your urine pale yellow. ? Take oiwq-ubj-zxpmwgl or prescription medicines. ? Eat foods that [...] and water are not available, use hand box toe stitcher. ? Change your dressing as told by [...] 07/28/2006 Document Revised: 01/28/2019 Document Reviewed: 01/28/2019 [employer] Patient Education 2020 [employer]abre. Appendicitis, Adult Appendicitis is inflammation of the [...] to care for your incision. Medicines Take btyy-bfn-tmdqoxa and prescription medicines only as told by [...] keep your urine pale yellow. ? Take tjxe-qdg-klcpbzj or prescription medicines. ? Eat foods that [...] 07/28/2006 Document Revised: 01/13/2019 Document Reviewed: 01/13/2019 [employer] Patient Education 2020 [employer]abre. Additional Information VACCINATE! IT SAVES LIVES! Members of the community who have not yet received the COVID-19 vaccine and would like to receive it can visit one of [facility] vaccine clinics. There are many vaccine clinic locations within the [facility]. For locations and available times, please visit [email or web address]/. It is important to note that some COVID mobile vaccine clinics are held outdoors and may be canceled in rainy or stormy conditions. To learn more about pediatric vaccinations (ages 5-11), we invite you to visit the [facility] webpage. https://www.[facility].org/pages/2792-Aeuio-Pzqwqyadlni-Atazgrphqd-Xcpwl-Asl stions.htmlTo learn more about the COVID-19 vaccine, we invite you to visit the CDC website for a list of frequently asked questions.https://www.cdc.gov/coronavirus/2019-ncov/vaccines/faq.html [employer] Patient Portal Access Instructions: Stay connected with your healthcare team and access your personal medical information anytime with the [employer] Patient Portal. Please follow the directions below to create your [employer] account: 1.Access the email account you provided upon registration to the hospital/physician office.2.Look for an invitation email from .3.Open the email and access the invitation link: AcceptInvitation to [employer].4.Fill in the required bauer to create your account. To access your account, visit [employer]/[email or web address]. Click the blue button labeled Access Patient [...] who you will allowto register on the [facility] Patient Portal for access to your information. You can also access the [facility] Patient Portal on the [facility] suze. Simply click on Patient Portal and then log into your account. If you would like to receive a full copy of your medical records, please contact the Medical Records Department by calling [phone], Friday through Friday between 8 a.m. and [...] Call your local pharmacy or go to [email or web address] to find one close to you.3.Make use of household items: Use cat litter or old coffee grounds to dispose medications if other options arenot available. Mix your drugs with these household products, seal them in an airtight container andthrow it into the garbage. Call [facility]: [phone] to be sure your drugs can be [...] am aware that I should contactmy doctor. Patient/Fur Dressing Supervisor Signature: Date/Time: Relationship to Patient: Witness Name/Signature: Date/Time: [id number] Note Discharge Instructions Thank you for allowing [...] analgesia (pain medication.). Concern encouraged to take xshg-stz-btywgsq stool softeners (such as Colace) and over the counter laxatives (such as Miralax) as needed for constipation. Additional medications that can be taken for operative constipation including milk of magnesia, Metamucil and Senokot. Scheduled Follow-Up Appointments Appointment Type When With Where Contact InformationPC MONEY LAUNDERING INVESTIGATOR Unassigned Hospital Follow Up 02/12/2023 04:00 PM EDT LASHON GOLDBERG [address] [phone] OV Post Op 02/20/2023 01:50 PM EDT TANNER GILLIAM MD [facility] General Surgery [place] Follow Up Appointments Follow Up with TANNER GILLIAM MD, Surgery When 02/20/2023 01:50 PM EDT Why: Follow up appointment Where: [address] [facility] [address] [facility] [place] [address]- Follow Up with LASHON GOLDBERG When 02/12/2023 04:00 PM EDT Why: PLEASE ARRIVE AT 3:30 PM TO FILL OUT PAPERWORK . BRING YOUR INSURANCE CARD AND PHOTO ID Where: [address] [place] [address]- Follow Up with LUIS MAGALLANES MD, [facility], Vascular Service, Vascular Surgeons When In 4 weeks Why: Follow up in approximately 4 weeks Where: [address] [facility] Vascular [place] [phone] Business (1) The Following Activity and Diet [...] by mouth Once a day Pickup at [facility] #[id number] Pharmacy Information [facility] #[id number]: [address] [place], [place] [phone] Please take this list to your next [...] Follow these instructions at home: Medicines Take sjiq-skz-wsfczow and prescription medicines only as told by [...] keep your urine pale yellow. ? Take gzep-hgh-rxwaeff or prescription medicines. ? Eat foods that [...] and water are not available, use hand box toe stitcher. ? Change your dressing as told by [...] 07/28/2006 Document Revised: 01/28/2019 Document Reviewed: 01/28/2019 [employer] Patient Education 2020 Exabre. Appendicitis, Adult Appendicitis is inflammation of the [...] to care for your incision. Medicines Take xnkz-rgi-vfpbqew and prescription medicines only as told by [...] keep your urine pale yellow. ? Take qnjd-xik-dgabvxo or prescription medicines. ? Eat foods that [...] 07/28/2006 Document Revised: 01/13/2019 Document Reviewed: 01/13/2019 [employer] Patient Education 2020 [employer]abre. Additional Information VACCINATE! IT SAVES LIVES! Members of the community who have not yet received the COVID-19 vaccine and would like to receive it can visit one of [facility] vaccine clinics. There are many vaccine clinic locations within the [facility]. For locations and available times, please visit [email or web address].[place].gov/. It is important to note that some COVID mobile vaccine clinics are held outdoors and may be canceled in rainy or stormy conditions. To learn more about pediatric vaccinations (ages 5-11), we invite you to visit the [facility] webpage. https://www.[facility].org/pages/4392-Qmuqh-Ydibxkfbpjw-Iqmfxffela-Ctxuw-Wxq stions.htmlTo learn more about the COVID-19 vaccine, we invite you to visit the CDC website for a list of frequently asked questions.https://www.cdc.gov/coronavirus/2019-ncov/vaccines/faq.html [employer] Patient Portal Access Instructions: Stay connected with your healthcare team and access your personal medical information anytime with the [employer] Patient Portal. Please follow the directions below to create your [employer] account: 1.Access the email account you provided upon registration to the hospital/physician office.2.Look for an invitation email from .3.Open the email and access the invitation link: AcceptInvitation to [employer].4.Fill in the required bauer to create your account. To access your account, visit [employer] IndiaOneChart. Click the blue button labeled Access Patient Portal and then log in with the username and password that you created in the steps above. You will be able to view your test results, lab results, a summary of your visits, upcoming appointments and more. There is also a convenient messaging option where you can send secure messages to your p [employer]. In addition, you will have the ability to download any documents or summaries to your computer and/or send the information securely to a physician. Remember that your healthcare information is confidential, so carefully consider who you will allowto register on the [employer] Patient Portal for access to your information. You can also access the [employer] Patient Portal on the [employer] [facility] suze. Simply click on Patient Portal and then log into your account. If you would like to receive a full copy of your medical records, please contact the Medical Records Department by calling [phone], Friday through Friday between 8 a.m. and [...] Call your local pharmacy or go to [email or web address] [email or web address]/2J4Ab9d to find one close to you.3.Make use of household items: Use cat litter or old coffee grounds to dispose medications if other options arenot available. Mix your drugs with these household products, seal them in an airtight container andthrow it into the garbage. Call [facility]: [phone] to be sure your drugs can be [...] am aware that I should contactmy doctor. Patient/Fur Dressing Supervisor Signature: Date/Time: Relationship to Patient: Witness Name/Signature: Date/Time: [id number] Note Date of Service 02.05.23 Chief Complaint htn Subjective 77-year-old male with no previously known past medical history presenting due to [facility] ER due toabdominal pain. He was found to have leukocytosis on presentation 14,400 and also blood pressure of202/97. Also bradycardic as low as 47. EKG obtained with sinus bradycardia DE of [address] changes.Troponin of 14.0. [...] # 30 tab(s), 0 Refill(s), [facility]: [id number],167.6, cm, 02/04/23 14:25:00 EDT, Height Time Spent I spent a total of 36 minutes reviewing the patient s diagnostic labs/tests, seeing and examining the patient and documenting in the medical record, see assessment for further detail. Digitally Signed by MIREYA SALGUERO on 02/05/2023 03:09 PM [id number] Vascular surgery Consult note Date of Service [...] mg= 1 mL, IV Push, q3h, PRN [place] 325- 5 mg oral tablet, 1 tab(s), [...] LUIS MAGALLANES MD on 02/05/2023 12:13 PM [id number] [facility] Progress note Date of Service [...] a primary PCP. I did speak to web content & social media manager in regards to helpingthe patient find [...] by UMER LARKIN on 02/05/2023 10:24 AM [id number] Cardiology Consult note Date of Service 02/04/2023 [...] AAA CVC: New 77-year-old man admitted to as transfer from [place] for acute appendicitis, cardiology service consulted for [...] the consult. d/w Dr Robin Sherman MD Netsuite Consultant Cortext or Pager [phone] Problem List/Past Medical History Ongoing No qualifying [...] GURPREET SHERMAN MD on 02/04/2023 03:51 PM [id number] Anesthesiology Consult note Patient: ROSIBEL KUMARI Age: [...] PASCUAL BEE MD on 02/04/2023 09:05 PM [id number] History and physical note Date of Service 02/04/2023 Chief Complaint Acute appendicitis History of Present Illness This patient is a 77-year-old gentleman who presented to [facility] with complaint of right lower abdominal pain. [...] cooperative. Lab Results Seen and reviewed from [facility] Imaging Results and Diagnostics lisa for Exam: Pain. Sharp right lower quadrant pain onset on Friday. Known right-sided inguinal hernia. FINDINGS: Calcified granuloma seen in the lingula and right lower lobe. Minimal basilar atelectasis. There is no visible pleural or pericardial effusion. The heart is normal in size. Dzya-as-yhzugiva coronary artery atherosclerosis. Numerous low attenuating lesions [...] noticed 4 years ago who presented to [place] emergency room for complaints of sudden sharp [...] these findings the patient was transferred from [facility] to [facility] and admitted to the surgical [...] by UMER LARKIN on 02/04/2023 03:34 PM [id number] Anesthesiology Consult note Patient: ROSIBEL KUMARI Age: [...] Weight 77.3 kg Weight Lbs 170.1 lb [place] Body Weight 63.76 kg BSA Admission 1.87 [...] Anesthesiologist SN - CAt - Role Performed DRYING MACHINE RECEIVER SN - CAt - Role Performed Dehydrator Tender 1 SN - CAt - Role Performed [...] Type 0-10 Pain scale Nail Bed Color [place] Capillary Refill < 2 seconds Heart Rhythm [...] Facial Movement Symmetric resting/crying All Extremity Description [place], Normal for ethnicity Skin Temperature Warm Temperature All Extremities Warm Skin Description [place] Skin Integrity Intact Skin Turgor Elastic Mucous Membrane Color [place] Mucous Membrane Description Moist Sensory Perception Joseph [...] Diagnosis [place] No Use of Ambulatory Aid Sanhces None, bedrest, wheelchair, nurse IV/PRN Adapter Fall [...] Detail No Transport Mode Order Detail Wheelchair Gas Tester Details Form Gas Tester Details Form 02/04/2023 14:25 EDT Designated Person #1 We May Share PHYLLIS Mcwilliams Designated Person #1 Relationship Other: grandson Privacy Restrictions Requested None Height 167.6 cm Height in inches 66 inch(es) Admission Weight 77.3 kg Weight Lbs 170.1 lb [place] Body Weight 63.76 kg BSA Admission 1.87 [...] Evaluation Verbalizes/Nonverbally indicates understanding Preferred Written Language Libyan Preferred Spoken Language Libyan Information Given by Patient Patient's Current Physicians [...] Transfer Ground ambulance Required Personnel for Transfer Ancient Art Curator Belongings At Bedside Transferred with patient Personal [...] 95 % 02/04/2023 12:45 EDT [place] Screen ED/CRIMINAL JUDGE patient History of Fall in Last 3 [...] ONLY 02/04/2023 10:20 EDT Accompanied By Staff Seat Coverer Out of Room Returned from Current Location [...] Lipase Level 31 U/L 02/04/2023 9:51 EDT [place] [facility] Note History and Physical 02/04/2023 [...] Recommended GENESIS Level 3 Nail Bed Color [place] Capillary Refill < 2 seconds Respirations Unlabored Respiratory Pattern Regular Breath Sounds Auscultated Anterior only All Lobes Breath Sounds Clear, Diminished Oxygen Therapy Room air Oxygen Saturation 94 % Abdomen Description Non-distended, Soft Abdomen Palpation Tender Abdomen Tender RLQ Bowel Sounds All Quadrants Present Urinary Elimination Voiding, no difficulties Urine Color Yellow Urine Description Medium amount Skin Temperature Warm Skin Description [place], Normal for ethnicity, Dry Skin Integrity Intact Skin Turgor Elastic Mucous Membrane Color [place] Mucous Membrane Description Moist Gait Steady Level [...] No Weight Loss No Preferred Written Language Libyan Preferred Spoken Language Libyan Tracking Group ED AO Tracking Group Tracking [...] Count 0 EA . Assessment and Plan [place] Society of Anesthesiologists (ASA) physical status classification: [...] PASCUAL BEE MD on 02/04/2023 04:19 PM [id number] History and physical note Date of Service 02/04/2023 Chief Complaint Acute appendicitis History of Present Illness This patient is a 77-year-old gentleman who presented to [facility] with complaint of right lower abdominal pain. [...] cooperative. Lab Results Seen and reviewed from [facility] Imaging Results and Diagnostics lisa for Exam: Pain. Sharp right lower quadrant pain onset on Friday. Known right-sided inguinal hernia. FINDINGS: Calcified granuloma seen in the lingula and right lower lobe. Minimal basilar atelectasis. There is no visible pleural or pericardial effusion. The heart is normal in size. Txcv-ik-[id number] coronary artery atherosclerosis. Numerous low attenuating lesions [...] noticed 4 years ago who presented to [place] emergency room for complaints of sudden sharp [...] these findings the patient was transferred from [facility] to [facility] and admitted to the surgical [...] by UMER LARKIN on 02/04/2023 03:34 PM [id number] Cardiology Consult note Date of Service 02/04/2023 [...] AAA CVC: New 77-year-old man admitted to as transfer from [place] for acute appendicitis, cardiology service consulted for [...] the consult. d/w Dr Robin Sherman MD Netsuite Consultant Cortext or Pager [phone] Problem List/Past Medical [...] GURPREET SHERMAN MD on 02/04/2023 03:51 PM [id number] Consult note Date of Service 02/04/23 Reason for Consultation hypertension, bradycardia Referring Physician Dr. Gilliam History of Present Illness 77-year-old male with no previously known past medical history [facility] to[facility]. He was found to have leukocytosis on presentation 14,400 and also blood pressure of202/97. Also bradycardic as low as 47. EKG obtained with sinus bradycardia DE of [address] changes.Troponin of 14.0. [...] Personally reviewed his EKG with sinus bradycardia DE of 221 concerning for first-degree AV block. [...] CHARLEEN FUENTES MD on 02/04/2023 03:30 PM [id number] Evaluation + Plan noteExtracted from: Title:History and Physical Author:JANICE LARKIN DELIVERER FOOD-APARTMENT RENTAL CLERK Date:02/04/23 This patient is a pleasant [age]-year-old gentleman who denies any past medical history other than a right inguinal hernia he noticed 4 years ago who presented to [place] emergency room for complaints of sudden sharp [...] these findings the patient was transferred from [facility] to [facility] and admitted to the surgical [...] Appointment Date:02/12/2023 04:00:00 PM Scheduled Provider:LASHON GOLDBERG Location:[facility] Appointment Type:PC MONEY LAUNDERING INVESTIGATOR Unassigned Hospital Follow Up Appointment Date:02/20/2023 01:50:00 PM Scheduled Provider:TANNER GILLIAM MD Location:[facility] Appointment Type:GS OV Post Op 06-27-2023 Note ORIGINAL EXAMINATION: CT OF THE [...] effusion. The heart is normal in size. Gwnf-gw-umlmyanq coronary artery atherosclerosis. Numerous low attenuating lesions [...] 02/04/2023 11:18:15 AM Ordering Provider: LINDA LANIAUSKAS [facility]06-27-2023 Note ORIGINAL EXAMINATION: CT OF THE ABDOMEN [...] effusion. The heart is normal in size. Vdft-ce-vkalzttu coronary artery atherosclerosis. Numerous low attenuating lesions [...] Sign Date: 02/04/2023 11:18:15 AM Ordering Provider: [facility] Anesthesiology Consult note* PASCUAL BEE MD: PERFORM, SIGN, VERIFY Event Display: Anesthesiology Consultation Authored Date: [id number] Patient: ROSIBEL KUMARI Age: 77 years Sex: [...] VERIFY Event Display: Anesthesiology Consultation Authored Date: [id number] Patient: ROSIBEL KUMARI Age: 77 years Sex: [...] Weight 77.3 kg Weight Lbs 170.1 lb [place] Body Weight 63.76 kg BSA Admission 1.87 [...] Anesthesiologist SN - CAt - Role Performed DRYING MACHINE RECEIVER SN - CAt - Role Performed Dehydrator Tender 1 SN - CAt - Role Performed [...] Type 0-10 Pain scale Nail Bed Color [place] Capillary Refill < 2 seconds Heart Rhythm [...] Facial Movement Symmetric resting/crying All Extremity Description [place], Normal for ethnicity Skin Temperature Warm Temperature All Extremities Warm Skin Description [place] Skin Integrity Intact Skin Turgor Elastic Mucous Membrane Color [place] Mucous Membrane Description Moist Sensory Perception Joseph [...] Detail No Transport Mode Order Detail Wheelchair Gas Tester Details Form Gas Tester Details Form 02/04/2023 14:25 EDT Designated Person #1 We May Share PHYLLIS Mcwilliams Designated Person #1 Relationship Other: grandson Privacy Restrictions Requested None Height 167.6 cm Height in inches 66 inch(es) Admission Weight 77.3 kg Weight Lbs 170.1 lb [place] Body Weight 63.76 kg BSA Admission 1.87 [...] Evaluation Verbalizes/Nonverbally indicates understanding Preferred Written Language Libyan Preferred Spoken Language Libyan Information Given by Patient Patient's Current Physicians [...] Transfer Ground ambulance Required Personnel for Transfer Ancient Art Curator Belongings At Bedside Transferred with patient Personal [...] 95 % 02/04/2023 12:45 EDT [place] Screen ED/CRIMINAL JUDGE patient History of Fall in Last 3 [...] ONLY 02/04/2023 10:20 EDT Accompanied By Staff Seat Coverer Out of Room Returned from Current Location [...] Lipase Level 31 U/L 02/04/2023 9:51 EDT [place] [facility] Note History and Physical 02/04/2023 [...] Recommended GENESIS Level 3 Nail Bed Color [place] Capillary Refill < 2 seconds Respirations Unlabored Respiratory Pattern Regular Breath Sounds Auscultated Anterior only All Lobes Breath Sounds Clear, Diminished Oxygen Therapy Room air Oxygen Saturation 94 % Abdomen Description Non-distended, Soft Abdomen Palpation Tender Abdomen Tender RLQ Bowel Sounds All Quadrants Present Urinary Elimination Voiding, no difficulties Urine Color Yellow Urine Description Medium amount Skin Temperature Warm Skin Description [place], Normal for ethnicity, Dry Skin Integrity Intact Skin Turgor Elastic Mucous Membrane Color [place] Mucous Membrane Description Moist Gait Steady Level of Consciousness Alert Eye Opening Response [place] Spontaneously Best Motor Response [place] Obeys simple commands Best Verbal Response [place] Oriented Kenny Coma Score 15 Violence Risk [...] No Weight Loss No Preferred Written Language Libyan Preferred Spoken Language Libyan Tracking Group ED AO Tracking Group Tracking [...] Count 0 EA . Assessment and Plan [place] Society of Anesthesiologists (ASA) physical status classification: [...] PASCUAL BEE MD on 02/04/2023 04:19 PM Evaluation + Plan note No data available for this section [facility] Evaluation + Plan note Future Appointments Appointment Date:02/20/2023 01:50:00 PM Scheduled Provider:TANNER GILLIAM MD Location:[facility] Appointment Type:GS OV Post Op [facility] Evaluation + Plan note Future Appointments [facility] Evaluation + Plan note Future Appointments Appointment Date:10/31/2023 02:00:00 PM Scheduled Provider: Location:[facility] Appointment Type:VL AOH - ABIs (ankles only) Appointment Date:10/31/2023 03:00:00 PM Scheduled Provider: Location:[facility] Appointment Type:CT Angiography Abd Aorta + Iliofemoral Future Scheduled Tests Radiology* CT Angiography Abd Aorta + Iliofemoral 10/31/23 [facility] Evaluation noteNo assessment information available [facility] Work Phone: Hospital Discharge instructions No data available for this section [facility] Progress note No data available for this section [facility] Reason for referral (narrative)No reason for referral [facility] Work Phone: Summary Purpose Family History Relationship [...] Member Role Status Dates Jamal Beam VSC, MONEY LAUNDERING INVESTIGATOR-C Primary Care Provider Active Team Status: Inactive Member Role Status Dates Jamal Beam VSC, MONEY LAUNDERING INVESTIGATOR-C Primary Care Provider Active Start: January 28, 2025 End: January 28, 2025 rJbulun Beam VSC, MONEY LAUNDERING INVESTIGATOR-C Attending Provider Active Start: January 28, 2025 End: January 28, 2025 Team Status: Active Member Role/Relationship Status Dates Jamal Beam VSC, MONEY LAUNDERING INVESTIGATOR-C Primary Care Provider Active Team Status: Inactive Member Role/Relationship Status Dates Zebulun Beam VSC, MONEY LAUNDERING INVESTIGATOR-C Primary Care Provider Active Start: January 28, 2025 End: January 28, 2025 Zebulun Beam VSC, MONEY LAUNDERING INVESTIGATOR-C Attending Provider Active Start: January 28, 2025 End: January 28, 2025 Team Status: Inactive Member Role/Relationship Status Dates Zebulun Beam VSC, MONEY LAUNDERING INVESTIGATOR-C Primary Care Provider Active Start: March 09, 2025 End: March 09, 2025 Zebulun Beam VSC, MONEY LAUNDERING INVESTIGATOR-C Referring Provider Active Start: March 09, 2025 End: March 09, 2025 Dr. Dickson Sanchez MD Attending Provider Active S tart: March 09, 2025 End: March 09, 2025 Team Status: Inactive Member Role/Relationship Status Dates Zebulun Beam VSC, MONEY LAUNDERING INVESTIGATOR-C Primary Care Provider Active Start: March 24, 2025 End: March 24, 2025 Zebulun Beam VSC, MONEY LAUNDERING INVESTIGATOR-C Attending Provider Active Start: March 24, 2025 End: March 24, 2025 Team Status: Active Member Role/Relationship Status Dates Zebulun Beam VSC, MONEY LAUNDERING INVESTIGATOR-C Primary Care Provider Active Start: March 30, 2025 Dr. Dickson Sanchez MD Attending Provider Active S tart: March 30, 2025 Dr. Dickson Sanchez MD Referring Provider Active S tart: March 30, 2025 Team Status: Inactive Member Role/Relationship Status Dates Zebulun Beam VSC, MONEY LAUNDERING INVESTIGATOR-C Primary Care Provider Active Start: March 30, 2025 End: March 30, 2025 Dr. Dickson Sanchez MD Attending Provider Active S tart: March 30, 2025 End: March 30, 2025 Dr. Dickson Sanchez MD Referring Provider Active S tart: March 30, 2025 End: March 30, 2025 Team Status: Active Member Role/Relationship Status Dates Zebulun Beam VSC, MONEY LAUNDERING INVESTIGATOR-C Primary care physician Active Team Status: Inactive Member Role/Relationship Status Dates Zebulun Beam VSC, MONEY LAUNDERING INVESTIGATOR-C Primary care physician Active Start: January 28, 2025 End: January 28, 2025 Zebulun Beam VSC, MONEY LAUNDERING INVESTIGATOR-C Attending physician Active Start: January 28, 2025 End: January 28, 2025 Team Status: Inactive Member Role/Relationship Status Dates Zebulun Beam VSC, MONEY LAUNDERING INVESTIGATOR-C Primary care physician Active Start: March 09, 2025 End: March 09, 2025 Zebulun Beam VSC, MONEY LAUNDERING INVESTIGATOR-C Referring Provider Active Start: March 09, 2025 End: March 09, 2025 Dr. Dickson Sanchez MD Attending physician Active Start: March 09, 2025 End: March 09, 2025 Team Status: Inactive Member Role/Relationship Status Dates Zebulun Beam VSC, MONEY LAUNDERING INVESTIGATOR-C Primary care physician Active Start: March 24, 2025 End: March 24, 2025 Zebulun Beam VSC, MONEY LAUNDERING INVESTIGATOR-C Attending physician Active Start: March 24, 2025 End: March 24, 2025 Team Status: Inactive Member Role/Relationship Status Dates Zebulun Beam VSC, MONEY LAUNDERING INVESTIGATOR-C Primary care physician Active Start: March 30, 2025 End: March 30, 2025 Dr. Dickson Sanchez MD Attending physician Active Start: March 30, 2025 End: March 30, 2025 Dr. Dickson Sanchez MD Referring Provider Active S tart: March 30, 2025 End: March 30, 2025 Team Status: Inactive Member Role/Relationship Status Dates Zebulun Beam VSC, MONEY LAUNDERING INVESTIGATOR-C Primary care physician Active Start: April 18, 2025 End: April 18, 2025 Zebulun Beam VSC, MONEY LAUNDERING INVESTIGATOR-C Attending physician Active Start: April 18, 2025 End: April 18, 2025 Zebulun Beam VSC, MONEY LAUNDERING INVESTIGATOR-C Referring Provider Active Start: April 18, 2025 End: April 18, 2025 Team Status: Inactive Member Role/Relationship Status Dates Zebulun Beam VSC, MONEY LAUNDERING INVESTIGATOR-C Primary care physician Active Start: March 09, 2025 End: March 09, 2025 Zebulun Beam VSC, MONEY LAUNDERING INVESTIGATOR-C Referring Provider Active Start: March 09, 2025 End: March 09, 2025 Dr. Dickson Sanchez MD Attending physician Active Start: March 09, 2025 End: March 09, 2025 Team Status: Inactive Member Role/Relationship Status Dates Zebulun Beam VSC, MONEY LAUNDERING INVESTIGATOR-C Primary care physician Active Start: March 24, 2025 End: March 24, 2025 Zebulun Beam VSC, MONEY LAUNDERING INVESTIGATOR-C Attending physician Active Start: March 24, 2025 End: March 24, 2025 Team Status: Inactive Member Role/Relationship Status Dates Zebulun Beam VSC, MONEY LAUNDERING INVESTIGATOR-C Primary care physician Active Start: March 30, 2025 End: March 30, 2025 Dr. Dickson Sanchez MD Attending physician Active Start: March 30, 2025 End: March 30, 2025 Dr. Dickson Sanchez MD Referring Provider Active S tart: March 30, 2025 End: March 30, 2025 Team Status: Inactive Member Role/Relationship Status Dates Zebulun Beam VSC, MONEY LAUNDERING INVESTIGATOR-C Primary care physician Active Start: April 18, 2025 End: April 18, 2025 Zebulun Beam VSC, MONEY LAUNDERING INVESTIGATOR-C Attending physician Active Start: April 18, 2025 End: April 18, 2025 Zebulun Beam VSC, MONEY LAUNDERING INVESTIGATOR-C Referring Provider Active Start: April 18, 2025 End: April 18, 2025 Team Status: Inactive Member Role/Relationship Status Dates Zebulun Beam VSC, MONEY LAUNDERING INVESTIGATOR-C Primary care physician Active Start: May 30, 2025 End: May 30, 2025 Zebulun Beam VSC, MONEY LAUNDERING INVESTIGATOR-C Referring Provider Active Start: May 30, 2025 End: May 30, 2025 Dr. Dickson Sanchez MD Attending physician Active Start: May 30, 2025 End: May 30, 2025 Team Status: Inactive Member Role/Relationship Status Dates Zebulun Beam VSC, MONEY LAUNDERING INVESTIGATOR-C Primary care physician Active Start: May 30, [...] section and content) DATE CREATED AUTHOR 11/07/2023 [facility] ([place]) DATE CREATED AUTHOR AUTHOR'S ORGANIZ ATION 06/23/2025 [facility] Goals (unrecognized section and content) Goals may [...] BE BASED ON THE PRIMARY CLINICAL RECORDS. [facility] [employer] [facility]. provides no warranty or guarantee of the accuracy or completeness of information in this document.
[2025-08-08 10:59] LABS: Anion Gap 10 (7-18); BUN 24 mg/dL (4-19); BUN/Creat Ratio 14.0 RATIO (10-20); Calcium,Total 9.4 mg/dL (7.6-11.0); Carbon Dioxide 23.6 mmol/L (20.0-29.0); Chloride 107 mmol/L (96-106); Glucose 100 mg/dL (70-99); Potassium 4.4 mmol/L (3.5-5.1)
== END | disposition home or self-care (01) ==
LOC: MFPLAB 08:43
PROVIDERS: PCP Family Medicine; Visit Provider Family Medicine
DX: I10 Essential (primary) hypertension (principal)
CPT/HCPCS: 36415; 80048